=== PATIENT | male | born 1935 | race Caucasian/White ===

== ENCOUNTER → 2020-04-28 09:20 | Outpatient (BNVA) | payer MEDICARE, SELFPAY | PROVIDERS: PCP Internal Medicine; Referring Provider Internal Medicine; Visit Provider Family Medicine Adult Medicine | DX: B02.29 Other postherpetic nervous system involvement (principal); G50.0 Trigeminal neuralgia; R51.9 Headache, unspecified; Z79.899 Other long term (current) drug therapy; Z79.82 Long term (current) use of aspirin; Z95.0 Presence of cardiac pacemaker | CPT/HCPCS: 99213 ==

== ENCOUNTER 2020-05-09 11:20 | Outpatient (REF) | payer MEDICARE, SELFPAY | END 2020-05-09 11:21 | disposition home or self-care (01) | LOC: HO.LNP 11:20 | PROVIDERS: Visit Provider Hospitalist | DX: Z20.828 Contact with and (suspected) exposure to other viral communicable diseases (principal) | CPT/HCPCS: 87635 ==

== ENCOUNTER 2020-05-30 08:20 | Outpatient (REF) | payer MEDICARE, SELFPAY ==
--- NOTE | 2020-05-30 08:25 | US_ITS ---
EXAMINATION: US ABDOMEN COMPLETE CLINICAL INFORMATION: Unspecified abdominal pain. COMPARISON: Limited retroperitoneal ultrasound (renals only) dated 03/02/2020. CT abdomen pelvis 08/28/2011 TECHNIQUE: Real-time imaging of the abdominal viscera. FINDINGS: PANCREAS: Visualized proximal pancreas is normal. The tail of the pancreas is obscured by bowel gas. ABDOMINAL AORTA: There are atherosclerotic changes of the aorta but no aneurysm seen. INFERIOR VENA CAVA: Visualized portions are normal. LIVER: There is a complex cystic 4.4 x 2.8 x 3.4 cm structure adjacent to or arising from the liver near the binta hepatis. This has thick septations and solid component internally. This was not seen on the recent renal ultrasound 03/02/2020 normal on the remote prior CT scan 08/28/2011. There is also a 1.7 x 1.8 x 1.7 cm cyst in the left lobe of liver with a single thin septation. The liver is normal in size. The liver contour is normal. Parenchymal echogenicity is normal. There is no intrahepatic biliary duct dilatation seen. GALLBLADDER: Surgically absent. COMMON BILE DUCT: Normal in caliber measuring 0.62 cm in diameter. RIGHT KIDNEY: Normal. No hydronephrosis. No renal calculi or focal parenchymal lesions. The kidney measures 11.5 cm in maximum dimension. LEFT KIDNEY: Normal. No hydronephrosis. No renal calculi or focal parenchymal lesions. The kidney measures 11.8 cm in maximum dimension. SPLEEN: Normal. The spleen measures 9.0 cm in maximum dimension. FREE FLUID: None. US/US abdomen complete IMPRESSION: New complex cystic 4.4 cm structure seen arising from or adjacent to the liver near the binta hepatis. The finding is new from recent prior studies. The etiology is not entirely certain. This could represent a liver lesion such as an abscess or metastasis but a mass in the binta hepatis such as lymphadenopathy is a consideration as well. Recommend contrast-enhanced CT scan for further evaluation. The report will be called to the ordering clinician by a [facility] Physician Academic Associate.
== END 2020-05-30 08:21 | disposition home or self-care (01) ==
LOC: HO.HMGCX 08:20
PROVIDERS: PCP Nurse Practitioner Family; Visit Provider Nurse Practitioner Family
DX: R10.9 Unspecified abdominal pain (principal)
CPT/HCPCS: 76700

== ENCOUNTER 2020-06-20 11:40 | Outpatient (REF) | payer MEDICARE, SELFPAY ==
[2020-06-20 14:26] LABS: Blood Urea Nitrogen 29 mg/dL (9-16); Estimated Glomerular Filt Rate 40
== END 2020-06-20 11:41 | disposition home or self-care (01) ==
LOC: HO.HMGCLDS 11:40
PROVIDERS: PCP Internal Medicine; Visit Provider Nurse Practitioner Family
DX: R94.4 Abnormal results of kidney function studies (principal)
CPT/HCPCS: 82565; 84520

== ENCOUNTER 2020-06-23 08:05 | Outpatient (REF) | payer MEDICARE, OTHER, SELFPAY ==
--- NOTE | 2020-06-23 08:17 | CT_ITS ---
EXAMINATION: CT ABDOMEN WITH CONTRAST CLINICAL INFORMATION: Ultrasound abdomen 05/30/2020 COMPARISON: None TECHNIQUE: Contiguous axial thin section helical images of the abdomen were performed following the administration of oral contrast and 85 mL of Omnipaque 350 intravenous contrast. The data set was reformatted in the coronal and sagittal planes and reviewed on an independent workstation. This CT examination was performed using dose optimization techniques as appropriate, variously including the following: *Automated exposure control *Adjustment of mA and/or kV according to patient size (this includes techniques or standardized protocols for targeted exams where dose is matched to indication/reason for exam; i.e. extremities or head) *Use of iterative reconstruction technique DLP: 1069 mGy-cm FINDINGS: LUNG BASES: The lung bases are clear. The heart size is normal. There are pacer electrodes of the right atrium and right ventricle. Median sternotomy sutures are seen from previous intervention. LIVER, GALLBLADDER, AND BILIARY TREE: The liver is normal size, shape and density. There is a 1.7 cm hypodensity, left hepatic lobe, likely simple cyst. A smaller simple 5 mm cyst is seen in the right hepatic lobe segment 7. No additional lesions seen. No intrahepatic ductal dilatation. Gallbladder has been surgically removed. PANCREAS: The pancreas is homogeneous echotexture without enlargement. SPLEEN: The spleen is unremarkable. ADRENAL GLANDS AND KIDNEYS: Bilateral adrenal glands are normal. Both kidneys are normal size, shape and position. No radiopaque renal calculi or hydronephrosis seen. There is minimal perinephric bilateral stranding. BOWEL LOOPS: There is scattered stool and diverticula seen throughout the colon. There is no evidence of diverticulitis. The small bowel loops are normal caliber. The stomach is nondistended. LYMPH NODES: Normal. VASCULAR: There is atherosclerotic calcification of abdominal aorta without aneurysmal dilatation. BONES: No lytic or sclerotic process seen. There is mild ventral spondylosis lower dorsal upper lumbar spine. CT/CT abdomen w con IMPRESSION: 1. No acute intra-abdominal process seen. 2. Scattered colonic diverticulosis without diverticulitis.
[2020-06-23] MEDS: iohexoL 350 MG/ML 100 ML INFUS..BTL 85 ML IV (09:22)
== END 2020-06-23 08:06 | disposition home or self-care (01) ==
LOC: HO.CT 08:05
PROVIDERS: Visit Provider Nurse Practitioner Family
DX: K76.9 Liver disease, unspecified (principal); R10.9 Unspecified abdominal pain
CPT/HCPCS: 74160; Q9967

== ENCOUNTER 2020-09-20 10:00 | Outpatient (RCR) | payer MEDICARE, OTHER, SELFPAY ==
--- NOTE | 2020-07-28 10:57 | MHC.PT.EP ---
[facility] [place] Office [place] Office [place] Office [address] Rito Ramos [address] [phone] F: [phone] F: [phone] F: [phone] F: [phone] Physical Therapy Plan of Care Date of Evaluation: 07/28/20 Date of Surgery: none. Diagnosis: Left hip pain. Assessment: Patient is a 85 year old R handed male who presents with s/s consistent with hip pain. He was previously seen for back/HS discomfort with good results. He has a complex PMH and is on blood thinners. He has been fairly sedentary during the pandemic resulting in some weight gain. Otherwise, no change in PMH since lasts bout of PT. Current impairments include pain, ROM, flexibility, strength, activity tolerance and functional mobility. Functional limitations include decreased ability to walk, stand, transfer, negotiate stairs, and perform weight bearing activities.. Patient is motivated with good rehab potential. Skilled PT will address impairments and functional limitations in order to achieve goals. Frequency and Duration: The patient will be seen 2x/week for 6 weeks Short Term Goals: I with HEP - 2 weeks improve HS flexibility, 90/90 to -20 or better - 3 weeks Machine Tender Goals: Able to walk/stand > 20 minutes without increased pain - 4 weeks LEFS 56/80 - 6 weeks Lumbar AROM rotation to 75% b/l - 5 weeks MAx pain with ADLs 2/10 - 6 weeks hip abd strength 4/5 - 5 weeks Treatment Plan: Modalities to reduce pain, spasms and effusion. Manual therapy to restore motion and function. Therapeutic exercise to improve strength and flexibility. Neuromuscular re-education for posture and balance. Therapeutic activities to return to functional activities of daily living. Electronically signed by: Semaj Helm, PT Please sign and return to therapist. Thank you for your referral.
--- NOTE | 2020-11-02 13:11 | MHC.PT.DC ---
[facility] [place] Office [place] Office [place] Office [address] Rito Ramos [address] [phone] F: [phone] F: [phone] F: [phone] F: [phone] Physical Therapy Discharge Report Diagnosis: Left hip pain. Date of Surgery: none. Date of Evaluation: 07/28/20 Date of Discharge: 10/03/20 Treatments to Date: 14 Cancellations to Date: No Shows to Date: Discharge Status: Improved Function Independent with HEP Discharge Summary: Pt progressed well over the course of skilled PT making progress on impairments and functional limitations resulting in an improved quality of life. Pt is I with HEP and appropriate to d/c to HEP at this time. Electronically signed by: Semaj Helm, PT Please sign and return to therapist. Thank you for your referral.
== END 2020-11-02 13:11 | disposition home or self-care (01) ==
LOC: HO.PTCHIC 10:00
PROVIDERS: PCP Nurse Practitioner Family; Visit Provider Nurse Practitioner Family
DX: M25.552 Pain in left hip (principal)
CPT/HCPCS: 97035; 97110; 97112; 97140; 97163

== ENCOUNTER 2020-11-16 12:13 | Outpatient (REF) | payer MEDICARE, SELFPAY ==
[2020-11-16 14:21] LABS: Blood Urea Nitrogen 25 mg/dL (9-16); Estimated Glomerular Filt Rate 39
== END 2020-11-16 12:14 | disposition home or self-care (01) ==
LOC: HO.HMGCLDS 12:13
PROVIDERS: PCP Nurse Practitioner Family; Visit Provider Nurse Practitioner Family
DX: G50.0 Trigeminal neuralgia (principal); R51.9 Headache, unspecified
CPT/HCPCS: 36415; 82565; 84520

== ENCOUNTER 2020-11-20 08:09 | Outpatient (REF) | payer MEDICARE, SELFPAY ==
--- NOTE | ~2020-11-20 | CT_ITS ---
EXAMINATION: CT BRAIN WITHOUT/WITH CONTRAST CT INTERNAL AUDITORY CANALS CLINICAL INFORMATION: Trigeminal neuralgia. COMPARISON: CT brain 10/06/2019. TECHNIQUE: 5 mm thin axial and reformatted 2 mm thin sagittal and coronal images of the brain were obtained without and with IV 100 mL Omnipaque 350. Subsequently 0.6 mm thin axial and reformatted 0.6 mm thin sagittal and coronal images of bilateral IAC was obtained. DLP: 1101 mGy-cm. FINDINGS: BRAIN: There is no acute intra-axial or extra-axial bleed, masses or midline shift. There is no acute infarction in evolution. There are punctate hypodensities in the right thalamus and right basal ganglia, likely small lacunar infarcts. Lateral ventricles are symmetrical in size and configuration without enlargement. There is mild periventricular hypodensity in both cerebral hemispheres suggestive of chronic small vessel ischemic changes. Bone windows reveal no calvarial abnormality. Mild mucoperiosteal thickening bilateral paranasal sinuses noted. The rest of the paranasal sinuses and mastoid air cells are well aerated. There is no scalp soft tissue abnormality. IAC: There is moderate-sized wax seen in the right external auditory canal, almost attached to the tympanic membrane. The tympanic membrane and the scutum appear intact. The middle ear ossicles are symmetrical to the left middle ear. There is no soft tissue mass, fluid collection or mucosal thickening. Bilateral internal artery canals are intact. There is no bony erosive changes. The soft tissues are normal. The right mastoid air cells are well aerated. The left external auditory canal is unremarkable. The tympanic membrane appears intact. The middle ear ossicles are symmetrical to the right side. No soft tissue mass or fluid collection seen in the left middle ear. The internal auditory canal is intact and symmetrical to right side. The semicircular canals, vestibule and the cochlear turns are maintained normal. No bony abnormality seen involving the middle ear. Bony elaine of the mastoid sinuses including the roof of the middle ear and the tegmen tympani are intact. Bilateral carotid canals are intact with bony elaine. Atherosclerotic calcification of both intracranial carotid arteries is noted. 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 No acute intracranial bleed, edema or mass effect. No acute infarct either. Symmetrical bilateral unremarkable mastoid sinuses, temporal bones except for moderate size soft tissue plaques along the right external auditory canal adjacent to the tympanic membrane.
== END 2020-11-20 08:10 | disposition home or self-care (01) ==
LOC: HO.CT 08:09
PROVIDERS: Visit Provider Nurse Practitioner Family
DX: G50.0 Trigeminal neuralgia (principal)
CPT/HCPCS: 70450; 70480

== ENCOUNTER 2021-01-08 11:12 | Outpatient (REF) | payer MEDICARE, SELFPAY ==
[2021-01-08 12:30] LABS: Anion Gap 9 (12-20); Blood Urea Nitrogen 30 mg/dL (9-16); Calcium 8.7 mg/dL (8.4-10.2); Carbon Dioxide 29 mmol/L (22-29); Chloride 108 mmol/L (96-108); Estimated Glomerular Filt Rate 38; Phosphorus 3.2 mg/dL (2.7-4.5); Potassium 5.1 mmol/L (3.3-5.1); Sodium 141 mmol/L (135-145)
[2021-01-08 12:41] LABS: Renal w Reflex Lab Use Only Order verified
== END 2021-01-08 11:13 | disposition home or self-care (01) ==
LOC: HO.LAB 11:12
PROVIDERS: Visit Provider Internal Medicine Nephrology
DX: I12.9 Hypertensive chronic kidney disease with stage 1 through stage 4 chronic kidney disease, or unspecified chronic kidney disease (principal); N18.30 Chronic kidney disease, stage 3 unspecified; R79.89 Other specified abnormal findings of blood chemistry
CPT/HCPCS: 36415; 80051; 82310; 82565; 84100; 84520

== ENCOUNTER 2021-04-16 07:39 | Day surgery (SDC) | payer MEDICARE, OTHER, SELFPAY ==
[2021-04-10 15:47] VITALS: BMI 34.1
--- NOTE | 2021-04-11 13:28 | MHC.SHP ---
Pre-Procedural Eval Section A Date of Service: 04/11/21 The patient is an INPATIENT: No Changes since office visit: No Cold of Flu in the past 2 weeks, No New Medical Problems, No Changes in Medication and No Patient answered all questions The History & Physical has been completed within 30 days and I have reviewed it.: Yes Section B Chief Complaint: cataract left eye Allergies: Allergies Allergy/AdvReac Type Severity Reaction Status Date / Time gabapentin Allergy Unknown lip Verified 04/10/21 15:36 swelling pregabalin [From Lyrica] Allergy Unknown Swelling Verified 04/10/21 15:36 Plan Diagnosis/Plan: Unchanged I have reviewed the history and physical and performed a pertinent physical examination on my patient. No changes have occurred unless specified.
--- NOTE | 2021-04-13 08:55 | HO.ANESPROP2 ---
Documented by User: Pari Espinoza NP 04/13/21 09:02 HPI - Anesthesia Eval Consult details Narrative: 86yo M for Left Cataract Extraction IOL Insertion PCP cleared No prev cataract on record Xarelto for afib and s/p AVR PMFSH Active Problems Active Problems: All Active Problems (Updated 04/12/21 @ 09:13 by [facility] Chest discomfort (Acute) Viral syndrome (Acute) Skin lesion (Acute) Abdominal pain (Acute) Hepatic lesion (Acute) Kidney function test abnormal (Acute) Depression (Acute) Lower back pain (Acute) Left hip pain (Acute) Trigeminal neuralgia (Acute) Pre-op evaluation (Acute) Right facial pain (Acute) Trigeminal neuralgia (Acute) Post herpetic neuralgia (Acute) Past Medical History Medical History (Updated 04/12/21 @ 09:13 by [facility]) Aortic stenosis Atrial fibrillation CAD (coronary artery disease) CKD (chronic kidney disease) Dyslipidemia Elevated PSA Gout History of claustrophobia History of shingles On anticoagulant therapy On beta diana at home Post herpetic neuralgia Right facial pain Spinal stenosis of lumbar region Trigeminal neuralgia Family History Family History Father No problems noted. Mother No problems noted. Surgical History Surgical History H/O aortic valve replacement History of aortic valve replacement History of fracture of leg History of heart bypass surgery History of laparoscopic cholecystectomy Pacemaker Status post lens implant Social History Social History (Reviewed 06/28/20 @ 07:34 by [facility]) Housing: House Are you a primary care manager to a significant other at home: No Do you presently have visiting nurse or other home services: No Patient Tobacco Use Status: Never used Tobacco e-Cigarette/Vaping Use: Never Used Second Hand Smoke Exposure: Yes Use of substances other than those prescribed or required for medical reasons: No Have you been hit, kicked, punched, or otherwise hurt by someone within the past year? If so, by whom?: No Are you DNR?: No Advance Directives: No Advance Directives Information Provided: No Advance Directives on File: No Recently lost weight without trying: No Eating poorly because of decreased appetite: No Nutrition Risks: No Nutritional Risk Poor oral hygiene: No service: Yes Current occupational status: unemployed Current occupational exposures/hazards: No Meds Allergies Allergy/AdvReac Type Severity Reaction Status Date / Time gabapentin Allergy Unknown lip Verified 04/12/21 09:05 swelling pregabalin [From Lyrica] Allergy Unknown Swelling Verified 04/12/21 09:05 Home Medications Medication Instructions Recorded Confirmed Last Taken Type amiodarone 100 mg tablet 100 mg PO DAILY 04/22/20 04/10/21 04/16/21 History amitriptyline 25 mg tablet 25 mg PO BID tab 04/22/20 04/10/21 Unknown History ascorbic acid (vitamin C) 100 mg 100 mg PO DAILY 04/22/20 04/10/21 Unknown History tablet (Vitamin C) aspirin 81 mg tablet,delayed 81 mg PO DAILY 04/22/20 04/10/21 Unknown History release (Adult Aspirin Regimen) flu vacc 2019-(65yr IM 04/22/20 01/11/21 Unknown History up)-MF59C(PF) 60 mcg(15 mcgx4)/0.5 mL IM syringe metoprolol tartrate 50 mg tablet 50 mg PO BID 04/22/20 04/10/21 04/16/21 History nitroglycerin 0.4 mg sublingual 0.4 mg SUBLINGUAL Q5M PRN 04/22/20 04/10/21 Unknown History tablet omeprazole 10 mg capsule,delayed 10 mg PO DAILY 04/22/20 04/10/21 04/16/21 History release rivaroxaban 20 mg tablet (Xarelto) 20 mg PO DAILY 04/22/20 04/10/21 04/16/21 History zolpidem 10 mg tablet (Ambien) 10 mg PO ONCE tab 04/22/20 04/10/21 Unknown History Exam Exam Date and Time: April 13, 2021 0855 Height,Weight and Vital Signs: Height 5 ft 9 in Weight 104.78 kg Pertinent Lab Results Pertinent Lab Results: Laboratory Tests 05/22/19 01/08/21 11:11 11:25 WBC 6.0 Hgb 14.1 Hct 43.8 Plt Count 104 L Sodium 141 Potassium 5.1 Chloride 108 Carbon Dioxide 29 BUN 30 H Creatinine 1.73 H Assessment and Plan Assessment Anesthesia Assessment: Chart Reviewed Documented by User: Robby Bunch MD 04/16/21 08:34 [facility] Past Medical History Medical History (Updated 04/12/21 @ 09:13 by [facility]) Aortic stenosis Atrial fibrillation CAD (coronary artery disease) CKD (chronic kidney disease) Dyslipidemia Elevated PSA Gout History of claustrophobia History of shingles On anticoagulant therapy On beta diana at home Post herpetic neuralgia Right facial pain Spinal stenosis of lumbar region Trigeminal neuralgia Family History Family History Father No problems noted. Mother No problems noted. Family history of problems with anesthesia: No Surgical History Surgical History H/O aortic valve replacement History of aortic valve replacement History of fracture of leg History of heart bypass surgery History of laparoscopic cholecystectomy Pacemaker Status post lens implant History of Problems with Anesthesia: No Social History Social History Housing: House Are you a primary care manager to a significant other at home: No Do you presently have visiting nurse or other home services: No Patient Tobacco Use Status: Never used Tobacco e-Cigarette/Vaping Use: Never Used Second Hand Smoke Exposure: Yes Use of substances other than those prescribed or required for medical reasons: No Have you been hit, kicked, punched, or otherwise hurt by someone within the past year? If so, by whom?: No Are you DNR?: No Advance Directives: No Advance Directives Information Provided: No Advance Directives on File: No Recently lost weight without trying: No Eating poorly because of decreased appetite: No Nutrition Risks: No Nutritional Risk Poor oral hygiene: No service: Yes Current occupational status: unemployed Current occupational exposures/hazards: No Meds Allergies Allergy/AdvReac Type Severity Reaction Status Date / Time gabapentin Allergy Unknown lip Verified 04/12/21 09:05 swelling pregabalin [From Lyrica] Allergy Unknown Swelling Verified 04/12/21 09:05 Home Medications Medication Instructions Recorded Confirmed Last Taken Type amiodarone 100 mg tablet 100 mg PO DAILY 04/22/20 04/10/21 04/16/21 History amitriptyline 25 mg tablet 25 mg PO BID tab 04/22/20 04/10/21 Unknown History ascorbic acid (vitamin C) 100 mg 100 mg PO DAILY 04/22/20 04/10/21 Unknown History tablet (Vitamin C) aspirin 81 mg tablet,delayed 81 mg PO DAILY 04/22/20 04/10/21 Unknown History release (Adult Aspirin Regimen) flu vacc 2019-(65yr IM 04/22/20 01/11/21 Unknown History up)-MF59C(PF) 60 mcg(15 mcgx4)/0.5 mL IM syringe metoprolol tartrate 50 mg tablet 50 mg PO BID 04/22/20 04/10/21 04/16/21 History nitroglycerin 0.4 mg sublingual 0.4 mg SUBLINGUAL Q5M PRN 04/22/20 04/10/21 Unknown History tablet omeprazole 10 mg capsule,delayed 10 mg PO DAILY 04/22/20 04/10/21 04/16/21 History release rivaroxaban 20 mg tablet (Xarelto) 20 mg PO DAILY 04/22/20 04/10/21 04/16/21 History zolpidem 10 mg tablet (Ambien) 10 mg PO ONCE tab 04/22/20 04/10/21 Unknown History Exam Airway Mallampati Class: II TM Dist: >3cm Neck ROM: Full Denture: Upper (partial permanent) and Lower Loose/Missing/Broken Teeth: Yes Heart: irreg irreg S1S2 Lungs: cta b/l Assessment and Plan Assessment Anesthesia Assessment: Anesthesia Plan Discussed Final Anesthetic Review Family History of Problems with Anesthesia: No History of Problems with Anesthesia: No NPO: Yes ASA Class: III Final Preanesthetic Review: No Changes in Pt Med Stat, Meds/Allgs Chart Reviewed, Consent Obtained/Reviewed and Anes Risks/Benef Reviewed Patient Risk: Intermediate Procedure Risk: Low Assessment/Block/Sedation in SS: Assess/Block/Sedation-SS Anesthetic Plan Anesthetic Plan: MAC: and Agree w/ Assess. and Plan Disposition: Standard PACU
[2021-04-16 08:03] VITALS: BP 170/89; PULSE 63; RESP 17; TEMP 36.1; O2SAT 96
[2021-04-16] MEDS: Tropicamide 1 % Ophth Sol 3 ML BTL 1 DROP EYE-LEFT ×3 (08:15→08:16)
[2021-04-16] MEDS: Phenylephrine HCL 2.5% Oph SoL 2 ML BOTTLE 1 DROP EYE-LEFT ×3 (08:15→08:16)
[2021-04-16] MEDS: Tetracaine HCl/PF 0.5% Oph Sol 4 ML DROPS 1 DROP EYE-LEFT (08:15)
[2021-04-16] MEDS: Lactated Ringers 500 ML 50 ML IV (08:20)
--- NOTE | 2021-04-16 09:30 | HO.PNOPHT ---
Ophthalmology Procedure Procedure Date of Service: 04/16/21 Ophthalmology Viscoelastic: Healon Duet Dual Pack Pro Ophthalmology Lenses: TECNIS [id number] (19.5) Procedure Notes: PREOPERATIVE DIAGNOSIS: Decreased visual acuity left eye secondary to cataract POSTOPERATIVE DIAGNOSIS: Same PROCEDURE: Left cataract extraction with intraocular lens insertion SURGEON: Zuhair Adames M.D. ANESTHESIA: Topical/MAC ESTIMATED BLOOD LOSS: None COMPLICATIONS: None After obtaining informed consent, the patient was brought to the operation room suite and placed in the supine position. After adequate sedation per anesthesia, topical drops of Tetracaine were given to the left eye. The eye was then prepped and draped in the usual sterile fashion. The operating room microscope was then positioned over the operative eye and a lid speculum placed. A paracentesis was created. Viscoelastic was then instilled into the anterior chamber. A three plane incision was then created temporally, utilizing a 2.85 mm keratome. Capsulotomy forceps were then utilized to create a circular tear capsulotomy. Hydrodissection and hydrodelineation were carried out until adequate mobilization of the nucleus occurred. Phacoemulsification was then utilized to remove the dense central nucleus followed by removal of the cortical material utilizing the automated aspiration irrigation unit. Viscoat elastic was instilled into the posterior capsular bag followed by placement of a posterior chamber intraocular lens without difficulty. The residual Viscoat elastic was then removed utilizing the automated IA machine. The wound was check and found to be watertight. The patient tolerated the procedure well and the lid speculum was removed. Intracameral injection of Vigamox 0.1 mL followed by a subtenon injection of Kenalog-40 0.2 mL were administered. The patient will be seen in the a.m.
[2021-04-16 09:55] VITALS: BP 165/80; PULSE 54; RESP 16; TEMP 36.5; O2SAT 98
== END 2021-04-16 10:02 | disposition home or self-care (01) ==
PROVIDERS: PCP Nurse Practitioner Family; Visit Provider Ophthalmology
PROC: (CPT 66985; principal; 2021-04-16 09:40)
DX: H25.12 Age-related nuclear cataract, left eye (principal)
CPT/HCPCS: 66984; J2250; J3010; J3300; V2632

== ENCOUNTER 2021-05-22 09:26 | Outpatient (REF) | payer MEDICARE, SELFPAY ==
[2021-05-22 12:01] LABS: Alanine Aminotransferase 30 U/L (0-40); Albumin Level 3.9 g/dL (3.5-5.0); Alkaline Phosphatase 75 U/L (39-117); Anion Gap 12 (12-20); Aspartate Amino Transferase 27 U/L (5-37); Bilirubin Total 0.6 mg/dL (0.0-1.0); Blood Urea Nitrogen 25 mg/dL (9-16); Calcium 8.9 mg/dL (8.4-10.2); Carbon Dioxide 27 mmol/L (22-29); Chloride 107 mmol/L (96-108); Estimated Glomerular Filt Rate 40; Glucose Random 109 mg/dL (60-115); Potassium 4.7 mmol/L (3.3-5.1); Sodium 141 mmol/L (135-145); Total Protein 6.9 g/dL (6.5-8.0)
[2021-05-22 12:22] LABS: TSH reflex Free T4 1.29 uIU/mL (0.32-4.0)
== END 2021-05-22 09:27 | disposition home or self-care (01) ==
LOC: HO.HMGCLDS 09:26
PROVIDERS: PCP Nurse Practitioner Family; Visit Provider Internal Medicine Cardiovascular Disease
DX: I48.19 Other persistent atrial fibrillation (principal)
CPT/HCPCS: 36415; 80053; 84443

== ENCOUNTER 2021-06-18 08:58 | Outpatient (REF) | payer MEDICARE, SELFPAY ==
--- NOTE | ~2021-06-18 | XR_ITS ---
EXAMINATION: XR CHEST CLINICAL INFORMATION: These. COMPARISON: None TECHNIQUE: 2 views of the chest were obtained. FINDINGS: The lungs are well-expanded and clear. The heart size and pulmonary vascularity is normal. There are pacer electrodes in right atrium and right ventricle. There is aortic valve stent is noted. There are median sternotomy sutures and nasal diana from previous CABG. No gross bony abnormality. XR/XR chest 2V IMPRESSION: No acute cardiopulmonary process.
[2021-06-18 11:22] LABS: MANUAL DIFF FLAG NO
[2021-06-18 11:51] LABS: Basophils Percent Auto 0.7 % (0-2); Eosinophils Absolute Auto 0.2 X10*3/uL (0.0-0.4); Eosinophils Percent Auto 3.7 % (0-4); Hemoglobin 14.2 g/dl (14.0-18.0); Imm Gran Abs Auto 0.02 X10*3/uL (0.00-0.03); Imm Gran Pct Auto 0.4 % (0.0-0.4); Lymphocytes Absolute Auto 1.1 X10*3/uL (1.2-4.9); Lymphocytes Percent Auto 20.7 % (20-40); Mean Corpuscular HGB Conc 30.9 g/dl (31.0-36.0); Mean Corpuscular Hemoglobin 30.2 pg (27.0-33.0); Mean Corpuscular Volume 97.9 fL (80.0-98.0); Mean Platelet Volume 11.4 fL (9.4-12.4); Monocytes Absolute Auto 0.8 X10*3/uL (0.1-1.2); Monocytes Percent Auto 15.4 % (2-11); Neutrophils Absolute Auto 3.2 x10*3/uL (2.0-8.3); Neutrophils Percent Auto 59.1 % (45-73); Platelet Count 125 X10*3/uL (160-400); Red Cell Distribution Width 14.8 % (11.0-16.0); White Blood Count 5.4 X10*3/uL (4.8-10.8)
[2021-06-18 12:23] LABS: Prostate Specific Antigen Scr 3.32 ng/mL (<0.05-4.0)
== END 2021-06-18 08:59 | disposition home or self-care (01) ==
LOC: HO.HMGCLDS 08:58
PROVIDERS: Visit Provider Nurse Practitioner Family
DX: Z12.5 Encounter for screening for malignant neoplasm of prostate (principal); R06.2 Wheezing
CPT/HCPCS: 36415; 71046; 84153; 85025

== ENCOUNTER → 2021-06-25 08:05 | Outpatient (BNV) | payer MEDICARE, SELFPAY | PROVIDERS: PCP Nurse Practitioner Family; Referring Provider Nurse Practitioner Family; Visit Provider Internal Medicine | DX: D69.6 Thrombocytopenia, unspecified (principal) | CPT/HCPCS: 99204; 99212; 99213; 99214; G2211 ==

== ENCOUNTER 2021-07-09 19:17 | Outpatient (REF) | payer MEDICARE, SELFPAY ==
[2021-07-09 20:13] LABS: Influenza A PCR NEGATIVE (Negative); Influenza B PCR NEGATIVE (Negative); Resp Syncy Virus RNA Qual PCR NEGATIVE (Negative); SARS COV2 PCR INHOUSE NEGATIVE (Negative)
== END 2021-07-09 19:18 | disposition home or self-care (01) ==
LOC: HO.LNP 19:17
PROVIDERS: Visit Provider Physician Assistant
DX: R06.2 Wheezing (principal); Z20.822 Contact with and (suspected) exposure to COVID-19
CPT/HCPCS: 0241U

== ENCOUNTER 2021-07-25 12:41 | Outpatient (REF) | payer MEDICARE, SELFPAY ==
[2021-07-25 16:40] LABS: MANUAL DIFF FLAG NO
[2021-07-25 16:44] LABS: Basophils Percent Auto 0.5 % (0-2); Eosinophils Absolute Auto 0.2 X10*3/uL (0.0-0.4); Eosinophils Percent Auto 2.7 % (0-4); Hematocrit 43.1 % (42.0-52.0); Hemoglobin 13.6 g/dl (14.0-18.0); Imm Gran Abs Auto 0.01 X10*3/uL (0.00-0.03); Imm Gran Pct Auto 0.2 % (0.0-0.4); Lymphocytes Absolute Auto 1.4 X10*3/uL (1.2-4.9); Lymphocytes Percent Auto 20.6 % (20-40); Mean Corpuscular HGB Conc 31.6 g/dl (31.0-36.0); Mean Corpuscular Volume 98.2 fL (80.0-98.0); Mean Platelet Volume 10.9 fL (9.4-12.4); Monocytes Absolute Auto 0.9 X10*3/uL (0.1-1.2); Monocytes Percent Auto 13.6 % (2-11); Neutrophils Absolute Auto 4.2 x10*3/uL (2.0-8.3); Neutrophils Percent Auto 62.4 % (45-73); Platelet Count 116 X10*3/uL (160-400); Red Blood Count 4.39 X10*6/uL (4.60-5.80); Red Cell Distribution Width 14.2 % (11.0-16.0); White Blood Count 6.6 X10*3/uL (4.8-10.8)
[2021-07-25 17:12] LABS: Anion Gap 9 (12-20); Blood Urea Nitrogen 21 mg/dL (9-16); Carbon Dioxide 31 mmol/L (22-29); Chloride 106 mmol/L (96-108); Estimated Glomerular Filt Rate 43; Phosphorus 3.3 mg/dL (2.7-4.5); Potassium 5.2 mmol/L (3.3-5.1); Sodium 141 mmol/L (135-145)
[2021-07-25 17:29] LABS: Vitamin D 25-OH Total 48.6 ng/mL (>30)
[2021-07-26 12:26] LABS: Calcium (PTHI) 8.8 mg/dL (8.6-10.3); PTHI 52 pg/mL (14-64)
[2021-07-26 17:07] LABS: Prot Elec - Albumin 3.4 g/dL (3.8-4.8); Prot Elec - Alpha1 0.4 g/dL (0.2-0.3); Prot Elec - Alpha2 0.8 g/dL (0.5-0.9); Prot Elec - Beta 1 0.4 g/dL (0.4-0.6); Prot Elec - Beta 2 0.4 g/dL (0.2-0.5); Prot Elec - Gamma 1.1 g/dL (0.8-1.7); Prot Elec - Total Protein 6.4 g/dL (6.1-8.1)
== END 2021-07-25 12:42 | disposition home or self-care (01) ==
LOC: HO.HMGCLDS 12:41
PROVIDERS: PCP Nurse Practitioner Family; Visit Provider Internal Medicine Nephrology
DX: I12.9 Hypertensive chronic kidney disease with stage 1 through stage 4 chronic kidney disease, or unspecified chronic kidney disease (principal); N18.31 Chronic kidney disease, stage 3a
CPT/HCPCS: 36415; 80051; 82306; 82310; 82565; 83970; 84100; 84165; 84520; 85025

== ENCOUNTER → 2021-12-13 08:55 | Outpatient (BNVA) | payer MEDICARE, OTHER, SELFPAY | PROVIDERS: PCP Nurse Practitioner Family | DX: R35.0 Frequency of micturition (principal); R33.9 Retention of urine, unspecified | CPT/HCPCS: 51798; 99202 ==

== ENCOUNTER 2022-01-22 09:08 | Outpatient (REF) | payer MEDICARE, SELFPAY | END 2022-01-22 09:09 | disposition home or self-care (01) | LOC: HO.HMGCLDS 09:08 | PROVIDERS: PCP Nurse Practitioner Family | DX: R35.0 Frequency of micturition (principal); R33.9 Retention of urine, unspecified | CPT/HCPCS: 87086; Q3014 ==

== ENCOUNTER 2022-02-07 08:06 | Outpatient (REF) | payer MEDICARE, SELFPAY ==
[2022-02-07 11:14] LABS: Appearance Urine CLEAR; Color Urine YELLOW; Glucose Urine UA NEG (NEG); Leukocyte Esterase Urine NEG (NEG); Nitrite Urine NEG (NEG); PH 5.5 (5.0-8.0); Specific Gravity - Urine >= 1.030 (1.005-1.025); Urine Blood NEG (NEG); Urine Ketones NEG (NEG); Urine Protein NEG (NEG-TRACE)
[2022-02-07 11:29] LABS: Alanine Aminotransferase 17 U/L (0-40); Albumin Level 3.7 g/dL (3.5-5.0); Alkaline Phosphatase 67 U/L (39-117); Anion Gap 14 (12-20); Aspartate Amino Transferase 25 U/L (5-37); Bilirubin Total 1.1 mg/dL (0.0-1.0); Blood Urea Nitrogen 28 mg/dL (9-16); Calcium 8.5 mg/dL (8.4-10.2); Carbon Dioxide 25 mmol/L (22-29); Chloride 106 mmol/L (96-108); Cholesterol 85 mg/dL; Estimated Glomerular Filt Rate 32; Glucose Fasting 140 mg/dL (60-99); HDL Cholesterol 29 mg/dL; LDL Cholesterol Calculated 35 mg/dl; Potassium 4.5 mmol/L (3.3-5.1); Sodium 140 mmol/L (135-145); Total Protein 6.6 g/dL (6.5-8.0); Triglycerides 108 mg/dL
[2022-02-07 11:53] LABS: TSH reflex Free T4 1.91 uIU/mL (0.32-4.0)
== END 2022-02-07 08:07 | disposition home or self-care (01) ==
LOC: HO.HMGCLDS 08:06
PROVIDERS: PCP Nurse Practitioner Family; Visit Provider Nurse Practitioner Family
DX: I10 Essential (primary) hypertension (principal); R94.4 Abnormal results of kidney function studies
CPT/HCPCS: 36415; 80053; 80061; 81003; 84443

== ENCOUNTER 2022-02-08 03:15 | Inpatient (IN) | payer MEDICARE, OTHER, SELFPAY ==
[2022-02-08] VITALS (11 sets, daily range): BP systolic 135–183; BP diastolic 52–80; PULSE 56–75; RESP 16–20; TEMP 36.5–36.9; O2SAT 97–99; BMI 35.2
--- NOTE | ~2022-02-08 | CT_ITS ---
EXAMINATION: CT HEAD WITHOUT CONTRAST CLINICAL INFORMATION: Pain COMPARISON: 11/20/2020 TECHNIQUE: Contiguous axial imaging was performed from the skull base to vertex without intravenous administration of contrast. This CT examination was performed using dose optimization techniques as appropriate, variously including the following: *Automated exposure control *Adjustment of mA and/or kV according to patient size (this includes techniques or standardized protocols for targeted exams where dose is matched to indication/reason for exam; i.e. extremities or head) *Use of iterative reconstruction technique DLP: 869 mGy-cm FINDINGS: There is no evidence of acute intracranial hemorrhage or territorial infarction. No abnormal mass effect or midline shift is seen. Joaquin to white matter differentiation is well preserved. No extra-axial fluid collections are identified. The ventricles are normal in size. There is mild periventricular white matter hypoattenuation consistent with chronic small vessel ischemic disease. Mild volume loss is noted. The osseous structures and soft tissues are normal. Slight mucosal thickening of the left maxillary sinus. The mastoid air cells are well-aerated. CT/CT head/brain wo con IMPRESSION: No acute intracranial findings. Chronic small vessel ischemic disease and volume loss.
--- NOTE | ~2022-02-08 | CT_ITS ---
EXAMINATION: CT LUMBAR SPINE WITHOUT CONTRAST CLINICAL INFORMATION: Fall, back pain COMPARISON: Radiographs 05/22/2017 TECHNIQUE: No intravenous contrast was utilized. Multidetector helical imaging was performed through the lumbar spine. Coronal and sagittal reformatted images were created. This CT examination was performed using dose optimization techniques as appropriate, variously including the following: *Automated exposure control *Adjustment of mA and/or kV according to patient size (this includes techniques or standardized protocols for targeted exams where dose is matched to indication/reason for exam; i.e. extremities or head) *Use of iterative reconstruction technique DLP; 676 mGy-cm FINDINGS: There is anatomic alignment of the lumbar vertebral bodies and posterior elements. Vertebral body heights are maintained. Endplate osteophytes are present throughout the lumbar spine. Intervertebral disc spaces are relatively well-preserved. There is degenerative disc disease at L5-S1. There is moderate bilateral facet arthropathy of the lower lumbar spine. Mild central stenosis is suspected in the lower lumbar spine, suboptimally assessed on CT. Sacroiliac joints are intact with degenerative change. There is atherosclerotic calcification along the aorta and iliac arteries. CT/CT lumbar spine wo con IMPRESSION: No acute findings identified. Degenerative changes as noted above.
--- NOTE | 2022-02-08 03:57 | ECG_ITS ---
Test Reason : cp Blood Pressure : / mmHG Vent. Rate : 065 BPM Atrial Rate : 065 BPM P-R Int : 194 ms QRS Dur : 148 ms QT Int : 460 ms P-R-T Axes : 000 092 248 degrees QTc Int : 478 ms Atrial-paced rhythm Non-specific intra-ventricular conduction block Lateral infarct , age undetermined Abnormal ECG When compared with ECG of 23-SEP-2017 09:06, Electronic atrial pacemaker has replaced Electronic ventricular pacemaker Referred By: Rachelle Doyle Electronically Signed By:Ok Matthews
--- NOTE | 2022-02-08 04:10 | ED_ITS ---
HPI - Weakness General Chief complaint: Extremity Problem Stated complaint: Weakness? Time Seen by Provider: 02/08/22 03:56 Source: patient and old records reviewed Mode of arrival: EMS Limitations: no limitations History of Present Illness HPI Narrative: 86 yo male with hx of HTN, urinary frequency, chronic pain post shingles to R side of face that has subsided since starting lamotrigine 3 weeks ago, HLD, DM, GERD, PAF on xarelto reports one week ago he developed leg weakness - no numbness or tingling he denies this to me in front of RN after triage states numbness. He feels that at times below his thighs his legs just wont' work. He has fallen several times. He wasn't sure if this was due to lamotrigine and vesicar interacting. He is unsafe at home due to these falls. MD Complaint: difficulty walking Onset (ago): week(s) (1) Duration: intermittent Location: LLE and RLE Migration: descending (thighs down) Severity: moderate Quality: dull Relieving factors: none Exacerbating factors: movement (when he tries to get up) Context: new medication (vesicare) Associated symptoms: other (low back pain but no radiation to legs) Related Data Home Medications Medication Instructions Recorded Confirmed ascorbic acid (vitamin C) 100 mg 100 mg PO DAILY 04/22/20 10/23/21 tablet (Vitamin C) aspirin 81 mg tablet,delayed 81 mg PO DAILY 04/22/20 10/23/21 release (Adult Aspirin Regimen) metoprolol tartrate 50 mg tablet 50 mg PO BID 04/22/20 10/23/21 omeprazole 10 mg capsule,delayed 10 mg PO DAILY PRN Acid Reflux 04/22/20 10/23/21 release rivaroxaban 20 mg tablet (Xarelto) 20 mg PO DAILY 04/22/20 10/23/21 Previous Rx's Medication Instructions Recorded duloxetine 30 mg capsule,delayed 30 mg PO BID 90 days #180 caps 06/18/21 release atorvastatin 40 mg tablet 40 mg PO DAILY #90 tabs 07/25/21 ezetimibe 10 mg tablet 10 mg PO DAILY #90 tabs 10/03/21 cholecalciferol (vitamin D3) 50 50 mcg PO DAILY #90 tabs 01/22/22 mcg (2,000 unit) tablet oxybutynin chloride 10 mg 10 mg PO DAILY OAB 30 days #30 tabs 01/22/22 tablet,extended release 24 hr lorazepam 1 mg tablet 1 mg PO BID PRN anxiety 30 days 02/06/22 #60 tabs Allergies Allergy/AdvReac Type Severity Reaction Status Date / Time gabapentin Allergy Unknown lip Verified 01/22/22 09:11 swelling pregabalin [From Lyrica] Allergy Unknown lip Verified 01/22/22 09:11 swelling Review of Systems Review of Systems: Constitutional : No Fever, No Chills, No Fatigue, No Malaise ENT/Mouth : No sore throat, No Rhinorrhea Eyes: No Eye Pain, No Swelling, No Redness Cardiovascular : No Chest Pain, No SOB, No Dyspnea on Exertion, No Orthopnea, pos Edema, No Palpitations Respiratory : No Cough, No Sputum, No Wheezing Gastrointestinal : No Nausea, No Vomiting, No Diarrhea, No Constipation, No abdominal Pain, No Hematochezia, No Melena Genitourinary : No Dysuria, No Urinary Frequency, No Hematuria, Musculoskeletal : No joint pain, No Myalgias, No Joint Swelling Skin : No Skin Lesions, No rash, pos abrasions Neuro : pos Weakness, No Numbness, No Dizziness, No Headache, pos falls Psych : No Anxiety/Panic, No Depression Heme/Lymph: No Bruising, No Bleeding,No Lymphadenopathy Endocrine : No Polyuria, No Polydipsia All other systems reviewed and are negative [facility] Past Medical History Medical History Aortic stenosis Atrial fibrillation CAD (coronary artery disease) CKD (chronic kidney disease) Dyslipidemia Elevated PSA Gout History of claustrophobia History of shingles On anticoagulant therapy On beta diana at home Post herpetic neuralgia Right facial pain Spinal stenosis of lumbar region Trigeminal neuralgia Urinary frequency Surgical History H/O aortic valve replacement History of aortic valve replacement History of fracture of leg History of heart bypass surgery History of laparoscopic cholecystectomy Pacemaker Status post lens implant Family History Family History Father No problems noted. Mother No problems noted. Social History Social History Household Members: None Housing: House Are you a primary critical care nurse specialist to a significant other at home: No Do you presently have visiting nurse or other home services: Yes (every 3 months) Alcohol intake: never Patient Tobacco Use Status: Never used Tobacco e-Cigarette/Vaping Use: Never Used Second Hand Smoke Exposure: No Use of substances other than those prescribed or required for medical reasons: No Advance Directives: No service: Yes Current occupational status: unemployed and retired Current occupational exposures/hazards: No Cognitive needs: No Hearing needs: No Vision needs: No Physical Exam Vital Signs: Vital Signs: Last Vital Signs Temp 98.4 F 02/08/22 03:31 Pulse 65 02/08/22 06:00 Resp 18 02/08/22 06:00 BP 140/61 H 02/08/22 06:00 Pulse Ox 98 02/08/22 06:00 O2 Del Method 02/08/22 06:00 BMI result Body Mass Index 35.2 Appearance: Alert. Oriented X3. No acute distress. Eyes: Pupils equal, round and reactive to light. ENT: Pharynx normal. Neck: Normal inspection. Neck supple. CVS: Normal heart rate and rhythm. Pulses normal. Respiratory: No respiratory distress. Breath sounds normal. Abdomen: Soft and non-tender. Skin: Skin warm and dry. Normal skin color. Normal skin turgor. Extremities: pitting LE edema L > R 1+ chronic post bypass grafting. No calf ttp superficial skin tear left elbow Neuro: Oriented X 3. No motor deficit. No sensory deficit. 2+ DTR in R p atella/achilles, 2+ DTR in L achilles, 1+ DTR in patella but area is swollen and difficult to get - sensation intact in all parts of LE including to light and hard touch, no clonus Course Course Course Narrative: no drug interactions between vesicare and lamotrigine signed out to Dr. Alvarado pending repeat CPK and possible PT/CM MDM - Weakness MDM Narrative Medical decision making narrative: 86 yo male with hx of HTN, urinary frequency, chronic pain post shingles to R side of face that has subsided since starting lamotrigine 3 weeks ago, HLD, DM, GERD, PAF on xarelto here with c/o LE weakness and intermittent inability to walk - at this time he is NV intact it is intermittent not ascending - NV intact normal sensation only diminished reflex at L patella likely due to swelling. This seems atypical for GBS. Will obtain labs, CT head for ICH given falls and DOAC use. CT lumbar spine given back pain. Patient and family requesting rehab if workup is negative. Lab Data Result diagrams: 02/08/22 04:24 02/08/22 04:24 Labs: Lab Results 02/08/22 02/08/22 02/08/22 Range/Units 04:23 04:24 04:24 WBC 8.9 (4.8-10.8) X10*3/uL RBC 3.97 L (4.60-5.80) X10*6/uL Hgb 12.3 L (14.0-18.0) g/dl Hct 38.3 L (42.0-52.0) % MCV 96.5 (80.0-98.0) fL MCH 31.0 (27.0-33.0) pg MCHC 32.1 (31.0-36.0) g/dl RDW 14.5 (11.0-16.0) % Plt Count 99 L (160-400) X10*3/uL MPV 10.3 (9.4-12.4) fL Immature Gran % (Auto) 0.3 (0.0-0.4) % Neut % (Auto) 75.3 H (45-73) % Lymph % (Auto) 12.1 L (20-40) % Bryan % (Auto) 11.3 H (2-11) % Eos % (Auto) 0.8 (0-4) % Baso % (Auto) 0.2 (0-2) % Lymph # (Auto) 1.1 L (1.2-4.9) X10*3/uL Bryan # (Auto) 1.0 (0.1-1.2) X10*3/uL Eos # (Auto) 0.1 (0.0-0.4) X10*3/uL Baso # (Auto) 0.0 (0.0-0.2) X10*3/uL Abs Immat Gran (auto) 0.03 (0.00-0.03) X10*3/uL Absolute Neuts (auto) 6.7 (2.0-8.3) x10*3/uL Absolute Nucleated RBC 0.000 (0.0-0.012) X10*3/uL Nucleated RBC % (auto) 0.0 (0.0-0.2) /100WBC PT 39.8 H (10.0-13.1) SEC INR 3.3 H (0.9-1.1) Sodium (135-145) mmol/L Potassium (3.3-5.1) mmol/L Chloride (96-108) mmol/L Carbon Dioxide (22-29) mmol/L Anion Gap (12-20) BUN (9-16) mg/dL Creatinine (0.5-1.4) mg/dL Estim Creat Clear Calc Estimated GFR Random Glucose (60-115) mg/dL Calcium (8.4-10.2) mg/dL Magnesium (1.6-2.6) mg/dL Total Bilirubin (0.0-1.0) mg/dL Direct Bilirubin (0.0-0.5) mg/dL AST (5-37) U/L ALT (0-40) U/L Alkaline Phosphatase (39-117) U/L Total Creatine Kinase (38-174) U/L C-Reactive Protein (< or = 0.50) mg/dL Total Protein (6.5-8.0) g/dL Albumin (3.5-5.0) g/dL Procalcitonin ng/mL COVID-19 (FABI) Negative (Negative) COVID-19 Clin Com See Note 02/08/22 02/08/22 Range/Units 04:24 04:24 WBC (4.8-10.8) X10*3/uL RBC (4.60-5.80) X10*6/uL Hgb (14.0-18.0) g/dl Hct (42.0-52.0) % MCV (80.0-98.0) fL MCH (27.0-33.0) pg MCHC (31.0-36.0) g/dl RDW (11.0-16.0) % Plt Count (160-400) X10*3/uL MPV (9.4-12.4) fL Immature Gran % (Auto) (0.0-0.4) % Neut % (Auto) (45-73) % Lymph % (Auto) (20-40) % Bryan % (Auto) (2-11) % Eos % (Auto) (0-4) % Baso % (Auto) (0-2) % Lymph # (Auto) (1.2-4.9) X10*3/uL Bryan # (Auto) (0.1-1.2) X10*3/uL Eos # (Auto) (0.0-0.4) X10*3/uL Baso # (Auto) (0.0-0.2) X10*3/uL Abs Immat Gran (auto) (0.00-0.03) X10*3/uL Absolute Neuts (auto) (2.0-8.3) x10*3/uL Absolute Nucleated RBC (0.0-0.012) X10*3/uL Nucleated RBC % (auto) (0.0-0.2) /100WBC PT (10.0-13.1) SEC INR (0.9-1.1) Sodium 140 (135-145) mmol/L Potassium 4.4 (3.3-5.1) mmol/L Chloride 107 (96-108) mmol/L Carbon Dioxide 24 (22-29) mmol/L Anion Gap 13 (12-20) BUN 29 H (9-16) mg/dL Creatinine 1.96 H (0.5-1.4) mg/dL Estim Creat Clear Calc 33.4 Estimated GFR 33 Random Glucose 129 H (60-115) mg/dL Calcium 8.4 (8.4-10.2) mg/dL Magnesium 2.2 (1.6-2.6) mg/dL Total Bilirubin 1.2 H (0.0-1.0) mg/dL Direct Bilirubin 0.6 H (0.0-0.5) mg/dL AST 48 H D (5-37) U/L ALT 21 (0-40) U/L Alkaline Phosphatase 68 (39-117) U/L Total Creatine Kinase 1540 H (38-174) U/L C-Reactive Protein 0.67 H (< or = 0.50) mg/dL Total Protein 6.4 L (6.5-8.0) g/dL Albumin 3.7 (3.5-5.0) g/dL Procalcitonin 0.13 ng/mL COVID-19 (FABI) (Negative) COVID-19 Clin Com ECG Data Attestation: I personally reviewed and interpreted this ECG as follows: ECG interpretation date: 02/08/22 ECG interpretation time: 04:32 Interpretation: Rate: 65 Rhythm: atrial paced [place]: normal wide QRS ST T wave : nonspecific no SARA qTC: normal prior studies: no acute ischemia The study has been interpreted contemporaneously by me. . Discharge Plan Discharge Clinical Impression: Rhabdomyolysis, Weakness Patient Disposition: Still a Patient Prescriptions: No Action atorvastatin 40 mg tablet 40 mg PO DAILY Qty: 90 4RF ezetimibe 10 mg tablet 10 mg PO DAILY Qty: 90 1RF cholecalciferol (vitamin D3) 50 mcg (2,000 unit) tablet 50 mcg PO DAILY Qty: 90 3RF lorazepam 1 mg tablet 1 mg PO BID PRN (Reason: anxiety) 30 Days Qty: 60 1RF duloxetine 30 mg capsule,delayed release(DR/EC) 30 mg PO BID 90 Days Qty: 180 2RF metoprolol tartrate 50 mg tablet 50 mg PO BID aspirin [Adult Aspirin Regimen] 81 mg tablet,delayed release (DR/EC) 81 mg PO DAILY Xarelto 20 mg tablet 20 mg PO DAILY Rx Instructions: must administer with evening meal omeprazole 10 mg capsule,delayed release(DR/EC) 10 mg PO DAILY PRN (Reason: Acid Reflux) Vitamin C 100 mg tablet 100 mg PO DAILY oxybutynin chloride 10 mg tablet extended release 24 hr 10 mg PO DAILY 30 Days Qty: 30 0RF
[2022-02-08 04:33] LABS: MANUAL DIFF FLAG NO
[2022-02-08 04:35] LABS: Basophils Percent Auto 0.2 % (0-2); Eosinophils Absolute Auto 0.1 X10*3/uL (0.0-0.4); Eosinophils Percent Auto 0.8 % (0-4); Hematocrit 38.3 % (42.0-52.0); Hemoglobin 12.3 g/dl (14.0-18.0); Imm Gran Abs Auto 0.03 X10*3/uL (0.00-0.03); Imm Gran Pct Auto 0.3 % (0.0-0.4); Lymphocytes Absolute Auto 1.1 X10*3/uL (1.2-4.9); Lymphocytes Percent Auto 12.1 % (20-40); Mean Corpuscular HGB Conc 32.1 g/dl (31.0-36.0); Mean Corpuscular Volume 96.5 fL (80.0-98.0); Mean Platelet Volume 10.3 fL (9.4-12.4); Monocytes Percent Auto 11.3 % (2-11); Neutrophils Absolute Auto 6.7 x10*3/uL (2.0-8.3); Neutrophils Percent Auto 75.3 % (45-73); Platelet Count 99 X10*3/uL (160-400); Red Blood Count 3.97 X10*6/uL (4.60-5.80); Red Cell Distribution Width 14.5 % (11.0-16.0); White Blood Count 8.9 X10*3/uL (4.8-10.8)
[2022-02-08 04:39] LABS: INTERNATIONAL NORM RATIO 3.3 (0.9-1.1); Prothrombin Time 39.8 SEC (10.0-13.1)
--- NOTE | 2022-02-08 04:44 | PC.NURSE ---
pt made aware that we need a urine sample. pt assisted to side of bed, pt able to stand to attempt to urinate. pt unable to void while standing, pt slowly began to lose leg strength and fell back onto bed. pt assisted to lying position in bed. at bedside. pt in no distress. ecchymosis noted to rt side and left side upper back
[2022-02-08 04:57] LABS: COVID-19 Test Negative (Negative)
[2022-02-08 05:03] LABS: Alanine Aminotransferase 21 U/L (0-40); Albumin Level 3.7 g/dL (3.5-5.0); Alkaline Phosphatase 68 U/L (39-117); Anion Gap 13 (12-20); Aspartate Amino Transferase 48 U/L (5-37); Bilirubin Direct 0.6 mg/dL (0.0-0.5); Bilirubin Total 1.2 mg/dL (0.0-1.0); Blood Urea Nitrogen 29 mg/dL (9-16); C Reactive Protein 0.67 mg/dL (< or = 0.50); Calcium 8.4 mg/dL (8.4-10.2); Carbon Dioxide 24 mmol/L (22-29); Chloride 107 mmol/L (96-108); Creatinine Clr Calc Pharmacy 33.4; Estimated Glomerular Filt Rate 33; Glucose Random 129 mg/dL (60-115); Magnesium 2.2 mg/dL (1.6-2.6); Potassium 4.4 mmol/L (3.3-5.1); Sodium 140 mmol/L (135-145); Total Protein 6.4 g/dL (6.5-8.0)
[2022-02-08] MEDS: 0.9 % Sodium Chloride 1,000 ML 999 ML IV (05:22)
[2022-02-08 05:30] LABS: Procalcitonin 0.13 ng/mL
--- NOTE | 2022-02-08 08:17 | PC.NURSE ---
a/o x4 . pearrla . lungs diminished . heart rate regular at 65 beats .skin pink warm and dry . skin tares unapproxiamted noted on left forearm and left elbow . left forearm measure 2 1/2 cm by 1 cm . and elbow is 1 cm by 1/2 cm . wounds dressed with non stick and covered with cling . abrasions noted below knee from falls . no signs and symptoms of infection noted . abdomen soft non distended . positive bowel sounds in all four quadrants . patient aware of plan of care.
[2022-02-08 09:00] LABS: Appearance Urine HAZY; Color Urine YELLOW; Glucose Urine UA NEG (NEG); Leukocyte Esterase Urine NEG (NEG); Nitrite Urine NEG (NEG); PH 5.5 (5.0-8.0); Specific Gravity - Urine 1.025 (1.005-1.025); UACC Culture Trigger NO; Urine Blood 2+ (NEG); Urine Ketones NEG (NEG); Urine Protein NEG (NEG-TRACE)
[2022-02-08 09:10] LABS: Mucus Urine 2+ /LPF; Squamous Epithelial Cell Urine 1+ /LPF; Uric Acid Crystals Urine 1+ /LPF
[2022-02-08 09:11] LABS: Renal Epithelial Cells Urine TRACE /LPF; WBC Urine 0 /HPF (0-4)
--- NOTE | 2022-02-08 10:00 | PC.NURSE ---
DR. Cullen hospitalist at bedside for admission evaluation . patient aware of plan of care .
[2022-02-08] MEDS: Lactated Ringers 1,000 ML 999 ML IV (11:24)
--- NOTE | 2022-02-08 11:24 | PM.IMHP ---
History of Present Illness Date of Service: 02/08/22 Chief Complaint: Falls, Rhabdo This is an 85 year old male with a PMH of A. fib on xarelto, porcine AVR, CAD s/p CABG, HLD, post herpetic neuralgia for which he recently started Lamictal, urinary frequency who presents to the ED after frequent falls which have been occuring over the last several weeks. He reports leg weakness after ambulating / climbing stairs which is new. He denies any LOC. He denies any numbness/tingling or new back pain. He denies any dizziness or lightheadedness preceding the falls. He denies any chest pain, sob, cough, abdominal pain. Work up in the ED showed a negative CT head. CT lumbar spine shows degenerative disease. His renal function is worse compared to baseline (>0.3 from baseline). His CPK is elevated. He has been given IVF with minimal improvements in his CPK/renal function. Hence, he will be admitted for further treatment. Review of Systems Review of Systems: negative except HPI [facility] Medical History Aortic stenosis Atrial fibrillation CAD (coronary artery disease) CKD (chronic kidney disease) Dyslipidemia Elevated PSA Gout History of claustrophobia History of shingles On anticoagulant therapy On beta diana at home Post herpetic neuralgia Right facial pain Spinal stenosis of lumbar region Trigeminal neuralgia Urinary frequency Family History Father No problems noted. Mother No problems noted. Surgical History H/O aortic valve replacement History of aortic valve replacement History of fracture of leg History of heart bypass surgery History of laparoscopic cholecystectomy Pacemaker Status post lens implant Social History Household Members: None Housing: House Are you a primary sub acute care nurse to a significant other at home: No Do you presently have visiting nurse or other home services: Yes (every 3 months) Alcohol intake: never Patient Tobacco Use Status: Never used Tobacco e-Cigarette/Vaping Use: Never Used Second Hand Smoke Exposure: No Use of substances other than those prescribed or required for medical reasons: No Advance Directives: No service: Yes Current occupational status: unemployed and retired Current occupational exposures/hazards: No Cognitive needs: No Hearing needs: No Vision needs: No Meds Allergies Allergy/AdvReac Type Severity Reaction Status Date / Time gabapentin Allergy Unknown lip Verified 01/22/22 09:11 swelling pregabalin [From Lyrica] Allergy Unknown lip Verified 01/22/22 09:11 swelling Active Medications: Current Medications Acetaminophen (Acetaminophen 325 Mg Tablet) 650 mg PO Q6H PRN PRN Reason: Pain, Mild (Pain Scale 1-3) Docusate Sodium (Docusate Sodium 100 Mg Capsule) 100 mg PO DAILY PRN PRN Reason: Constipation Lactated Ringer's (Lr) 1,000 mls @ 999 mls/hr IV .Q1H1M [facility] Stop: 02/08/22 11:45 Last Admin: 02/08/22 11:24 Dose: 999 mls/hr Ondansetron HCl (Ondansetron Hcl 4 Mg/2 Ml Vial) 4 mg IVPUSH Q8H PRN PRN Reason: Nausea and Vomiting Sodium Chloride (0.9 % Sodium Chloride Flush 3 Ml Syringe) 3 ml IVFLUSH QSHIFT [facility] Home Medications Medication Instructions Recorded Confirmed Last Taken Type ascorbic acid (vitamin C) 100 mg 100 mg PO DAILY 04/22/20 10/23/21 Unknown History tablet (Vitamin C) aspirin 81 mg tablet,delayed 81 mg PO DAILY 04/22/20 10/23/21 Unknown History release (Adult Aspirin Regimen) metoprolol tartrate 50 mg tablet 50 mg PO BID 04/22/20 10/23/21 04/16/21 History omeprazole 10 mg capsule,delayed 10 mg PO DAILY PRN Acid Reflux 04/22/20 10/23/21 04/16/21 History release rivaroxaban 20 mg tablet (Xarelto) 20 mg PO DAILY 04/22/20 10/23/21 04/16/21 History Physical Exam Vital Signs and Narrative: Vital Signs: Last Vital Signs Temp 98.5 F 02/08/22 11:19 Pulse 72 02/08/22 11:19 Resp 16 02/08/22 11:19 BP 166/52 H 02/08/22 11:19 Pulse Ox 98 02/08/22 11:19 O2 Del Method 02/08/22 11:19 BMI result Body Mass Index 35.2 Const: Other: Constitutional - Awake and Alert, No apparent distress Eyes - PERRLA, EOMI Cardiovascular - S1S2, RRR, No edema Respiratory - Normal lung expansion, Normal respiratory effort, No respiratory distress, CTA bilaterally Gastrointestinal - NT / ND; +BS; No rebound or guarding - No CVA tenderness Extremities - LLE edema with negative Sharyn's sign; pt and sister report that this is chronic after vein graft for CABG Musculoskeletal - Normal inspection, normal ROM Skin - Warm/Dry Neurological - Alert & oriented x3, No focal deficit; b/l LE strenght and sensation intact Psychological - Appropriate affect Results Labs CBC and Chem 7: 02/08/22 04:24 02/08/22 04:24 Labs: Laboratory Results - last 24 hr 02/08/22 02/08/22 02/08/22 04:23 04:24 04:24 MCV 96.5 MCH 31.0 MCHC 32.1 RDW 14.5 Plt Count 99 L MPV 10.3 Immature Gran % (Auto) 0.3 Neut % (Auto) 75.3 H Lymph % (Auto) 12.1 L Kemper % (Auto) 11.3 H Eos % (Auto) 0.8 Baso % (Auto) 0.2 Lymph # (Auto) 1.1 L Kem[place] # (Auto) 1.0 Eos # (Auto) 0.1 Baso # (Auto) 0.0 Abs Immat Gran (auto) 0.03 Absolute Neuts (auto) 6.7 Absolute Nucleated RBC 0.000 Nucleated RBC % (auto) 0.0 PT 39.8 H INR 3.3 H Anion Gap Estim Creat Clear Calc Estimated GFR Random Glucose Calcium Magnesium Total Bilirubin Direct Bilirubin AST ALT Alkaline Phosphatase Total Creatine Kinase C-Reactive Protein Total Protein Albumin Procalcitonin Urine Color Urine Appearance Urine pH Ur Specific Reese Urine Protein Urine Glucose (UA) Urine Ketones Urine Blood Urine Nitrite Ur Leukocyte Esterase Urine RBC Urine WBC Ur Squamous Epith Cells Ur Renal Epithelial Cell Uric Acid Crystals Urine Bacteria Urine Mucus COVID-19 (FABI) Negative COVID-19 Clin Com See Note 02/08/22 02/08/22 02/08/22 04:24 04:24 07:49 MCV MCH MCHC RDW Plt Count MPV Immature Gran % (Auto) Neut % (Auto) Lymph % (Auto) Kemper % (Auto) Eos % (Auto) Baso % (Auto) Lymph # (Auto) Kemper # (Auto) Eos # (Auto) Baso # (Auto) Abs Immat Gran (auto) Absolute Neuts (auto) Absolute Nucleated RBC Nucleated RBC % (auto) PT INR Anion Gap 13 Estim Creat Clear Calc 33.4 Estimated GFR 33 Random Glucose 129 H Calcium 8.4 Magnesium 2.2 Total Bilirubin 1.2 H Direct Bilirubin 0.6 H AST 48 H D ALT 21 Alkaline Phosphatase 68 Total Creatine Kinase 1540 H 1402 H C-Reactive Protein 0.67 H Total Protein 6.4 L Albumin 3.7 Procalcitonin 0.13 Urine Color Urine Appearance Urine pH Ur Specific Reese Urine Protein Urine Glucose (UA) Urine Ketones Urine Blood Urine Nitrite Ur Leukocyte Esterase Urine RBC Urine WBC Ur Squamous Epith Cells Ur Renal Epithelial Cell Uric Acid Crystals Urine Bacteria Urine Mucus COVID-19 (FABI) COVID-19 [facility] 02/08/22 08:37 MCV MCH MCHC RDW Plt Count MPV Immature Gran % (Auto) Neut % (Auto) Lymph % (Auto) Kem[place] % (Auto) Eos % (Auto) Baso % (Auto) Lymph # (Auto) Kem[place] # (Auto) Eos # (Auto) Baso # (Auto) Abs Immat Gran (auto) Absolute Neuts (auto) Absolute Nucleated RBC Nucleated RBC % (auto) PT INR Anion Gap Estim Creat Clear Calc Estimated GFR Random Glucose Calcium Magnesium Total Bilirubin Direct Bilirubin AST ALT Alkaline Phosphatase Total Creatine Kinase C-Reactive Protein Total Protein Albumin Procalcitonin Urine Color YELLOW Urine Appearance HAZY Urine pH 5.5 Ur Specific Reese 1.025 Urine Protein NEG Urine Glucose (UA) NEG Urine Ketones NEG Urine Blood 2+ H Urine Nitrite NEG Ur Leukocyte Esterase NEG Urine RBC 1-4 Urine WBC 0 Ur Squamous Epith Cells 1+ Ur Renal Epithelial Cell TRACE Uric Acid Crystals 1+ Urine Bacteria NONE Urine Mucus 2+ COVID-19 (FABI) COVID-19 Clin Com Imaging Radiologist's Impressions: Impressions Head CT 02/08/22 05:20 IMPRESSION: No acute intracranial findings. Chronic small vessel ischemic disease and volume loss. Lumbar Spine CT 02/08/22 05:20 IMPRESSION: No acute findings identified. Degenerative changes as noted above. Assessment and Plan (1) Rhabdomyolysis: Qualifiers: Rhabdomyolysis type: non-traumatic Qualified Code(s): M62.82 - Rhabdomyolysis Status: Acute Plan This is an 85 year old male with a PMH of A. fib on xarelto, porcine AVR, CAD s/p CABG, HLD, post herpetic neuralgia for which he recently started Lamictal, urinary frequency who presents to the ED after frequent falls which have been occuring over the last several weeks. He is being admitted for KAREN secondary to rhabdo. 1. KAREN on CKDdue to Rhabdo (which is due to frequent falls) Baseline SCr around 1.5-1.6; presenting with a value > 2 Given 2L in the ED; will give judicious hydration given his cardiac (denies CHF history) repeat renal function and CPK tomorrow I/O 2. Leg weakness/ frequent falls endorses that his symptoms started after starting 2 medications (lamcital for neuropathic pain and solifenacin for overactive bladder) no radicular symptoms and CT imaging showing DJD PT eval -- likely will need STR 3. A. fib EKG showing A paced rhythm continue metoprolol + xarelto (once med rec completed) 4. CAD s/p CABG continue baseline meds once med rec completed 5. Elevated LFTs no abdominal symptoms trend 6. Thrombocytopenia chronic Continue his chronic meds once med rec done as needed DNR/DNI (confirmed by patient and MOLST as well) Due to the patients KARNE on CKD in conjunction with his chronic medical conditions, I anticipate a medically necessary inpatient hospitalization which is likely to span at least 2 midnights for treatment and monitoring response to the above mentioned conditions. This cannot be completed in a less acute setting. Quality Stroke Does the patient have a stroke diagnosis?: No VTE Prior VTE?: No VTE Risk Level:: Medical - moderate - high VTE Device Contraindication: Treatment Not Indicated VTE Drug Contraindication: N/A - Med Ordered
--- NOTE | 2022-02-08 12:28 | PHA.MEDREC ---
Pharmacy Consult ? Medication Reconciliation Pharmacy has completed the medication reconciliation. Solfenacin is not working Thanks Bharathi
--- NOTE | 2022-02-08 12:56 | PC.NURSE ---
physical therapy at bedside, pt/ aware of plan of care.
--- NOTE | 2022-02-08 17:01 | PC.NURSE ---
assisted mult times but to urinate. patient has active bladder and often starts to get up unassisted. whiteside is in hand. no complaints otherwise. pt has briusing noted left scapula. is slightly unsteady on feet and has poor planning.
--- NOTE | 2022-02-08 18:32 | PC.NURSE ---
in hospita bed with alarm, eating dinner. family at bedside. Pt used commode but didn't call for help. Was assisted by this RN after looking like he would fall.
[2022-02-08] MEDS: Lactated Ringers 1,000 ML 100 ML IVCONT (18:33)
[2022-02-08] MEDS: Rivaroxaban 15 MG TABLET PO (19:10)
[2022-02-08] MEDS: LORazepam 0.5 MG TABLET PO (19:16)
--- NOTE | 2022-02-08 19:21 | PC.NURSE ---
REPORT RECEIVED FROM DEBBIE WADE. ASSUMED CARE OF PT AT 1915. REPOSITIONED IN BED, CALL GALVAN WITHIN REACH. WILL CONTINUE TO MONITOR .
[2022-02-08] MEDS: lamoTRIgine 25 MG TABLET 50 MG PO (20:59)
[2022-02-08] MEDS: Metoprolol Tartrate 50 MG TABLET PO (20:59)
[2022-02-08] MEDS: DULoxetine HCl 30 MG CAPSULE.DR PO (21:06)
--- NOTE | 2022-02-09 06:05 | PC.NURSE ---
Pt refused vital signs x3. Pt also attempting to leave ED. He states he doesn't belong here. he wants to leave. Metal Dresser Maulik spoke to patient several times but patient still insists he will be leaving. I called both of his sisters to come pick him up but no answer. Left message to call ED.
[2022-02-09 07:12] LABS: Red Cell Distribution Width 14.6 % (11.0-16.0)
[2022-02-09 07:13] LABS: Hematocrit 37.4 % (42.0-52.0); Hemoglobin 11.8 g/dl (14.0-18.0); Mean Corpuscular HGB Conc 31.6 g/dl (31.0-36.0); Mean Corpuscular Hemoglobin 30.6 pg (27.0-33.0); Mean Corpuscular Volume 96.9 fL (80.0-98.0); Mean Platelet Volume 11.1 fL (9.4-12.4); Red Blood Count 3.86 X10*6/uL (4.60-5.80)
[2022-02-09 07:47] LABS: Platelet Count 107 X10*3/uL (160-400)
[2022-02-09 07:52] LABS: Anion Gap 13 (12-20); Blood Urea Nitrogen 20 mg/dL (9-16); Calcium 8.2 mg/dL (8.4-10.2); Carbon Dioxide 24 mmol/L (22-29); Chloride 106 mmol/L (96-108); Creatinine Clr Calc Pharmacy 42.5; Estimated Glomerular Filt Rate 43; Glucose Random 150 mg/dL (60-115); Potassium 4.5 mmol/L (3.3-5.1); Sodium 138 mmol/L (135-145)
[2022-02-09] MEDS: Ezetimibe 10 MG TABLET PO (08:06)
[2022-02-09] MEDS: Aspirin Enteric Coated 81 MG TABLET.DR PO (08:07)
[2022-02-09] MEDS: DULoxetine HCl 30 MG CAPSULE.DR PO ×2 (08:08→21:10)
[2022-02-09] MEDS: 0.9 % Sodium Chloride Flush 3 ML SYRINGE IVFLUSH (08:08)
[2022-02-09] MEDS: lamoTRIgine 25 MG TABLET 50 MG PO (08:08)
[2022-02-09] MEDS: Cholecalciferol (Vitamin D3) 25 MCG TABLET 50 MCG PO (08:09)
[2022-02-09] MEDS: Atorvastatin Calcium 40 MG TABLET PO (08:09)
[2022-02-09] MEDS: Metoprolol Tartrate 50 MG TABLET PO ×2 (08:09→21:10)
[2022-02-09] MEDS: Tolterodine Tartrate LA 4 MG CAP.ER.24H PO (08:55)
[2022-02-09] MEDS: LORazepam 0.5 MG TABLET PO ×2 (08:55→21:10)
[2022-02-09] MEDS: Lactated Ringers 1,000 ML 999 ML IV (13:00)
--- NOTE | 2022-02-09 14:58 | P.PNIM_ITS ---
Subjective Subjective Date of Service: 02/09/22 Review of Systems Follow up KARENjohno feeling better still with pain to left thigh Physical Exam Vital Signs: Vital Signs: Last Vital Signs Temp 97.8 F 02/08/22 21:41 Pulse 75 02/08/22 21:41 Resp 16 02/08/22 21:41 BP 156/62 H 02/08/22 21:41 Pulse Ox 98 02/08/22 21:41 O2 Del Method 02/08/22 21:41 BMI result Body Mass Index 35.2 Appearing in no acute distress lung sounds are clear to auscultation heart regular rate rhythm, clear S1, S2 positive bowel sounds, abdomen is soft, nontender neuro patient is alert x3, no focal deficits multiple bruises to body from falls Objective Data Active Medications Acetaminophen (Acetaminophen 325 Mg Tablet) 650 mg PO Q6H PRN PRN Reason: Pain, Mild (Pain Scale 1-3) Aspirin (Aspirin Enteric Coated 81 Mg Tablet.) 81 mg PO DAILY [facility] Last Admin: 02/09/22 08:07 Dose: 81 mg Documented By: GERA Atorvastatin Calcium (Atorvastatin Calcium 40 Mg Tablet) 40 mg PO DAILY [facility] Last Admin: 02/09/22 08:09 Dose: 40 mg Documented By: GERA Docusate Sodium (Docusate Sodium 100 Mg Capsule) 100 mg PO DAILY PRN PRN Reason: Constipation Duloxetine HCl (Duloxetine Hcl 30 Mg Capsule.) 30 mg PO BID [facility] Last Admin: 02/09/22 08:08 Dose: 30 mg Documented By: GERA Ezetimibe (Ezetimibe 10 Mg Tablet) 10 mg PO DAILY [facility] Last Admin: 02/09/22 08:06 Dose: 10 mg Documented By: GERA Lamotrigine (Lamotrigine 25 Mg Tablet) 50 mg PO BID [facility] Last Admin: 02/09/22 08:08 Dose: 50 mg Documented By: GERA Lorazepam (Lorazepam 0.5 Mg Tablet) 0.5 mg PO BEDTIME PRN PRN Reason: anxiety Last Admin: 02/09/22 08:55 Dose: 0.5 mg Documented By: GERA Metoprolol Tartrate (Metoprolol Tartrate 50 Mg Tablet) 50 mg PO BID [facility]; Protocol Last Admin: 02/09/22 08:09 Dose: 50 mg Documented By: GERA Ondansetron HCl (Ondansetron Hcl 4 Mg/2 Ml Vial) 4 mg IVPUSH Q8H PRN PRN Reason: Nausea and Vomiting Pharmacy Consult (Consult Rx Perform Med Rec) 1 each MISCELLANE ONCE PRN PRN Reason: Consult order Rivaroxaban (Rivaroxaban 15 Mg Tablet) 15 mg PO BEDTIME [facility] Last Admin: 02/08/22 21:07 Dose: Not Given Documented By: NOE Non-Admin Reason: Previously Administered Sodium Chloride (0.9 % Sodium Chloride Flush 3 Ml Syringe) 3 ml IVFLUSH QSHIFT [facility] Last Admin: 02/09/22 08:08 Dose: 3 ml Documented By: GERA Tolterodine Tartrate (Tolterodine Tartrate La 4 Mg Cap.Er.24h) 4 mg PO DAILY [facility] Last Admin: 02/09/22 08:55 Dose: 4 mg Documented By: GERA Vitamin D (Cholecalciferol (Vitamin D3) 25 Mcg Tablet) 50 mcg PO DAILY [facility] Last Admin: 02/09/22 08:09 Dose: 50 mcg Documented By: GERA Labs CBC & Chem 7: 02/09/22 06:20 02/09/22 06:20 Labs: Laboratory Results - last 24 hr 02/09/22 02/09/22 06:20 06:20 MCV 96.9 MCH 30.6 MCHC 31.6 RDW 14.6 Plt Count 107 L MPV 11.1 Absolute Nucleated RBC 0.000 Nucleated RBC % (auto) 0.0 Anion Gap 13 Estim Creat Clear Calc 42.5 Estimated GFR 43 Random Glucose 150 H Calcium 8.2 L Assessment and Plan (1) Rhabdomyolysis: Status: Acute Plan This is an 85 year old male with a PMH of A. fib on xarelto, porcine AVR, CAD s/p CABG, HLD, post herpetic neuralgia for which he recently started Lamictal, urinary frequency who presents to the ED after frequent falls which have been occuring over the last several weeks. He is being admitted for KAREN secondary to rhabdo. 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 fib EKG showing A paced rhythm continue metoprolol + xarelto (once med rec completed) CAD s/p CABG continue baseline meds once med rec completed Elevated LFTs no abdominal symptoms trend Thrombocytopenia chronic DVT prophylaxis with Xarelto Attending Dr. Garcia DNR/DNI (confirmed by patient and MOLST as well) Continued hospitalizations for treatment and monitoring for the above mentioned conditions. This cannot be completed in a less acute setting. Quality Stroke Does the patient have a stroke diagnosis?: No VTE Prior VTE?: No VTE Risk Level:: Medical - moderate - high VTE Device Contraindication: Treatment Not Indicated VTE Drug Contraindication: N/A - Med Ordered
[2022-02-09 15:25] VITALS: BP 151/57; PULSE 66; RESP 18; TEMP 36.9; O2SAT 98
--- NOTE | 2022-02-09 17:38 | PC.NURSE ---
chely quinones'radha pt and obtained 500 of dark evelyne colored urine, sample sent.
[2022-02-09 17:41] LABS: Appearance Urine CLEAR; Color Urine YELLOW; Glucose Urine UA NEG (NEG); Leukocyte Esterase Urine NEG (NEG); Nitrite Urine NEG (NEG); UACC Culture Trigger NO; Urine Blood 3+ (NEG); Urine Ketones NEG (NEG); Urine Protein NEG (NEG-TRACE)
[2022-02-09 17:52] LABS: WBC Urine 0 /HPF (0-4)
[2022-02-09 17:53] LABS: Squamous Epithelial Cell Urine TRACE /LPF
[2022-02-09] MEDS: LORazepam 1 MG TABLET PO (21:16)
[2022-02-09] MEDS: Rivaroxaban 15 MG TABLET PO (21:16)
[2022-02-09 22:26] VITALS: BP 196/85; PULSE 100; RESP 16; TEMP 36.8; O2SAT 95
--- NOTE | 2022-02-09 23:45 | PC.NURSE ---
pt cleaned up and sheets changed in bed. repositioned to comfortable position. lights dimmed, call whiteside within reach. will continue to monitor closely
[2022-02-10] VITALS (7 sets, daily range): BP systolic 132–183; BP diastolic 59–81; PULSE 65–82; RESP 14–20; TEMP 36.7–37.3; O2SAT 96–99; BMI 34.7
--- NOTE | 2022-02-10 02:58 | PM.EVENT ---
Event Note Date of Service: 02/10/22 Event Note: Altered mental status: Patient noted to be sundowning; not ER interval, tried to get out of the bed/removing lines. Received Ativan IV/trazodone Fall precautions. Hematuria: Urology follow-up
[2022-02-10] MEDS: 0.9 % Sodium Chloride Flush 3 ML SYRINGE IVFLUSH ×5 (03:33→21:15)
[2022-02-10] MEDS: traZODone HCL 50 MG TABLET PO (03:46)
[2022-02-10 08:47] LABS: Anion Gap 13 (12-20); Blood Urea Nitrogen 19 mg/dL (9-16); Carbon Dioxide 24 mmol/L (22-29); Chloride 105 mmol/L (96-108); Creatinine Clr Calc Pharmacy 44.5; Estimated Glomerular Filt Rate 46; Glucose Random 116 mg/dL (60-115); Potassium 4.3 mmol/L (3.3-5.1); Sodium 138 mmol/L (135-145)
[2022-02-10] MEDS: Metoprolol Tartrate 50 MG TABLET PO ×2 (09:05→21:13)
[2022-02-10] MEDS: Aspirin Enteric Coated 81 MG TABLET.DR PO (09:05)
[2022-02-10] MEDS: DULoxetine HCl 30 MG CAPSULE.DR PO ×2 (09:06→21:13)
[2022-02-10] MEDS: Atorvastatin Calcium 40 MG TABLET PO (09:06)
[2022-02-10] MEDS: Tolterodine Tartrate LA 4 MG CAP.ER.24H PO (09:06)
[2022-02-10] MEDS: Ezetimibe 10 MG TABLET PO (09:06)
[2022-02-10] MEDS: Cholecalciferol (Vitamin D3) 25 MCG TABLET 50 MCG PO (09:06)
--- NOTE | 2022-02-10 09:49 | HO.PM.IMPN ---
Subjective Subjective Date of Service: 02/10/22 Review of Systems Follow up sharif JONES feeling better still with pain to left thigh Physical Exam Vital Signs: Vital Signs: Last Vital Signs Temp 98.4 F 02/10/22 07:37 Pulse 69 02/10/22 07:37 Resp 18 02/10/22 07:37 BP 152/69 H 02/10/22 07:37 Pulse Ox 97 02/10/22 07:37 O2 Del Method 02/10/22 07:37 BMI result Body Mass Index 34.7 Appearing in no acute distress lung sounds are clear to auscultation heart regular rate rhythm, clear S1, S2 positive bowel sounds, abdomen is soft, nontender neuro patient is alert x3, no focal deficits Objective Data Active Medications Acetaminophen (Acetaminophen 325 Mg Tablet) 650 mg PO Q6H PRN PRN Reason: Pain, Mild (Pain Scale 1-3) Aspirin (Aspirin Enteric Coated 81 Mg Tablet.) 81 mg PO DAILY [facility] Last Admin: 02/10/22 09:05 Dose: 81 mg Documented By: OMAR Atorvastatin Calcium (Atorvastatin Calcium 40 Mg Tablet) 40 mg PO DAILY [facility] Last Admin: 02/10/22 09:06 Dose: 40 mg Documented By: OMAR Docusate Sodium (Docusate Sodium 100 Mg Capsule) 100 mg PO DAILY PRN PRN Reason: Constipation Duloxetine HCl (Duloxetine Hcl 30 Mg Capsule.) 30 mg PO BID [facility] Last Admin: 02/10/22 09:06 Dose: 30 mg Documented By: OMAR Ezetimibe (Ezetimibe 10 Mg Tablet) 10 mg PO DAILY [facility] Last Admin: 02/10/22 09:06 Dose: 10 mg Documented By: OMAR Lorazepam (Lorazepam 0.5 Mg Tablet) 0.5 mg PO BEDTIME PRN PRN Reason: anxiety Last Admin: 02/09/22 21:10 Dose: 0.5 mg Documented By: NOE Metoprolol Tartrate (Metoprolol Tartrate 50 Mg Tablet) 50 mg PO BID [facility]; Protocol Last Admin: 02/10/22 09:05 Dose: 50 mg Documented By: OMAR Ondansetron HCl (Ondansetron Hcl 4 Mg/2 Ml Vial) 4 mg IVPUSH Q8H PRN PRN Reason: Nausea and Vomiting Pharmacy Consult (Consult Rx Perform Med Rec) 1 each MISCELLANE ONCE PRN PRN Reason: Consult order Rivaroxaban (Rivaroxaban 15 Mg Tablet) 15 mg PO BEDTIME [facility] Last Admin: 02/09/22 21:16 Dose: 15 mg Documented By: NOE Sodium Chloride (0.9 % Sodium Chloride Flush 3 Ml Syringe) 3 ml IVFLUSH QSHIFT [facility] Last Admin: 02/10/22 09:07 Dose: 3 ml Documented By: OMAR Sodium Chloride (0.9 % Sodium Chloride Flush 3 Ml Syringe) 3 ml IVFLUSH QSHIFT [facility] Last Admin: 02/10/22 09:07 Dose: Not Given Documented By: OMAR Non-Admin Reason: Duplicate Order Tolterodine Tartrate (Tolterodine Tartrate La 4 Mg Cap.Er.24h) 4 mg PO DAILY [facility] Last Admin: 02/10/22 09:06 Dose: 4 mg Documented By: OMAR Vitamin D (Cholecalciferol (Vitamin D3) 25 Mcg Tablet) 50 mcg PO DAILY [facility] Last Admin: 02/10/22 09:06 Dose: 50 mcg Documented By: OMAR Labs CBC & Chem 7: 02/09/22 06:20 02/10/22 07:52 Labs: Laboratory Results - last 24 hr 02/09/22 02/10/22 17:24 07:52 Anion Gap 13 Estim Creat Clear Calc 44.5 Estimated GFR 46 Random Glucose 116 H Calcium 8.0 L Total Creatine Kinase 1318 H Urine Color YELLOW Urine Appearance CLEAR Urine pH 6.0 Ur Specific [place] 1.010 Urine Protein NEG Urine Glucose (UA) NEG Urine Ketones NEG Urine Blood 3+ H Urine Nitrite NEG Ur Leukocyte Esterase NEG Urine RBC 15-29 H Urine WBC 0 Ur Squamous Epith Cells TRACE Urine Bacteria NONE Assessment and Plan (1) Rhabdomyolysis: Status: Acute Plan This is an 85 year old male with a PMH of A. fib on xarelto, porcine AVR, CAD s/p CABG, HLD, post herpetic neuralgia for which he recently started Lamictal, urinary frequency who presents to the ED after frequent falls which have been occuring over the last several weeks. He is being admitted for KAREN secondary to rhabdo. Toxic metabolic encephalopathy ? 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 Better than baseline Baseline SCr around 1.5-1.6 Leg weakness/ frequent falls endorses that his symptoms started after starting 2 medications (lamcital for neuropathic pain and solifenacin for overactive bladder) may certainly be related to Lamictal, will stop no radicular symptoms and CT imaging showing DJD PT eval>rec str A. fib EKG showing A paced rhythm continue metoprolol + xarelto CAD s/p CABG continue baseline meds once med rec completed Elevated LFTs no abdominal symptoms trend Thrombocytopenia chronic DVT prophylaxis with Xarelto Attending Dr. Garcia DNR/DNI (confirmed by patient and MOLST as well) Continued hospitalizations for treatment and monitoring for the above mentioned conditions. This cannot be completed in a less acute setting. Quality Stroke Does the patient have a stroke diagnosis?: No VTE Prior VTE?: No VTE Risk Level:: Medical - moderate - high VTE Device Contraindication: Treatment Not Indicated VTE Drug Contraindication: N/A - Med Ordered
[2022-02-10] MEDS: Acetaminophen 325 MG TABLET 650 MG PO (10:19)
--- NOTE | 2022-02-10 11:45 | PC.NURSE ---
8am bladder scan showed 448mls of urine. Pt encouraged to void. Pt voided 250mls of dark red urine with blood clots. Post void bladder scan showed 375mls retaining. Madeline Lyon made aware of urine characteristics.
[2022-02-10 15:05] LABS: Hematocrit 33.9 % (42.0-52.0); Hemoglobin 10.6 g/dl (14.0-18.0)
--- NOTE | 2022-02-10 15:49 | MHC.CM.PN ---
CM MET WITH PT AND HIS SISTER, PERRY, AT BEDSIDE PT LIVES ALONE AND IS INDEPENDENT AT BASELINE PERRY REPORTS SEVERAL CONCERNS RELATED TO HIM RETURNING HOME SHE SAYS HE HAS FALLEN 4X RECENTLY, LIVES ON THE 2ND FLOOR, HAS VERY STEEP STAIRS, AND A TUB HE MUST STEP OVER TO GET INTO. PT AND SISTER HOPE THAT HE CAN DC TO [facility] PT USED NO DME AND HAS NO SERVICES LIME TRIMMER PCP: XAVIER COCHRAN PT IS COVID VACCINATED WITH PFIZER AND HAD TWO BOOSTERS PT HAS A MOSLT AND HCP, HIS SISTER RAVEN WILL BRING THEM IN IMM DELIVERED CURRENTLY DC PLAN IS TBD GOAL IS STR. PREFERENCES: 1. [facility] 2. [facility] 3. [facility]
[2022-02-10] MEDS: LORazepam 0.5 MG TABLET PO (21:13)
[2022-02-11] VITALS (7 sets, daily range): BP systolic 132–168; BP diastolic 63–97; PULSE 63–73; RESP 16–20; TEMP 36.7–37.1; O2SAT 95–98
[2022-02-11 06:26] LABS: Hematocrit 33.8 % (42.0-52.0); Hemoglobin 10.7 g/dl (14.0-18.0); Mean Corpuscular HGB Conc 31.7 g/dl (31.0-36.0); Mean Corpuscular Hemoglobin 30.9 pg (27.0-33.0); Mean Corpuscular Volume 97.7 fL (80.0-98.0); Mean Platelet Volume 10.7 fL (9.4-12.4); Platelet Count 101 X10*3/uL (160-400); Red Blood Count 3.46 X10*6/uL (4.60-5.80); Red Cell Distribution Width 14.6 % (11.0-16.0); White Blood Count 5.9 X10*3/uL (4.8-10.8)
[2022-02-11 06:41] LABS: Anion Gap 10 (12-20); Blood Urea Nitrogen 19 mg/dL (9-16); Calcium 7.8 mg/dL (8.4-10.2); Carbon Dioxide 27 mmol/L (22-29); Chloride 106 mmol/L (96-108); Creatinine Clr Calc Pharmacy 46.1; Estimated Glomerular Filt Rate 48; Glucose Random 116 mg/dL (60-115); Potassium 4.1 mmol/L (3.3-5.1); Sodium 139 mmol/L (135-145)
[2022-02-11] MEDS: Ezetimibe 10 MG TABLET PO (08:41)
[2022-02-11] MEDS: Metoprolol Tartrate 50 MG TABLET PO ×2 (08:41→21:35)
[2022-02-11] MEDS: 0.9 % Sodium Chloride Flush 3 ML SYRINGE IVFLUSH ×2 (08:42→18:02)
[2022-02-11] MEDS: Aspirin Enteric Coated 81 MG TABLET.DR PO (08:42)
[2022-02-11] MEDS: Cholecalciferol (Vitamin D3) 25 MCG TABLET 50 MCG PO (08:42)
[2022-02-11] MEDS: DULoxetine HCl 30 MG CAPSULE.DR PO ×2 (08:42→21:35)
[2022-02-11] MEDS: Atorvastatin Calcium 40 MG TABLET PO (08:56)
--- NOTE | 2022-02-11 09:50 | MHC.CDI.CONC ---
CDI Concurrent Query Documentation Clarification: PHYSICIAN'S DOCUMENTATION REQUEST Date of Query: 02/11/22 0950 Patient Name: Rickie Bardales Admit Date: 02/08/22 Dear Doctor, A review of the medical record indicates additional documentation may be needed. Please review below and update the documentation accordingly. Clinical Indicators: Risk Factors/Clinical Indicators/Treatments Atrial fibrillation - continue Metoprolol and Xarelto. EKG showing a paced rhythm. If possible, please provide further specificity regarding atrial fibrillation, such as: Paroxysmal atrial fibrillation: terminates spontaneously or with intervention within 7 days of onset. Persistent atrial fibrillation: episodes of continuous AF that last more than 7 days and do not self-terminate. Long lasting persistent atrial fibrillation: episodes of continuous AF that last more than 12 months, Chronic or Permanent atrial fibrillation: when a decision has been made to accept the presence of AF and there is no further attempt to restore or maintain sinus rhythm. Other (please specify) Unable to determine Use of terms such as suspected, likely, concern for, or probable (associated with a specific diagnosis that is being evaluated, monitored, or treated as if it exists) are acceptable and can be coded in the inpatient setting, when documented at the time of discharge. Thank you, Doreen Birmingham [facility], CDIS Extension: [phone] Please use your independent medical judgment in providing your response. THIS QUERY IS PART OF THE PERMANENT MEDICAL RECORD Other Diagnosis: PAFIB
--- NOTE | 2022-02-11 10:48 | MHC.CDI.CONC ---
CDI Concurrent Query Documentation Clarification: PHYSICIAN'S DOCUMENTATION REQUEST Date of Query: 02/11/22 1048 Patient Name: Rickie Bardales Admit Date: 02/08/22 Dear Doctor, A review of the medical record indicates additional documentation may be needed. 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 Baseline SCr. around 1.5-1.6, 2 L given in the ED. Please clarify which of the following accurately represents the patient's renal status: Specifics: Acute renal failure on Chronic Kidney Disease (CKD) - see criteria CKD, please provide stage Other (please specify) Unable to determine Criteria for KAREN* Stages of Chronic Kidney Disease* 1. Increase in serum creatinine by ? 0.3 mg/dL Level Description GFR (?26.5 micromol/L) within 48 hours, or G1 Normal or High > 90 2. Increase in serum creatinine to ?1.5 times baseline, G2 Mildly decreased 60 ? 89 which is known or presumed to have occurred within 7 days, or G3a Mildly to moderately decreased 45 ? 59 3. Urine volume <0.5 mL/kg/hour for six hours G3b Moderately to severely decreased 30 - 44 G4 Severely decreased 15 ? 29 G5 Kidney failure < 15 *Source: Kidney Disease: Improving Global Outcomes (KDIGO) 2012 Use of terms such as suspected, likely, concern for, or probable (associated with a specific diagnosis that is being evaluated, monitored, or treated as if it exists) are acceptable and can be coded in the inpatient setting, when documented at the time of discharge. Thank you, Doreen Birmingham [facility], CDIS Extension: [phone] Please use your independent medical judgment in providing your response. THIS QUERY IS PART OF THE PERMANENT MEDICAL RECORD Other Diagnosis: CKD3
--- NOTE | 2022-02-11 12:06 | PM.DS ---
DS: Providers Provider Date of Service: 02/12/22 Date of admission: 02/08/22 11:21 Primary care physician: GREGORIO Taylor Consults: 02/10/22 02:56 Consult to Urology Routine Consulting Provider: Gabriel Pacheco Reason for consultation: hematuria; pt on xarelto Attending physician on discharge: Faraz Cullen Discharging clinician: Madeline Lyon DS: Diagnosis Discharge Diagnosis (1) Rhabdomyolysis: Status: Acute DS: Summary Hospital Course Hospital Course: HP as per admitting provider This is an 85 year old male with a PMH of A. fib on xarelto, porcine AVR, CAD s/p CABG, HLD, post herpetic neuralgia for which he recently started Lamictal, urinary frequency who presents to the ED after frequent falls which have been occuring over the last several weeks. He reports leg weakness after ambulating / climbing stairs which is new. He denies any LOC. He denies any numbness/tingling or new back pain. He denies any dizziness or lightheadedness preceding the falls. He denies any chest pain, sob, cough, abdominal pain. Work up in the ED showed a negative CT head. CT lumbar spine shows degenerative disease. His renal function is worse compared to baseline (>0.3 from baseline). His CPK is elevated. He has been given IVF with minimal improvements in his CPK/renal function. Hence, he will be admitted for further treatment . Toxic metabolic encephalopathy. 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 Better than baseline Baseline SCr around 1.5-1.6 Leg weakness/ frequent falls endorses that his symptoms started after starting 2 medications (lamcital for neuropathic pain and solifenacin for overactive bladder) may certainly be related to Lamictal, will stop no radicular symptoms and CT imaging showing DJD PT eval>rec str PAfib EKG showing A paced rhythm continue metoprolol + xarelto CAD s/p CABG continue baseline meds Elevated LFTs no abdominal symptoms Thrombocytopenia chronic Time Spent with Patient Time attestation: Total time spent providing and/or coordinating discharge services: Discharge coordination time: Greater than 30 minutes Quality: Safe Use of Opioids Does Pt have an Active Cancer Diagnosis on the Problem List?: No Quality: Stroke Does the patient have a stroke diagnosis?: No Physical Exam Vital Signs: Vital Signs: Last Vital Signs Temp 98.2 F 02/11/22 11:25 Pulse 73 02/11/22 11:29 Resp 18 02/11/22 11:25 BP 145/97 H 02/11/22 11:29 Pulse Ox 95 02/11/22 11:29 O2 Del Method 02/11/22 11:25 BMI result Body Mass Index 34.7 Appearing in no acute distress head is normocephalic atraumatic eyes pupils are PERRLA sclera is anicteric mouth throat mucous membranes are intact and moist neck is supple no lymphadenopathy, no JVD noted lung sounds are clear to auscultation heart regular rate rhythm, clear S1, S2 positive bowel sounds, abdomen is soft, nontender neuro patient is alert x3, no focal deficits DS: Data Data Completed and Pending Labs on day of discharge: Laboratory Results - last 24 hr 02/10/22 02/11/22 02/11/22 14:49 05:53 05:53 WBC 5.9 RBC 3.46 L Hgb 10.6 L 10.7 L Hct 33.9 L 33.8 L MCV 97.7 MCH 30.9 MCHC 31.7 RDW 14.6 Plt Count 101 L MPV 10.7 Absolute Nucleated RBC 0.000 Nucleated RBC % (auto) 0.0 Sodium 139 Potassium 4.1 Chloride 106 Carbon Dioxide 27 Anion Gap 10 L BUN 19 H Creatinine 1.41 H Estim Creat Clear Calc 46.1 Estimated GFR 48 Random Glucose 116 H Calcium 7.8 L Total Creatine Kinase 02/11/22 05:53 WBC RBC Hgb Hct MCV MCH MCHC RDW Plt Count MPV Absolute Nucleated RBC Nucleated RBC % (auto) Sodium Potassium Chloride Carbon Dioxide Anion Gap BUN Creatinine Estim Creat Clear Calc Estimated GFR Random Glucose Calcium Total Creatine Kinase 654 H D Discharge Plan Discharge Anticipated Discharge Date/Time: 02/11/22 11:57 Patient Disposition: Xfer Inpatient Rehab Fac Discharge Diagnosis: Toxic metabolic encephalopathy Hematuria KAREN on CKD Rhabdomyolysis Frequent falls Referrals: [facility] [Outside] - 1 Week Dannie Cosby, [employer] [facility] [Primary Care Provider] - 1 Week Discharge Medications: Continued atorvastatin 40 mg tablet 40 mg PO DAILY Qty: 90 4RF ezetimibe 10 mg tablet 10 mg PO DAILY Qty: 90 1RF cholecalciferol (vitamin D3) 50 mcg (2,000 unit) tablet 50 mcg PO DAILY Qty: 90 3RF lamotrigine 25 mg tablet 2 tab PO BID solifenacin 10 mg tablet 1 tab PO DAILY lorazepam 1 mg tablet 0.5 mg PO BEDTIME PRN (Reason: anxiety) duloxetine 30 mg capsule,delayed release(DR/EC) 30 mg PO BID 90 Days Qty: 180 2RF metoprolol tartrate 50 mg tablet 50 mg PO BID aspirin [Adult Aspirin Regimen] 81 mg tablet,delayed release (DR/EC) 81 mg PO DAILY Xarelto 20 mg tablet 20 mg PO BEDTIME Rx Instructions: must administer with evening meal Discharge Orders: Discharge Order (Routine); Ordered 02/12/22 Ordered By: Madeline Lyon Diet: Advance to usual diet Activity on Discharge: As tolerated Stand Alone Forms: Patient Portal Discharge page Care Plan Goals: Physical therapy Health Concerns: Toxic metabolic encephalopathy Hematuria KAREN on CKD Rhabdomyolysis Frequent falls Plan of Treatment: Follow-up with primary care provider as needed Take all medications as prescribed Assessment: See discharge summary
--- NOTE | 2022-02-11 12:50 | MHC.CM.PN ---
PT MEDICALLY CLEARED FOR D/C TO [facility], ONLY ONE OF 3 PREFERRED SNFS TAKE PT'S INSURANCE AND WILL FOLLOW, [facility] CM HAS REQUESTED [facility] LIAISON CHECK TO SEE IF PT COULD PAY COPAY HOWEVER CM STILL AWAITING RESPONSE, REFERRAL EXPANDED.
--- NOTE | 2022-02-11 14:16 | HO.PM.IMPN ---
Subjective Subjective Date of Service: 02/11/22 Review of Systems Follow up sharif JONES feeling better still with pain to left thigh Physical Exam Vital Signs: Vital Signs: Last Vital Signs Temp 98.2 F 02/11/22 11:25 Pulse 73 02/11/22 11:29 Resp 18 02/11/22 11:25 BP 145/97 H 02/11/22 11:29 Pulse Ox 95 02/11/22 11:29 O2 Del Method 02/11/22 11:25 BMI result Body Mass Index 34.7 Appearing in no acute distress lung sounds are clear to auscultation heart regular rate rhythm, clear S1, S2 positive bowel sounds, abdomen is soft, nontender neuro patient is alert x3, no focal deficits Objective Data Active Medications Acetaminophen (Acetaminophen 325 Mg Tablet) 650 mg PO Q6H PRN PRN Reason: Pain, Mild (Pain Scale 1-3) Last Admin: 02/10/22 10:19 Dose: 650 mg Documented By: OMAR Aspirin (Aspirin Enteric Coated 81 Mg Tablet.) 81 mg PO DAILY [facility] Last Admin: 02/11/22 08:42 Dose: 81 mg Documented By: NAVID Atorvastatin Calcium (Atorvastatin Calcium 40 Mg Tablet) 40 mg PO DAILY [facility] Last Admin: 02/11/22 08:56 Dose: 40 mg Documented By: NAVID Docusate Sodium (Docusate Sodium 100 Mg Capsule) 100 mg PO DAILY PRN PRN Reason: Constipation Duloxetine HCl (Duloxetine Hcl 30 Mg Capsule.) 30 mg PO BID [facility] Last Admin: 02/11/22 08:42 Dose: 30 mg Documented By: NAVID Ezetimibe (Ezetimibe 10 Mg Tablet) 10 mg PO DAILY [facility] Last Admin: 02/11/22 08:41 Dose: 10 mg Documented By: NAVID Lorazepam (Lorazepam 0.5 Mg Tablet) 0.5 mg PO BEDTIME PRN PRN Reason: anxiety Last Admin: 02/10/22 21:13 Dose: 0.5 mg Documented By: OMAR Metoprolol Tartrate (Metoprolol Tartrate 50 Mg Tablet) 50 mg PO BID [facility]; Protocol Last Admin: 02/11/22 08:41 Dose: 50 mg Documented By: NAVID Ondansetron HCl (Ondansetron Hcl 4 Mg/2 Ml Vial) 4 mg IVPUSH Q8H PRN PRN Reason: Nausea and Vomiting Pharmacy Consult (Consult Rx Perform Med Rec) 1 each MISCELLANE ONCE PRN PRN Reason: Consult order Rivaroxaban (Rivaroxaban 15 Mg Tablet) 15 mg PO BEDTIME [facility] Last Admin: 02/09/22 21:16 Dose: 15 mg Documented By: NOE Sodium Chloride (0.9 % Sodium Chloride Flush 3 Ml Syringe) [facility] Last Admin: 02/11/22 08:42 Dose: 3 ml Documented By: NAVID Sodium Chloride (0.9 % Sodium Chloride Flush 3 Ml Syringe) 3 ml IVFLUSH [facility] Last Admin: 02/11/22 08:46 Dose: Not Given Documented By: NAVID Non-Admin Reason: Duplicate Order Tolterodine Tartrate (Tolterodine Tartrate La 4 Mg Cap.Er.24h) 4 mg PO DAILY [facility] Last Admin: 02/11/22 08:42 Dose: 4 mg Documented By: NAVID Vitamin D (Cholecalciferol (Vitamin D3) 25 Mcg Tablet) 50 mcg PO DAILY [facility] Last Admin: 02/11/22 08:42 Dose: 50 mcg Documented By: NAVID Labs CBC & Chem 7: 02/11/22 05:53 02/11/22 05:53 Labs: Laboratory Results - last 24 hr 02/11/22 02/11/22 02/11/22 05:53 05:53 05:53 MCV 97.7 MCH 30.9 MCHC 31.7 RDW 14.6 Plt Count 101 L MPV 10.7 Absolute Nucleated RBC 0.000 Nucleated RBC % (auto) 0.0 Anion Gap 10 L Estim Creat Clear Calc 46.1 Estimated GFR 48 Random Glucose 116 H Calcium 7.8 L Total Creatine Kinase 654 H D Assessment and Plan (1) Rhabdomyolysis: Status: Acute Plan This is an 85 year old male with a PMH of A. fib on xarelto, porcine AVR, CAD s/p CABG, HLD, post herpetic neuralgia for which he recently started Lamictal, urinary frequency who presents to the ED after frequent falls which have been occuring over the last several weeks. He is being admitted for KAREN secondary to rhabdo. Toxic metabolic encephalopathy. Resolved medication related, lamictal stopped monitor Hematuria continue xarelto follow CBC KAREN on CKD due to Rhabdo (which is due to frequent falls). Better than baseline Baseline SCr around 1.5-1.6 Leg weakness/ frequent falls endorses that his symptoms started after starting 2 medications (lamcital for neuropathic pain and solifenacin for overactive bladder) may certainly be related to Lamictal, will stop no radicular symptoms and CT imaging showing DJD PT eval>rec str A. fib EKG showing A paced rhythm continue metoprolol + xarelto CAD s/p CABG continue baseline meds once med rec completed Elevated LFTs no abdominal symptoms trend Thrombocytopenia chronic DVT prophylaxis with Xarelto Attending Dr. Cullen DNR/DNI (confirmed by patient and MOLST as well) Continued hospitalizations for treatment and monitoring for the above mentioned conditions. This cannot be completed in a less acute setting. Also pending safe discharge to rehab, auth in progress Quality Stroke Does the patient have a stroke diagnosis?: No VTE Prior VTE?: No VTE Risk Level:: Medical - moderate - high VTE Device Contraindication: Treatment Not Indicated VTE Drug Contraindication: N/A - Med Ordered
--- NOTE | 2022-02-11 16:51 | MHC.CM.PN ---
PREFERRED [facility], [facility], CM TO FOLLOW D/C NEEDS.
[2022-02-11] MEDS: LORazepam 0.5 MG TABLET PO (21:35)
[2022-02-12] MEDS: 0.9 % Sodium Chloride Flush 3 ML SYRINGE IVFLUSH ×5 (00:08→16:13)
[2022-02-12 03:41] VITALS: BP 158/68; PULSE 72; RESP 20; TEMP 37; O2SAT 98
[2022-02-12 07:59] VITALS: BP 162/71; PULSE 65; RESP 17; TEMP 36.3; O2SAT 97
[2022-02-12] MEDS: Cholecalciferol (Vitamin D3) 25 MCG TABLET 50 MCG PO (08:54)
[2022-02-12] MEDS: DULoxetine HCl 30 MG CAPSULE.DR PO (08:55)
[2022-02-12] MEDS: Atorvastatin Calcium 40 MG TABLET PO (08:55)
[2022-02-12] MEDS: Ezetimibe 10 MG TABLET PO (08:56)
[2022-02-12] MEDS: Aspirin Enteric Coated 81 MG TABLET.DR PO (08:56)
[2022-02-12] MEDS: Metoprolol Tartrate 50 MG TABLET PO ×2 (08:56→18:09)
[2022-02-12] MEDS: Tolterodine Tartrate LA 4 MG CAP.ER.24H PO (09:04)
[2022-02-12 10:43] VITALS: BP 162/71; PULSE 65; O2SAT 97
[2022-02-12 11:40] VITALS: BP 141/65; PULSE 65; RESP 17; TEMP 36.3; O2SAT 97
--- NOTE | 2022-02-12 12:56 | HO.PM.IMPN ---
Subjective Subjective Date of Service: 02/12/22 Review of Systems Follow up KAREN, rhabdo feeling better Physical Exam Vital Signs: Vital Signs: Last Vital Signs Temp 97.4 F 02/12/22 11:40 Pulse 65 02/12/22 11:40 Resp 17 02/12/22 11:40 BP 141/65 H 02/12/22 11:40 Pulse Ox 97 02/12/22 11:40 O2 Del Method 02/12/22 11:40 BMI result Body Mass Index 34.7 Appearing in no acute distress lung sounds are clear to auscultation heart regular rate rhythm, clear S1, S2 positive bowel sounds, abdomen is soft, nontender neuro patient is alert x3, no focal deficits Objective Data Active Medications Acetaminophen (Acetaminophen 325 Mg Tablet) 650 mg PO Q6H PRN PRN Reason: Pain, Mild (Pain Scale 1-3) Last Admin: 02/10/22 10:19 Dose: 650 mg Documented By: OMAR Aspirin (Aspirin Enteric Coated 81 Mg Tablet.) 81 mg PO DAILY [facility] Last Admin: 02/12/22 08:56 Dose: 81 mg Documented By: JANEL Atorvastatin Calcium (Atorvastatin Calcium 40 Mg Tablet) 40 mg PO DAILY [facility] Last Admin: 02/12/22 08:55 Dose: 40 mg Documented By: JANEL Docusate Sodium (Docusate Sodium 100 Mg Capsule) 100 mg PO DAILY PRN PRN Reason: Constipation Duloxetine HCl (Duloxetine Hcl 30 Mg Capsule.) 30 mg PO BID [facility] Last Admin: 02/12/22 08:55 Dose: 30 mg Documented By: JANEL Ezetimibe (Ezetimibe 10 Mg Tablet) 10 mg PO DAILY [facility] Last Admin: 02/12/22 08:56 Dose: 10 mg Documented By: JANEL Lorazepam (Lorazepam 0.5 Mg Tablet) 0.5 mg PO BEDTIME PRN PRN Reason: anxiety Last Admin: 02/11/22 21:35 Dose: 0.5 mg Documented By: DOBROB Metoprolol Tartrate (Metoprolol Tartrate 50 Mg Tablet) 50 mg PO BID [facility]; Protocol Last Admin: 02/12/22 08:56 Dose: 50 mg Documented By: JANEL Ondansetron HCl (Ondansetron Hcl 4 Mg/2 Ml Vial) 4 mg IVPUSH Q8H PRN PRN Reason: Nausea and Vomiting Pharmacy Consult (Consult Rx Perform Med Rec) 1 each MISCELLANE ONCE PRN PRN Reason: Consult order Rivaroxaban (Rivaroxaban 15 Mg Tablet) 15 mg PO BEDTIME [facility] Last Admin: 02/09/22 21:16 Dose: 15 mg Documented By: NOE Sodium Chloride (0.9 % Sodium Chloride Flush 3 Ml Syringe) [facility] Last Admin: 02/12/22 09:09 Dose: 3 ml Documented By: JANEL Sodium Chloride (0.9 % Sodium Chloride Flush 3 Ml Syringe) [facility] Last Admin: 02/12/22 09:09 Dose: 3 ml Documented By: JANEL Tolterodine Tartrate (Tolterodine Tartrate La 4 Mg Cap.Er.24h) 4 mg PO DAILY [facility] Last Admin: 02/12/22 09:35 Dose: Not Given Documented By: EPHRAIM Non-Admin Reason: Patient Refused Vitamin D (Cholecalciferol (Vitamin D3) 25 Mcg Tablet) 50 mcg PO DAILY [facility] Last Admin: 02/12/22 08:54 Dose: 50 mcg Documented By: JANEL Labs CBC & Chem 7: 02/11/22 05:53 02/11/22 05:53 Assessment and Plan (1) Rhabdomyolysis: Status: Acute Plan This is an 85 year old male with a PMH of A. fib on xarelto, porcine AVR, CAD s/p CABG, HLD, post herpetic neuralgia for which he recently started Lamictal, urinary frequency who presents to the ED after frequent falls which have been occuring over the last several weeks. He is being admitted for KAREN secondary to rhabdo. Toxic metabolic encephalopathy. Resolved medication related, lamictal stopped monitor Hematuria continue xarelto follow CBC KAREN on CKD due to Rhabdo (which is due to frequent falls). Better than baseline Baseline SCr around 1.5-1.6 Leg weakness/ frequent falls endorses that his symptoms started after starting 2 medications (lamcital for neuropathic pain and solifenacin for overactive bladder) may certainly be related to Lamictal, will stop no radicular symptoms and CT imaging showing DJD PT eval>rec str A. fib EKG showing A paced rhythm continue metoprolol + xarelto CAD s/p CABG continue baseline meds once med rec completed Elevated LFTs no abdominal symptoms trend Thrombocytopenia chronic DVT prophylaxis with Xarelto Attending Dr. Cullen DNR/DNI (confirmed by patient and MOLST as well) Continued hospitalizations for treatment and monitoring for the above mentioned conditions. This cannot be completed in a less acute setting. Also pending safe discharge to rehab, auth in progress Quality Stroke Does the patient have a stroke diagnosis?: No VTE Prior VTE?: No VTE Risk Level:: Medical - moderate - high VTE Device Contraindication: Treatment Not Indicated VTE Drug Contraindication: N/A - Med Ordered
[2022-02-12 13:56] LABS: COVID-19 Test Negative (Negative); IDNOW Serial# 16C4AD1C
[2022-02-12 16:00] VITALS: BP 138/63; PULSE 65; RESP 16; TEMP 36; O2SAT 97
[2022-02-12] MEDS: Rivaroxaban 15 MG TABLET PO (18:09)
== END 2022-02-12 19:19 | DRG 557 ==
LOC: HO.ED 10:34 → HO.EDOVER 11:34 → HO.IMC 02-10 02:16
PROVIDERS: Emergency Medicine; Admitting Provider Family Medicine; Emergency Provider Emergency Medicine Emergency Medical Services; PCP Nurse Practitioner Family; Visit Provider Nurse Practitioner Acute Care
DX: M62.82 Rhabdomyolysis (principal); G92.8 Other toxic encephalopathy; B02.29 Other postherpetic nervous system involvement; N17.9 Acute kidney failure, unspecified; F05 Delirium due to known physiological condition; N18.30 Chronic kidney disease, stage 3 unspecified; I25.10 Atherosclerotic heart disease of native coronary artery without angina pectoris; E78.5 Hyperlipidemia, unspecified; Z66 Do not resuscitate; R79.1 Abnormal coagulation profile; R29.6 Repeated falls; T42.6X5A Adverse effect of other antiepileptic and sedative-hypnotic drugs, initial encounter; R31.9 Hematuria, unspecified; I48.0 Paroxysmal atrial fibrillation; D69.6 Thrombocytopenia, unspecified; Z91.81 History of falling; Z20.822 Contact with and (suspected) exposure to COVID-19; Z96.1 Presence of intraocular lens; Z95.2 Presence of prosthetic heart valve; Z79.1 Long term (current) use of non-steroidal anti-inflammatories (NSAID); Z95.0 Presence of cardiac pacemaker; Z98.41 Cataract extraction status, right eye; Z88.8 Allergy status to other drugs, medicaments and biological substances; Z79.01 Long term (current) use of anticoagulants; Z79.82 Long term (current) use of aspirin; Z79.899 Other long term (current) drug therapy
CPT/HCPCS: 36415; 70450; 72131; 80048; 80076; 81001; 81003; 82550; 83735; 84145; 85014; 85018; 85025; 85027; 85610; 86140; 87635; 93005; 96360; 96361; 97110; 97116; 97162; 99285

== ENCOUNTER 2022-02-28 10:05 | Outpatient (REF) | payer MEDICARE, OTHER, SELFPAY ==
[2022-02-28 11:33] LABS: MANUAL DIFF FLAG NO
[2022-02-28 11:50] LABS: Basophils Percent Auto 0.5 % (0-2); Eosinophils Absolute Auto 0.2 X10*3/uL (0.0-0.4); Eosinophils Percent Auto 3.8 % (0-4); Hematocrit 38.8 % (42.0-52.0); Hemoglobin 12.1 g/dl (14.0-18.0); Imm Gran Abs Auto 0.01 X10*3/uL (0.00-0.03); Imm Gran Pct Auto 0.2 % (0.0-0.4); Lymphocytes Absolute Auto 1.1 X10*3/uL (1.2-4.9); Lymphocytes Percent Auto 18.1 % (20-40); Mean Corpuscular HGB Conc 31.2 g/dl (31.0-36.0); Mean Corpuscular Hemoglobin 30.6 pg (27.0-33.0); Mean Platelet Volume 10.9 fL (9.4-12.4); Monocytes Absolute Auto 0.8 X10*3/uL (0.1-1.2); Monocytes Percent Auto 13.4 % (2-11); Neutrophils Absolute Auto 3.9 x10*3/uL (2.0-8.3); Platelet Count 135 X10*3/uL (160-400); Red Blood Count 3.96 X10*6/uL (4.60-5.80); Red Cell Distribution Width 14.5 % (11.0-16.0); White Blood Count 6.1 X10*3/uL (4.8-10.8)
[2022-02-28 12:25] LABS: Alanine Aminotransferase 25 U/L (0-40); Albumin Level 3.4 g/dL (3.5-5.0); Alkaline Phosphatase 79 U/L (39-117); Anion Gap 13 (12-20); Aspartate Amino Transferase 25 U/L (5-37); Bilirubin Total 0.5 mg/dL (0.0-1.0); Blood Urea Nitrogen 20 mg/dL (9-16); Calcium 8.6 mg/dL (8.4-10.2); Carbon Dioxide 28 mmol/L (22-29); Chloride 105 mmol/L (96-108); Estimated Glomerular Filt Rate 38; Glucose Random 194 mg/dL (60-115); Potassium 4.3 mmol/L (3.3-5.1); Sodium 142 mmol/L (135-145); Total Protein 6.3 g/dL (6.5-8.0)
== END 2022-02-28 10:06 | disposition home or self-care (01) ==
LOC: HO.HMGCLDS 10:05
PROVIDERS: PCP Nurse Practitioner Family; Visit Provider Nurse Practitioner Family
DX: R74.8 Abnormal levels of other serum enzymes (principal)
CPT/HCPCS: 36415; 80053; 82550; 85025

== ENCOUNTER 2022-03-18 09:19 | Outpatient (REF) | payer MEDICARE, OTHER, SELFPAY ==
[2022-03-18 12:08] LABS: Alanine Aminotransferase 24 U/L (0-40); Albumin Level 3.5 g/dL (3.5-5.0); Alkaline Phosphatase 79 U/L (39-117); Anion Gap 13 (12-20); Aspartate Amino Transferase 26 U/L (5-37); Bilirubin Total 0.7 mg/dL (0.0-1.0); Blood Urea Nitrogen 23 mg/dL (9-16); Calcium 8.6 mg/dL (8.4-10.2); Carbon Dioxide 27 mmol/L (22-29); Chloride 105 mmol/L (96-108); Estimated Glomerular Filt Rate 40; Glucose Random 168 mg/dL (60-115); Potassium 4.3 mmol/L (3.3-5.1); Sodium 141 mmol/L (135-145); Total Protein 6.5 g/dL (6.5-8.0)
== END 2022-03-18 09:20 | disposition home or self-care (01) ==
LOC: HO.HMGCLDS 09:19
PROVIDERS: PCP Nurse Practitioner Family; Visit Provider Nurse Practitioner Family
DX: R79.89 Other specified abnormal findings of blood chemistry (principal)
CPT/HCPCS: 36415; 80053

== ENCOUNTER → 2022-06-10 10:03 | Outpatient (BNVA) | payer MEDICARE, SELFPAY | PROVIDERS: PCP Nurse Practitioner Family; Visit Provider Surgery Vascular Surgery | DX: I83.12 Varicose veins of left lower extremity with inflammation (principal) | CPT/HCPCS: 99212 ==

== ENCOUNTER 2022-07-24 08:07 | Outpatient (REF) | payer MEDICARE, OTHER, SELFPAY ==
--- NOTE | ~2022-07-24 | US_ITS ---
EXAMINATION: US LOWER EXTREMITY VENOUS (REFLUX EXAM), BILATERAL CLINICAL INDICATION: Chronic venous insufficiency with lower extremity varicose veins. History of prior left great saphenous vein harvesting for heart surgery COMPARISON: None. TECHNIQUE: Color flow triplex imaging and compression Doppler was performed to evaluate both the deep and the superficial systems bilaterally. To evaluate the superficial system, the examination was performed in the upright position. Color-flow Doppler ultrasound and compression ultrasound were utilized. In addition, maneuvers were utilized to demonstrate reflux. FINDINGS: 1. DEEP VENOUS ULTRASOUND OF THE RIGHT LOWER EXTREMITY: Common Femoral Vein: Compressible, normal respiratory variation and augmented flow. Femoral Vein: Compressible, normal color flow and augmentation. Popliteal Vein: Compressible, normal augmentation. Deep Reflux: There is no evidence of reflux in the deep system in either the common femoral vein or the popliteal vein. There is no evidence of a Damico's cyst. 2. SUPERFICIAL ULTRASOUND WITH DOPPLER OF RIGHT LOWER EXTREMITY: GREAT SAPHENOUS VEIN: Saphenofemoral Junction: 0.7 cm; Reflux: 0 ms Proximal Thigh: 0.7 cm; Reflux: 0 ms Mid Thigh: 0.4 cm; Reflux: 0 ms Above Knee: 0.4 cm; Reflux: 0 ms At Knee: 0.4 cm; Reflux: 0 ms Below Knee: 0.4 cm; Reflux: 0 ms Mid Calf: 0.3 cm; Reflux: 0 ms Ankle: 0.4 cm; Reflux: 0 ms DUPLICATED MEDIAL GREAT SAPHENOUS VEIN: Diameter: None Imaged Reflux: NA DUPLICATED LATERAL GREAT SAPHENOUS VEIN: Diameter: None Imaged Reflux: NA SMALL SAPHENOUS VEIN: Proximal: 0.2 cm; Reflux: 0 ms Distal: 0.2 cm; Reflux: 0 ms VEIN OF GIACOMINI: None Imaged. PERFORATORS: Location: None Imaged Size: NA Reflux: NA VARICOSITIES: Location: None significant Size: NA Reflux: NA 3. DEEP VENOUS ULTRASOUND OF THE LEFT LOWER EXTREMITY: Common Femoral Vein: Compressible, normal respiratory variation and augmented flow. Femoral Vein: Compressible, normal color flow and augmentation. Popliteal Vein: Compressible, normal augmentation. Deep Reflux: There is no evidence of reflux in the deep system in either the common femoral vein or the popliteal vein. There is no evidence of a Damico's cyst. 4. SUPERFICIAL ULTRASOUND WITH DOPPLER OF LEFT LOWER EXTREMITY: GREAT SAPHENOUS VEIN: Saphenofemoral Junction: 1.0 cm; Reflux: 0 ms Proximal Thigh: 0.7 cm; Reflux: 0 ms Mid Thigh: Not visualized Above Knee: Not visualized At Knee: Not visualized Below Knee: 0.2 cm; Reflux: 2544 ms Mid Calf: 0.3 cm; Reflux: 2952 ms Ankle: Not visualized DUPLICATED MEDIAL GREAT SAPHENOUS VEIN: Diameter: 0.4 cm Reflux: None DUPLICATED LATERAL GREAT SAPHENOUS VEIN: Diameter: None Imaged Reflux: NA SMALL SAPHENOUS VEIN: Proximal: 0.4 cm; Reflux: 0 ms Distal: 0.3 cm; Reflux: 0 ms VEIN OF GIACOMINI: None Imaged. PERFORATORS: Location: Distal calf extending to the great saphenous vein Size: 0.3 cm Reflux: None VARICOSITIES: Location: None significant Size: NA Reflux: NA US/US venous duplex LE BI IMPRESSION: Right: No significant reflux within the great saphenous vein and small saphenous vein Left: Great saphenous vein from the mid to thigh to the knee is not visualized consistent with prior vein harvesting. Residual great saphenous vein in the left calf demonstrates severe reflux
== END 2022-07-24 08:08 | disposition home or self-care (01) ==
LOC: HO.US 08:07
PROVIDERS: Visit Provider Surgery Vascular Surgery
DX: I83.12 Varicose veins of left lower extremity with inflammation (principal)
CPT/HCPCS: 93970

== ENCOUNTER → 2022-07-30 14:00 | Outpatient (BNVA) | payer MEDICARE, SELFPAY | PROVIDERS: PCP Nurse Practitioner Family; Visit Provider Surgery Vascular Surgery | DX: I83.12 Varicose veins of left lower extremity with inflammation (principal) | CPT/HCPCS: 99212 ==

== ENCOUNTER → 2022-09-06 08:25 | Outpatient (BNVA) | payer MEDICARE, SELFPAY | PROVIDERS: PCP Nurse Practitioner Family; Visit Provider Surgery Vascular Surgery | DX: M79.605 Pain in left leg (principal); I83.12 Varicose veins of left lower extremity with inflammation | CPT/HCPCS: 36482 ==

== ENCOUNTER 2022-09-10 08:37 | Outpatient (REF) | payer MEDICARE, SELFPAY ==
--- NOTE | ~2022-09-10 | US_ITS ---
EXAMINATION: US VENOUS ULTRASOUND WITH DOPPLER LOWER EXTREMITY, LEFT CLINICAL INFORMATION: Left leg pain. COMPARISON: None TECHNIQUE: Ultrasound of the deep veins is performed from the hip to the calf with compression sonography and color and pulse Doppler assessment. Spectral analysis with color-flow imaging is performed. FINDINGS: There is normal venous compression and respiratory variation and augmented flow. The visualized common femoral vein, superficial femoral vein, profunda femoral vein, popliteal vein, and the trifurcation region shows no evidence of deep venous thrombosis. There is no significant popliteal fossa cyst. US/US venous duplex LE LT IMPRESSION: No DVT demonstrated in the left lower extremity.
== END 2022-09-10 08:38 | disposition home or self-care (01) ==
LOC: HO.US 08:37
PROVIDERS: Visit Provider Surgery Vascular Surgery
DX: M79.605 Pain in left leg (principal)
CPT/HCPCS: 93971

== ENCOUNTER → 2022-09-19 13:10 | Outpatient (BNVA) | payer MEDICARE, SELFPAY | PROVIDERS: PCP Nurse Practitioner Family; Visit Provider Surgery Vascular Surgery | DX: I83.12 Varicose veins of left lower extremity with inflammation (principal); I89.0 Lymphedema, not elsewhere classified | CPT/HCPCS: 99212 ==

== ENCOUNTER 2022-10-09 07:10 | Outpatient (REF) | payer MEDICARE, SELFPAY ==
[2022-10-09 11:44] LABS: Appearance Urine Clear; Color Urine Yellow; Glucose Urine UA Negative (Negative); Leukocyte Esterase Urine Negative (Negative); Nitrite Urine Negative (Negative); PH 5.5 (5.0-9.0); Specific Gravity - Urine 1.015 (1.005-1.025); Urine Blood Negative (Negative); Urine Ketones Negative (Negative); Urine Protein Negative (Neg-Trace)
[2022-10-09 11:46] LABS: MANUAL DIFF FLAG NO
[2022-10-09 12:09] LABS: Basophils Percent Auto 0.7 % (0-2); Eosinophils Absolute Auto 0.2 X10*3/uL (0.0-0.4); Eosinophils Percent Auto 3.8 % (0-4); Hematocrit 44.7 % (42.0-52.0); Hemoglobin 13.9 g/dl (14.0-18.0); Imm Gran Abs Auto 0.01 X10*3/uL (0.00-0.03); Imm Gran Pct Auto 0.2 % (0.0-0.4); Lymphocytes Absolute Auto 1.9 X10*3/uL (1.2-4.9); Lymphocytes Percent Auto 33.2 % (20-40); Mean Corpuscular HGB Conc 31.1 g/dl (31.0-36.0); Mean Corpuscular Hemoglobin 30.8 pg (27.0-33.0); Mean Corpuscular Volume 98.9 fL (80.0-98.0); Mean Platelet Volume 11.4 fL (9.4-12.4); Monocytes Absolute Auto 0.6 X10*3/uL (0.1-1.2); Monocytes Percent Auto 10.7 % (2-11); Neutrophils Percent Auto 51.4 % (45-73); Platelet Count 122 X10*3/uL (160-400); Red Blood Count 4.52 X10*6/uL (4.60-5.80); White Blood Count 5.8 X10*3/uL (4.8-10.8)
[2022-10-09 13:09] LABS: Alanine Aminotransferase 27 U/L (0-40); Albumin Level 3.6 g/dL (3.5-5.0); Alkaline Phosphatase 74 U/L (39-117); Anion Gap 12 (12-20); Aspartate Amino Transferase 23 U/L (5-37); Bilirubin Total 0.7 mg/dL (0.0-1.0); Blood Urea Nitrogen 24 mg/dL (9-16); Calcium 8.7 mg/dL (8.4-10.2); Carbon Dioxide 28 mmol/L (22-29); Chloride 107 mmol/L (96-108); Cholesterol 102 mg/dL; Estimated Glomerular Filt Rate 36; Glucose Fasting 129 mg/dL (60-99); HDL Cholesterol 32 mg/dL; LDL Cholesterol Calculated 52 mg/dl; Potassium 4.5 mmol/L (3.3-5.1); Prostate Specific Antigen Scr 5.19 ng/mL (<0.05-4.0); Sodium 142 mmol/L (135-145); TSH reflex Free T4 2.85 uIU/mL (0.32-4.0); Total Protein 6.5 g/dL (6.5-8.0); Triglycerides 91 mg/dL
== END 2022-10-09 07:11 | disposition home or self-care (01) ==
LOC: HO.HMGCLDS 07:10
PROVIDERS: PCP Nurse Practitioner Family; Visit Provider Nurse Practitioner Family
DX: Z12.5 Encounter for screening for malignant neoplasm of prostate (principal); I10 Essential (primary) hypertension
CPT/HCPCS: 36415; 80053; 80061; 81003; 84153; 84443; 85025

== ENCOUNTER 2022-11-12 12:37 | Outpatient (REF) | payer MEDICARE, SELFPAY ==
--- NOTE | ~2022-11-12 | CT_ITS ---
EXAMINATION: CT HEAD WITHOUT CONTRAST CLINICAL INFORMATION: Headache unspecified. COMPARISON: CT head 02/08/2022. TECHNIQUE: Contiguous axial imaging was performed from the skull base to vertex without intravenous administration of contrast. This CT examination was performed using dose optimization techniques as appropriate, variously including the following: *Automated exposure control *Adjustment of mA and/or kV according to patient size (this includes techniques or standardized protocols for targeted exams where dose is matched to indication/reason for exam; i.e. extremities or head) *Use of iterative reconstruction technique DLP: 851 mGy-cm FINDINGS: Dense segmental calcific atherosclerotic plaques are present in the cavernous portions of the internal carotid arteries. Moderate diffuse commensurate prominence of ventricles and sulci is noted. Moderate patchy periventricular and subcortical white matter hypodensities are identified. No intracranial hemorrhage, tumors or definitive acute infarcts are visualized. Bilateral ocular lens extractions are noted. No significant opacification of the visualized paranasal sinuses, mastoid air cells and middle ear cavities. Minimal physiologic appearing mucosal thickening is noted within the visualized left maxillary sinus. CT/CT head/brain wo IV con IMPRESSION: 1. No acute intracranial abnormalities. 2. Moderate white matter chronic small vessel ischemic disease.
== END 2022-11-12 12:38 | disposition home or self-care (01) ==
LOC: HO.CT 12:37
PROVIDERS: PCP Nurse Practitioner Family; Visit Provider Nurse Practitioner Family
DX: R51.9 Headache, unspecified (principal)
CPT/HCPCS: 70450

== ENCOUNTER → 2022-11-15 08:50 | Outpatient (BNVA) | payer MEDICARE, SELFPAY | PROVIDERS: PCP Nurse Practitioner Family; Visit Provider Nurse Practitioner Family | DX: R33.9 Retention of urine, unspecified (principal); R97.20 Elevated prostate specific antigen [PSA] | CPT/HCPCS: 51798; 99212 ==

== ENCOUNTER 2022-12-13 09:42 | Outpatient (REF) | payer MEDICARE, SELFPAY ==
--- NOTE | ~2022-12-13 | US_ITS ---
EXAMINATION: US RETROPERITONEAL COMPLETE (RENAL) CLINICAL INFORMATION: Benign prostatic hyperplasia with lower urinary tract symptoms. COMPARISON: CT abdomen 06/23/2020. Ultrasound abdomen complete 05/30/2020. Renal ultrasound 03/02/2020. X-ray KUB 02/17/2015. TECHNIQUE: Real-time imaging of the kidneys and bladder. FINDINGS: RIGHT KIDNEY: 11.6 x 4.8 x 4.9 cm (SAG x AP x TRV). The kidney is normal in size, contour, and echogenicity. Renal cortical thickness is normal. No calculi or focal parenchymal lesions. No hydronephrosis. LEFT KIDNEY: 10.7 x 5.5 x 5.6 cm (SAG x AP x TRV). The kidney is normal in size, contour, and echogenicity. Renal cortical thickness is normal. No calculi or focal parenchymal lesions. No hydronephrosis. BLADDER: Well distended and normal. Bilateral ureteral jets are demonstrated. Prevoid bladder volume is 195 mL. Postvoid bladder volume is 132 mL. There is wall thickening to 8 mm. Minimal debris is noted ADDITIONAL FINDINGS: Prostate dimensions are 6.1 x 5.9 x 7.2 cm (volume 135.0 mL). US/US retroperitoneal comp IMPRESSION: 1. Unremarkable ultrasound appearance of the bilateral kidneys. 2. There is an increased postvoid residual volume. 3. There is bladder wall thickening, possibly related to hypertrophy. 4. There is prostatomegaly.
== END 2022-12-13 09:43 | disposition home or self-care (01) ==
LOC: HO.US 09:42
PROVIDERS: PCP Nurse Practitioner Family; Visit Provider Nurse Practitioner Family
DX: N40.1 Benign prostatic hyperplasia with lower urinary tract symptoms (principal); R33.9 Retention of urine, unspecified; R39.11 Hesitancy of micturition
CPT/HCPCS: 76770

== ENCOUNTER → 2022-12-19 09:25 | Outpatient (BNVA) | payer MEDICARE, OTHER, SELFPAY | PROVIDERS: PCP Nurse Practitioner Family; Visit Provider Nurse Practitioner Family | DX: R97.20 Elevated prostate specific antigen [PSA] (principal); N40.1 Benign prostatic hyperplasia with lower urinary tract symptoms; N13.8 Other obstructive and reflux uropathy; R33.8 Other retention of urine | CPT/HCPCS: 51798; 99212 ==

== ENCOUNTER 2023-01-07 08:08 | Outpatient (REF) | payer MEDICARE, SELFPAY ==
[2023-01-07 11:49] LABS: Estimated Average Glucose 137 mg/dL; Hemoglobin A1c % 6.4 %
[2023-01-07 11:58] LABS: Alanine Aminotransferase 28 U/L (0-40); Albumin Level 3.4 g/dL (3.5-5.0); Alkaline Phosphatase 63 U/L (39-117); Anion Gap 16 (12-20); Aspartate Amino Transferase 22 U/L (5-37); Bilirubin Total 1.1 mg/dL (0.0-1.0); Blood Urea Nitrogen 24 mg/dL (9-16); Carbon Dioxide 25 mmol/L (22-29); Chloride 104 mmol/L (96-108); Estimated Glomerular Filt Rate 41; Glucose Fasting 159 mg/dL (60-99); Potassium 4.3 mmol/L (3.3-5.1); Sodium 141 mmol/L (135-145); Total Protein 6.7 g/dL (6.5-8.0)
[2023-01-07 13:13] LABS: Creatinine Urine 96.74 mg/dL; Microalbum/Creatinine Ratio Ur 14.4 ug/mg cr
== END 2023-01-07 08:09 | disposition home or self-care (01) ==
LOC: HO.HMGCLDS 08:08
PROVIDERS: PCP Nurse Practitioner Family; Visit Provider Nurse Practitioner Family
DX: E11.9 Type 2 diabetes mellitus without complications (principal)
CPT/HCPCS: 36415; 80053; 82043; 83036

== ENCOUNTER 2023-01-28 14:19 | Outpatient (AMB) | payer MEDICARE, SELFPAY ==
--- NOTE | 2023-01-28 14:22 | MHC.OFFWIV ---
Intake Vital Signs 01/28/23 14:23 Height 5 ft 9 in BP 118/50 L Blood Pressure Location Rt brachial Position Sitting Pulse 75 Pulse Source Pulse Oximeter Temp 98.1 F Temp Source Temporal Artery Scan Pulse Oximetry (%) 98 Oxygen Delivery Method Room Air Intake Visit Reasons: EST/often use of restroom/ fever(lobby) masked Intake Note: Pt is here c/o diarrhea, fever and lower back pain. Patient Tobacco Use Status: Never used Tobacco Allergies lamotrigine [From Lamictal] Allergy (Intermediate, Verified 01/28/23 14:23) swelling gabapentin Allergy (Unknown, Verified 01/28/23 14:23) lip swelling pregabalin [From Lyrica] Allergy (Unknown, Verified 01/28/23 14:23) lip swelling Medication List - Last Reconciled 01/28/23 by Chevy Santos MD amitriptyline 10 mg PO BEDTIME 90 days aspirin (Adult Aspirin Regimen) 81 mg PO DAILY atorvastatin 40 mg PO DAILY blood sugar diagnostic ([employer] Ultra Test strips) Check fasting blood sugar and a random blood sugar daily. blood-glucose meter ([employer] Ultra2 Meter) Check fasting blood sugar and a random blood sugar daily. cholecalciferol (vitamin D3) 50 mcg PO DAILY duloxetine 30 mg PO BID 90 days ezetimibe 10 mg PO DAILY finasteride 5 mg PO DAILY 90 days lancets ([employer] Safety Lancet) Check fasting blood sugar and a random blood sugar daily. metoprolol tartrate 50 mg PO BID prednisone 10 mg PO DAILY 21 days rivaroxaban (Xarelto) 20 mg PO DAILY 90 days tamsulosin 0.4 mg PO BEDTIME 90 days Do you need a note to return to daycare/school/sports/work: No HPI HPI Comments History of Present Illness Details 87-year-old male presents to the office for a sick visit. Patient gives history of otalgia of the right ear after her herpes zoster infection. He has tried all kinds of therapies with minimal relief. He was seeing the ear nose throat surgeon who put him on a course of prednisone. He finished the last of the tapering dose on Friday. Subsequently, patient has developed a bloated sensation with burning in the stomach. He has had 1 or 2 episodes of diarrhea. Feeling tired. [facility] Medical History (Updated 01/06/23 @ 13:48 by TRACY PriceFRANDY) Aortic stenosis Atrial fibrillation CAD (coronary artery disease) CKD (chronic kidney disease) Dyslipidemia Elevated PSA Frequent falls Gout History of claustrophobia History of shingles On anticoagulant therapy On beta diana at home Post herpetic neuralgia Right facial pain Spinal stenosis of lumbar region Trigeminal neuralgia Urinary frequency Surgical History H/O aortic valve replacement History of aortic valve replacement History of fracture of leg History of heart bypass surgery History of laparoscopic cholecystectomy Pacemaker Status post lens implant Family History Father No problems noted. Mother No problems noted. Social History Household Members: None Housing: House Are you a primary healthcare facility administrator to a significant other at home: No Do you presently have visiting nurse or other home services: No Alcohol intake: never Patient Tobacco Use Status: Never used Tobacco e-Cigarette/Vaping Use: Never Used Second Hand Smoke Exposure: No service: Yes Current occupational status: unemployed and retired Current occupational exposures/hazards: No Cognitive needs: No Hearing needs: No Vision needs: No Physical Exam Vital Signs: Last Vital Signs Temp 98.1 F 01/28/23 14:23 Pulse 75 01/28/23 14:23 BP 118/50 L 01/28/23 14:23 Pulse Ox 98 01/28/23 14:23 Oxygen Delivery Method Room Air 01/28/23 14:23 Const General: cooperative and healthy appearing Nutritional Appearance: well nourished Orientation/consciousness: patient oriented x3 Limitations: no limitations HEENT Head: Yes normal to inspection Eyes General: appearance normal, both eyes and all related structures Neck Neck: Yes normal visual inspection Chest Chest palpation & inspection: normal palpation of entire chest wall Resp Effort & Inspection: normal respiratory effort Neuro General: patient oriented x3 Assessment & Plan Assessment & Plan (1) Abdominal pain: Code(s): R10.9 - Unspecified abdominal pain Plan: PPI called in. If symptoms not better to follow-up here. Coding Level of Care Code Est Pt Level 4 (27694) Diagnoses Abdominal pain R10.9
[2023-01-28 14:23] VITALS: BP 118/50; PULSE 75; TEMP 36.7; O2SAT 98
== END 2023-01-28 15:46 | disposition home or self-care (01) ==
PROVIDERS: PCP Nurse Practitioner Family; Visit Provider Internal Medicine
DX: R10.9 Unspecified abdominal pain (principal)
CPT/HCPCS: 99214

== ENCOUNTER 2023-02-24 14:06 | Outpatient (AMB) | payer MEDICARE, SELFPAY ==
--- NOTE | 2023-02-24 15:28 | AM.OFFWIN_ITS ---
Intake Vital Signs 02/24/23 15:32 Height 5 ft 9 in BP 132/60 Blood Pressure Location Rt brachial Position Sitting Pulse 68 Pulse Source Pulse Oximeter Temp 97.1 F Temp Source Temporal Artery Scan Pulse Oximetry (%) 95 Oxygen Delivery Method Room Air Intake Visit Reasons: EP ?RT Big toe Injury/Infection Intake Note: Pt is here c/o right toe injury. Pt states about one week ago he banged his toe against his bathtub. Pt states it has gotten worse. Patient Tobacco Use Status: Never used Tobacco Allergies lamotrigine [From Lamictal] Allergy (Intermediate, Verified 02/24/23 16:12) swelling gabapentin Allergy (Unknown, Verified 02/24/23 16:12) lip swelling pregabalin [From Lyrica] Allergy (Unknown, Verified 02/24/23 16:12) lip swelling Medication List - Last Reconciled 02/24/23 by Chevy Santos MD amitriptyline 10 mg PO BEDTIME 90 days aspirin (Adult Aspirin Regimen) 81 mg PO DAILY atorvastatin 40 mg PO DAILY blood sugar diagnostic ([employer] Ultra Test strips) Check fasting blood sugar and a random blood sugar daily. blood-glucose meter ([employer] Ultra2 Meter) Check fasting blood sugar and a random blood sugar daily. cephalexin 500 mg PO BID cholecalciferol (vitamin D3) 50 mcg PO DAILY duloxetine 30 mg PO BID 90 days ezetimibe 10 mg PO DAILY finasteride 5 mg PO DAILY 90 days lancets ([employer] Delica Safety Lancet) Check fasting blood sugar and a random blood sugar daily. metoprolol tartrate 50 mg PO BID pantoprazole 40 mg PO DAILY prednisone 10 mg PO DAILY 21 days rivaroxaban (Xarelto) 20 mg PO DAILY 90 days tamsulosin 0.4 mg PO BEDTIME 90 days Do you need a note to return to daycare/school/sports/work: No HPI EP ?RT Big toe Injury/Infection HPI Details 87-year-old male presents to the office for a sick visit. Patient stubbed his toe on the bathtub. Painful and he has notice redness on the great toe. [facility] Medical History (Updated 02/24/23 @ 16:13 by Chevy Santos MD) Aortic stenosis Atrial fibrillation CAD (coronary artery disease) CKD (chronic kidney disease) Dyslipidemia Elevated PSA Frequent falls Gout History of claustrophobia History of shingles On anticoagulant therapy On beta diana at home Post herpetic neuralgia Right facial pain Spinal stenosis of lumbar region Trigeminal neuralgia Urinary frequency Surgical History H/O aortic valve replacement History of aortic valve replacement History of fracture of leg History of heart bypass surgery History of laparoscopic cholecystectomy Pacemaker Status post lens implant Family History Father No problems noted. Mother No problems noted. Social History Household Members: None Housing: House Are you a primary medicare contact specialist to a significant other at home: No Do you presently have visiting nurse or other home services: No Alcohol intake: never Patient Tobacco Use Status: Never used Tobacco e-Cigarette/Vaping Use: Never Used Second Hand Smoke Exposure: No service: Yes Current occupational status: unemployed and retired Current occupational exposures/hazards: No Cognitive needs: No Hearing needs: No Vision needs: No Physical Exam Vital Signs: Last Vital Signs Temp 97.1 F 02/24/23 15:32 Pulse 68 02/24/23 15:32 BP 132/60 02/24/23 15:32 Pulse Ox 95 02/24/23 15:32 Oxygen Delivery Method Room Air 02/24/23 15:32 Extrem Other: Right foot: Great toe: Erythematous area over the toe with weepy discharge. Tender to touch. Assessment & Plan Assessment & Plan (1) Paronychia of fifth toe, right: Code(s): L03.031 - Cellulitis of right toe Plan: Antibiotics called in. If symptoms do not improve to follow-up here. Medications: New cephalexin 500 mg PO BID 14 caps 0RF Coding Level of Care Code Est Pt Level 3 (08950) Diagnoses Paronychia of fifth toe, right L03.031
[2023-02-24 15:32] VITALS: BP 132/60; PULSE 68; TEMP 36.2; O2SAT 95
== END 2023-02-24 16:52 | disposition home or self-care (01) ==
PROVIDERS: PCP Nurse Practitioner Family; Visit Provider Internal Medicine
DX: L03.031 Cellulitis of right toe (principal)
CPT/HCPCS: 99213

== ENCOUNTER 2023-03-03 09:17 | Outpatient (AMB) | payer MEDICARE, SELFPAY ==
--- NOTE | 2023-03-03 11:00 | MHC.OFFWIV ---
Intake Vital Signs 03/03/23 11:01 Weight 236 lb BP 122/80 Blood Pressure Location Rt brachial Pulse 64 Pulse Source Pulse Oximeter Temp 97.7 F Temp Source Oral Pulse Oximetry (%) 98 Oxygen Delivery Method Room Air Intake Visit Reasons: EP bleeding in rectum for 2 days (rhonda) Intake Note: Patient here because he has had some blood coming from rectum for about 2 days. denies any pain. Patient Tobacco Use Status: Never used Tobacco Allergies lamotrigine [From Lamictal] Allergy (Intermediate, Verified 03/04/23 05:55) swelling gabapentin Allergy (Unknown, Verified 03/04/23 05:55) lip swelling pregabalin [From Lyrica] Allergy (Unknown, Verified 03/04/23 05:55) lip swelling Medication List - Last Reconciled 03/04/23 by Chevy Santos MD amitriptyline 10 mg PO BEDTIME 90 days aspirin (Adult Aspirin Regimen) 81 mg PO DAILY atorvastatin 40 mg PO DAILY blood sugar diagnostic ([employer] Ultra Test strips) Check fasting blood sugar and a random blood sugar daily. blood-glucose meter ([employer] Ultra2 Meter) Check fasting blood sugar and a random blood sugar daily. cephalexin 500 mg PO BID cholecalciferol (vitamin D3) 50 mcg PO DAILY duloxetine 30 mg PO BID 90 days ezetimibe 10 mg PO DAILY finasteride 5 mg PO DAILY 90 days lancets ([employer] Delica Safety Lancet) Check fasting blood sugar and a random blood sugar daily. metoprolol tartrate 50 mg PO BID pantoprazole 40 mg PO DAILY prednisone 10 mg PO DAILY 21 days rivaroxaban (Xarelto) 20 mg PO DAILY 90 days tamsulosin 0.4 mg PO BEDTIME 90 days Do you need a note to return to daycare/school/sports/work: No HPI EP bleeding in rectum for 2 days (lobby) HPI Details 87-year-old male presents to the office for a sick visit. Patient is reporting that he had bleeding from his rectum in the past few days. It was bright red blood he passed not related to defecating. He has been constipated in the past few days. No dizziness, blurred vision. [facility] Medical History (Updated 03/04/23 @ 06:01 by Chevy Santos MD) Aortic stenosis Atrial fibrillation CAD (coronary artery disease) CKD (chronic kidney disease) Dyslipidemia Elevated PSA Frequent falls Gout History of claustrophobia History of shingles On anticoagulant therapy On beta diana at home Post herpetic neuralgia Right facial pain Spinal stenosis of lumbar region Trigeminal neuralgia Urinary frequency Surgical History H/O aortic valve replacement History of aortic valve replacement History of fracture of leg History of heart bypass surgery History of laparoscopic cholecystectomy Pacemaker Status post lens implant Family History Father No problems noted. Mother No problems noted. Social History Household Members: None Housing: House Are you a primary wound care nurse to a significant other at home: No Do you presently have visiting nurse or other home services: No Alcohol intake: never Patient Tobacco Use Status: Never used Tobacco e-Cigarette/Vaping Use: Never Used Second Hand Smoke Exposure: No service: Yes Current occupational status: unemployed and retired Current occupational exposures/hazards: No Cognitive needs: No Hearing needs: No Vision needs: No Physical Exam Vital Signs: Last Vital Signs Temp 97.7 F 03/03/23 11:01 Pulse 64 03/03/23 11:01 BP 122/80 03/03/23 11:01 Pulse Ox 98 03/03/23 11:01 Oxygen Delivery Method Room Air 03/03/23 11:01 Const General: cooperative and healthy appearing Nutritional Appearance: well nourished Orientation/consciousness: patient oriented x3 Limitations: no limitations HEENT Head: Yes normal to inspection Eyes General: appearance normal, both eyes and all related structures Neck Neck: Yes normal visual inspection Chest Chest palpation & inspection: normal palpation of entire chest wall Resp Effort & Inspection: normal respiratory effort Other: Rectal exam: No external hemorrhoid identified. Rectal exam was unremarkable. Trace blood on the glove. Neuro General: patient oriented x3 Assessment & Plan Assessment & Plan (1) Hematochezia: Code(s): K92.1 - Melena Plan: This could be due to a hemorrhoid or him taking anticoagulants. Needs further evaluation including a colonoscopy. Anusol suppositories have been prescribed. This note is being shared with his primary care provider so that a GI consultation can be off obtained for him. Coding Level of Care Code Est Pt Level 4 (25773) Diagnoses Hematochezia K92.1
[2023-03-03 11:01] VITALS: BP 122/80; PULSE 64; TEMP 36.5; O2SAT 98
== END 2023-03-03 13:55 | disposition home or self-care (01) ==
PROVIDERS: PCP Nurse Practitioner Family; Visit Provider Internal Medicine
DX: K92.1 Melena (principal)
CPT/HCPCS: 99214

== ENCOUNTER 2023-04-07 11:17 | Outpatient (AMB) | payer MEDICARE, MEDICAID, SELFPAY ==
--- NOTE | 2023-04-07 11:25 | MHC.OFFVIS ---
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 male with past medical history of diabetes, BPH, hypertension, thrombocytopenia, depression, trigeminal neuralgia is here today for pre colonoscopy screening.? Patient was sent to us by his PCP.? Patient had colonoscopy in the past.? Patient denies any gastrointestinal symptoms in the past or at present.? Denies any personal or family history of gastrointestinal disease, colon polyps, or cancer.? Denies history of difficulty with sedation or anesthesia in the past.? Negative for history of sleep apnea.? Denies any history of cardiac, renal, pulmonary, or hepatic disease.?? No history of infectious? diseases like hepatitis A, B, C, HIV or tuberculosis.? Patient is not on any anticoagulation therapy. [facility] Medical History Frequent falls Urinary frequency History of claustrophobia History of shingles On anticoagulant therapy On beta diana at home Dyslipidemia Gout Spinal stenosis of lumbar region Atrial fibrillation CKD (chronic kidney disease) Elevated PSA Aortic stenosis CAD (coronary artery disease) Right facial pain Trigeminal neuralgia Post herpetic neuralgia Surgical History H/O aortic valve replacement Status post lens implant History of fracture of leg History of laparoscopic cholecystectomy History of aortic valve replacement History of heart bypass surgery Pacemaker Family History Father No problems noted. Mother No problems noted. Social History Household Members: None Housing: House Are you a primary medication care manager to a significant other at home: No Do you presently have visiting nurse or other home services: No Alcohol intake: never Patient Tobacco Use Status: Never used Tobacco e-Cigarette/Vaping Use: Never Used Second Hand Smoke Exposure: No Use of substances other than those prescribed or required for medical reasons: No service: Yes Current occupational status: unemployed and retired Current occupational exposures/hazards: No Cognitive needs: No Hearing needs: No Vision needs: No Review of Systems Const Denies weight gain and Denies weight loss ENT Reports no additional complaints, Denies dysphagia and Denies odynophagia Card Reports no additional complaints Resp Reports no additional complaints GI Denies abdominal pain, Denies belching, Denies melena, Denies bloating, Denies change in bowel habits, Denies dysphagia, Denies excessive flatus, Denies dyspepsia, Denies heartburn, Denies diarrhea, Denies loose stools, Denies nausea, Denies odynophagia and Denies vomiting Reports no additional complaints Musc Reports no additional complaints Neuro Reports no additional complaints Psych Reports no additional complaints Endo Reports no additional complaints Physical Exam Vital Signs: Last Vital Signs Pulse 65 04/07/23 11:27 BP 127/59 L 04/07/23 11:27 BMI result Body Mass Index 34.6 Const General: healthy appearing, no acute distress and well developed Nutritional Appearance: obese Orientation/consciousness: patient oriented x3 HEENT Head: Yes normal to inspection, Yes normocephalic and Yes atraumatic Face and sinus: Yes normal facial exam Mouth: Normal oral and palatal mucosa present Throat: Yes posterior oropharynx normal, Yes tonsils normal and Yes uvula midline Eyes General: appearance normal, both eyes and all related structures Neck Neck: Yes normal visual inspection, Yes full ROM and Yes trachea midline Thyroid: Thyroid normal Resp Effort & Inspection: normal respiratory effort, able to speak in complete sentences, no tracheal deviation and symmetric chest movement Auscultation: clear to auscultation bilaterally Cardio Rate: regular rate Heart sounds: S1 normal heart sound present and S2 normal heart sound present GI Inspection: Yes normal to inspection, No distended and Yes obesity Palpation (GI): Soft to palpation, not firm, nontender and No hepatosplenomegaly present Auscultation: normal bowel sounds General: Yes no CVA tenderness Back/Spine/Pelvis Back: no CVA tenderness Skin General skin exam: elasticity normal, turgor normal and dry skin Neuro General: patient oriented x3 Psych Appearance: grossly normal Mental Status: mental status grossly normal Speech and movement: Normal speech and movement present Assessment & Plan Assessment & Plan (1) Screen for colon cancer: Code(s): Z12.11 - Encounter for screening for malignant neoplasm of colon Plan: Patient denies any GI cardiac or respiratory symptoms.? Denies any issues with anesthesia in the past.? Denies any history of sleep apnea.? No history infectious diseases in the past or present.? Not on any anticoagulation therapy.? No family or personal history of colon cancer or polyps.? Patient denies melena, hematochezia (one episode) unintentional weight loss or ribbon like stools.? Please call his insurance manager Dr. Saab at [phone] to make sure he is cleared and to make sure that he can stop Xarelto 2 days before. (2) Hematochezia: Code(s): K92.1 - Melena Plan: One episode of bleeding. Patient will be sent for sigmoidoscopy, I will see patient after the procedure. Patient is agreeable to this plan and verbalizes understanding of instructions. He was given the opportunity to ask questions and all questions answered. Thank you for allowing me to participate in his care Coding Level of Care Code New Pt Level 3 (97819) Diagnoses Screen for colon cancer Z12.11 Hematochezia K92.1 Time Spent (min) 40 Comment 30 minutes spent with patient and additional 10 minutes spent reviewing his records
[2023-04-07 11:27] VITALS: BP 127/59; PULSE 65; BMI 34.6
== END 2023-04-07 12:04 | disposition home or self-care (01) ==
PROVIDERS: PCP Nurse Practitioner Family; Visit Provider Nurse Practitioner Family
DX: K92.1 Melena (principal); Z12.11 Encounter for screening for malignant neoplasm of colon
CPT/HCPCS: 99203

== ENCOUNTER → 2023-04-07 11:17 | Outpatient (BNVA) | payer MEDICARE, MEDICAID, SELFPAY | PROVIDERS: PCP Nurse Practitioner Family; Visit Provider Nurse Practitioner Family ==

== ENCOUNTER 2023-04-09 12:44 | Outpatient (AMB) | payer MEDICARE, SELFPAY ==
--- NOTE | 2023-04-09 13:04 | A.OFFPC_ITS ---
Vital Signs 04/09/23 13:05 Height 5 ft 9 in Weight 235 lb 4 oz BMI 34.7 BP 142/76 H Blood Pressure Location Rt brachial Position Sitting Pulse 65 Pulse Source Pulse Oximeter Pulse Oximetry (%) 97 Oxygen Delivery Method Room Air Intake Visit Reasons: 3 Month follow up Allergies lamotrigine [From Lamictal] Allergy (Intermediate, Verified 04/09/23 13:28) swelling gabapentin Allergy (Unknown, Verified 04/09/23 13:28) lip swelling pregabalin [From Lyrica] Allergy (Unknown, Verified 04/09/23 13:28) lip swelling Medication List - Last Reconciled 04/09/23 by MELIZA Price aspirin (Adult Aspirin Regimen) 81 mg PO DAILY atorvastatin 40 mg PO DAILY blood sugar diagnostic ([employer] Ultra Test strips) Check blood sugar once a day blood-glucose meter ([employer] Ultra2 Meter) Check fasting blood sugar and a random blood sugar daily. cholecalciferol (vitamin D3) 50 mcg PO DAILY duloxetine 30 mg PO BID 90 days ezetimibe 10 mg PO DAILY lancets ([employer] Delica Safety Lancet) Check blood sugar once a day metoprolol tartrate 50 mg PO BID pantoprazole 40 mg PO DAILY rivaroxaban (Xarelto) 20 mg PO DAILY 90 days tamsulosin 0.4 mg PO BEDTIME 90 days Tobacco use date assessed: 04/09/23 Fall risk assessment: 2 + Falls in past year Last assessed Fall Risk: 04/09/23 Dental Screening Dental Screen Date: 04/09/23 Did you have a dental visit in the last 12 months?: Yes Did you have a dental problem in the last 6 months where you did not have access to dental care?: No Was dental information given to patient?: Patient has dentist HPI 3 Month follow up HPI Details Pt is a diabetic, on a statin. A1C in office today is 6.2. Microalbumin is up to date. Denies polyuria, polydipsia, and neuropathy. Pt denies any signs and symptoms of hypoglycemia and does know how to correct it. Pt brought in many blood sugars from home and they are all trending in normal range. eye exam is up to date according to pt. [facility] Medical History Frequent falls Urinary frequency History of claustrophobia History of shingles On anticoagulant therapy On beta diana at home Dyslipidemia Gout Spinal stenosis of lumbar region Atrial fibrillation CKD (chronic kidney disease) Elevated PSA Aortic stenosis CAD (coronary artery disease) Right facial pain Trigeminal neuralgia Post herpetic neuralgia Surgical History H/O aortic valve replacement Status post lens implant History of fracture of leg History of laparoscopic cholecystectomy History of aortic valve replacement History of heart bypass surgery Pacemaker Family History Father No problems noted. Mother No problems noted. Social History Household Members: None Housing: House Are you a primary field care advocate to a significant other at home: No Do you presently have visiting nurse or other home services: No Alcohol intake: never Patient Tobacco Use Status: Never used Tobacco e-Cigarette/Vaping Use: Never Used Second Hand Smoke Exposure: No service: Yes Current occupational status: unemployed and retired Current occupational exposures/hazards: No Cognitive needs: No Hearing needs: No Vision needs: No Questionnaire Thrive Questionnaire Date Thrive assessed: 07/10/22 ELZA-7 AMB Questionnaire ELZA-7 Date ELZA - 7 assessed: 07/10/22 Source: Developed by Drs. Nirav Marinelli, Dali Amezquita, Nicola Pruitt and colleagues, with an educational juan from [employer]. Review of Systems Const Reports as per HPI Physical exam (Primary Care) Vital Signs: Last Vital Signs Pulse 65 04/09/23 13:05 BP 142/76 H 04/09/23 13:05 Pulse Ox 97 04/09/23 13:05 Oxygen Delivery Method Room Air 04/09/23 13:05 BMI result Body Mass Index 34.7 Tobacco/Smoking Status: Tobacco use Status Tobacco use date assessed 04/09/23 04/09/23 13:11 Patient Tobacco Use Status Never used Tobacco 04/09/23 13:11 e-Cigarette/Vaping Use Never Used 04/09/23 13:11 Thrive Assessment: Date of Thrive Assessment Date Thrive assessed 07/10/22 04/09/23 13:11 Const General: cooperative Nutritional Appearance: obese Orientation/consciousness: patient oriented x3 Resp Effort & Inspection: normal respiratory effort Auscultation: clear to auscultation bilaterally Cardio Rate: regular rate Rhythm: regular rhythm Heart sounds: S1 normal heart sound present, S2 normal heart sound present and Murmur heart sound present systolic (faint) Neuro General: patient oriented x3 Extrem Other: bilat feet: + sensation with use of monofilament, swelling to BLE Psych Appearance: grossly normal Mental Status: mental status grossly normal Speech and movement: Normal speech and movement present Affect: normal affect Attitude: cooperative Thought process: Normal thought process present Thought content: Normal thought content present Insight: Good insight present (Psych) Judgement: Good judgement present (Psych) Results AMB Hemoglobin A1c AMB Hemoglobin A1c 6.2 % Last Edit by Stephany Hernandez CMA on 04/09/23 13: 41 Results Reviewed Results Reviewed: Laboratory Last Values Hgb A1c (Clinic) 6.2 % (4.0-6.0) H 04/09/23 13:40 Assessment and Plan Assessment & Plan (1) Diabetes: Code(s): E11.9 - Type 2 diabetes mellitus without complications Plan The patient agreed to the use of a medical receptionist assistant for this encounter. Scribed for MELIZA Casas by Lynette Sevilla medical receptionist assistant, on 04/09/2023 at 13:20 EST. Orders: Orders AMB Hemoglobin A1c Today R73.01 - Impaired fasting glucose Complete Blood Count Auto Diff Today E11.9 - Type 2 diabetes mellitus without complications Comprehensive [place]. Panel Fast Today E11.9 - Type 2 diabetes mellitus without complications TSH reflex Free T4 Today E11.9 - Type 2 diabetes mellitus without complications UA CC w/rflx Micro + Cult Today E11.9 - Type 2 diabetes mellitus without complications Lipid Panel Today E11.9 - Type 2 diabetes mellitus without complications Coding Level of Care Code Est Pt Level 3 (05211) Diagnoses Diabetes E11.9
[2023-04-09 13:05] VITALS: BP 142/76; PULSE 65; O2SAT 97; BMI 34.7
== END 2023-04-09 13:58 | disposition home or self-care (01) ==
PROVIDERS: PCP Nurse Practitioner Family; Visit Provider Nurse Practitioner Family
DX: E11.9 Type 2 diabetes mellitus without complications (principal); R73.01 Impaired fasting glucose
CPT/HCPCS: 83036; 99213

== ENCOUNTER 2023-05-27 06:22 | Day surgery (SDC) | payer MEDICARE, MEDICAID, SELFPAY ==
--- NOTE | 2023-05-26 12:15 | P.CONAN_ITS ---
Documented by User: Pari Espinoza NP 05/26/23 12:25 HPI - Anesthesia Eval Consult details Narrative: 88yo M for Sigmoidoscopy Flexible Follows [facility] for afib (xarelto), pacer, s/p TAVR 2016, CAD s/p CABG 1990. Stable without SOB, CP. Stable LE edema d/t venous insufficiency PMFSH Active Problems Active Problems: All Active Problems (Updated 04/16/23 @ 13:10 by Genoveva Goldberg MD) Diabetes (Acute) Hematochezia (Acute) Paronychia of fifth toe, right (Acute) Elevated fasting blood sugar (Acute) Enlarged prostate (Acute) Bleeding from right ear (Acute) Elevated PSA (Acute) Urinary hesitancy due to benign prostatic hyperplasia (Acute) Newly diagnosed diabetes (Acute) Occipital headache (Acute) Lymphedema (Acute) Impacted cerumen (Acute) Varicose veins of left lower extremity with inflammation (Acute) Swelling of left lower extremity (Acute) Elevated serum creatinine (Acute) Cellulitis (Acute) Elevated CPK (Acute) Urinary frequency (Acute) Incomplete bladder emptying (Acute) HTN (hypertension) (Acute) Cerumen impaction (Acute) Bicytopenia (Chronic) Thrombocytopenia (Acute) Wheezing (Acute) Screening PSA (prostate specific antigen) (Acute) Paronychia of great toe (Acute) Chest discomfort (Acute) Viral syndrome (Acute) Skin lesion (Acute) Abdominal pain (Acute) Hepatic lesion (Acute) Kidney function test abnormal (Acute) Depression (Acute) Lower back pain (Acute) Left hip pain (Acute) Trigeminal neuralgia (Acute) Pre-op evaluation (Acute) Right facial pain (Acute) Trigeminal neuralgia (Acute) Post herpetic neuralgia (Acute) Past Medical History Medical History Frequent falls Urinary frequency History of claustrophobia History of shingles On anticoagulant therapy On beta diana at home Dyslipidemia Gout Spinal stenosis of lumbar region Atrial fibrillation CKD (chronic kidney disease) Elevated PSA Aortic stenosis CAD (coronary artery disease) Right facial pain Trigeminal neuralgia Post herpetic neuralgia Family History Family History Father No problems noted. Mother No problems noted. Family history of problems with anesthesia: No Surgical History Surgical History H/O aortic valve replacement Status post lens implant History of fracture of leg History of laparoscopic cholecystectomy History of aortic valve replacement History of heart bypass surgery Pacemaker History of Problems with Anesthesia: No Social History Social History Household Members: None Housing: House Are you a primary palliative care specialist to a significant other at home: No Do you presently have visiting nurse or other home services: No Alcohol intake: never Patient Tobacco Use Status: Never used Tobacco e-Cigarette/Vaping Use: Never Used Second Hand Smoke Exposure: No Have you been hit, kicked, punched, or otherwise hurt by someone within the past year? If so, by whom?: No Are you DNR?: No Advance Directives: No Advance Directives Information Provided: Yes Recently lost weight without trying: No Eating poorly because of decreased appetite: No Nutrition Risks: No Nutritional Risk Poor oral hygiene: No service: Yes Current occupational status: unemployed and retired Current occupational exposures/hazards: No Cognitive needs: No Hearing needs: No Vision needs: No Meds Allergies Allergy/AdvReac Type Severity Reaction Status Date / Time lamotrigine [From Lamictal] Allergy Intermediate swelling Verified 04/16/23 12:54 gabapentin Allergy Unknown lip Verified 04/16/23 12:54 swelling pregabalin [From Lyrica] Allergy Unknown lip Verified 04/16/23 12:54 swelling Home Medications Medication Instructions Recorded Confirmed Last Taken Type aspirin 81 mg tablet,delayed 81 mg PO DAILY 04/22/20 04/16/23 02/07/22 History release (Adult Aspirin Regimen) Exam Exam Date and Time: May 26, 2023 1215 Pertinent Lab Results Pertinent Lab Results: Laboratory Tests 10/09/22 01/07/23 01/07/23 07:16 08:13 08:13 WBC 5.8 Hgb 13.9 L Hct 44.7 Plt Count 122 L Sodium 141 Potassium 4.3 Chloride 104 Carbon Dioxide 25 BUN 24 H Creatinine 1.62 H Narrative Narrative: ECHO 10/2022 Nml LV systolic function Grade 3 DD Nml functioning TAVR valve Pacer interr 04/2023 Nml device function Batterly life of ~3years Assessment and Plan Assessment Anesthesia Assessment: Chart Reviewed Final Anesthetic Review Family History of Problems with Anesthesia: No History of Problems with Anesthesia: No Documented by User: Kati Kwon MD 05/27/23 07:50 [facility] Active Problems Active Problems: All Active Problems (Updated 05/27/23 @ 07:20 by Kati Kwon MD) Diabetes (Acute) Hematochezia (Acute) Paronychia of fifth toe, right (Acute) Elevated fasting blood sugar (Acute) Enlarged prostate (Acute) Bleeding from right ear (Acute) Elevated PSA (Acute) Urinary hesitancy due to benign prostatic hyperplasia (Acute) Occipital headache (Acute) Lymphedema (Acute) Impacted cerumen (Acute) Varicose veins of left lower extremity with inflammation (Acute) Swelling of left lower extremity (Acute) Elevated serum creatinine (Acute) Cellulitis (Acute) Elevated CPK (Acute) Urinary frequency (Acute) Incomplete bladder emptying (Acute) HTN (hypertension) (Acute) Cerumen impaction (Acute) Bicytopenia (Chronic) Thrombocytopenia (Acute) Wheezing (Acute) Screening PSA (prostate specific antigen) (Acute) Paronychia of great toe (Acute) Chest discomfort (Acute) Viral syndrome (Acute) Skin lesion (Acute) Abdominal pain (Acute) Hepatic lesion (Acute) Kidney function test abnormal (Acute) Depression (Acute) Lower back pain (Acute) Left hip pain (Acute) Trigeminal neuralgia (Acute) Pre-op evaluation (Acute) Right facial pain (Acute) Trigeminal neuralgia (Acute) Post herpetic neuralgia (Acute) Shingles right ear Paroxysmal afib- Sinus rhythm today H/o CAD. CABGx5 22 years ago. Denies chest pain Past Medical History Medical History Frequent falls Urinary frequency History of claustrophobia History of shingles On anticoagulant therapy On beta diana at home Dyslipidemia Gout Spinal stenosis of lumbar region Atrial fibrillation CKD (chronic kidney disease) Elevated PSA Aortic stenosis CAD (coronary artery disease) Right facial pain Trigeminal neuralgia Post herpetic neuralgia Family History Family History Father No problems noted. Mother No problems noted. Surgical History Surgical History H/O aortic valve replacement Status post lens implant History of fracture of leg History of laparoscopic cholecystectomy History of aortic valve replacement History of heart bypass surgery Pacemaker Social History Social History Household Members: None Housing: House Are you a primary palliative care specialist to a significant other at home: No Do you presently have visiting nurse or other home services: No Alcohol intake: never Patient Tobacco Use Status: Never used Tobacco e-Cigarette/Vaping Use: Never Used Second Hand Smoke Exposure: No Have you been hit, kicked, punched, or otherwise hurt by someone within the past year? If so, by whom?: No Are you DNR?: No Advance Directives: No Advance Directives Information Provided: Yes Recently lost weight without trying: No Eating poorly because of decreased appetite: No Nutrition Risks: No Nutritional Risk Poor oral hygiene: No service: Yes Current occupational status: unemployed and retired Current occupational exposures/hazards: No Cognitive needs: No Hearing needs: No Vision needs: No Meds Allergies Allergy/AdvReac Type Severity Reaction Status Date / Time lamotrigine [From Lamictal] Allergy Intermediate swelling Verified 04/16/23 12:54 gabapentin Allergy Unknown lip Verified 04/16/23 12:54 swelling pregabalin [From Lyrica] Allergy Unknown lip Verified 04/16/23 12:54 swelling Home Medications Medication Instructions Recorded Confirmed Last Taken Type aspirin 81 mg tablet,delayed 81 mg PO DAILY 04/22/20 04/16/23 02/07/22 History release (Adult Aspirin Regimen) Exam Height,Weight and Vital Signs: Height 5 ft 9 in Weight 106.594 kg Vital Signs Temp Pulse Resp BP Pulse Ox O2 Del Method 05/27/23 07:15 97.2 F 65 18 182/76 H 96 Room Air Pertinent Lab Results Pertinent Lab Results: Laboratory Tests 10/09/22 01/07/23 01/07/23 07:16 08:13 08:13 WBC 5.8 Hgb 13.9 L Hct 44.7 Plt Count 122 L Sodium 141 Potassium 4.3 Chloride 104 Carbon Dioxide 25 BUN 24 H Creatinine 1.62 H Lab Results 05/27/23 Range/Units 07:14 POC Glucose 154 H (60-115) mg/dL Airway Mallampati Class: III TM Dist: >3cm Neck ROM: Full Denture: Upper and Lower Heart: RRR. No murmur heard Lungs: CTAB Assessment and Plan Assessment Anesthesia Assessment: Anesthesia Plan Discussed Final Anesthetic Review NPO: Yes ASA Class: IV Final Preanesthetic Review: No Changes in Pt Med Stat, Meds/Allgs Chart Reviewed, Consent Obtained/Reviewed and Anes Risks/Benef Reviewed Patient Risk: Intermediate Procedure Risk: Low Assessment/Block/Sedation in SS: Assess/Block/Sedation-SS Anesthetic Plan Anesthetic Plan: MAC: Disposition: Standard PACU
--- NOTE | 2023-05-27 06:40 | MHC.SHP ---
Pre-Procedural Eval Section A Date of Service: 05/27/23 Section B Chief Complaint: Hemorrhage of anus and rectum Relevant Family History (Specify if Yes): No Relevant Social History: None Present Medications: see Short Stay Collaborative assessment Medical History: Significant History (Frequent falls Urinary frequency History of claustrophobia History of shingles On anticoagulant therapy On beta diana at home Dyslipidemia Gout Spinal stenosis of lumbar region Atrial fibrillation CKD (chronic kidney disease) Elevated PSA Aortic stenosis CAD (coronary artery disease) Right facial ) History of Previous Operations: Relevant previous surgery/procedure and date(s) (H/O aortic valve replacement Status post lens implant History of fracture of leg History of laparoscopic cholecystectomy History of aortic valve replacement History of heart bypass surgery Pacemaker) Allergies: Allergies Allergy/AdvReac Type Severity Reaction Status Date / Time lamotrigine [From Lamictal] Allergy Intermediate swelling Verified 04/16/23 12:54 gabapentin Allergy Unknown lip Verified 04/16/23 12:54 swelling pregabalin [From Lyrica] Allergy Unknown lip Verified 04/16/23 12:54 swelling Review of Systems Sugical H&P ROS: Negative: Constitution, Cardiovascular, Respiratory, Neurological, Psychiatric, Hem-Onc, Allergic/Immunologic, Gastrointestinal, Genitourinary, Musculoskeletal, Integumentary, Endocrine and Eyes/Ears/Nose/Throat Exam Surgical H&P Exam: Normal: HEENT, Normal: Heart, Normal: Lungs, Normal: Extremities, Normal: Abdomen, Normal: Skin and Normal: Neurological Plan Diagnosis/Plan: Unchanged I have reviewed the history and physical and performed a pertinent physical examination on my patient. No changes have occurred unless specified. Time Spent With Patient Time: Total time managing care of this patient today ____ minutes.
[2023-05-27 06:41] VITALS: BMI 34.7
[2023-05-27] MEDS: Sodium Phosphate,Mono-Dibasic 133 ML ENEMA PR (07:06)
[2023-05-27 07:15] VITALS: BP 182/76; PULSE 65; RESP 18; TEMP 36.2; O2SAT 96
[2023-05-27 07:16] LABS: Glucose, Whole Blood 154 mg/dL (60-115)
--- NOTE | 2023-05-27 07:42 | W.PM.OPN ---
Operative Note Operative Note Date of Service: 05/27/23 Narrative: Operative Information Procedure Description: sigmoidoscopy Indication: rectal bleeding Anesthesia: MAC Sigmoidoscopy Instrument: pediatric colonoscope Colonoscopy Monitoring: Vital signs and clinical assessment, continuous EKG monitoring, Pulse oximetry, Carbon Dioxide monitoring and blood pressure monitoring were done throughout the procedure. Procedure: The patient was placed in the left lateral decubitis position and pre-procedure medications were administered. After a digital rectal examination of the ano-rectum, the video colonoscope was inserted into the rectum and advanced through the colon to the transverse colon. The scope was slowly withdrawn in a retrograde panoramic fashion and the colon mucosa was carefully examined including a retroflexed view of the rectum. Findings and interventions are described below. Procedure Difficulty: easy Findings: Transverse Colon -normal Descending Colon:normal Sigmoid Colon: moderate diverticulosis Rectum: Retroflexion with medium sized internal hemorrhoids, grade II Anorectum - normal Colon preparation:fair Impression and Post Procedure Diagnosis: internal hemorrhoids--likely cause of bleeding diverticulosis Plan: High fiber diet avoid constipation and straining, can use squatty potty can restart eliquis today Above findings were reviewed with the patient and relevant handouts were provided if indicated.
[2023-05-27 07:57] VITALS: BP 126/59; PULSE 65; RESP 22; TEMP 36.8; O2SAT 94
[2023-05-27 08:12] VITALS: BP 146/71; PULSE 65; RESP 20; TEMP 36.8; O2SAT 96
== END 2023-05-27 08:41 | disposition home or self-care (01) ==
PROVIDERS: PCP Nurse Practitioner Family; Visit Provider Internal Medicine Gastroenterology
PROC: 0DJD8ZZ Inspection of Lower Intestinal Tract, Via Natural or Artificial Opening Endoscopic (ICD-10-PCS; CPT 45330; principal; 2023-05-27 07:30)
DX: K62.5 Hemorrhage of anus and rectum (principal); K57.30 Diverticulosis of large intestine without perforation or abscess without bleeding; K64.1 Second degree hemorrhoids; E11.22 Type 2 diabetes mellitus with diabetic chronic kidney disease; I12.9 Hypertensive chronic kidney disease with stage 1 through stage 4 chronic kidney disease, or unspecified chronic kidney disease; N18.9 Chronic kidney disease, unspecified; E78.5 Hyperlipidemia, unspecified; I48.91 Unspecified atrial fibrillation; E66.9 Obesity, unspecified; Z68.34 Body mass index [BMI] 34.0-34.9, adult; Z79.01 Long term (current) use of anticoagulants; Z95.2 Presence of prosthetic heart valve
CPT/HCPCS: 45330; 82947

== ENCOUNTER → 2023-05-27 06:22 | Outpatient (BNV) | payer MEDICARE, MEDICAID, SELFPAY | PROVIDERS: PCP Nurse Practitioner Family; Visit Provider Internal Medicine Gastroenterology | DX: K62.5 Hemorrhage of anus and rectum (principal); K57.30 Diverticulosis of large intestine without perforation or abscess without bleeding; K64.1 Second degree hemorrhoids | CPT/HCPCS: 45330 ==

== ENCOUNTER 2023-06-10 07:44 | Outpatient (AMB) | payer MEDICARE, MEDICAID, SELFPAY ==
--- NOTE | 2023-06-10 07:55 | A.OFFVIS_ITS ---
Intake Vital Signs 06/10/23 08:01 Height 5 ft 9 in Weight 233 lb 11.04 oz BMI 34.5 BP 146/57 H Blood Pressure Location Lt brachial Position Sitting Pulse 64 Intake Visit Reasons: S/P Sidmoid; Dr. hickman Intake Note: Rickie presents in the office as a follow up sigmoidoscopy. CC: He states that he is here today for the results. He is having pains in the lower left side on his back. He states that he is not sure it is related to the procedure. Hackler Doll Wigs Required: No Allergies lamotrigine [From Lamictal] Allergy (Intermediate, Verified 06/10/23 08:01) swelling gabapentin Allergy (Unknown, Verified 06/10/23 08:01) lip swelling pregabalin [From Lyrica] Allergy (Unknown, Verified 06/10/23 08:01) lip swelling HPI S/P Sidmoid; Dr. hickman HPI Details LAST VISIT: Screen for colon cancer Patient denies any GI cardiac or respiratory symptoms.? Denies any issues with anesthesia in the past.? Denies any history of sleep apnea.? No history infectious diseases in the past or present.? Not on any anticoagulation therapy.? No family or personal history of colon cancer or polyps.? Patient denies melena, hematochezia (one episode) unintentional weight loss or ribbon like stools.? ? 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 Saab at [phone] to make sure he is cleared and to make sure that he can stop Xarelto 2 days before. Hematochezia One episode of bleeding. Patient will be sent for sigmoidoscopy, I will see patient after the procedure. Patient is agreeable to this plan and verbalizes understanding of instructions. He was given the opportunity to ask questions and all questions answered. SIGMOIDOSCOPY: Findings: Transverse Colon -normal Descending Colon:normal Sigmoid Colon: moderate diverticulosis Rectum: Retroflexion with medium sized internal hemorrhoids, grade II Anorectum - normal Colon preparation:fair Impression and Post Procedure Diagnosis: internal hemorrhoids--likely cause of bleeding diverticulosis Plan: High fiber diet avoid constipation and straining, can use squatty potty can restart eliquis today TODAY'S VISIT: Patient is here today for follow-up in to discuss sigmoidoscopy results. Patient denies any ill effects from the prep, anesthesia or procedure itself. Patient had no polyps. Moderate diverticulosis found in sigmoid colon as well as internal hemorrhoids. Most likely source of bleeding is related to hemorrhoids. Patient had episode of bleeding and has not had it since then. Patient does admit that sometimes he might be little constipated. Does not move his bowels every day. Patient reports left lumbar pain. Denies any nausea or vomiting. Patient denies any other GI concerning symptoms. [facility] Medical History Hx of sigmoidoscopy Frequent falls Urinary frequency History of claustrophobia History of shingles On anticoagulant therapy On beta diana at home Dyslipidemia Gout Spinal stenosis of lumbar region Atrial fibrillation CKD (chronic kidney disease) Elevated PSA Aortic stenosis CAD (coronary artery disease) Right facial pain Trigeminal neuralgia Post herpetic neuralgia Surgical History H/O aortic valve replacement Status post lens implant History of fracture of leg History of laparoscopic cholecystectomy History of aortic valve replacement History of heart bypass surgery Pacemaker Family History Father No problems noted. Mother No problems noted. Household Members: None Housing: House Are you a primary healthcare management to a significant other at home: No Do you presently have visiting nurse or other home services: No Alcohol intake: never Patient Tobacco Use Status: Never used Tobacco e-Cigarette/Vaping Use: Never Used Second Hand Smoke Exposure: No service: Yes Current occupational status: unemployed and retired Current occupational exposures/hazards: No Cognitive needs: No Hearing needs: No Vision needs: No Review of Systems Const Denies weight gain and Denies weight loss ENT Reports no additional complaints, Denies dysphagia and Denies odynophagia Card Reports no additional complaints Resp Reports no additional complaints GI Reports abdominal pain (Occasional left lower quadrant pain), Denies belching, Denies melena, Denies bloating, Denies change in bowel habits, Denies dysphagia, Denies excessive flatus, Denies dyspepsia, Denies heartburn, Denies diarrhea, Denies loose stools, Denies nausea, Denies odynophagia and Denies vomiting Reports no additional complaints Musc Details: Back pain Neuro Reports no additional complaints Psych Reports no additional complaints Endo Reports no additional complaints Physical Exam Vital Signs: Last Vital Signs Pulse 64 06/10/23 08:01 BP 146/57 H 06/10/23 08:01 BMI result Body Mass Index 34.5 Const General: healthy appearing, no acute distress and well developed Nutritional Appearance: obese Orientation/consciousness: patient oriented x3 HEENT Head: Yes normal to inspection, Yes normocephalic and Yes atraumatic Face and sinus: Yes normal facial exam Mouth: Normal oral and palatal mucosa present Throat: Yes posterior oropharynx normal, Yes tonsils normal and Yes uvula midline Eyes General: appearance normal, both eyes and all related structures Neck Neck: Yes normal visual inspection, Yes full ROM and Yes trachea midline Thyroid: Thyroid normal Resp Effort & Inspection: normal respiratory effort, able to speak in complete sentences, no tracheal deviation and symmetric chest movement Auscultation: clear to auscultation bilaterally Cardio Rate: regular rate Heart sounds: S1 normal heart sound present and S2 normal heart sound present GI Inspection: Yes normal to inspection, No distended and Yes obesity Palpation (GI): Soft to palpation, not firm, nontender and No hepatosplenomegaly present Auscultation: normal bowel sounds General: Yes no CVA tenderness Back/Spine/Pelvis Back: no CVA tenderness Skin General skin exam: elasticity normal, turgor normal and dry skin Neuro General: patient oriented x3 Psych Appearance: grossly normal Mental Status: mental status grossly normal Affect: normal affect Assessment & Plan Assessment & Plan (1) Hematochezia: Code(s): K92.1 - Melena (2) Constipation: Code(s): K59.00 - Constipation, unspecified Qualifiers: Constipation type: slow transit constipation Qualified Code(s): K59.01 - Slow transit constipation (3) Internal hemorrhoids without complication: Code(s): K64.8 - Other hemorrhoids (4) LLQ abdominal pain: Code(s): R10.32 - Left lower quadrant pain Plan Internal hemorrhoids found on sigmoidoscopy. Most likely this was the source of bleeding. Patient can start taking Colace. He can use Proctosol. Patient denies any melena, hematochezia, unintentional weight loss or ribbon like stools. Occasional left lower quadrant pain most likely related to moderate diverticulosis and stool trapping. Patient will be given Colace to help him move his bowels easier as mentioned above. Patient was also encouraged to increase fluid intake and activity to promote better bowel motility. I will see him in 3 months, sooner on as needed basis. Patient is agreeable to this plan and verbalizes understanding of instructions. He was given the opportunity to ask questions and all questions answered. Thank you for allowing me to participate in his care Medications: New hydrocortisone 2.5% (Proctosol HC) 1 appl AR BID-QID PRN 30 grams 2RF hemorrhoids K64.9 - Unspecified hemorrhoids docusate sodium 100 mg PO BEDTIME 90 caps 3RF K59.00 - Constipation, unspecified Coding Level of Care Code Est Pt Level 3 (80750) Diagnoses Hematochezia K92.1 Slow transit constipation K59.01 Constipation type: slow transit constipation Internal hemorrhoids without complication K64.8 LLQ abdominal pain R10.32 Time Spent (min) 30 Comment 20 minutes spent with patient and additional 10 minutes spent reviewing his records
[2023-06-10 08:01] VITALS: BP 146/57; PULSE 64; BMI 34.5
== END 2023-06-10 08:38 | disposition home or self-care (01) ==
PROVIDERS: PCP Nurse Practitioner Family; Visit Provider Nurse Practitioner Family
DX: K92.1 Melena (principal); K59.01 Slow transit constipation; K64.8 Other hemorrhoids; R10.32 Left lower quadrant pain
CPT/HCPCS: 99213

== ENCOUNTER → 2023-06-10 07:44 | Outpatient (BNVA) | payer MEDICARE, MEDICAID, SELFPAY | PROVIDERS: PCP Nurse Practitioner Family; Visit Provider Nurse Practitioner Family | DX: K92.1 Melena (principal); K59.01 Slow transit constipation; K64.8 Other hemorrhoids; R10.32 Left lower quadrant pain | CPT/HCPCS: 99212 ==

== ENCOUNTER 2023-06-25 08:50 | Outpatient (AMB) | payer MEDICARE, MEDICAID, SELFPAY ==
--- NOTE | 2023-06-25 08:53 | A.OFFVIS_ITS ---
Intake Intake Visit Reasons: 6m/PSA/PVR Intake Note: Patient is Present for Follow Up PVR Urology Medication: Tamsulosin Antibiotic Allergies: None Blood Thinners: Xarelto PVR: 0ml Compliants: Patient states he was unaware bloodwork was needed. Was informed his current PSA order has been updated and he will go to lab after visit Allergies lamotrigine [From Lamictal] Allergy (Intermediate, Verified 06/26/23 08:05) swelling gabapentin Allergy (Unknown, Verified 06/26/23 08:05) lip swelling pregabalin [From Lyrica] Allergy (Unknown, Verified 06/26/23 08:05) lip swelling Medication List - Last Reconciled 06/26/23 by TRACY Sales-FRANDY aspirin (Adult Aspirin Regimen) 81 mg PO DAILY atorvastatin 40 mg PO DAILY blood sugar diagnostic ([employer] Ultra Test strips) Check blood sugar once a day blood-glucose meter ([employer] Ultra2 Meter) Check fasting blood sugar and a random blood sugar daily. cholecalciferol (vitamin D3) 50 mcg PO DAILY docusate sodium 100 mg PO BEDTIME duloxetine 30 mg PO BID 90 days ezetimibe 10 mg PO DAILY finasteride 5 mg PO DAILY 90 days hydrocortisone 2.5% (Proctosol HC) 1 appl MO BID-QID PRN lancets ([facility] Delica Safety Lancet) Check blood sugar once a day metoprolol tartrate 50 mg PO BID pantoprazole 40 mg PO DAILY rivaroxaban (Xarelto) 20 mg PO DAILY 90 days terazosin 5 mg PO BEDTIME 30 days HPI HPI Comments History of Present Illness Details Rickie is a 88-year-old male patient of . He has a past medical history of frequent falls, claustrophobia, shingles, dyslipidemia, gout, spinal stenosis of lumbar region, atrial fibrillation on anticoagulation, CKD, aortic stenosis, elevated PSA, and trigeminal neuralgia. He presents to the office today for follow-up of his incomplete bladder emptying and lower urinary tract symptoms. When asked patient reports to be doing and feeling well. In review of patients chart is appears PSA are as follows... PSA 06/10--3.3 10/10--5.2 07/12--2.0 During last office visit approximately 6 months ago patient was started on finasteride and Flomax. When asked patient reports very minimal improvement in lower urinary tract symptoms since starting tamsulosin 0.4 mg daily. He reports having seeked urgent care attention soon after his last appointment here at which time he was diagnosed with shingles to the right side of his face. He reports noting significant episodes of nocturia however is unsure if it is related to the bladder that wakes him up verses pain he has been experiencing with his shingles. Previous workup has included a retroperitoneal ultrasound noting bilateral kidneys with no calculi, lesions, and or hydronephrosis. The bladder is well distended and normal. There is bladder wall thickening up to 8 mm. Prostate volume is approximately 135 mL. In office urinalysis results reviewed with the patient today. PVR 0 mL. When asked patient denies urinary urgency, incontinence, hematuria, dysuria, foul smelling urine, changes to urinary stream, flank pain, fever, and or chills. He otherwise denies any urinary issues or concerns at this time. [facility] Medical History Hx of sigmoidoscopy Frequent falls Urinary frequency History of claustrophobia History of shingles On anticoagulant therapy On beta diana at home Dyslipidemia Gout Spinal stenosis of lumbar region Atrial fibrillation CKD (chronic kidney disease) Elevated PSA Aortic stenosis CAD (coronary artery disease) Right facial pain Trigeminal neuralgia Post herpetic neuralgia Surgical History H/O aortic valve replacement Status post lens implant History of fracture of leg History of laparoscopic cholecystectomy History of aortic valve replacement History of heart bypass surgery Pacemaker Family History Father No problems noted. Mother No problems noted. Social History Household Members: None Housing: House Are you a primary animal care assistant to a significant other at home: No Do you presently have visiting nurse or other home services: No Alcohol intake: never Patient Tobacco Use Status: Never used Tobacco e-Cigarette/Vaping Use: Never Used Second Hand Smoke Exposure: No service: Yes Current occupational status: unemployed and retired Current occupational exposures/hazards: No Cognitive needs: No Hearing needs: No Vision needs: No Review of Systems Const Reports as per [facility] Eyes Reports no additional complaints ENT Reports no additional complaints Card Reports as per [facility] Resp Reports no additional complaints GI Reports as per [facility] Reports as per [facility] Musc Reports as per [facility] Skin/Breast Reports as per [facility] Neuro Reports as per [facility] Psych Reports no additional complaints Endo Reports no additional complaints Physical Exam Const General: cooperative, healthy appearing, comfortable, no acute distress, well developed, alert and awake Nutritional Appearance: overweight Orientation/consciousness: patient oriented x3 Limitations: no limitations HEENT Head: Yes normal to inspection, Yes normocephalic and Yes atraumatic Ears: hearing grossly normal bilaterally Eyes General: appearance normal, both eyes and all related structures Neck Neck: Yes normal visual inspection and Yes trachea midline Chest Chest palpation & inspection: normal inspection of the chest Resp Effort & Inspection: normal respiratory effort and able to speak in complete sentences Cardio Rate: regular rate GI Inspection: Yes normal to inspection Rectal Exam - Male: Yes deferred General: Yes no CVA tenderness Back/Spine/Pelvis Back: no CVA tenderness Skin General skin exam: no rashes or lesions noted Neuro General: patient oriented x3 Extrem General: Yes normal to inspection Psych Appearance: grossly normal and well kempt Mental Status: mental status grossly normal Speech and movement: Normal speech and movement present and Clear speech present Affect: normal affect Attitude: cooperative Thought process: Normal thought process present Thought content: Normal thought content present Insight: Fair insight present (Psych) Judgement: Fair judgement present (Psych) Office Procedures Post Void Residual Post Residual Void Post Void Residual (PVR): 0 [id number] Void Residual by ultrasound Results AMB Urinalysis, Automated UA Leukoctes 0 Mike/uL Last Edit by ARUNA Coyle on 06/25/23 09:11 UA Nitrite Negative Last Edit by ARUNA Coyle on 06/25/23 09:11 UA Urobilinogen 0.2 mg/dL Last Edit by ARUNA Coyle on 06/25/23 09:1 1 UA Protein 15 mg/dL Last Edit by ARUNA Coyle on 06/25/23 09:11 UA pH 5.5 Last Edit by ARUNA Coyle on 06/25/23 09:11 UA Blood 10 Massimo/uL Last Edit by ARUNA Coyle on 06/25/23 09:11 UA Specific [place] 1.020 Last Edit by AMISHA CoyleA on 06/25/23 09: 11 UA Ketone Negative Last Edit by ARUNA Coyle on 06/25/23 09:11 UA Bilirubin 0 mg/dL Last Edit by Quyen Krause RMA on 06/25/23 09:11 UA Glucose 0 mg/dL Last Edit by ARUNA Coyle on 06/25/23 09:11 Results Reviewed Results Reviewed: Laboratory Last Values Urine pH (Auto) 5.5 06/25/23 08:58 Specific [place] (Auto) 1.020 06/25/23 08:58 Urine Protein (Auto) 15 mg/dL 06/25/23 08:58 Glucose (UA)(Auto) 0 mg/dL 06/25/23 08:58 Urine Ketones (Auto) Negative 06/25/23 08:58 Urine Blood (Auto) 10 Massimo/uL 06/25/23 08:58 Urine Nitrite (Auto) Negative 06/25/23 08:58 Urine Bilirubin (Auto) 0 mg/dL 06/25/23 08:58 Urine Urobilinogen (Auto) 0.2 mg/dL 06/25/23 08:58 Leukocyte Esterase (Auto) 0 Mike/uL 06/25/23 08:58 Assessment & Plan Assessment & Plan (1) Enlarged prostate: Code(s): N40.0 - Benign prostatic hyperplasia without lower urinary tract symptoms (2) Elevated PSA: Code(s): R97.20 - Elevated prostate specific antigen [PSA] (3) Urinary frequency: Code(s): R35.0 - Frequency of micturition (4) Incomplete bladder emptying: Code(s): R33.9 - Retention of urine, unspecified (5) Nocturia: Code(s): R35.1 - Nocturia Plan In office urinalysis results reviewed with the patient today; as noted above. PVR 0 mL. Stop Flomax as discussed. Start terazosin 5 mg as discussed and prescribed. Continue finasteride as discussed. Recent PSA results reviewed with the patient today. Discussed importance of limiting fluids 2-3 hours prior to bed to assist with decreasing episodes of nocturia. Discussed possible near future in office cystoscopy and or urodynamics for further assessment evaluation. Discussed bladder triggers/irritants. Follow-up in 6 weeks with PVR; or sooner with any issues, concerns, and or questions. Orders: Orders AMB Urinalysis Automated 06/25/23 Z13.9 - Encounter for screening, unspecified AMB Post Void Residual by ultrasound 06/25/23 R33.9 - Retention of urine, unspecified Medications: New terazosin 5 mg PO BEDTIME 30 days 30 caps 1RF N40.1 - Benign prostatic hyperplasia with lower urinary tract symptoms, R35.0 - Frequency of micturition finasteride 5 mg PO DAILY 90 days 90 tabs 1RF N13.8 - Other obstructive and reflux uropathy, N40.1 - Benign prostatic hyperplasia with lower urinary tract symptoms, R33.9 - Retention of urine, unspecified Discontinued tamsulosin Discontinued Reason: Doctor's Order 0.4 mg PO BEDTIME 90 days 90 caps 1RF N13.8 - Other obstructive and reflux uropathy, N40.1 - Benign prostatic hyperplasia with lower urinary tract symptoms Coding Level of Care Code Est Pt Level 4 (95197) Diagnoses Enlarged prostate N40.0 Elevated PSA R97.20 Urinary frequency R35.0 Incomplete bladder emptying R33.9 Nocturia R35.1 CPT Codes Post Residual Void - PVR CPT Code: 92505-Szlh Void Residual by ultrasound ([id number])
== END 2023-06-25 09:36 | disposition home or self-care (01) ==
PROVIDERS: PCP Nurse Practitioner Family; Visit Provider Nurse Practitioner Family
DX: N40.0 Benign prostatic hyperplasia without lower urinary tract symptoms (principal); R97.20 Elevated prostate specific antigen [PSA]; R35.0 Frequency of micturition; R33.9 Retention of urine, unspecified; R35.1 Nocturia
CPT/HCPCS: 99214

== ENCOUNTER → 2023-06-25 08:50 | Outpatient (BNVA) | payer MEDICARE, MEDICAID, SELFPAY | PROVIDERS: PCP Nurse Practitioner Family; Visit Provider Nurse Practitioner Family | DX: N40.1 Benign prostatic hyperplasia with lower urinary tract symptoms (principal); R35.0 Frequency of micturition; R33.9 Retention of urine, unspecified; R35.1 Nocturia; R97.20 Elevated prostate specific antigen [PSA] | CPT/HCPCS: 51798; 81003; 99212 ==

== ENCOUNTER 2023-06-25 09:54 | Outpatient (REF) | payer MEDICARE, MEDICAID, SELFPAY ==
[2023-06-25 11:29] LABS: PSA,Total (Free>4and<10) 2.02 ng/mL (0.00-4.00)
== END 2023-06-25 09:55 | disposition home or self-care (01) ==
LOC: HO.10HDL 09:54
PROVIDERS: Visit Provider Nurse Practitioner Family
DX: R97.20 Elevated prostate specific antigen [PSA] (principal); Z12.5 Encounter for screening for malignant neoplasm of prostate
CPT/HCPCS: 36415; 84153

== ENCOUNTER 2023-07-02 11:46 | Outpatient (AMB) | payer MEDICARE, MEDICAID, SELFPAY ==
[2023-07-02 12:06] VITALS: BP 138/70; PULSE 64; O2SAT 96; BMI 35.1
--- NOTE | 2023-07-02 12:06 | HO.NEPHOV ---
HPI HPI Comments History of Present Illness Details I had the delight of seeing Rickie in follow-up of his chronic kidney disease. He continues to have excruciating pain from trigeminal neuralgia. He does not have any dizziness, orthostatic symptoms, nausea, vomiting, edema, urinary symptoms, hematuria, chest pain, shortness of breath, proximal nocturnal dyspnea or orthopnea. He had vascular issues on the left leg and has seen vascular physician. He is not taking any nonsteroidal anti-inflammatories. He is closely followed up by his primary care physician. He had no other active complaints at the time of this office visit. [facility] Medical History Hx of sigmoidoscopy Frequent falls Urinary frequency History of claustrophobia History of shingles On anticoagulant therapy On beta diana at home Dyslipidemia Gout Spinal stenosis of lumbar region Atrial fibrillation CKD (chronic kidney disease) Elevated PSA Aortic stenosis CAD (coronary artery disease) Right facial pain Trigeminal neuralgia Post herpetic neuralgia Surgical History H/O aortic valve replacement Status post lens implant History of fracture of leg History of laparoscopic cholecystectomy History of aortic valve replacement History of heart bypass surgery Pacemaker Family History Father No problems noted. Mother No problems noted. Social History Household Members: None Housing: House Are you a primary home care provider to a significant other at home: No Do you presently have visiting nurse or other home services: No Alcohol intake: never Patient Tobacco Use Status: Never used Tobacco e-Cigarette/Vaping Use: Never Used Second Hand Smoke Exposure: No service: Yes Current occupational status: unemployed and retired Current occupational exposures/hazards: No Cognitive needs: No Hearing needs: No Vision needs: No Vital Signs 07/02/23 12:06 Height 5 ft 9 in Weight 237 lb 6 oz BMI 35.1 BP 138/70 Blood Pressure Location Lt brachial Position Sitting Pulse 64 Pulse Source Pulse Oximeter Pulse Oximetry (%) 96 Oxygen Delivery Method Room Air Physical Exam Vital Signs: Last Vital Signs Pulse 64 07/02/23 12:06 BP 138/70 07/02/23 12:06 Pulse Ox 96 07/02/23 12:06 Oxygen Delivery Method Room Air 07/02/23 12:06 BMI result Body Mass Index 35.1 Const General: comfortable and no acute distress Orientation/consciousness: patient oriented x3 HEENT Head: Yes normocephalic Mouth: Normal oral and palatal mucosa present Eyes EOM: EOMs intact bilaterally Neck Neck: Yes supple Resp Auscultation: clear to auscultation bilaterally Cardio Jugular venous distension: no JVD Rate: regular rate GI Palpation (GI): Soft to palpation Auscultation: normal bowel sounds General: Yes no CVA tenderness Back/Spine/Pelvis Back: no CVA tenderness Skin General skin exam: no rashes or lesions noted Neuro General: patient oriented x3 and moves all extremities Extrem General: Yes no pedal edema Assessment & Plan Assessment & Plan (1) CKD (chronic kidney disease) stage 3, GFR 30-59 ml/min: Code(s): N18.30 - Chronic kidney disease, stage 3 unspecified Qualifiers: Chronic kidney disease stage 3 subtype: stage 3a (GFR 45-59) Qualified Code(s): N18.31 - Chronic kidney disease, stage 3a (2) HTN (hypertension): Code(s): I10 - Essential (primary) hypertension Qualifiers: Hypertension type: primary hypertension Qualified Code(s): I10 - Essential (primary) hypertension Plan 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 His blood pressure is currently at goal at home. He avoids nonsteroidal anti-inflammatory medications. He is not on any ARTEM inhibitor. He is not on any Jardiance of Farxiga. He tries to maintain good hydration. I did not make any medication changes today. He is tolerating statins well. He is looking forward for a 2nd opinion in trigeminal neuralgia center in [facility]. All questions answered. Follow-up blood work ordered. Time spent retrieving data, patient encounter and documentation 29 minutes. Follow-up given. Orders: Orders Hemoglobin A1c Today N18.30 - Chronic kidney disease, stage 3 unspecified Electrolytes Today N18.30 - Chronic kidney disease, stage 3 unspecified Blood Urea Nitrogen Today N18.30 - Chronic kidney disease, stage 3 unspecified Creatinine Today N18.30 - Chronic kidney disease, stage 3 unspecified Calcium Today N18.30 - Chronic kidney disease, stage 3 unspecified Protein Creatinine Ratio, Ur Today N18.30 - Chronic kidney disease, stage 3 unspecified Coding Level of Care Code Est Pt Level 3 (26230) Diagnoses Stage 3a chronic kidney disease N18.31 Chronic kidney disease stage 3 subtype: stage 3a (GFR 45-59) Primary hypertension I10 Hypertension type: primary hypertension Results Reviewed Nephrology Results: Hgb 13.3 g/dl (14.0-18.0) L 09/27/22 WBC 6.0 X10*3/uL (4.8-10.8) 09/27/22 Plt Count 105 X10*3/uL (160-400) L 09/27/22
== END 2023-07-02 12:41 | disposition home or self-care (01) ==
PROVIDERS: PCP Nurse Practitioner Family; Visit Provider Internal Medicine Nephrology
DX: N18.31 Chronic kidney disease, stage 3a (principal); I10 Essential (primary) hypertension
CPT/HCPCS: 99213

== ENCOUNTER → 2023-07-02 11:46 | Outpatient (BNVA) | payer MEDICARE, MEDICAID, SELFPAY | PROVIDERS: PCP Nurse Practitioner Family; Visit Provider Internal Medicine Nephrology | DX: I12.9 Hypertensive chronic kidney disease with stage 1 through stage 4 chronic kidney disease, or unspecified chronic kidney disease (principal); N18.31 Chronic kidney disease, stage 3a | CPT/HCPCS: 99212 ==

== ENCOUNTER 2023-07-09 15:15 | Outpatient (AMB) | payer MEDICARE, MEDICAID, SELFPAY ==
[2023-07-09 15:22] VITALS: BP 162/66; PULSE 65; O2SAT 99; BMI 35.4
--- NOTE | 2023-07-09 15:22 | A.OFFPC_ITS ---
Vital Signs 07/09/23 15:22 07/09/23 15:56 Height 5 ft 9 in Weight 240 lb BMI 35.4 BP 162/66 H 134/80 Blood Pressure Location Rt brachial Position Sitting Pulse 65 Pulse Source Pulse Oximeter Pulse Oximetry (%) 99 Oxygen Delivery Method Room Air Intake Visit Reasons: 3m diabetes f/u. Intake Note: Pt is here today for his 3 mo. f/u Allergies lamotrigine [From Lamictal] Allergy (Intermediate, Verified 07/09/23 15:23) swelling gabapentin Allergy (Unknown, Verified 07/09/23 15:23) lip swelling pregabalin [From Lyrica] Allergy (Unknown, Verified 07/09/23 15:23) lip swelling Medication List - Last Reconciled 07/09/23 by TRACY Price-FRANDY aspirin (Adult Aspirin Regimen) 81 mg PO DAILY atorvastatin 40 mg PO DAILY blood sugar diagnostic ([employer] Ultra Test strips) Check blood sugar once a day blood-glucose meter ([employer] Ultra2 Meter) Check fasting blood sugar and a random blood sugar daily. cholecalciferol (vitamin D3) 50 mcg PO DAILY docusate sodium 100 mg PO BEDTIME duloxetine 30 mg PO BID 90 days ezetimibe 10 mg PO DAILY finasteride 5 mg PO DAILY 90 days hydrocortisone 2.5% (Proctosol HC) 1 appl DE BID-QID PRN lancets ([employer] Safety Lancet) Check blood sugar once a day metoprolol tartrate 50 mg PO BID pantoprazole 40 mg PO DAILY rivaroxaban (Xarelto) 20 mg PO DAILY 90 days terazosin 5 mg PO BEDTIME 30 days Tobacco use date assessed: 07/09/23 Fall risk assessment: 1 Fall in past year Last assessed Fall Risk: 07/09/23 Dental Screening Dental Screen Date: 07/09/23 Did you have a dental visit in the last 12 months?: No Was dental information given to patient?: Patient has dentist HPI 3m diabetes f/u. HPI Details Pt is a diabetic, on a statin. A1C in office today is 6.6. Microalbumin is up to date. Denies polyuria, polydipsia, and neuropathy. Pt denies any signs and symptoms of hypoglycemia and does know how to correct it. Eye exam is up to date. Pt reports increased GERD symptoms. He is currently taking pantoprazole. No changes on EKG today. Will send famotidine. [facility] Medical History Hx of sigmoidoscopy Frequent falls Urinary frequency History of claustrophobia History of shingles On anticoagulant therapy On beta diana at home Dyslipidemia Gout Spinal stenosis of lumbar region Atrial fibrillation CKD (chronic kidney disease) Elevated PSA Aortic stenosis CAD (coronary artery disease) Right facial pain Trigeminal neuralgia Post herpetic neuralgia Surgical History H/O aortic valve replacement Status post lens implant History of fracture of leg History of laparoscopic cholecystectomy History of aortic valve replacement History of heart bypass surgery Pacemaker Family History Father No problems noted. Mother No problems noted. Social History Household Members: None Housing: House Are you a primary in home caregiver to a significant other at home: No Do you presently have visiting nurse or other home services: No Alcohol intake: never Patient Tobacco Use Status: Never used Tobacco e-Cigarette/Vaping Use: Never Used Second Hand Smoke Exposure: No service: Yes Current occupational status: unemployed and retired Current occupational exposures/hazards: No Cognitive needs: No Hearing needs: No Vision needs: No Questionnaire PHQ-9 Over the last 2 weeks, how often have you been bothered by any of the following problems? 1. Little interest or pleasure in doing things: not at all 2. Feeling down, depressed, or hopeless: not at all 3. Trouble falling or staying asleep, or sleeping too much: not at all 4. Feeling tired or having little energy: not at all 5. Poor appetite or overeating: not at all 6. Feeling bad about yourself - or that you are a failure or have let yourself or your family down: not at all 7. Trouble concentrating on things, such as reading the newspaper or watching te levision: not at all 8. Moving or speaking so slowly that other people could have noticed. Or the opposite - being so fidgety or restless that you have been moving around a lot more than usual: not at all 9. Thoughts that you would be better off or of hurting yourself in some way: not at all Total score: 0 Source: Developed by Drs. Nirav Marinelli, Dali Amezquita, Nicola Pruitt and colleagues, with an educational juan from [employer]. Thrive Questionnaire Date Thrive assessed: 07/09/23 I am a: Patient What is your living situation today?: I have a steady place to live Within the past 12 months, did the food you bought not last and you didn't have the money to get more?: Never true Within the past 12 months, did you worry whether your food would run out before you got money to buy more?: Never true Do you have trouble paying for medicines?: No Do you have trouble getting transportation to medical appointments?: No Do you have trouble paying your heating and electricity bill?: No Do you have trouble taking care of your child, family member or friend?: No Do you have trouble with day-to-day activities such as bathing, preparing meals, shopping, managing finances, etc.?: No Are you currently unemployed and looking for a job?: No Are you interested in more education?: No ELZA-7 AMB Questionnaire ELZA-7 Date ELZA - 7 assessed: 07/09/23 Feeling nervous, anxious, or on edge: 0 = Not at all Not being able to stop or control worryin = Not at all Worrying too much about different things: 0 = Not at all Trouble relaxin = Not at all Being so restless that it is hard to sit still: 0 = Not at all Becoming easily annoyed or irritable: 0 = Not at all Feeling afraid as if something awful might happen: 0 = Not at all Total ELZA-7 score (0-4 normal; 5-9 mild; 10-14 moderate; 15-21 severe): 0 Source: Developed by Drs. Nirav Marinelli, Dali Amezquita, Nicola Pruitt and colleagues, with an educational juan from [employer]. Review of Systems Const Reports as per HPI Physical exam (Primary Care) Vital Signs: Last Vital Signs Pulse 65 07/09/23 15:22 BP 134/80 07/09/23 15:56 Pulse Ox 99 07/09/23 15:22 Oxygen Delivery Method Room Air 07/09/23 15:22 BMI result Body Mass Index 35.4 Tobacco/Smoking Status: Tobacco use Status Tobacco use date assessed 07/09/23 07/09/23 15:26 Patient Tobacco Use Status Never used Tobacco 07/09/23 15:26 e-Cigarette/Vaping Use Never Used 07/09/23 15:26 PHQ-9: PHQ-9 Score PHQ-9: Total score 0 07/09/23 15:44 Thrive Assessment: Date of Thrive Assessment Date Thrive assessed 07/09/23 07/09/23 15:26 Const General: cooperative Nutritional Appearance: obese Orientation/consciousness: patient oriented x3 Resp Effort & Inspection: normal respiratory effort Auscultation: clear to auscultation bilaterally Cardio Rate: regular rate Rhythm: regular rhythm Heart sounds: S1 normal heart sound present, S2 normal heart sound present and Murmur heart sound present systolic (faint) Neuro General: patient oriented x3 Psych Appearance: grossly normal Mental Status: mental status grossly normal Speech and movement: Normal speech and movement present Affect: normal affect Attitude: cooperative Thought process: Normal thought process present Thought content: Normal thought content present Insight: Good insight present (Psych) Judgement: Good judgement present (Psych) Results AMB Hemoglobin A1c AMB Hemoglobin A1c 6.6 % Last Edit by Nuvia Stafford CMA on 07/09/23 15:35 Results Reviewed Results Reviewed: Laboratory Last Values Hgb A1c (Clinic) 6.6 % (4.0-6.0) H 07/09/23 15:17 Assessment and Plan Assessment & Plan (1) GERD (gastroesophageal reflux disease): Code(s): K21.9 - Gastro-esophageal reflux disease without esophagitis Plan: Famotidine sent Plan The patient agreed to the use of a medical records specialist for this encounter. Scribed for MELIZA Casas by Lynette Sevilla medical records specialist, on 07/09/2023 at 15:30 EST. Orders: Orders AMB Hemoglobin A1c Today E11.9 - Type 2 diabetes mellitus without complications AMB EKG-In Office Today K21.9 - Gastro-esophageal reflux disease without esophagitis Medications: New famotidine 20 mg PO DAILY 90 tabs 0RF 90 days Coding Level of Care Code Est Pt Level 3 (49724) Diagnoses GERD (gastroesophageal reflux disease) K21.9
[2023-07-09 15:56] VITALS: BP 134/80
== END 2023-07-09 17:03 | disposition home or self-care (01) ==
PROVIDERS: PCP Nurse Practitioner Family; Visit Provider Nurse Practitioner Family
DX: E11.9 Type 2 diabetes mellitus without complications (principal); K21.9 Gastro-esophageal reflux disease without esophagitis
CPT/HCPCS: 83036; 99213

== ENCOUNTER 2023-08-08 08:35 | Outpatient (AMB) | payer MEDICARE, MEDICAID, SELFPAY ==
--- NOTE | 2023-08-08 08:44 | MHC.OFFVIS ---
Intake Intake Visit Reasons: 6w/PVR Intake Note: Patient is Present for Follow Up PVR Urology Medication: Terazosin, finasteride Antibiotic Allergies: None Blood Thinners: Xarelto PVR:16ml's Record Filing Clerk Required: No Accompanied by: Self / Same As Patient Allergies lamotrigine [From Lamictal] Allergy (Intermediate, Verified 08/09/23 13:39) swelling gabapentin Allergy (Unknown, Verified 08/09/23 13:39) lip swelling pregabalin [From Lyrica] Allergy (Unknown, Verified 08/09/23 13:39) lip swelling Medication List - Last Reconciled 08/09/23 by YUSUF SalesP- aspirin (Adult Aspirin Regimen) 81 mg PO DAILY atorvastatin 40 mg PO DAILY blood sugar diagnostic ([employer] Ultra Test strips) Check blood sugar once a day blood-glucose meter ([employer] Ultra2 Meter) Check fasting blood sugar and a random blood sugar daily. cholecalciferol (vitamin D3) 50 mcg PO DAILY docusate sodium 100 mg PO BEDTIME duloxetine 30 mg PO BID 90 days ezetimibe 10 mg PO DAILY famotidine 20 mg PO DAILY 90 days finasteride 5 mg PO DAILY 90 days hydrocortisone 2.5% (Proctosol HC) 1 appl MA BID-QID PRN lancets ([employer] Delica Safety Lancet) Check blood sugar once a day metoprolol tartrate 50 mg PO BID pantoprazole 40 mg PO DAILY rivaroxaban (Xarelto) 20 mg PO DAILY 90 days terazosin 5 mg PO BEDTIME 90 days HPI HPI Comments History of Present Illness Details Rickie is a 88-year-old male patient of . He has a past medical history of frequent falls, claustrophobia, shingles, dyslipidemia, gout, spinal stenosis of lumbar region, atrial fibrillation on anticoagulation, CKD, aortic stenosis, elevated PSA, and trigeminal neuralgia. He presents to the office today for follow-up of his incomplete bladder emptying and lower urinary tract symptoms. When asked patient reports to be doing and feeling well. He reports noting improvement lower urinary tract symptoms with 5 mg of Cialis. However, he reports having had intermittent episodes of dysuria since his last office visit here. He reports these episodes happen 2 to 3 times a week as well as 2 to 3 times a day. He otherwise denies incontinence, nocturia, hematuria, foul smelling urine, changes to urinary stream, flank pain, fever, and or chills. PSAs are as follows: 06/10--3.3 10/10--5.2 07/12--2.0 Of note, patient had previously trialed Flomax with no improvement in his lower urinary tract symptoms. Previous workup has included a retroperitoneal ultrasound noting bilateral kidneys with no calculi, lesions, and or hydronephrosis. The bladder is well distended and normal. There is bladder wall thickening up to 8 mm. Prostate volume is approximately 135 mL. In office urinalysis results reviewed with the patient today. PVR 16 mL. He reports feeling terazosin 5 mg daily has been helpful and lower urinary tract symptoms and does wish to continue at this time. Discussed at length potential causes for dysuria. He otherwise offers no other issues or concerns at this time. [facility] Medical History Hx of sigmoidoscopy Frequent falls Urinary frequency History of claustrophobia History of shingles On anticoagulant therapy On beta diana at home Dyslipidemia Gout Spinal stenosis of lumbar region Atrial fibrillation CKD (chronic kidney disease) Elevated PSA Aortic stenosis CAD (coronary artery disease) Right facial pain Trigeminal neuralgia Post herpetic neuralgia Surgical History H/O aortic valve replacement Status post lens implant History of fracture of leg History of laparoscopic cholecystectomy History of aortic valve replacement History of heart bypass surgery Pacemaker Family History Father No problems noted. Mother No problems noted. Social History Household Members: None Housing: House Are you a primary nursing care partner to a significant other at home: No Do you presently have visiting nurse or other home services: No Alcohol intake: never Patient Tobacco Use Status: Never used Tobacco e-Cigarette/Vaping Use: Never Used Second Hand Smoke Exposure: No service: Yes Current occupational status: unemployed and retired Current occupational exposures/hazards: No Cognitive needs: No Hearing needs: No Vision needs: No Review of Systems Const Reports as per HPI Eyes Reports no additional complaints ENT Reports no additional complaints Card Reports as per HPI Resp Reports no additional complaints GI Reports as per [facility] Reports as per [facility] Musc Reports as per [facility] Skin/Breast Reports as per [facility] Neuro Reports as per [facility] Psych Reports no additional complaints Endo Reports no additional complaints Physical Exam Const General: cooperative, healthy appearing, comfortable, no acute distress, well developed, alert and awake Nutritional Appearance: overweight Orientation/consciousness: patient oriented x3 Limitations: no limitations HEENT Head: Yes normal to inspection, Yes normocephalic and Yes atraumatic Ears: hearing grossly normal bilaterally Eyes General: appearance normal, both eyes and all related structures Neck Neck: Yes normal visual inspection and Yes trachea midline Chest Chest palpation & inspection: normal inspection of the chest Resp Effort & Inspection: normal respiratory effort and able to speak in complete sentences Cardio Rate: regular rate GI Inspection: Yes normal to inspection Rectal Exam - Male: Yes deferred General: Yes no CVA tenderness Back/Spine/Pelvis Back: no CVA tenderness Skin General skin exam: no rashes or lesions noted Neuro General: patient oriented x3 Extrem General: Yes normal to inspection Psych Appearance: grossly normal and well kempt Mental Status: mental status grossly normal Speech and movement: Normal speech and movement present and Clear speech present Affect: normal affect Attitude: cooperative Thought process: Normal thought process present Thought content: Normal thought content present Insight: Fair insight present (Psych) Judgement: Fair judgement present (Psych) Office Procedures Post Void Residual Post Residual Void Post Void Residual (PVR): 16 [id number] Void Residual by ultrasound Assessment & Plan Assessment & Plan (1) Enlarged prostate: Code(s): N40.0 - Benign prostatic hyperplasia without lower urinary tract symptoms (2) Elevated PSA: Code(s): R97.20 - Elevated prostate specific antigen [PSA] (3) Urinary frequency: Code(s): R35.0 - Frequency of micturition (4) Incomplete bladder emptying: Code(s): R33.9 - Retention of urine, unspecified (5) Nocturia: Code(s): R35.1 - Nocturia Plan In office urinalysis results reviewed with the patient today; as noted above. PVR 16 mL. Stop Flomax as discussed. Continue terazosin 5 mg as discussed and prescribed. Continue finasteride as discussed. Discussed importance of continuing to limit fluids 2-3 hours prior to bed to assist with decreasing episodes of nocturia. Discussed possible near future in office cystoscopy and or urodynamics for further assessment evaluation Discussed bladder triggers/irritants. Discussed potential causes for dysuria patient will call if dysuria becomes more persistent and bothersome. Follow-up in 3 months with PVR; or sooner with any issues, concerns, and or questions. Orders: Orders AMB Urinalysis Automated 08/08/23 Z13.9 - Encounter for screening, unspecified AMB Post Void Residual by ultrasound 08/08/23 R33.9 - Retention of urine, unspecified Medications: Changed From terazosin 5 mg PO BEDTIME 30 days 30 caps 1RF N40.1 - Benign prostatic hyperplasia with lower urinary tract symptoms, R35.0 - Frequency of micturition To terazosin 5 mg PO BEDTIME 90 days 90 caps 1RF N40.1 - Benign prostatic hyperplasia with lower urinary tract symptoms, R35.0 - Frequency of micturition Patient Instructions: The patient had an opportunity to ask questions regarding the treatment plan. All questions were answered. Physical exam, labs, and imaging were discussed and reviewed in detail. As well as risks, benefits, and discussion of treatment choices. No major barriers to understanding were identified. The patient expressed understanding and agreement with the above treatment plan. The patient was made aware they should contact our office by phone for worsening of their current condition, the appearance of new symptoms, or with any questions or concerns. Compliance is encouraged with any medications and follow up testing that is ordered. It is a privilege to be allowed the opportunity to participate in? your urological care.? Again, if you have any questions or concerns If you have any questions or concerns please do not hesitate to contact me. The office is [phone]. This note is constructed using voice recognition software. While every effort has been made to ensure accuracy behavioral specialist errors may have been included. Yours sincerely, MELIZA Sales Coding Level of Care Code Est Pt Level 3 (97900) Diagnoses Enlarged prostate N40.0 Elevated PSA R97.20 Urinary frequency R35.0 Incomplete bladder emptying R33.9 Nocturia R35.1 CPT Codes Post Residual Void - PVR CPT Code: 18289-Eshw Void Residual by ultrasound ([id number])
== END 2023-08-08 09:21 | disposition home or self-care (01) ==
LOC: HO.HUSH 08:35
PROVIDERS: PCP Nurse Practitioner Family; Visit Provider Nurse Practitioner Family
DX: N40.0 Benign prostatic hyperplasia without lower urinary tract symptoms (principal); R97.20 Elevated prostate specific antigen [PSA]; R35.0 Frequency of micturition; R33.9 Retention of urine, unspecified; R35.1 Nocturia
CPT/HCPCS: 99213

== ENCOUNTER → 2023-08-08 08:35 | Outpatient (BNVA) | payer MEDICARE, MEDICAID, SELFPAY | PROVIDERS: PCP Nurse Practitioner Family; Visit Provider Nurse Practitioner Family | DX: N40.0 Benign prostatic hyperplasia without lower urinary tract symptoms (principal); R97.20 Elevated prostate specific antigen [PSA]; R35.0 Frequency of micturition; R33.9 Retention of urine, unspecified; R35.1 Nocturia | CPT/HCPCS: 51798; 99212 ==

== ENCOUNTER 2023-09-10 07:55 | Outpatient (AMB) | payer MEDICARE, MEDICAID, SELFPAY ==
--- NOTE | 2023-09-10 08:08 | A.OFFVIS_ITS ---
Intake Vital Signs 09/10/23 08:12 Height 5 ft 9 in Weight 231 lb BMI 34.1 BP 116/58 L Blood Pressure Location Lt brachial Position Sitting Pulse 65 Intake Visit Reasons: follow up Intake Note: Patient follow up for Patient denies any GI issues but he is complaining on urine Urgency last night he went 4 times a no sleep enough. Hearing Dog Trainer Required: No Accompanied by: Self / Same As Patient Allergies lamotrigine [From Lamictal] Allergy (Intermediate, Verified 09/10/23 08:10) swelling gabapentin Allergy (Unknown, Verified 09/10/23 08:10) lip swelling pregabalin [From Lyrica] Allergy (Unknown, Verified 09/10/23 08:10) lip swelling HPI follow up HPI Details LAST VISIT Hematochezia Constipation Internal hemorrhoids without complication LLQ abdominal pain Plan Internal hemorrhoids found on sigmoidoscopy. Most likely this was the source of bleeding. Patient can start taking Colace. He can use Proctosol. Patient denies any melena, hematochezia, unintentional weight loss or ribbon like stools. Occasional left lower quadrant pain most likely related to moderate diverticulosis and stool trapping. Patient will be given Colace to help him move his bowels easier as mentioned above. Patient was also encouraged to increase fluid intake and activity to promote better bowel motility. I will see him in 3 months, sooner on as needed basis. Patient is agreeable to this plan and verbalizes understanding of instructions. He was given the opportunity to ask questions and all questions answered. ? Thank you for allowing me to participate in his care Medications New hydrocortisone 2.5% (Proctosol HC) 1 appl VA BID-QID PRN 30 grams 2RF hemor rhoids K64.9 docusate sodium 100 mg PO BEDTIME 90 caps 3RF K59.00 TODAY'S VISIT: Patient is here today for follow-up. Patient reports that he has been feeling well since the last time I have seen him. Patient states that he been moving his bowels daily, no longer has blood in his stools. Patient is taking Colace every evening. Patient denies melena, hematochezia, unintentional weight loss or ribbon like stools. Patient denies any dyspepsia, dysphagia or odynophagia. Takes famotidine at bedtime. No longer takes any PPI. Patient is concerned about his frequent getting up to use the bathroom to urinate at night time. Patient reports that he does not get any rest. [facility] Medical History Hx of sigmoidoscopy Frequent falls Urinary frequency History of claustrophobia History of shingles On anticoagulant therapy On beta diana at home Dyslipidemia Gout Spinal stenosis of lumbar region Atrial fibrillation CKD (chronic kidney disease) Elevated PSA Aortic stenosis CAD (coronary artery disease) Right facial pain Trigeminal neuralgia Post herpetic neuralgia Surgical History H/O aortic valve replacement Status post lens implant History of fracture of leg History of laparoscopic cholecystectomy History of aortic valve replacement History of heart bypass surgery Pacemaker Family History Father No problems noted. Mother No problems noted. Social History Household Members: None Housing: House Are you a primary career development facilitator to a significant other at home: No Do you presently have visiting nurse or other home services: No Alcohol intake: never Patient Tobacco Use Status: Never used Tobacco e-Cigarette/Vaping Use: Never Used Second Hand Smoke Exposure: No service: Yes Current occupational status: unemployed and retired Current occupational exposures/hazards: No Cognitive needs: No Hearing needs: No Vision needs: No Review of Systems Reports nocturia Physical Exam Const General: healthy appearing, no acute distress and well developed Nutritional Appearance: obese Orientation/consciousness: patient oriented x3 Resp Effort & Inspection: normal respiratory effort, able to speak in complete sentences, no tracheal deviation and symmetric chest movement Auscultation: clear to auscultation bilaterally Cardio Rate: regular rate GI Inspection: Yes normal to inspection, No distended and Yes obesity Palpation (GI): Soft to palpation, not firm, nontender and No hepatosplenomegaly present Auscultation: normal bowel sounds General: Yes no CVA tenderness Back/Spine/Pelvis Back: no CVA tenderness Skin General skin exam: elasticity normal, turgor normal and dry skin Neuro General: patient oriented x3 Psych Appearance: grossly normal Mental Status: mental status grossly normal Assessment & Plan Assessment & Plan (1) GERD (gastroesophageal reflux disease): Code(s): K21.9 - Gastro-esophageal reflux disease without esophagitis Qualifiers: Esophagitis presence: esophagitis presence not specified Qualified Code(s): K21.9 - Gastro-esophageal reflux disease without esophagitis (2) Constipation: Code(s): K59.00 - Constipation, unspecified Qualifiers: Constipation type: slow transit constipation Qualified Code(s): K59.01 - Slow transit constipation Plan Patient can continue famotidine at bedtime. Encourage patient to avoid dietary triggers in late night snacking. Staying upright for minimum 3 hours after meals discussed with patient. Patient is encouraged to increase fluid intake and activity to promote better bowel motility. Continue Colace daily. Patient will try oxybutynin for few days and call his urologist if finds it helpful. Patient does report frequent urinations during the night. Patient feels like his sleep is disturbed because he has to get up often to go to the bathroom. Patient will follow-up in our office in 6 months, sooner on as needed basis. Patient is agreeable to this plan and verbalizes understanding of instructions. He was given the opportunity to ask questions and all questions answered. Thank you for allowing me to participate in his care Medications: New oxybutynin chloride ER 5 mg PO DAILY 10 tabs 0RF Discontinued pantoprazole Discontinued Reason: Doctor's Order 40 mg PO DAILY 30 tabs 0RF Coding Level of Care Code Est Pt Level 3 (80116) Diagnoses Gastroesophageal reflux disease, unspecified whether esophagitis present K21.9 Esophagitis presence: esophagitis presence not specified Slow transit constipation K59.01 Constipation type: slow transit constipation Time Spent (min) 25 Comment 15 minutes spent with patient and additional 10 minutes spent reviewing his records
[2023-09-10 08:12] VITALS: BP 116/58; PULSE 65; BMI 34.1
== END 2023-09-10 08:32 | disposition home or self-care (01) ==
PROVIDERS: PCP Nurse Practitioner Family; Visit Provider Nurse Practitioner Family
DX: K21.9 Gastro-esophageal reflux disease without esophagitis (principal); K59.01 Slow transit constipation
CPT/HCPCS: 99213

== ENCOUNTER → 2023-09-10 07:55 | Outpatient (BNVA) | payer MEDICARE, MEDICAID, SELFPAY | PROVIDERS: PCP Nurse Practitioner Family; Visit Provider Nurse Practitioner Family | DX: K21.9 Gastro-esophageal reflux disease without esophagitis (principal); K59.01 Slow transit constipation | CPT/HCPCS: 99212 ==

== ENCOUNTER 2023-09-16 07:28 | Outpatient (REF) | payer MEDICARE, MEDICAID, SELFPAY ==
[2023-09-16 10:22] LABS: Appearance Urine Clear; Color Urine Yellow; Glucose Urine UA Negative (Negative); Leukocyte Esterase Urine Trace (Negative); Nitrite Urine Negative (Negative); PH 5.5 (5.0-9.0); UMIC TRIGGER UACC YES; Urine Blood Negative (Negative); Urine Ketones Trace mg/dL (Negative); Urine Protein Trace mg/dL (Neg-Trace)
[2023-09-16 10:23] LABS: MANUAL DIFF FLAG NO
[2023-09-16 10:27] LABS: Bacteria Urine None Seen (None Seen); RBC Urine 0-2 /HPF (0-2); Squamous Epithelial Cell Urine 0-2 /HPF (0-2); WBC Urine 0-5 /HPF (0-5)
[2023-09-16 10:36] LABS: Basophils Percent Auto 0.4 % (0-2); Eosinophils Absolute Auto 0.2 X10*3/uL (0.0-0.4); Eosinophils Percent Auto 3.3 % (0-4); Hematocrit 40.8 % (42.0-52.0); Hemoglobin 12.6 g/dl (14.0-18.0); Imm Gran Abs Auto 0.01 X10*3/uL (0.00-0.03); Imm Gran Pct Auto 0.2 % (0.0-0.4); Lymphocytes Absolute Auto 1.4 X10*3/uL (1.2-4.9); Mean Corpuscular HGB Conc 30.9 g/dl (31.0-36.0); Mean Corpuscular Hemoglobin 29.9 pg (27.0-33.0); Mean Corpuscular Volume 96.9 fL (80.0-98.0); Monocytes Absolute Auto 0.5 X10*3/uL (0.1-1.2); Monocytes Percent Auto 10.4 % (2-11); Neutrophils Percent Auto 58.7 % (45-73); Red Blood Count 4.21 X10*6/uL (4.60-5.80); Red Cell Distribution Width 13.9 % (11.0-16.0); White Blood Count 5.2 X10*3/uL (4.8-10.8)
[2023-09-16 10:37] LABS: Platelet Count 99 X10*3/uL (160-400)
[2023-09-16 11:05] LABS: TSH reflex Free T4 2.66 uIU/mL (0.32-4.0)
[2023-09-16 11:26] LABS: Alanine Aminotransferase 19 U/L (0-40); Albumin Level 3.6 g/dL (3.5-5.0); Alkaline Phosphatase 67 U/L (39-117); Anion Gap 12 (12-20); Aspartate Amino Transferase 21 U/L (5-37); Bilirubin Total 0.6 mg/dL (0.0-1.0); Blood Urea Nitrogen 20 mg/dL (9-16); Calcium 8.7 mg/dL (8.4-10.2); Carbon Dioxide 27 mmol/L (22-29); Chloride 107 mmol/L (96-108); Cholesterol 91 mg/dL (<200); Estimated Glomerular Filt Rate 41; Glucose Fasting 175 mg/dL (60-99); HDL Cholesterol 35 mg/dL (>40); LDL Cholesterol Calculated 38 mg/dL (<100); Potassium 3.8 mmol/L (3.3-5.1); Sodium 142 mmol/L (135-145); Total Protein 6.7 g/dL (6.5-8.0); Triglycerides 92 mg/dL (<150)
[2023-09-16 11:50] LABS: Creatinine Urine 250.33 mg/dL; Protein/Creatinine Ratio, Ur 0.08 (<0.2); Total Protein Urine Random 19 mg/dL (<12)
[2023-09-16 16:32] LABS: Estimated Average Glucose 146 mg/dL; Hemoglobin A1c % 6.7 % (<6.0)
== END 2023-09-16 07:29 | disposition home or self-care (01) ==
LOC: HO.HMGCLDS 07:28
PROVIDERS: PCP Nurse Practitioner Family; Referring Provider Internal Medicine Nephrology; Visit Provider Nurse Practitioner Family
DX: E11.22 Type 2 diabetes mellitus with diabetic chronic kidney disease (principal); N18.30 Chronic kidney disease, stage 3 unspecified; R35.1 Nocturia; N40.1 Benign prostatic hyperplasia with lower urinary tract symptoms; R39.11 Hesitancy of micturition; R33.9 Retention of urine, unspecified; R35.0 Frequency of micturition
CPT/HCPCS: 36415; 80053; 80061; 81001; 82570; 83036; 84156; 84443; 85025; 87086

== ENCOUNTER 2023-09-21 08:54 | Emergency (ER) | payer MEDICARE, OTHER, SELFPAY ==
--- NOTE | ~2023-09-21 | XR_ITS ---
EXAMINATION: XR FOOT, RIGHT CLINICAL INFORMATION: Pain, injury. COMPARISON: Radiograph right ankle 11/18/2006. TECHNIQUE: AP, lateral, and oblique views of the right foot. FINDINGS: Very subtle deformity of the proximal phalanx of the fifth toe and head of the fifth metatarsal that could represent nondisplaced fractures, although a discrete fracture line is not seen. There is overlying soft tissue swelling. Partially imaged lateral fixation plate with multiple traversing screws in the distal fibula. No evidence of hardware fracture or complications. Decreased bone mineralization. Moderate multifocal degenerative changes with spurring and joint space narrowing. Small dorsal calcaneal spurs. Severe vascular calcifications. XR/XR foot RT min 3V IMPRESSION: 1. Questionable nondisplaced fractures of the proximal phalanx of the fifth toe and head of the fifth metatarsal. Correlate for point tenderness. 2. Decreased bone mineralization. 3. Moderate multifocal degenerative changes. 4. No evidence of hardware complications.
[2023-09-21 09:02] VITALS: BP 142/62; PULSE 78; RESP 18; TEMP 36.6; O2SAT 98; BMI 34.7
--- NOTE | 2023-09-21 09:18 | ED_ITS ---
HPI - General Adult General Chief complaint: Extremity Injury, Lower Stated complaint: Infection on foot Time Seen by Provider: 09/21/23 09:15 Source: patient Mode of arrival: ambulatory Limitations: no limitations History of Present Illness HPI narrative: Patient is an 88 year old assigned male at with a history of DM presenting to the emergency department today with right great toe pain. Patient states that he slipped and hit his right great toe 2 days ago and injured the nail of the toe. Patient states that it is not getting better. Patient denies any head strike, loss of consciousness, dizziness, lightheadedness, abdominal pain, nausea, vomiting, fever, chills, blurry vision, double vision, loss of vision, chest pain, difficulty breathing, shortness of breath, back pain, night sweats, pain with urination, increased urinary frequency, increased urinary urgency, blood in his urine or stool, syncope or a near syncopal episode, bowel incontinence, bladder incontinence, bowel retention, bladder retention, or any other complaints at this time. Onset (ago): day(s) (2) Location: right (great toe) Radiation: non-radiation Severity: mild Severity scale (1-10): 3 Quality: aching and dull Pain Consistency: constant Relieving factors: none Exacerbating factors: none Associated symptoms: denies other symptoms Treatments prior to arrival: none Related Data Home Medications Medication Instructions Recorded Confirmed aspirin 81 mg tablet,delayed 81 mg PO DAILY 04/22/20 07/09/23 release (Adult Aspirin Regimen) Previous Rx's Medication Instructions Recorded atorvastatin 40 mg tablet 40 mg PO DAILY #90 tabs 09/09/22 duloxetine 30 mg capsule,delayed 30 mg PO BID 90 days #180 caps 01/06/23 release blood-glucose meter (OneTouch #1 ea 01/10/23 Ultra2 Meter) blood sugar diagnostic (OneTouch #300 ea 03/04/23 Ultra Test strips) lancets 30 gauge (Onetouch Delica #300 ea 03/04/23 Safety Lancet) metoprolol tartrate 50 mg tablet 50 mg PO BID #30 tabs 04/28/23 docusate sodium 100 mg capsule 100 mg PO BEDTIME #90 caps 06/10/23 hydrocortisone 2.5 % topical cream 1 appl [place] BID-QID PRN hemorrhoids 06/10/23 with perineal applicator #30 grams (Proctosol HC) finasteride 5 mg tablet 5 mg PO DAILY 90 days #90 tabs 06/25/23 famotidine 20 mg tablet 20 mg PO DAILY 90 days #90 tabs 07/09/23 cholecalciferol (vitamin D3) 50 50 mcg PO DAILY #90 tabs 07/18/23 mcg (2,000 unit) tablet terazosin 5 mg capsule 5 mg PO BEDTIME 90 days #90 caps 08/08/23 ezetimibe 10 mg tablet 10 mg PO DAILY #90 tabs 08/10/23 rivaroxaban 20 mg tablet (Xarelto) 20 mg PO DAILY 90 days #90 tabs 09/07/23 oxybutynin chloride 5 mg 5 mg PO DAILY #10 tabs 09/10/23 tablet,extended release 24 hr nitrofurantoin 100 mg PO BID 10 days #20 caps 09/17/23 monohydrate/macrocrystals 100 mg capsule (Macrobid) cefuroxime axetil 250 mg tablet 250 mg PO BID 7 days #14 tabs 09/21/23 Allergies Allergy/AdvReac Type Severity Reaction Status Date / Time lamotrigine [From Lamictal] Allergy Intermediate swelling Verified 09/10/23 08:10 gabapentin Allergy Unknown lip Verified 09/10/23 08:10 swelling pregabalin [From Lyrica] Allergy Unknown lip Verified 09/10/23 08:10 swelling Review of Systems Constitutional: Constitutional: Reports no additional constitutional complain ts, Denies chills, Denies fever(s) and Denies night sweats Eyes: Eyes: Reports no additional eye complaints, Denies blurry vision, Denies change in vision, Denies diplopia, Denies eye discharge, Denies loss of vision and Denies eye pain ENT: Denies dizziness Cardiovascular: Cardiovascular: Reports no additional cardiovascular complaints, Denies chest pain, Denies lightheadedness, Denies Loss of Consciousness and Denies dyspnea Respiratory: Respiratory: Reports no additional respiratory complaints and Denies dyspnea Gastrointestinal: Gastrointestinal: Reports no additional gastrointestinal complaints, Denies abdominal pain, Denies melena, Denies hematochezia, Denies change in bowel habits and Denies change in stool character Genitourinary: Genitourinary: Reports no additional male genitourinary complaints, Denies hematuria, Denies oliguria, Denies difficulty urinating, Denies dysuria, Denies urinary frequency, Denies urinary hesitancy, Denies urinary incontinence and Denies urinary urgency Musculoskeletal: Musculoskeletal: Reports no additional musculoskeletal complaints, Denies numbness and Denies tingling Comments: right great toe pain Neurologic: Denies dizziness, Denies loss of vision, Denies numbness and Denies tingling Psychiatric: Psychiatric: Reports no additional psychiatric complaints Endocrine: Endocrine: Reports no additional endocrine complaints Hematologic/Lymphatic: Hematologic/Lymphatic: Reports no additional hematologic/lymphatic complaints Allergic/Immunologic: Allergic/Immunologic: Reports no additional allergic/immunologic complaints [facility] Past Medical History Attestation statement: The following information was validated with the patient. Source: old records reviewed and nursing notes reviewed Medical History Hx of sigmoidoscopy Frequent falls Urinary frequency History of claustrophobia History of shingles On anticoagulant therapy On beta diana at home Dyslipidemia Gout Spinal stenosis of lumbar region Atrial fibrillation CKD (chronic kidney disease) Elevated PSA Aortic stenosis CAD (coronary artery disease) Right facial pain Trigeminal neuralgia Post herpetic neuralgia Surgical History H/O aortic valve replacement Status post lens implant History of fracture of leg History of laparoscopic cholecystectomy History of aortic valve replacement History of heart bypass surgery Pacemaker Family History Family History Father No problems noted. Mother No problems noted. Social History Social History Household Members: None Housing: House Are you a primary progressive care unit registered nurse to a significant other at home: No Do you presently have visiting nurse or other home services: No Alcohol intake: never Patient Tobacco Use Status: Never used Tobacco Smoked in Last 30 Days: No e-Cigarette/Vaping Use: Never Used Second Hand Smoke Exposure: No Use of substances other than those prescribed or required for medical reasons: No Advance Directives: Yes Advance Directives Information Provided: Yes Advance Directives on File: No service: Yes Current occupational status: unemployed and retired Current occupational exposures/hazards: No Cognitive needs: No Hearing needs: No Vision needs: No Physical Exam ED Vital Signs: Vital Signs - 24 hr 09/21/23 09:02 09/21/23 12:09 Temperature 97.8 F 97.6 F Pulse Rate 78 65 Respiratory Rate 18 18 Blood Pressure 142/62 H 159/71 H Pulse Oximetry 98 98 Oxygen Delivery Method Room Air Room Air BMI result Body Mass Index 34.7 Const General: cooperative, no acute distress, alert and awake Nutritional Appearance: well nourished Orientation/consciousness: patient oriented x3 Limitations: no limitations HENMT Head: Yes normal to inspection and Yes atraumatic Ears: hearing grossly normal bilaterally and external ears normal General nose exam: Normal external nose present, no nasal discharge noted and no epistaxis Face and sinus: Yes normal facial exam, No abrasion and No laceration Mouth: Normal oral and palatal mucosa present, no drooling and no muffled voice Eyes General: appearance normal, both eyes and all related structures Periorbital: periorbital findings normal Eyelids: Yes eyelids normal Conjunctivae: conjunctivae normal Pupils: Equal, round and reactive pupils present EOM: EOMs intact bilaterally Neck Neck: Yes normal visual inspection, Yes full ROM and Yes no lymphadenopathy Chest Chest palpation & inspection: normal inspection of the chest Resp Effort & Inspection: normal respiratory effort and able to speak in complete sentences GI Inspection: Yes normal to inspection Neuro General: patient oriented x3 and moves all extremities Cranial nerves: Yes Equal, round and reactive pupils present Cognition (Neuro): normal cognition Motor exam (neuro): 5/5 motor strength present throughout Sensory Exam: Normal double simultaneous stimulation for sensation Coordination: [id number] test normal Extrem Other: right great toe has erythema and swelling present to the lateral aspect General: Yes full ROM and Yes capillary refill normal Psych Appearance: grossly normal Mental Status: mental status grossly normal Affect: normal affect Attitude: cooperative Thought process: Normal thought process present Thought content: Normal thought content present Insight: Good insight present (Psych) Medications Administered Discontinued Medications Generic Name Dose Route Start Last Admin Trade Name Freq PRN Reason Stop Dose Admin Cefuroxime Axetil 250 mg 09/21/23 12:03 09/21/23 12:19 Cefuroxime Axetil 250 Mg Tablet PO 09/21/23 12:04 250 mg ONCE ONE Administration Lidocaine HCl 10 ml 09/21/23 11:13 09/21/23 11:49 Lidocaine Hcl 1 % Mpf 5 Ml Vial SUBCUT 09/21/23 11:14 10 ml ONCE ONE Administration Procedures Procedure Narrative Procedure Narrative: Patient's left great toe nail was partially ingrown along the medial aspect. I performed a digital block of the area and removed the medial aspect of the right great toe, without incident. Medical Decision Making Medical Decision Making MDM Narrative: Patient is an 88 year old assigned male at with a history of DM presenting to the emergency department today with right great toe pain. Patient's physical exam was as noted in the physical exam portion of this note. Patient's right foot / toes x-ray showed a questionable 5th phalanx fracture however, the patient has no pain there and no evidence of fracture on examination. I explained my physical exam findings as well as all test results to the patient. I answered all questions asked by the patient. A portion of the patient's right great toe nail was removed, per procedure note, without incident. I stressed the importance of the patient taking his medication as prescribed. 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 I stressed the importance of the patient returning to the emergency department immediately if his symptoms were to worsen or if he were to develop any dizziness, shortness of breath, difficulty breathing, chest pain, blurry vision, loss of vision, nausea, vomiting, abdominal pain, fever, chills, back pain, or any other complaints. Patient verbalized agreement and understanding with this treatment plan and discharge. Differential Diagnosis Differential Diagnoses: The differential diagnosis associated with the presentation includes Right great toe ingrown nail Right great toe pain Toe pain Admission/Observation Consideration of admission/observation: Escalation of care including admission/observation considered Patient would have been admitted to the hospital had his work up had any findings where hospital admission was appropriate and his clinical presentation warranted hospital admission. Independent Interpretation I performed an independent interpretation of an: Plain X-Ray Interpretation: My interpretation is that there is no acute fracture. The radiologist's impression of this imaging study is below. EXAMINATION: XR FOOT, RIGHT CLINICAL INFORMATION: Pain, injury. COMPARISON: Radiograph right ankle 11/18/2006. TECHNIQUE: AP, lateral, and oblique views of the right foot. FINDINGS: Very subtle deformity of the proximal phalanx of the fifth toe and head of the fifth metatarsal that could represent nondisplaced fractures, although a discrete fracture line is not seen. There is overlying soft tissue swelling. Partially imaged lateral fixation plate with multiple traversing screws in the distal fibula. No evidence of hardware fracture or complications. Decreased bone mineralization. Moderate multifocal degenerative changes with spurring and joint space narrowing. Small dorsal calcaneal spurs. Severe vascular calcifications. XR/XR foot RT min 3V IMPRESSION: 1. Questionable nondisplaced fractures of the proximal phalanx of the fifth toe and head of the fifth metatarsal. Correlate for point tenderness. 2. Decreased bone mineralization. 3. Moderate multifocal degenerative changes. 4. No evidence of hardware complications. Dictated By: Marissa Pimentel Signed By: Electronically signed by Marissa Pimentel 09/21/23 [id number] Radiology Impression Discussion of test interpretation with radiology: I have reviewed the radiologist's reading. Prescription Management I considered prescription management with: Antibiotic (patient prescribed antibiotic for possible infected right great toe) Chronic Conditions Patient?s care impacted by: Diabetes Discharge Plan Discharge Clinical Impression: IGTN (ingrowing toe nail) Patient Disposition: Home, Self-Care Instructions: Ingrown Nail (ED), Partial Nail Avulsion for Ingrown Nail (DC) Additional Instructions: Follow up with your primary care provider and your podiatirst. Take your antibiotic as prescribed. Return to the emergency department immediately if your symptoms worsen or if you develop any dizziness, shortness of breath, difficulty breathing, chest pain, blurry vision, loss of vision, nausea, vomiting, abdominal pain, fever, chills, back pain, or any other complaints. Prescriptions: New cefuroxime axetil 250 mg tablet 250 mg PO BID 7 Days Qty: 14 0RF No Action atorvastatin 40 mg tablet 40 mg PO DAILY Qty: 90 4RF duloxetine 30 mg capsule,delayed release(DR/EC) 30 mg PO BID 90 Days Qty: 180 2RF (DME) blood-glucose meter [OneTouch Ultra2 Meter] Misc See Rx Instructions .Route Qty: 1 0RF Rx Instructions: Check fasting blood sugar and a random blood sugar daily. (DME) OneTouch Ultra Test Strip See Rx Instructions .Route Qty: 300 1RF Rx Instructions: Check blood sugar once a day (DME) lancets [Onetouch Delica Safety Lancet] 30 gauge misc See Rx Instructions .Route Qty: 300 1RF Rx Instructions: Check blood sugar once a day metoprolol tartrate 50 mg tablet 50 mg PO BID Qty: 30 0RF Rx Instructions: Please request future refills for this medication from your Child Protective Investigator. cholecalciferol (vitamin D3) 50 mcg (2,000 unit) tablet 50 mcg PO DAILY Qty: 90 1RF ezetimibe 10 mg tablet 10 mg PO DAILY Qty: 90 1RF Xarelto 20 mg tablet 20 mg PO DAILY 90 Days Qty: 90 1RF Rx Instructions: must administer with evening meal nitrofurantoin monohyd/m-cryst [Macrobid] 100 mg capsule 100 mg PO BID 10 Days Qty: 20 0RF Rx Instructions: must administer with a meal/food famotidine 20 mg tablet 20 mg PO DAILY 90 Days Qty: 90 0RF aspirin [Adult Aspirin Regimen] 81 mg tablet,delayed release (DR/EC) 81 mg PO DAILY terazosin 5 mg capsule 5 mg PO BEDTIME 90 Days Qty: 90 1RF oxybutynin chloride 5 mg tablet extended release 24hr 5 mg PO DAILY Qty: 10 0RF finasteride 5 mg tablet 5 mg PO DAILY 90 Days Qty: 90 1RF hydrocortisone [Proctosol HC] 2.5 % cream with perineal applicator 1 appl [place] BID-QID PRN (Reason: hemorrhoids) Qty: 30 2RF docusate sodium 100 mg capsule 100 mg PO BEDTIME Qty: 90 3RF Referrals: Dannie Cosby, [facility] [Primary Care Provider] - Interventions: ED Discharge Assessment Last Done: 09/21/23 12:22 Discharge Date/Time: 09/21/23 12:21 Print Language: [place]
[2023-09-21] MEDS: Lidocaine HCl 1 % MPF 5 ML VIAL 10 ML SUBCUT (11:49)
[2023-09-21 12:09] VITALS: BP 159/71; PULSE 65; RESP 18; TEMP 36.4; O2SAT 98
[2023-09-21] MEDS: cefuroxime axetiL 250 MG TABLET PO (12:19)
== END 2023-09-21 12:21 | disposition home or self-care (01) ==
PROVIDERS: Emergency Provider Student in an Organized Health Care Education/Training Program; PCP Nurse Practitioner Family
DX: L60.0 Ingrowing nail (principal); Z79.899 Other long term (current) drug therapy
CPT/HCPCS: 11750; 73630; 99284

== ENCOUNTER 2023-10-07 10:07 | Outpatient (AMB) | payer MEDICARE, MEDICAID, SELFPAY ==
[2023-10-07 10:18] VITALS: BP 124/62; PULSE 65; O2SAT 96; BMI 34.6
--- NOTE | 2023-10-07 10:18 | HO.NEPHOV ---
HPI HPI Comments History of Present Illness Details I had the delight of seeing Rickie in follow-up of his chronic kidney disease. He continues to have excruciating pain from trigeminal neuralgia. He does not have any dizziness, orthostatic symptoms, nausea, vomiting, edema, urinary symptoms, hematuria, chest pain, shortness of breath, proximal nocturnal dyspnea or orthopnea. He is not taking any nonsteroidal anti-inflammatories. He is closely followed up by his primary care physician. He had no other active complaints at the time of this office visit. [facility] Medical History Hx of sigmoidoscopy Frequent falls Urinary frequency History of claustrophobia History of shingles On anticoagulant therapy On beta diana at home Dyslipidemia Gout Spinal stenosis of lumbar region Atrial fibrillation CKD (chronic kidney disease) Elevated PSA Aortic stenosis CAD (coronary artery disease) Right facial pain Trigeminal neuralgia Post herpetic neuralgia Surgical History H/O aortic valve replacement Status post lens implant History of fracture of leg History of laparoscopic cholecystectomy History of aortic valve replacement History of heart bypass surgery Pacemaker Family History Father No problems noted. Mother No problems noted. Social History Household Members: None Housing: House Are you a primary residential care facility manager to a significant other at home: No Do you presently have visiting nurse or other home services: No Alcohol intake: never Patient Tobacco Use Status: Never used Tobacco e-Cigarette/Vaping Use: Never Used Second Hand Smoke Exposure: No service: Yes Current occupational status: unemployed and retired Current occupational exposures/hazards: No Cognitive needs: No Hearing needs: No Vision needs: No Vital Signs 10/07/23 10:18 Height 5 ft 9 in Weight 234 lb BMI 34.6 BP 124/62 Blood Pressure Location Lt brachial Position Sitting Pulse 65 Pulse Source Pulse Oximeter Pulse Oximetry (%) 96 Oxygen Delivery Method Room Air Physical Exam Vital Signs: Last Vital Signs Pulse 65 10/07/23 10:18 BP 124/62 10/07/23 10:18 Pulse Ox 96 10/07/23 10:18 Oxygen Delivery Method Room Air 10/07/23 10:18 BMI result Body Mass Index 34.6 Const General: comfortable and no acute distress Orientation/consciousness: patient oriented x3 HEENT Head: Yes normocephalic Mouth: Normal oral and palatal mucosa present Eyes EOM: EOMs intact bilaterally Neck Neck: Yes supple Resp Auscultation: clear to auscultation bilaterally Cardio Jugular venous distension: no JVD Rate: regular rate GI Palpation (GI): Soft to palpation Auscultation: normal bowel sounds General: Yes no CVA tenderness Back/Spine/Pelvis Back: no CVA tenderness Skin General skin exam: no rashes or lesions noted Neuro General: patient oriented x3 and moves all extremities Extrem General: Yes no pedal edema Assessment & Plan Assessment & Plan (1) CKD (chronic kidney disease) stage 3, GFR 30-59 ml/min: Code(s): N18.30 - Chronic kidney disease, stage 3 unspecified Qualifiers: Chronic kidney disease stage 3 subtype: stage 3a (GFR 45-59) Qualified Code(s): N18.31 - Chronic kidney disease, stage 3a (2) HTN (hypertension): Code(s): I10 - Essential (primary) hypertension Qualifiers: Hypertension type: primary hypertension Qualified Code(s): I10 - Essential (primary) hypertension Plan 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 His blood pressure is currently at goal at home. He avoids nonsteroidal anti-inflammatory medications. He is not on any ARTEM inhibitor. He is not on any Jardiance of Farxiga. He tries to maintain good hydration. I did not make any medication changes today. He is tolerating statins well. He is looking forward for a 2nd opinion in trigeminal neuralgia. All questions answered. Follow-up blood work ordered. Orders: Orders Blood Urea Nitrogen Today N18.30 - Chronic kidney disease, stage 3 unspecified Electrolytes Today N18.30 - Chronic kidney disease, stage 3 unspecified Creatinine Today N18.30 - Chronic kidney disease, stage 3 unspecified Coding Level of Care Code Est Pt Level 3 (59303) Diagnoses Stage 3a chronic kidney disease N18.31 Chronic kidney disease stage 3 subtype: stage 3a (GFR 45-59) Primary hypertension I10 Hypertension type: primary hypertension Results Reviewed Nephrology Results: Hgb 12.6 g/dl (14.0-18.0) L 09/16/23 WBC 5.2 X10*3/uL (4.8-10.8) 09/16/23 Plt Count 99 X10*3/uL (160-400) L 09/16/23 Sodium 142 mmol/L (135-145) 09/16/23 Potassium 3.8 mmol/L (3.3-5.1) 09/16/23 Chloride 107 mmol/L (96-108) 09/16/23 Carbon Dioxide 27 mmol/L (22-29) 09/16/23 BUN 20 mg/dL (9-16) H 09/16/23 Creatinine 1.60 mg/dL (0.5-1.4) H 09/16/23 Calcium 8.7 mg/dL (8.4-10.2) 09/16/23 Urine Protein Trace mg/dL (Neg-Trace) 09/16/23 Urine Creatinine 250.33 mg/dL 09/16/23 Protein/Creatinin Ratio 0.08 (<0.2) 09/16/23
== END 2023-10-07 10:59 | disposition home or self-care (01) ==
PROVIDERS: PCP Nurse Practitioner Family; Visit Provider Internal Medicine Nephrology
DX: N18.31 Chronic kidney disease, stage 3a (principal); I10 Essential (primary) hypertension
CPT/HCPCS: 99213

== ENCOUNTER → 2023-10-07 10:07 | Outpatient (BNVA) | payer MEDICARE, MEDICAID, SELFPAY | PROVIDERS: PCP Nurse Practitioner Family; Visit Provider Internal Medicine Nephrology | DX: N18.31 Chronic kidney disease, stage 3a (principal); I10 Essential (primary) hypertension; G50.0 Trigeminal neuralgia | CPT/HCPCS: 99212 ==

== ENCOUNTER 2023-10-13 13:41 | Outpatient (AMB) | payer MEDICARE, MEDICAID, SELFPAY ==
[2023-10-13 13:45] VITALS: BP 112/60; PULSE 66; O2SAT 97; BMI 34.6
--- NOTE | 2023-10-13 13:45 | MHC.PC.OV ---
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: No Accompanied by: Self / Same As Patient Allergies lamotrigine [From Lamictal] Allergy (Intermediate, Verified 10/13/23 13:48) swelling gabapentin Allergy (Unknown, Verified 10/13/23 13:48) lip swelling pregabalin [From Lyrica] Allergy (Unknown, Verified 10/13/23 13:48) lip swelling Tobacco use date assessed: 10/13/23 Fall risk assessment: 1 Fall in past year Last assessed Fall Risk: 10/13/23 Dental Screening Dental Screen Date: 10/13/23 Did you have a dental visit in the last 12 months?: Yes Did you have a dental problem in the last 6 months where you did not have access to dental care?: No Was dental information given to patient?: Patient has dentist HPI 3 Month follow up HPI Details Pt is a diabetic, on a statin. Last A1C was 6.7, microalbumin is up to date. Denies polyuria, polydipsia, and neuropathy. Pt denies any signs and symptoms of hypoglycemia and does know how to correct it. Pt does not check his blood sugar. Pt did not want to talk about his diabetes today. He reports ongoing right trigeminal neuralgia that he has had for over 6 years. He has tried many medications including botox. Will refer to specialist through [facility]. [facility] Medical History Hx of sigmoidoscopy Frequent falls Urinary frequency History of claustrophobia History of shingles On anticoagulant therapy On beta diana at home Dyslipidemia Gout Spinal stenosis of lumbar region Atrial fibrillation CKD (chronic kidney disease) Elevated PSA Aortic stenosis CAD (coronary artery disease) Right facial pain Trigeminal neuralgia Post herpetic neuralgia Surgical History H/O aortic valve replacement Status post lens implant History of fracture of leg History of laparoscopic cholecystectomy History of aortic valve replacement History of heart bypass surgery Pacemaker Family History Father No problems noted. Mother No problems noted. Social History Household Members: None Housing: House Are you a primary child care lead teacher to a significant other at home: No Do you presently have visiting nurse or other home services: No Alcohol intake: never Patient Tobacco Use Status: Never used Tobacco e-Cigarette/Vaping Use: Never Used Second Hand Smoke Exposure: No service: Yes Current occupational status: unemployed and retired Current occupational exposures/hazards: No Cognitive needs: No Hearing needs: No Vision needs: No Questionnaire PHQ-9 Over the last 2 weeks, how often have you been bothered by any of the following problems? 1. Little interest or pleasure in doing things: not at all 2. Feeling down, depressed, or hopeless: not at all 3. Trouble falling or staying asleep, or sleeping too much: not at all 4. Feeling tired or having little energy: not at all 5. Poor appetite or overeating: not at all 6. Feeling bad about yourself - or that you are a failure or have let yourself or your family down: not at all 7. Trouble concentrating on things, such as reading the newspaper or watching television: not at all 8. Moving or speaking so slowly that other people could have noticed. Or the opposite - being so fidgety or restless that you have been moving around a lot more than usual: not at all 9. Thoughts that you would be better off or of hurting yourself in some way: not at all Total score: 0 Depression Screening Interpretation: Negative Depression Screening Done: Yes 44720 - PHQ-9 Billing: Yes Source: Developed by Drs. Nirav Marinelli, aDli Amezquita, Nicola Pruitt and colleagues, with an educational juan from [employer]. Thrive Questionnaire Date Thrive assessed: 10/13/23 I am a: Patient What is your living situation today?: I have a steady place to live Within the past 12 months, did the food you bought not last and you didn't have the money to get more?: Never true Within the past 12 months, did you worry whether your food would run out before you got money to buy more?: Never true Do you have trouble paying for medicines?: No Do you have trouble getting transportation to medical appointments?: No Do you have trouble paying your heating and electricity bill?: No Do you have trouble taking care of your child, family member or friend?: No Do you have trouble with day-to-day activities such as bathing, preparing meals, shopping, managing finances, etc.?: No Are you currently unemployed and looking for a job?: No Are you interested in more education?: No Please select the resources that you would like help with: None Currently or been in a relationship where the following occur: no concerns reported THRIVE Score: 0 AUDIT C Alcohol Use Questionnaire (AUDIT-C) 1. How often do you have a drink containing alcohol?: Never 3. How often do you have six or more drinks on one occasion?: Never Total Score: 0 Score Reviewed/Action Taken: Yes ELZA-7 AMB Questionnaire ELZA-7 Date ELZA - 7 assessed: 10/13/23 Feeling nervous, anxious, or on edge: 3 = Nearly every day Not being able to stop or control worryin = More than half the days Worrying too much about different things: 2 = More than half the days Trouble relaxin = Several days Being so restless that it is hard to sit still: 0 = Not at all Becoming easily annoyed or irritable: 2 = More than half the days Feeling afraid as if something awful might happen: 0 = Not at all Total ELZA-7 score (0-4 normal; 5-9 mild; 10-14 moderate; 15-21 severe): 10 Source: Developed by Drs. Nirav Marinelli, Dali Amezquita, Nicola Pruitt and colleagues, with an educational juan from [employer]. Review of Systems Const Reports as per HPI Physical exam (Primary Care) Vital Signs: Last Vital Signs Pulse 66 10/13/23 13:45 BP 112/60 10/13/23 13:45 Pulse Ox 97 10/13/23 13:45 Oxygen Delivery Method Room Air 10/13/23 13:45 BMI result Body Mass Index 34.6 Tobacco/Smoking Status: Tobacco use Status Tobacco use date assessed 10/13/23 10/13/23 13:49 Patient Tobacco Use Status Never used Tobacco 10/13/23 13:47 e-Cigarette/Vaping Use Never Used 10/13/23 13:47 PHQ-9: PHQ-9 Score PHQ-9: Total score 0 10/13/23 14:33 Depression Screening Interpretation: Negative Thrive Assessment: Date of Thrive Assessment Date Thrive assessed 10/13/23 10/13/23 13:59 Currently or been in a relationship where the following occur: no concerns reported Const General: cooperative Nutritional Appearance: obese Orientation/consciousness: patient oriented x3 Resp Effort & Inspection: normal respiratory effort Auscultation: clear to auscultation bilaterally Cardio Rate: regular rate Rhythm: regular rhythm Heart sounds: S1 normal heart sound present, S2 normal heart sound present and Murmur heart sound present systolic Neuro General: patient oriented x3 Psych Appearance: grossly normal Mental Status: mental status grossly normal Speech and movement: Normal speech and movement present Affect: normal affect Attitude: cooperative Thought process: Normal thought process present Thought content: Normal thought content present Insight: Good insight present (Psych) Judgement: Good judgement present (Psych) Assessment and Plan Assessment & Plan (1) Trigeminal neuropathy: Code(s): G50.9 - Disorder of trigeminal nerve, unspecified Plan: Referred to neurosurgery (2) Diabetes: Code(s): E11.9 - Type 2 diabetes mellitus without complications Plan: currently controlled Plan The patient agreed to the use of a certified medical transcriptionist for this encounter. Scribed for MELIZA Casas by Lynette Sevilla certified medical transcriptionist, on 10/13/2023 at 14:00 EST. Orders: Referrals Neurosurgery Referral G50.9 - Disorder of trigeminal nerve, unspecified Coding Level of Care Code Est Pt Level 3 (24889) Diagnoses Trigeminal neuropathy G50.9 Diabetes E11.9
== END 2023-10-13 14:52 | disposition home or self-care (01) ==
PROVIDERS: PCP Nurse Practitioner Family; Visit Provider Nurse Practitioner Family
DX: G50.9 Disorder of trigeminal nerve, unspecified (principal); E11.9 Type 2 diabetes mellitus without complications
CPT/HCPCS: 99213

== ENCOUNTER 2023-11-07 08:30 | Outpatient (AMB) | payer MEDICARE, MEDICAID, SELFPAY ==
--- NOTE | 2023-11-07 08:39 | MHC.OFFVIS ---
Intake Visit Reasons: 3m/PVR Intake Note: Patient is Present for Follow Up PVR Urology Medication: Terazosin, finasteride Antibiotic Allergies: None Blood Thinners: Xarelto PVR:14ml's Security Monitor Required: No Accompanied by: Self / Same As Patient Allergies lamotrigine [From Lamictal] Allergy (Intermediate, Verified 11/07/23 09:13) swelling gabapentin Allergy (Unknown, Verified 11/07/23 09:13) lip swelling pregabalin [From Lyrica] Allergy (Unknown, Verified 11/07/23 09:13) lip swelling Medication List - Last Reconciled 11/07/23 by YUSUF SalesP-BC aspirin (Adult Aspirin Regimen) 81 mg PO DAILY atorvastatin 40 mg PO DAILY blood sugar diagnostic ([employer] Ultra Test strips) Check blood sugar once a day blood-glucose meter ([employer] Ultra2 Meter) Check fasting blood sugar and a random blood sugar daily. cholecalciferol (vitamin D3) 50 mcg PO DAILY docusate sodium 100 mg PO BEDTIME duloxetine 30 mg PO BID 90 days ezetimibe 10 mg PO DAILY finasteride 5 mg PO DAILY 90 days hydrocortisone 2.5% (Proctosol HC) 1 appl [place] BID-QID PRN lancets ([employer] Delica Safety Lancet) Check blood sugar once a day metoprolol tartrate 50 mg PO BID rivaroxaban (Xarelto) 20 mg PO DAILY 90 days terazosin 5 mg PO BEDTIME 90 days HPI Comments Details: Rickie is a 88-year-old male patient of . He has a past medical history of frequent falls, claustrophobia, shingles, dyslipidemia, gout, spinal stenosis of lumbar region, atrial fibrillation on anticoagulation, CKD, aortic stenosis, elevated PSA, and trigeminal neuralgia. He presents to the office today for follow-up of his incomplete bladder emptying and lower urinary tract symptoms. When asked patient reports to be doing and feeling well. He reports noting improvement lower urinary tract symptoms up until approximately 2 weeks ago when he started experiencing increased episodes of nocturia, urinary urgency, and urinary frequency. He otherwise denies incontinence, nocturia, hematuria, foul smelling urine, changes to urinary stream, flank pain, fever, and or chills. PSAs are as follows: 06/10--3.3 10/10--5.2 07/12--2.0 Of note, patient had previously trialed Flomax with no improvement in his lower urinary tract symptoms. Previous workup has included a retroperitoneal ultrasound noting bilateral kidneys with no calculi, lesions, and or hydronephrosis. The bladder is well distended and normal. There is bladder wall thickening up to 8 mm. Prostate volume is approximately 135 mL. In office urinalysis results reviewed with the patient today. PVR 14 mL. Patient discusses having stopped a medication per pharmacist recommendation however is unsure what medication this was. Discussed calling office once he gets home to further assess and evaluate. He otherwise offers no other issues or concerns at this time. [facility] Medical History Hx of sigmoidoscopy Frequent falls Urinary frequency History of claustrophobia History of shingles On anticoagulant therapy On beta diana at home Dyslipidemia Gout Spinal stenosis of lumbar region Atrial fibrillation CKD (chronic kidney disease) Elevated PSA Aortic stenosis CAD (coronary artery disease) Right facial pain Trigeminal neuralgia Post herpetic neuralgia Surgical History H/O aortic valve replacement Status post lens implant History of fracture of leg History of laparoscopic cholecystectomy History of aortic valve replacement History of heart bypass surgery Pacemaker Family History Father No problems noted. Mother No problems noted. Social History Household Members: None Housing: House Are you a primary manager critical care to a significant other at home: No Do you presently have visiting nurse or other home services: No Alcohol intake: never Patient Tobacco Use Status: Never used Tobacco e-Cigarette/Vaping Use: Never Used Second Hand Smoke Exposure: No service: Yes Current occupational status: unemployed and retired Current occupational exposures/hazards: No Cognitive needs: No Hearing needs: No Vision needs: No Review of Systems Const Reports as per HPI Eyes Reports no additional complaints ENT Reports no additional complaints Card Reports as per HPI Resp Reports no additional complaints GI Reports as per HPI Reports as per HPI Musc Reports as per HPI Skin/Breast Reports as per HPI Neuro Reports as per HPI Psych Reports no additional complaints Endo Reports no additional complaints Physical Exam Const General: cooperative, healthy appearing, comfortable, no acute distress, well developed, alert and awake Nutritional Appearance: overweight Orientation/consciousness: patient oriented x3 Limitations: no limitations HEENT Head: Yes normal to inspection, Yes normocephalic and Yes atraumatic Ears: hearing grossly normal bilaterally Eyes General: appearance normal, both eyes and all related structures Neck Neck: Yes normal visual inspection and Yes trachea midline Chest Chest palpation & inspection: normal inspection of the chest Resp Effort & Inspection: normal respiratory effort and able to speak in complete sentences Cardio Rate: regular rate GI Inspection: Yes normal to inspection Rectal Exam - Male: Yes deferred General: Yes no CVA tenderness Back/Spine/Pelvis Back: no CVA tenderness Skin General skin exam: no rashes or lesions noted Neuro General: patient oriented x3 Extrem General: Yes normal to inspection Psych Appearance: grossly normal and well kempt Mental Status: mental status grossly normal Speech and movement: Normal speech and movement present and Clear speech present Affect: normal affect Attitude: cooperative Thought process: Normal thought process present Thought content: Normal thought content present Insight: Fair insight present (Psych) Judgement: Fair judgement present (Psych) Office Procedures Post Void Residual Post Residual Void Post Void Residual (PVR): 14 [id number] Void Residual by ultrasound Results AMB Urinalysis, Automated UA Leukoctes 0 Mike/uL Last Edit by Sarbjit Miller on 11/07/23 09:02 UA Nitrite Negative Last Edit by Sarbjit Miller on 11/07/23 09:02 UA Urobilinogen 0.2 mg/dL Last Edit by Sarbjit Miller on 11/07/23 09:02 UA Protein 15 mg/dL Last Edit by Sarbjit Miller on 11/07/23 09:02 UA pH 5.5 Last Edit by Taegeuk Reseach Paul on 11/07/23 09:02 UA Blood 0 Massimo/uL Last Edit by Taegeuk Reseach Paul on 11/07/23 09:02 UA Specific [place] 1.020 Last Edit by AskYoukimberly Miller on 11/07/23 09:02 UA Ketone Negative Last Edit by AskYoukimberly Miller on 11/07/23 09:02 UA Bilirubin 1 mg/dL Last Edit by Taegeuk Reseach Paul on 11/07/23 09:02 UA Glucose 0 mg/dL Last Edit by Sarbjit Miller on 11/07/23 09:02 Results Reviewed Results Reviewed: Laboratory Last Values Urine pH (Auto) 5.5 11/07/23 08:59 Specific [place] (Auto) 1.020 11/07/23 08:59 Urine Protein (Auto) 15 mg/dL 11/07/23 08:59 Glucose (UA)(Auto) 0 mg/dL 11/07/23 08:59 Urine Ketones (Auto) Negative 11/07/23 08:59 Urine Blood (Auto) 0 Massimo/uL 11/07/23 08:59 Urine Nitrite (Auto) Negative 11/07/23 08:59 Urine Bilirubin (Auto) 1 mg/dL 11/07/23 08:59 Urine Urobilinogen (Auto) 0.2 mg/dL 11/07/23 08:59 Leukocyte Esterase (Auto) 0 Mike/uL 11/07/23 08:59 Assessment & Plan Assessment & Plan (1) Nocturia: Code(s): R35.1 - Nocturia Category: Medical (2) Enlarged prostate: Code(s): N40.0 - Benign prostatic hyperplasia without lower urinary tract symptoms Category: Medical (3) Urinary frequency: Code(s): R35.0 - Frequency of micturition Category: Medical (4) Incomplete bladder emptying: Code(s): R33.9 - Retention of urine, unspecified Category: Medical Plan In office urinalysis results reviewed with the patient today; as noted above. PVR 14 mL. Continue finasteride and terazosin as prescribed. Discussed potential causes for lower urinary tract symptoms patient is experiencing. Discussed bladder triggers/irritants. Discuss trial of VESIcare 5 mg daily versus Cialis 5 mg daily. Discussed, educated, and stressed the importance of limiting fluids prior to bed to decrease episodes of nocturia Discussed possible near future in office cystoscopy and or urodynamics for further assessment evaluation. Start VESIcare 5 mg daily. Patient returned will call to office reports he has not been taking famotidine. Follow-up in 6 to 8 weeks with PVR; or sooner with any issues, concerns, and or questions. Orders: Orders AMB Urinalysis Automated 11/07/23 Z13.9 - Encounter for screening, unspecified AMB Post Void Residual by ultrasound 11/07/23 R35.1 - Nocturia Medications: New solifenacin (Vesicare) 5 mg PO DAILY 30 days 30 tabs 2RF Patient Instructions: The patient had an opportunity to ask questions regarding the treatment plan. All questions were answered. Physical exam, labs, and imaging were discussed and reviewed in detail. As well as risks, benefits, and discussion of treatment choices. No major barriers to understanding were identified. The patient expressed understanding and agreement with the above treatment plan. The patient was made aware they should contact our office by phone for worsening of their current condition, the appearance of new symptoms, or with any questions or concerns. Compliance is encouraged with any medications and follow up testing that is ordered. It is a privilege to be allowed the opportunity to participate in? your urological care.? Again, if you have any questions or concerns If you have any questions or concerns please do not hesitate to contact me. The office is [phone]. This note is constructed using voice recognition software. While every effort has been made to ensure accuracy qa architect errors may have been included. Yours sincerely, MELIZA Sales
== END 2023-11-07 09:18 | disposition home or self-care (01) ==
PROVIDERS: PCP Nurse Practitioner Family; Visit Provider Nurse Practitioner Family
DX: R35.1 Nocturia (principal); N40.0 Benign prostatic hyperplasia without lower urinary tract symptoms; R35.0 Frequency of micturition; R33.9 Retention of urine, unspecified
CPT/HCPCS: 99214

== ENCOUNTER → 2023-11-07 08:30 | Outpatient (BNVA) | payer MEDICARE, MEDICAID, SELFPAY | PROVIDERS: PCP Nurse Practitioner Family; Visit Provider Nurse Practitioner Family | DX: N40.0 Benign prostatic hyperplasia without lower urinary tract symptoms (principal); R35.1 Nocturia; R35.0 Frequency of micturition; R33.9 Retention of urine, unspecified; Z79.01 Long term (current) use of anticoagulants; Z79.899 Other long term (current) drug therapy | CPT/HCPCS: 51798; 81003; 99212 ==

== ENCOUNTER 2023-11-18 11:26 | Outpatient (REF) | payer MEDICARE, MEDICAID, SELFPAY ==
[2023-11-18 13:56] LABS: Blood Urea Nitrogen 21 mg/dL (9-16); Estimated Glomerular Filt Rate 49
[2023-12-03 10:05] LABS: Cystatin C 1.64
== END 2023-11-18 11:27 | disposition home or self-care (01) ==
LOC: HO.HMGCLDS 11:26
PROVIDERS: PCP Nurse Practitioner Family; Visit Provider Nurse Practitioner Family
DX: B02.22 Postherpetic trigeminal neuralgia (principal)
CPT/HCPCS: 36415; 82565; 82610; 84520

== ENCOUNTER 2023-12-16 13:34 | Outpatient (AMB) | payer MEDICARE, MEDICAID, SELFPAY ==
[2023-12-16 14:23] VITALS: BP 118/66; PULSE 65; TEMP 36.5; O2SAT 98; BMI 33.8
--- NOTE | 2023-12-16 14:23 | MHC.OFFWIV ---
Intake Vital Signs 12/16/23 14:23 Height 5 ft 9 in Weight 229 lb BMI 33.8 BP 118/66 Blood Pressure Location Lt brachial Position Sitting Pulse 65 Pulse Source Pulse Oximeter Temp 97.7 F Temp Source Temporal Artery Scan Pulse Oximetry (%) 98 Oxygen Delivery Method Room Air Intake Visit Reasons: EP RT leg pain/Muscle pain Intake Note: pt is here today for rt leg pain and muscle pain started friday Patient Tobacco Use Status: Never used Tobacco Allergies lamotrigine [From Lamictal] Allergy (Intermediate, Verified 12/16/23 15:21) swelling gabapentin Allergy (Unknown, Verified 12/16/23 15:21) lip swelling pregabalin [From Lyrica] Allergy (Unknown, Verified 12/16/23 15:21) lip swelling Medication List - Last Reconciled 12/16/23 by Chevy Santos MD aspirin (Adult Aspirin Regimen) 81 mg PO DAILY atorvastatin 40 mg PO DAILY blood sugar diagnostic ([employer] Ultra Test strips) Check blood sugar once a day blood-glucose meter ([employer] Ultra2 Meter) Check fasting blood sugar and a random blood sugar daily. cholecalciferol (vitamin D3) 50 mcg PO DAILY docusate sodium 100 mg PO BEDTIME duloxetine 30 mg PO BID 90 days ezetimibe 10 mg PO DAILY finasteride 5 mg PO DAILY 90 days hydrocortisone 2.5% (Proctosol HC) 1 appl [place] BID-QID PRN lancets ([employer] Delica Safety Lancet) Check blood sugar once a day metoprolol tartrate 50 mg PO BID rivaroxaban (Xarelto) 20 mg PO DAILY 90 days solifenacin (Vesicare) 5 mg PO DAILY 30 days tamsulosin 0.4 mg PO DAILY terazosin 5 mg PO BEDTIME 90 days Do you need a note to return to daycare/school/sports/work: No HPI EP RT leg pain/Muscle pain HPI Details 88-year-old male presents to the office for a sick visit. Patient is complaining of pain in the right leg for the past few days. It was standing near the kitchen counter when he felt a sharp popping sound and pain in the right calf. Subsequently he has been having difficulty walking and has noticed a swelling in the leg. [facility] Medical History Hx of sigmoidoscopy Frequent falls Urinary frequency History of claustrophobia History of shingles On anticoagulant therapy On beta diana at home Dyslipidemia Gout Spinal stenosis of lumbar region Atrial fibrillation CKD (chronic kidney disease) Elevated PSA Aortic stenosis CAD (coronary artery disease) Right facial pain Trigeminal neuralgia Post herpetic neuralgia Surgical History H/O aortic valve replacement Status post lens implant History of fracture of leg History of laparoscopic cholecystectomy History of aortic valve replacement History of heart bypass surgery Pacemaker Family History Father No problems noted. Mother No problems noted. Social History Household Members: None Housing: House Are you a primary certified social workers in health care to a significant other at home: No Do you presently have visiting nurse or other home services: No Alcohol intake: never Patient Tobacco Use Status: Never used Tobacco e-Cigarette/Vaping Use: Never Used Second Hand Smoke Exposure: No service: Yes Current occupational status: unemployed and retired Current occupational exposures/hazards: No Cognitive needs: No Hearing needs: No Vision needs: No Physical Exam Vital Signs: Last Vital Signs Temp 97.7 F 12/16/23 14:23 Pulse 65 12/16/23 14:23 BP 118/66 12/16/23 14:23 Pulse Ox 98 12/16/23 14:23 Oxygen Delivery Method Room Air 12/16/23 14:23 BMI result Body Mass Index 33.8 Extrem Other: Right leg: Bruising in the center of the calf with tenderness. Right leg has 1+ edema. Unable to stand on his toes. Assessment & Plan Assessment & Plan (1) Deep vein thrombosis: Code(s): I82.409 - Acute embolism and thrombosis of unspecified deep veins of unspecified lower extremity Plan: Ultrasound of the right lower extremity has been ordered urgently. The test came back negative. Also he is on anticoagulants which is worsening the locally building hematoma. Encouraged the pt to keep his leg elevated. Orders: Orders US venous duplex LE RT Today I82.409 - Acute embolism and thrombosis of unspecified deep veins of unspecified lower extremity Coding Level of Care Code Est Pt Level 4 (74053) Diagnoses Deep vein thrombosis I82.409
== END 2023-12-16 16:07 | disposition home or self-care (01) ==
PROVIDERS: PCP Nurse Practitioner Family; Visit Provider Internal Medicine
DX: I82.409 Acute embolism and thrombosis of unspecified deep veins of unspecified lower extremity (principal)
CPT/HCPCS: 99214

== ENCOUNTER 2023-12-16 15:25 | Outpatient (REF) | payer MEDICARE, OTHER, SELFPAY ==
--- NOTE | ~2023-12-16 | US_ITS ---
EXAMINATION: US VENOUS ULTRASOUND WITH DOPPLER LOWER EXTREMITY, RIGHT CLINICAL INFORMATION: Right leg pain COMPARISON: Venous ultrasound of the left lower extremity 09/10/2022-no DVT TECHNIQUE: Ultrasound of the deep veins is performed from the hip to the calf with compression sonography and color and pulse Doppler assessment. Spectral analysis with color-flow imaging is performed. FINDINGS: There is normal venous compression and respiratory variation. The visualized common femoral vein, superficial femoral vein, profunda femoral vein, popliteal vein, and the posterior tibial and peroneal veins shows no evidence of deep venous thrombosis. The contralateral common femoral vein demonstrates normal respiratory variation. US/US venous duplex LE RT IMPRESSION: No DVT demonstrated in the right lower extremity.
== END 2023-12-16 15:26 | disposition home or self-care (01) ==
LOC: HO.HMGCX 15:25
PROVIDERS: PCP Nurse Practitioner Family; Visit Provider Internal Medicine
DX: M79.604 Pain in right leg (principal); Z86.718 Personal history of other venous thrombosis and embolism
CPT/HCPCS: 93971

== ENCOUNTER 2023-12-17 11:44 | Outpatient (AMB) | payer MEDICARE, MEDICAID, SELFPAY ==
--- NOTE | 2023-12-17 11:56 | A.OFFVIS_ITS ---
Intake Visit Reasons: 6w follow up Intake Note: Patient is Present for Follow Up PVR Urology Medication: Terazosin, finasteride, Tamsulosin Antibiotic Allergies: None Blood Thinners: Xarelto PVR: 39ml's Maintenance Department Manager Required: No Accompanied by: Self / Same As Patient Allergies lamotrigine [From Lamictal] Allergy (Intermediate, Verified 12/17/23 14:06) swelling gabapentin Allergy (Unknown, Verified 12/17/23 14:06) lip swelling pregabalin [From Lyrica] Allergy (Unknown, Verified 12/17/23 14:06) lip swelling Medication List - Last Reconciled 12/17/23 by TRACY Sales- aspirin (Adult Aspirin Regimen) 81 mg PO DAILY atorvastatin 40 mg PO DAILY blood sugar diagnostic (DataContact Ultra Test strips) Check blood sugar once a day blood-glucose meter (DataContact Ultra2 Meter) Check fasting blood sugar and a random blood sugar daily. cholecalciferol (vitamin D3) 50 mcg PO DAILY docusate sodium 100 mg PO BEDTIME duloxetine 30 mg PO BID 90 days ezetimibe 10 mg PO DAILY finasteride 5 mg PO DAILY 90 days hydrocortisone 2.5% (Proctosol HC) 1 appl IN BID-QID PRN lancets (TextbookTime.com Textbook Timeuch Delica Safety Lancet) Check blood sugar once a day metoprolol tartrate 50 mg PO BID rivaroxaban (Xarelto) 20 mg PO DAILY 90 days solifenacin (Vesicare) 5 mg PO DAILY 90 days tamsulosin 0.4 mg PO DAILY terazosin 5 mg PO BEDTIME 90 days HPI Comments Details: Rickie is a 88-year-old male patient of . He has a past medical history of frequent falls, claustrophobia, shingles, dyslipidemia, gout, spinal stenosis of lumbar region, atrial fibrillation on anticoagulation, CKD, aortic stenosis, elevated PSA, and trigeminal neuralgia. He presents to the office today for follow-up of his incomplete bladder emptying and lower urinary tract symptoms. When asked patient reports to be doing and feeling well. He reports noting improvement lower urinary tract symptoms with 5 mg of VESIcare daily as prescribed during last office visit. He reports having undergone treatment for his trigeminal neuralgia and has been doing and feeling much better with regards to this matter. He reports significant improvement in noctu christoph. He reports compliance with terazosin, finasteride, and VESIcare. He currently denies any bothersome urinary issues or concerns. He denies urinary urgency, urinary frequency, incontinence, nocturia, hematuria, dysuria, foul smelling urine, changes to urinary stream, flank pain, fever, and or chills. Unable to obtain urine for urinalysis as patient unable to void however PVR 39 mL. PSAs are as follows: 06/10 3.3, 10/10 5.2, 07/12 2.0 Previous workup has included a retroperitoneal ultrasound noting bilateral kidneys with no calculi, lesions, and or hydronephrosis. The bladder is well distended and normal. There is bladder wall thickening up to 8 mm. Prostate volume is approximately 135 mL. He otherwise offers no other issues or concerns at this time. [facility] Medical History Hx of sigmoidoscopy Frequent falls Urinary frequency History of claustrophobia History of shingles On anticoagulant therapy On beta diana at home Dyslipidemia Gout Spinal stenosis of lumbar region Atrial fibrillation CKD (chronic kidney disease) Elevated PSA Aortic stenosis CAD (coronary artery disease) Right facial pain Trigeminal neuralgia Post herpetic neuralgia Surgical History H/O aortic valve replacement Status post lens implant History of fracture of leg History of laparoscopic cholecystectomy History of aortic valve replacement History of heart bypass surgery Pacemaker Family History Father No problems noted. Mother No problems noted. Social History Household Members: None Housing: House Are you a primary animal care assistant to a significant other at home: No Do you presently have visiting nurse or other home services: No Alcohol intake: never Patient Tobacco Use Status: Never used Tobacco e-Cigarette/Vaping Use: Never Used Second Hand Smoke Exposure: No service: Yes Current occupational status: unemployed and retired Current occupational exposures/hazards: No Cognitive needs: No Hearing needs: No Vision needs: No Review of Systems Const Reports as per HPI Eyes Reports no additional complaints ENT Reports no additional complaints Card Reports as per HPI Resp Reports no additional complaints GI Reports as per HPI Reports as per HPI Musc Reports as per [facility] Skin/Breast Reports as per [facility] Neuro Reports as per HPI Psych Reports no additional complaints Endo Reports no additional complaints Physical Exam Const General: cooperative, healthy appearing, comfortable, no acute distress, well developed, alert and awake Nutritional Appearance: overweight Orientation/consciousness: patient oriented x3 Limitations: no limitations HEENT Head: Yes normal to inspection, Yes normocephalic and Yes atraumatic Ears: hearing grossly normal bilaterally Eyes General: appearance normal, both eyes and all related structures Neck Neck: Yes normal visual inspection and Yes trachea midline Chest Chest palpation & inspection: normal inspection of the chest Resp Effort & Inspection: normal respiratory effort and able to speak in complete sentences Cardio Rate: regular rate GI Inspection: Yes normal to inspection Rectal Exam - Male: Yes deferred General: Yes no CVA tenderness Back/Spine/Pelvis Back: no CVA tenderness Skin General skin exam: no rashes or lesions noted Neuro General: patient oriented x3 Extrem General: Yes normal to inspection Psych Appearance: grossly normal and well kempt Mental Status: mental status grossly normal Speech and movement: Normal speech and movement present and Clear speech present Affect: normal affect Attitude: cooperative Thought process: Normal thought process present Thought content: Normal thought content present Insight: Fair insight present (Psych) Judgement: Fair judgement present (Psych) Assessment & Plan Assessment & Plan (1) Nocturia: Code(s): R35.1 - Nocturia Category: Medical (2) Enlarged prostate: Code(s): N40.0 - Benign prostatic hyperplasia without lower urinary tract symptoms Category: Medical (3) Urinary hesitancy due to benign prostatic hyperplasia: Code(s): N40.1 - Benign prostatic hyperplasia with lower urinary tract symptoms; R39.11 - Hesitancy of micturition Category: Medical (4) Urinary frequency: Code(s): R35.0 - Frequency of micturition Category: Medical (5) Incomplete bladder emptying: Code(s): R33.9 - Retention of urine, unspecified Category: Medical Plan Unable to obtain urinalysis as patient unable to void however PVR 39 mL. Continue VESIcare, the terazosin, and finasteride. Patient reports to be happy with current voiding parameters on these urological medications; refill provided. Patient currently denies any bothersome urinary issues or concerns. Discussed at length importance of managing diabetes for improvement lower urinary tract symptoms as well as overall health and well-being. Discussed bladder triggers/irritants. Continue limiting fluids 2-3 hours prior to bed to decrease episodes of nocturia. Will obtain PSA in 6 months Follow-up in 6 months with PSA to be completed prior and PVR at next office visit; or sooner with any issues, concerns, and or questions. Orders: Orders AMB Post Void Residual by ultrasound Today R35.1 - Nocturia Prostate Specific Antigen 6 Months N40.0 - Benign prostatic hyperplasia without lower urinary tract symptoms Medications: Changed From solifenacin (Vesicare) 5 mg PO DAILY 30 days 30 tabs 2RF To solifenacin (Vesicare) 5 mg PO DAILY 90 days 90 tabs 4RF Patient Instructions: The patient had an opportunity to ask questions regarding the treatment plan. All questions were answered. Physical exam, labs, and imaging were discussed and reviewed in detail. As well as risks, benefits, and discussion of treatment choices. No major barriers to understanding were identified. The patient expressed understanding and agreement with the above treatment plan. The patient was made aware they should contact our office by phone for worsening of their current condition, the appearance of new symptoms, or with any questions or concerns. Compliance is encouraged with any medications and follow up testing that is ordered. It is a privilege to be allowed the opportunity to participate in? your urological care.? Again, if you have any questions or concerns If you have any questions or concerns please do not hesitate to contact me. The office is [phone]. This note is constructed using voice recognition software. While every effort has been made to ensure accuracy aegis operations specialist errors may have been included. Yours sincerely, MELIZA Sales Coding Level of Care Code Est Pt Level 3 (28159) Complex EM visit Add On G2211 Diagnoses Nocturia R35.1 Enlarged prostate N40.0 Urinary hesitancy due to benign prostatic hyperplasia N40.1; R39.11 Urinary frequency R35.0 Incomplete bladder emptying R33.9
== END 2023-12-17 12:46 | disposition home or self-care (01) ==
PROVIDERS: PCP Nurse Practitioner Family; Visit Provider Nurse Practitioner Family
DX: N40.1 Benign prostatic hyperplasia with lower urinary tract symptoms (principal); R35.1 Nocturia; N40.0 Benign prostatic hyperplasia without lower urinary tract symptoms; R39.11 Hesitancy of micturition; R35.0 Frequency of micturition; R33.9 Retention of urine, unspecified
CPT/HCPCS: 99213; G2211

== ENCOUNTER → 2023-12-17 11:44 | Outpatient (BNVA) | payer MEDICARE, MEDICAID, SELFPAY | PROVIDERS: PCP Nurse Practitioner Family; Visit Provider Nurse Practitioner Family | DX: N40.1 Benign prostatic hyperplasia with lower urinary tract symptoms (principal); N13.8 Other obstructive and reflux uropathy; R35.1 Nocturia; R39.11 Hesitancy of micturition; R35.0 Frequency of micturition; R33.9 Retention of urine, unspecified; Z79.01 Long term (current) use of anticoagulants; Z79.899 Other long term (current) drug therapy | CPT/HCPCS: 99212 ==

== ENCOUNTER 2023-12-22 12:02 | Outpatient (AMB) | payer MEDICARE, MEDICAID, SELFPAY ==
[2023-12-22 13:37] VITALS: BP 120/68; PULSE 65; TEMP 36.4; O2SAT 97; BMI 34.1
--- NOTE | 2023-12-22 13:37 | MHC.OFFWIV ---
Intake Vital Signs 12/22/23 13:37 Height 5 ft 9 in Weight 231 lb BMI 34.1 BP 120/68 Blood Pressure Location Lt brachial Position Sitting Pulse 65 Pulse Source Pulse Oximeter Temp 97.6 F Temp Source Temporal Artery Scan Pulse Oximetry (%) 97 Oxygen Delivery Method Room Air Intake Visit Reasons: EP RT Leg Intake Note: pt is here today for lft leg started 1 week ago Patient Tobacco Use Status: Never used Tobacco Allergies lamotrigine [From Lamictal] Allergy (Intermediate, Verified 12/22/23 13:49) swelling gabapentin Allergy (Unknown, Verified 12/22/23 13:49) lip swelling pregabalin [From Lyrica] Allergy (Unknown, Verified 12/22/23 13:49) lip swelling Do you need a note to return to daycare/school/sports/work: No HPI HPI Comments History of Present Illness Details Patient presents to the walk-in today for sick visit Complaining of right ankle pain, bruising and swelling for last 1 week He was seen at the walk-in one-week ago and had ultrasound which was negative for DVT He reports swelling and pain persist Pain worse with walking PFSH Medical History Hx of sigmoidoscopy Frequent falls Urinary frequency History of claustrophobia History of shingles On anticoagulant therapy On beta diana at home Dyslipidemia Gout Spinal stenosis of lumbar region Atrial fibrillation CKD (chronic kidney disease) Elevated PSA Aortic stenosis CAD (coronary artery disease) Right facial pain Trigeminal neuralgia Post herpetic neuralgia Surgical History H/O aortic valve replacement Status post lens implant History of fracture of leg History of laparoscopic cholecystectomy History of aortic valve replacement History of heart bypass surgery Pacemaker Family History Father No problems noted. Mother No problems noted. Social History Household Members: None Housing: House Are you a primary children's zoo caretaker to a significant other at home: No Do you presently have visiting nurse or other home services: No Alcohol intake: never Patient Tobacco Use Status: Never used Tobacco e-Cigarette/Vaping Use: Never Used Second Hand Smoke Exposure: No service: Yes Current occupational status: unemployed and retired Current occupational exposures/hazards: No Cognitive needs: No Hearing needs: No Vision needs: No Review of Systems Const All systems reviewed & are unremarkable except as noted in HPI and below Physical Exam Vital Signs: Last Vital Signs Temp 97.6 F 12/22/23 13:37 Pulse 65 12/22/23 13:37 BP 120/68 12/22/23 13:37 Pulse Ox 97 12/22/23 13:37 Oxygen Delivery Method Room Air 12/22/23 13:37 BMI result Body Mass Index 34.1 General: awake, alert, oriented. Answers questions appropriately. Fully engaged in examination. Skin: warm, dry, intact HEENT: Normocephalic. Hearing intact. Cardiac: External chest normal in appearance. Respiratory: No cough, audible wheezing or stridor. Abdomen: without gross distension. MS: Right ankle: Dark bruising, swelling, tenderness to palpation. Limited range of motion. 1+ pitting pedal edema right foot. Neurological: Oriented to person, place, time and situation. Thought process intact. Psychiatric: Appropriate mood and affect. Good judgment and insight. Assessment & Plan Assessment & Plan (1) Right ankle pain: Code(s): M25.571 - Pain in right ankle and joints of right foot Plan Theodore wrap applied to right ankle, patient advised on use Recommend ice, elevate and compression with Theodore wrap Referral placed for Orthopedics Follow up with ortho, PCP or return here for any new or worsening symptoms Orders: Referrals Orthopedics Referral M25.571 - Pain in right ankle and joints of right foot Coding Level of Care Code Est Pt Level 3 (11403) Diagnoses Right ankle pain M25.571
== END 2023-12-22 15:14 | disposition home or self-care (01) ==
PROVIDERS: PCP Nurse Practitioner Family; Visit Provider Registered Nurse Emergency
DX: M25.571 Pain in right ankle and joints of right foot (principal)
CPT/HCPCS: 99213

== ENCOUNTER 2024-01-09 07:08 | Outpatient (REF) | payer MEDICARE, MEDICAID, SELFPAY ==
--- NOTE | ~2024-01-09 | XR_ITS ---
EXAMINATION: XR ANKLE, RIGHT CLINICAL INFORMATION: Pain. COMPARISON: None available. TECHNIQUE: AP, lateral, and mortise views of the right ankle. FINDINGS: Fixation plate with multiple traversing screws along the lateral surface of the distal fibula. No evidence of hardware fracture nor significant perihardware lucency. Chronic appearing deformity of the distal fibula. No acute fractures or subluxation. Severe degenerative arthrosis of the ankle with multifocal joint space narrowing and bony proliferative changes. Mild diffuse soft tissue swelling. Severe vascular calcifications. XR/XR ankle RT min 3V IMPRESSION: 1. No acute fractures or subluxation. 2. No evidence of hardware failure. 3. Severe degenerative arthrosis of the ankle. 4. Severe vascular calcifications.
== END 2024-01-09 07:09 | disposition home or self-care (01) ==
LOC: HO.HOSX 07:08
PROVIDERS: Visit Provider Physician Assistant
DX: M25.571 Pain in right ankle and joints of right foot (principal); R60.0 Localized edema; M79.89 Other specified soft tissue disorders
CPT/HCPCS: 73610; 99202

== ENCOUNTER 2024-01-09 10:14 | Outpatient (AMB) | payer MEDICARE, MEDICAID, SELFPAY ==
--- NOTE | 2024-01-09 10:31 | MHC.OFFVIS ---
Vital Signs 01/09/24 10:54 Height 5 ft 9 in Weight 234 lb BMI 34.6 Intake Visit Reasons: N/P RT leg pain pain started 12/16/23 Intake Note: Rickie is a 84 year old male who presents today as a new patient with complaints of right leg pain which started on 12/16/23. Pt reports as he reaching for a high cabinet he heard and felt his leg pop. He is experiencing pain down to his foot and has some swelling. Allergies lamotrigine [From Lamictal] Allergy (Intermediate, Verified 01/09/24 10:54) swelling gabapentin Allergy (Unknown, Verified 01/09/24 10:54) lip swelling pregabalin [From Lyrica] Allergy (Unknown, Verified 01/09/24 10:54) lip swelling HPI HPI N/P RT leg pain pain started 12/16/23: Details: 88-year-old male who presents to the office today for an evaluation of right leg pain after reaching a high cabinet when he heard and felt a pop in his leg, 12/16/23. He currently states he has pain as well as swelling in his foot. He uses compression socks with mild relief. [facility] Medical History Hx of sigmoidoscopy Frequent falls Urinary frequency History of claustrophobia History of shingles On anticoagulant therapy On beta diana at home Dyslipidemia Gout Spinal stenosis of lumbar region Atrial fibrillation CKD (chronic kidney disease) Elevated PSA Aortic stenosis CAD (coronary artery disease) Right facial pain Trigeminal neuralgia Post herpetic neuralgia Surgical History H/O aortic valve replacement Status post lens implant History of fracture of leg History of laparoscopic cholecystectomy History of aortic valve replacement History of heart bypass surgery Pacemaker Family History Father No problems noted. Mother No problems noted. Social History Household Members: None Housing: House Are you a primary healthcare applications analyst to a significant other at home: No Do you presently have visiting nurse or other home services: No Alcohol intake: never Patient Tobacco Use Status: Never used Tobacco e-Cigarette/Vaping Use: Never Used Second Hand Smoke Exposure: No service: Yes Current occupational status: unemployed and retired Current occupational exposures/hazards: No Cognitive needs: No Hearing needs: No Vision needs: No Review of Systems Const All systems reviewed & are unremarkable except as noted in HPI and below Physical Exam Vital Signs: BMI result Body Mass Index 34.6 Const General: cooperative, healthy appearing, comfortable, no acute distress, well developed and alert Orientation/consciousness: patient oriented x3 HEENT Head: Yes normal to inspection, Yes normocephalic and Yes atraumatic Eyes General: appearance normal, both eyes and all related structures Resp Effort & Inspection: normal respiratory effort and able to speak in complete sentences Cardio Rate: regular rate Peripheral pulses: Peripheral pulses 2+ throughout GI Palpation (GI): Soft to palpation Skin Lesions: no lesions Rashes: no rashes Neuro General: patient oriented x3 Extrem Other: RLE: Normal to inspection. He has 2+ pitting edema on the RLE when compared to the contralateral side. 1+ pitting edema to the left. No significant tenderness with palpation on the calf or Achilles tendon. No palpable defect noted. He can plantar and dorsiflex. NVI. Results Reviewed Results Reviewed: Xrays were obtained in the office today and personally reviewed by me of the right ankle US venous duplex LE RT 01/09/24 IMPRESSION: No DVT demonstrated in the right lower extremity. Right peroneal veins in the calf not well visualized. Assessment & Plan Assessment & Plan (1) Right ankle pain: Code(s): M25.571 - Pain in right ankle and joints of right foot Category: Medical Qualifiers: Chronicity: acute Qualified Code(s): M25.571 - Pain in right ankle and joints of right foot (2) Right leg swelling: Code(s): M79.89 - Other specified soft tissue disorders Category: Medical Plan Because of the notable size difference between his calves, I recommend a stat US to further evaluate the source of his swelling. He did have one on 12/16/23 that was negative, but we will compare findings to be sure there is no DVT. I explained that if the US results are negative, he should reach out to his PCP to determine the source of his bilat lower ext edema. I do not suspect a tendon tear in his foot or ankle given the lack of tendon abnormality or deficits, therefore; I will give him a course of physical therapy to work on ROM and strengthening. I did explain, however; if he had an Achilles tendon tear, it is a month out and would likely be scarred and without limitations on his physical exam, I think it is unlikely. He does understand this and will follow-up if symptoms persist. Orders: Orders XR ankle RT min 3V 01/09/24 M25.571 - Pain in right ankle and joints of right foot US venous duplex LE RT 01/09/24 M25.571 - Pain in right ankle and joints of right foot, M79.89 - Other specified soft tissue disorders Patient Instructions: Scribed for Becki Tony PA-C, by Manish Castro medical sales representative, on 01/09/2024 at 10:30 AM EST.? I, Becki Tony PA-C, have personally reviewed and agree with the information entered by the scribe. Coding Level of Care Code New Pt Level 3 (39967) Diagnoses Acute right ankle pain M25.571 Chronicity: acute Right leg swelling M79.89
[2024-01-09 10:54] VITALS: BMI 34.6
== END 2024-01-09 11:37 | disposition home or self-care (01) ==
PROVIDERS: PCP Nurse Practitioner Family; Visit Provider Physician Assistant
DX: M25.571 Pain in right ankle and joints of right foot (principal); M79.89 Other specified soft tissue disorders
CPT/HCPCS: 99203

== ENCOUNTER 2024-01-09 11:44 | Outpatient (REF) | payer MEDICARE, OTHER, SELFPAY ==
--- NOTE | ~2024-01-09 | US_ITS ---
EXAMINATION: US VENOUS ULTRASOUND WITH DOPPLER LOWER EXTREMITY, RIGHT CLINICAL INFORMATION: Pain right ankle and foot COMPARISON: Previous exam November 2023 TECHNIQUE: Ultrasound of the deep veins is performed from the hip to the calf with compression sonography and color and pulse Doppler assessment. Spectral analysis with color-flow imaging is performed. FINDINGS: There is normal venous compression and respiratory variation and augmented flow. The visualized common femoral vein, superficial femoral vein, profunda femoral vein, popliteal vein, and the trifurcation region shows no evidence of deep venous thrombosis. Right peroneal veins not well visualized. Subcutaneous edema in the right calf. There is no significant popliteal fossa cyst. If the patient's symptoms persist, followup ultrasound in 5 days 7 days might be of value to exclude proximal propagation from a non-visualized calf vein. US/US venous duplex LE RT IMPRESSION: No DVT demonstrated in the right lower extremity. Right peroneal veins in the calf not well visualized.
== END 2024-01-09 11:45 | disposition home or self-care (01) ==
LOC: HO.US 11:44
PROVIDERS: Visit Provider Physician Assistant
DX: M25.571 Pain in right ankle and joints of right foot (principal); M79.89 Other specified soft tissue disorders; R22.41 Localized swelling, mass and lump, right lower limb
CPT/HCPCS: 93971

== ENCOUNTER 2024-01-21 15:34 | Outpatient (AMB) | payer MEDICARE, MEDICAID, SELFPAY ==
[2024-01-21 15:36] VITALS: BP 122/74; PULSE 75; TEMP 37.1; O2SAT 97; BMI 34.6
--- NOTE | 2024-01-21 15:36 | AM.OFFWIN_ITS ---
Intake Vital Signs 01/21/24 15:36 Height 5 ft 9 in Weight 234 lb BMI 34.6 BP 122/74 Blood Pressure Location Rt brachial Position Sitting Pulse 75 Pulse Source Pulse Oximeter Temp 98.8 F Temp Source Oral Pulse Oximetry (%) 97 Intake Visit Reasons: EP RT leg wound, bleeding Intake Note: pt is here for right leg woung, bleeding Patient Tobacco Use Status: Never used Tobacco Allergies lamotrigine [From Lamictal] Allergy (Intermediate, Verified 01/21/24 15:37) swelling gabapentin Allergy (Unknown, Verified 01/21/24 15:37) lip swelling pregabalin [From Lyrica] Allergy (Unknown, Verified 01/21/24 15:37) lip swelling Do you need a note to return to daycare/school/sports/work: No HPI HPI Comments History of Present Illness Details 88 y/o male patient who presents to walk in clinic with c/o right lower extremity calf muscle strain and pain. He also c/o bilateral peripheral edema. Pt has an extensive cardiac H/o with multiple Bypasses. Pt c/o that he has been noticing Water blisters on his lower legs. He was seen 5 days ago for similar concern, U/S was ordered to r/o DVT (Negative). He was also seen and evaluated by Ortho for right calf muscle strain. PT was ordered for Pt. Pt does not want to go for PT because he believes won't work. He is also suppose to be wearing compression stockings but does not believe they work. Denies Chest Pain, palpations, SOB or wheezing. [facility] Medical History Hx of sigmoidoscopy Frequent falls Urinary frequency History of claustrophobia History of shingles On anticoagulant therapy On beta diana at home Dyslipidemia Gout Spinal stenosis of lumbar region Atrial fibrillation CKD (chronic kidney disease) Elevated PSA Aortic stenosis CAD (coronary artery disease) Right facial pain Trigeminal neuralgia Post herpetic neuralgia Surgical History H/O aortic valve replacement Status post lens implant History of fracture of leg History of laparoscopic cholecystectomy History of aortic valve replacement History of heart bypass surgery Pacemaker Family History Father No problems noted. Mother No problems noted. Social History Household Members: None Housing: House Are you a primary patient centered care specialist to a significant other at home: No Do you presently have visiting nurse or other home services: No Alcohol intake: never Patient Tobacco Use Status: Never used Tobacco e-Cigarette/Vaping Use: Never Used Second Hand Smoke Exposure: No service: Yes Current occupational status: unemployed and retired Current occupational exposures/hazards: No Cognitive needs: No Hearing needs: No Vision needs: No Review of Systems Const All systems reviewed & are unremarkable except as noted in HPI and below Physical Exam Vital Signs: Last Vital Signs Temp 98.8 F 01/21/24 15:36 Pulse 75 01/21/24 15:36 BP 122/74 01/21/24 15:36 Pulse Ox 97 01/21/24 15:36 BMI result Body Mass Index 34.6 Const General: comfortable and no acute distress Nutritional Appearance: obese Orientation/consciousness: patient oriented x3 Skin General skin exam: dry skin and erythema Neuro General: patient oriented x3, gait normal and moves all extremities Extrem Right lower extremity: edema Details: non-pitting and 1+ and lower leg Details: erythema, tenderness and non-pitting edema Details: 1+ Left lower extremity: edema Details: non-pitting and 2+ and lower leg (Left leg more swollen compared to the right side. ) Details: erythema Psych Speech and movement: Normal speech and movement present Assessment & Plan Assessment & Plan (1) Right leg swelling: Code(s): M79.89 - Other specified soft tissue disorders Plan: Patient to wear his compression stockings as directed Take Lasix for the next 2-3 weeks as directed Pt has a F/U Appointment with PCP in the next 3 weeks. (2) Strain of right calf muscle: Code(s): S86.811A - Strain of other muscle(s) and tendon(s) at lower leg level, right leg, initial encounter Plan: PT has been ordered. Patient wants to try and wait to see if the medication, exercises and stockings will improve his Pain. Medications: New furosemide 20 mg PO DAILY 30 tabs 0RF M79.89 - Other specified soft tissue disorders Coding Level of Care Code Est Pt Level 3 (61221) Diagnoses Right leg swelling M79.89 Strain of right calf muscle S86.811A Time Spent (min) 15
== END 2024-01-21 16:37 | disposition home or self-care (01) ==
PROVIDERS: PCP Nurse Practitioner Family; Visit Provider Nurse Practitioner Family
DX: M79.89 Other specified soft tissue disorders (principal); S86.811A Strain of other muscle(s) and tendon(s) at lower leg level, right leg, initial encounter
CPT/HCPCS: 99213

== ENCOUNTER 2024-02-11 14:42 | Outpatient (AMB) | payer MEDICARE, MEDICAID, SELFPAY ==
--- NOTE | 2024-02-11 14:59 | MHC.PC.OV ---
Vital Signs 02/11/24 15:08 02/11/24 15:33 Height 5 ft 9 in Weight 234 lb BMI 34.6 BP 140/90 H 140/90 H Blood Pressure Location Lt brachial Lt brachial Position Sitting Sitting Pulse 81 Pulse Source Pulse Oximeter Pulse Oximetry (%) 97 Oxygen Delivery Method Room Air Intake Visit Reasons: Annual PE Intake Note: Patient here for physical exam. Allergies lamotrigine [From Lamictal] Allergy (Intermediate, Verified 02/11/24 15:10) swelling gabapentin Allergy (Unknown, Verified 02/11/24 15:10) lip swelling pregabalin [From Lyrica] Allergy (Unknown, Verified 02/11/24 15:10) lip swelling Tobacco use date assessed: 10/13/23 Fall risk assessment: No Falls in past year Last assessed Fall Risk: 02/11/24 Dental Screening Dental Screen Date: 10/13/23 HPI Annual PE HPI Details Pt reports tenderness around his bilat areolas. He reports that this has been present for approximately 1 month. Will order US and mammo. HTN: Blood pressure is slightly elevated today, though he had 3 teeth pulled today and is anxious. BP is managed with furosemide 20mg and metoprolol 50mg bid. Denies chest pain, shortness of breath, headache, dizziness, and blurred vision. [facility] Medical History Hx of sigmoidoscopy Frequent falls Urinary frequency History of claustrophobia History of shingles On anticoagulant therapy On beta diana at home Dyslipidemia Gout Spinal stenosis of lumbar region Atrial fibrillation CKD (chronic kidney disease) Elevated PSA Aortic stenosis CAD (coronary artery disease) Right facial pain Trigeminal neuralgia Post herpetic neuralgia Surgical History H/O aortic valve replacement Status post lens implant History of fracture of leg History of laparoscopic cholecystectomy History of aortic valve replacement History of heart bypass surgery Pacemaker Family History Father No problems noted. Mother No problems noted. Social History Household Members: None Housing: House Are you a primary rn transitional care to a significant other at home: No Do you presently have visiting nurse or other home services: No Alcohol intake: never Patient Tobacco Use Status: Never used Tobacco e-Cigarette/Vaping Use: Never Used Second Hand Smoke Exposure: No service: Yes Current occupational status: unemployed and retired Current occupational exposures/hazards: No Cognitive needs: No Hearing needs: No Vision needs: No Questionnaire PHQ-9 Over the last 2 weeks, how often have you been bothered by any of the following problems? 1. Little interest or pleasure in doing things: not at all 2. Feeling down, depressed, or hopeless: not at all 3. Trouble falling or staying asleep, or sleeping too much: not at all 4. Feeling tired or having little energy: not at all 5. Poor appetite or overeating: not at all 6. Feeling bad about yourself - or that you are a failure or have let yourself or your family down: not at all 7. Trouble concentrating on things, such as reading the newspaper or watching television: not at all 8. Moving or speaking so slowly that other people could have noticed. Or the opposite - being so fidgety or restless that you have been moving around a lot more than usual: not at all 9. Thoughts that you would be better off or of hurting yourself in some way: not at all Total score: 0 Depression Screening Interpretation: Negative Depression Screening Done: Yes 63203 - PHQ-9 Billing: Yes Source: Developed by Drs. Nirav Marinelli, Dali Amezquita, Nicola Pruitt and colleagues, with an educational juan from [employer] Thrive Questionnaire Date Thrive assessed: 02/11/24 I am a: Patient What is your living situation today?: I have a steady place to live Within the past 12 months, did the food you bought not last and you didn't have the money to get more?: Never true Within the past 12 months, did you worry whether your food would run out before you got money to buy more?: Never true Do you have trouble paying for medicines?: No Do you have trouble getting transportation to medical appointments?: No Do you have trouble paying your heating and electricity bill?: No Do you have trouble taking care of your child, family member or friend?: No Do you have trouble with day-to-day activities such as bathing, preparing meals, shopping, managing finances, etc.?: No Are you currently unemployed and looking for a job?: No Are you interested in more education?: No Please select the resources that you would like help with: Housing/[facility] THRIVE Score: 0 AUDIT C Alcohol Use Questionnaire (AUDIT-C) 1. How often do you have a drink containing alcohol?: Never Total Score: 0 ELZA-7 AMB Questionnaire ELZA-7 Date ELZA - 7 assessed: 10/13/23 Source: Developed by Drs. Nirav Marinelli, Dali Amezquita, Nicola Pruitt and colleagues, with an educational juan from [employer] Review of Systems Const Reports as per HPI Physical exam (Primary Care) Vital Signs: Last Vital Signs Pulse 81 02/11/24 15:08 BP 140/90 H 02/11/24 15:33 Pulse Ox 97 02/11/24 15:08 Oxygen Delivery Method Room Air 02/11/24 15:08 BMI result Body Mass Index 34.6 Tobacco/Smoking Status: Tobacco use Status Tobacco use date assessed 10/13/23 02/11/24 14:59 Patient Tobacco Use Status Never used Tobacco 02/11/24 14:59 e-Cigarette/Vaping Use Never Used 02/11/24 14:59 PHQ-9: PHQ-9 Score PHQ-9: Total score 0 02/11/24 15:33 Depression Screening Interpretation: Negative Thrive Assessment: Date of Thrive Assessment Date Thrive assessed 02/11/24 02/11/24 14:59 Const General: cooperative Orientation/consciousness: patient oriented x3 Chest Other: tenderness to bilat breasts around areolas Resp Effort & Inspection: normal respiratory effort Auscultation: clear to auscultation bilaterally Cardio Rate: regular rate Rhythm: regular rhythm Heart sounds: S1 normal heart sound present, S2 normal heart sound present and Murmur heart sound present systolic Neuro General: patient oriented x3 Psych Appearance: grossly normal Mental Status: mental status grossly normal Speech and movement: Normal speech and movement present Affect: normal affect Attitude: cooperative Thought process: Normal thought process present Thought content: Normal thought content present Insight: Good insight present (Psych) Judgement: Good judgement present (Psych) Assessment and Plan Assessment & Plan (1) HTN (hypertension): Code(s): I10 - Essential (primary) hypertension Qualifiers: Hypertension type: primary hypertension Qualified Code(s): I10 - Essential (primary) hypertension Plan: Labs ordered (2) Breast tenderness: Code(s): N64.4 - Mastodynia Plan: US and mammo ordered Plan The patient agreed to the use of a medical transcriptionist for this encounter. Scribed for Dannie Cosby, CORROSION CONTROL TECHNICIAN- by Lynette Sevilla medical transcriptionist, on 02/11/2024 at 15:20 EST. Orders: Orders Comprehensive [place]. Panel Fast Today I10 - Essential (primary) hypertension UA CC w/rflx Micro + Cult Today I10 - Essential (primary) hypertension US breast LT complete Today N64.4 - Mastodynia MM diagnostic mammo BI Today N64.4 - Mastodynia Complete Blood Count Auto Diff Today I10 - Essential (primary) hypertension TSH reflex Free T4 Today I10 - Essential (primary) hypertension Lipid Panel Today I10 - Essential (primary) hypertension US breast RT complete Today N64.4 - Mastodynia Coding Level of Care Code Est Pt Level 3 (03197) Diagnoses Primary hypertension I10 Hypertension type: primary hypertension Breast tenderness N64.4
[2024-02-11 15:08] VITALS: BP 140/90; PULSE 81; O2SAT 97; BMI 34.6
[2024-02-11 15:33] VITALS: BP 140/90
== END 2024-02-11 15:42 | disposition home or self-care (01) ==
PROVIDERS: PCP Nurse Practitioner Family; Visit Provider Nurse Practitioner Family
DX: I10 Essential (primary) hypertension (principal); N64.4 Mastodynia
CPT/HCPCS: 99213

== ENCOUNTER 2024-02-18 11:26 | Outpatient (AMB) | payer MEDICARE, MEDICAID, SELFPAY ==
[2024-02-18 11:34] VITALS: BP 132/62; PULSE 67; O2SAT 96; BMI 33.7
--- NOTE | 2024-02-18 11:34 | HO.NEPHOV_ITS ---
Vital Signs 02/18/24 11:34 Height 5 ft 9 in Weight 228 lb 4 oz BMI 33.7 BP 132/62 Blood Pressure Location Lt brachial Position Sitting Pulse 67 Pulse Source Pulse Oximeter Pulse Oximetry (%) 96 Oxygen Delivery Method Room Air Intake Visit Reasons: 4 mon follow up/ [facility] Full Pricing Coordinator Required: No Accompanied by: Self / Same As Patient Allergies lamotrigine [From Lamictal] Allergy (Intermediate, Verified 02/18/24 11:36) swelling gabapentin Allergy (Unknown, Verified 02/18/24 11:36) lip swelling pregabalin [From Lyrica] Allergy (Unknown, Verified 02/18/24 11:36) lip swelling HPI Comments Details: I had the delight of seeing Rickie in follow-up of his chronic kidney disease. He continues to have pain from trigeminal neuralgia. He does not have any dizziness, orthostatic symptoms, nausea, vomiting, edema, urinary symptoms, hematuria, chest pain, shortness of breath, proximal nocturnal dyspnea or orthopnea. He is not taking any nonsteroidal anti-inflammatories. He is closely followed up by his primary care physician. He had no other active complaints at the time of this office visit. [facility] Medical History Hx of sigmoidoscopy Frequent falls Urinary frequency History of claustrophobia History of shingles On anticoagulant therapy On beta diana at home Dyslipidemia Gout Spinal stenosis of lumbar region Atrial fibrillation CKD (chronic kidney disease) Elevated PSA Aortic stenosis CAD (coronary artery disease) Right facial pain Trigeminal neuralgia Post herpetic neuralgia Surgical History H/O aortic valve replacement Status post lens implant History of fracture of leg History of laparoscopic cholecystectomy History of aortic valve replacement History of heart bypass surgery Pacemaker Family History Father No problems noted. Mother No problems noted. Social History Household Members: None Housing: House Are you a primary body care manager to a significant other at home: No Do you presently have visiting nurse or other home services: No Alcohol intake: never Patient Tobacco Use Status: Never used Tobacco e-Cigarette/Vaping Use: Never Used Second Hand Smoke Exposure: No service: Yes Current occupational status: unemployed and retired Current occupational exposures/hazards: No Cognitive needs: No Hearing needs: No Vision needs: No Review of Systems Const All systems reviewed & are unremarkable except as noted in HPI and below Physical Exam Const General: comfortable and no acute distress Orientation/consciousness: patient oriented x3 HEENT Head: Yes normocephalic Mouth: Normal oral and palatal mucosa present Eyes EOM: EOMs intact bilaterally Neck Neck: Yes supple Resp Auscultation: clear to auscultation bilaterally Cardio Jugular venous distension: no JVD Rate: regular rate GI Palpation (GI): Soft to palpation Auscultation: normal bowel sounds General: Yes no CVA tenderness Back/Spine/Pelvis Back: no CVA tenderness Skin General skin exam: no rashes or lesions noted Neuro General: patient oriented x3 and moves all extremities Extrem General: Yes no pedal edema Results Reviewed Nephrology Results: BUN 21 mg/dL (9-16) H 11/18/23 Creatinine 1.38 mg/dL (0.5-1.4) 11/18/23 Assessment & Plan Assessment & Plan (1) CKD (chronic kidney disease) stage 3, GFR 30-59 ml/min: Code(s): N18.30 - Chronic kidney disease, stage 3 unspecified Category: Medical Qualifiers: Chronic kidney disease stage 3 subtype: stage 3a (GFR 45-59) Qualified Code(s): N18.31 - Chronic kidney disease, stage 3a (2) HTN (hypertension): Code(s): I10 - Essential (primary) hypertension Category: Medical Qualifiers: Hypertension type: primary hypertension Qualified Code(s): I10 - Essential (primary) hypertension Plan 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 His blood pressure is currently at goal at home. He avoids nonsteroidal anti-inflammatory medications. He is not on any ARTEM inhibitor. He is not on any Jardiance of Farxiga. His renal functions are stable at baseline. He maintains good hydration and avoids nonsteroidal anti-inflammatories. I did not make any medication changes today. He is tolerating statins well. All questions answered. Follow-up blood work ordered. Orders: Orders Creatinine Today I10 - Essential (primary) hypertension, N18.31 - Chronic kidney disease, stage 3a Blood Urea Nitrogen 6 Months I10 - Essential (primary) hypertension, N18.31 - Chronic kidney disease, stage 3a Electrolytes 6 Months I10 - Essential (primary) hypertension, N18.31 - Chronic kidney disease, stage 3a Electrolytes Today I10 - Essential (primary) hypertension, N18.31 - Chronic kidney disease, stage 3a Calcium Today I10 - Essential (primary) hypertension, N18.31 - Chronic kidney disease, stage 3a Blood Urea Nitrogen Today I10 - Essential (primary) hypertension, N18.31 - Chronic kidney disease, stage 3a Creatinine 6 Months I10 - Essential (primary) hypertension, N18.31 - Chronic kidney disease, stage 3a Coding Level of Care Code Est Pt Level 4 (39721) Diagnoses Stage 3a chronic kidney disease N18.31 Chronic kidney disease stage 3 subtype: stage 3a (GFR 45-59) Primary hypertension I10 Hypertension type: primary hypertension
== END 2024-02-18 12:11 | disposition home or self-care (01) ==
PROVIDERS: PCP Nurse Practitioner Family; Visit Provider Internal Medicine Nephrology
DX: N18.31 Chronic kidney disease, stage 3a (principal); I10 Essential (primary) hypertension
CPT/HCPCS: 99214

== ENCOUNTER → 2024-02-18 11:26 | Outpatient (BNVA) | payer MEDICARE, MEDICAID, SELFPAY | PROVIDERS: PCP Nurse Practitioner Family; Visit Provider Internal Medicine Nephrology | DX: I12.9 Hypertensive chronic kidney disease with stage 1 through stage 4 chronic kidney disease, or unspecified chronic kidney disease (principal); N18.31 Chronic kidney disease, stage 3a; B02.22 Postherpetic trigeminal neuralgia | CPT/HCPCS: 99212 ==

== ENCOUNTER 2024-03-25 12:42 | Outpatient (REF) | payer MEDICARE, SELFPAY ==
--- NOTE | ~2024-03-25 | MM_ITS ---
EXAMINATION: MM DIAGNOSTIC DIGITAL BREAST TOMOSYNTHESIS, BILATERAL US BREAST LIMITED, BILATERAL CLINICAL INFORMATION: Bilateral breast pain and swelling x1-2 months. Patient states pain all over both breasts. COMPARISON: Mammography: None. Baseline exam. TECHNIQUE: Digital breast tomosynthesis is performed in both the craniocaudal and mediolateral oblique views along with computer-aided detection (CAD). Synthesized 2D images are generated from the tomosynthesis. FINDINGS: The breasts are almost entirely fatty (ACR BI-RADS breast composition Category a). There are scattered skin calcifications bilaterally. There is mild subareolar breast tissue development in both breasts, consistent with mild male gynecomastia. Otherwise, no suspicious masses, suspicious microcalcifications, or areas of architectural distortion are present in either breast. No skin thickening or axillary abnormality identified. ULTRASOUND: CLINICAL INFORMATION: As above. COMPARISON: No prior, baseline exams TECHNIQUE: Targeted sonographic evaluation was performed using a high frequency linear transducer. Selected archived documentation. FINDINGS: RIGHT BREAST: There is mild retroareolar tissue development consistent with male gynecomastia. No suspicious mass, abnormal acoustic shadowing, cystic abnormalities, or areas of architectural distortion identified. LEFT BREAST: There is mild retroareolar tissue development consistent with male gynecomastia. No suspicious mass, abnormal acoustic shadowing, cystic abnormalities, or areas of architectural distortion identified. MM/MM tomosynthesis diagnostic BI IMPRESSION: No findings suspicious for malignancy in either breast. -There is symmetric mild male gynecomastia present, for which clinical management is recommended. -Otherwise, no imaging etiology is identified for patient's bilateral diffuse breast pain. OVERALL ASSESSMENT: Mammography: BI-RADS 2 - Benign Findings Ultrasound: BI-RADS 2 - Benign Findings RECOMMENDATION: 1. Patient should be managed based on the clinical impression. Electronically signed by: Nick Morales MD 03/25/2024 02:08 PM EDT
== END 2024-03-25 12:43 | disposition home or self-care (01) ==
LOC: HO.MAMMO 12:42
PROVIDERS: PCP Nurse Practitioner Family; Visit Provider Nurse Practitioner Family
DX: N64.4 Mastodynia (principal)
CPT/HCPCS: 76642; 77062; 77066

== ENCOUNTER → 2024-03-25 13:00 | Outpatient (BNV) | payer MEDICARE, SELFPAY | PROVIDERS: PCP Nurse Practitioner Family; Visit Provider Radiology Diagnostic Radiology | DX: N64.4 Mastodynia (principal) | CPT/HCPCS: 76642; 77066; G0279 ==

== ENCOUNTER 2024-05-21 14:09 | Outpatient (AMB) | payer MEDICARE, MEDICAID, SELFPAY ==
--- NOTE | 2024-05-21 14:25 | MHC.OFFVIS ---
Vital Signs 05/21/24 14:26 Height 5 ft 9 in Weight 233 lb 3.985 oz BMI 34.4 BP 144/64 H Blood Pressure Location Rt brachial Position Sitting Pulse 66 Pulse Source Pulse Oximeter Pulse Oximetry (%) 97 Oxygen Delivery Method Room Air Intake Visit Reasons: 6 month follow up Intake Note: Relevant Flags or Indicators ? Requires Metal Control Worker? Obdulio Rickie presents in office today for a scheduled 9 mos FUV. CC; No recent labs, diagnostics, or med orders placed. ? Relevant GI Sx as reported per pt? Hx of any recent surgeries? None Metal Control Worker Required: No Allergies lamotrigine [From Lamictal] Allergy (Intermediate, Verified 05/21/24 14:30) swelling gabapentin Allergy (Unknown, Verified 05/21/24 14:30) lip swelling pregabalin [From Lyrica] Allergy (Unknown, Verified 05/21/24 14:30) lip swelling HPI HPI 6 month follow up: Details: LAST VISIT: GERD (gastroesophageal reflux disease) Constipation Plan Patient can continue famotidine at bedtime. Encourage patient to avoid dietary triggers in late night snacking. Staying upright for minimum 3 hours after meals discussed with patient. Patient is encouraged to increase fluid intake and activity to promote better bowel motility. Continue Colace daily. Patient will try oxybutynin for few days and call his urologist if finds it helpful. Patient does report frequent urinations during the night. Patient feels like his sleep is disturbed because he has to get up often to go to the bathroom. Patient will follow-up in our office in 6 months, sooner on as needed basis. Patient is agreeable to this plan and verbalizes understanding of instructions. He was given the opportunity to ask questions and all questions answered. ? Thank you for allowing me to participate in his care Medications New oxybutynin chloride ER 5 mg PO DAILY 10 tabs 0RF Discontinued pantoprazole Discontinued Reason: Doctor's Order 40 mg PO DAILY 30 tabs 0RF TODAY'S VISIT Patient is here today for follow-up. Patient reports that since last time he was in our office he has been doing quite well. No longer is PPI and reports that he does not have any acid reflux, denies dyspepsia, dysphagia or odynophagia. Reports that he is moving his bowels without any issues. Takes Colace on as needed basis. Patient denies any melena, hematochezia, unintentional weight loss or ribbon like stools. Denies any dyspepsia, dysphagia or odynophagia. Patient reports to have good appetite denies nausea or vomiting. Denies abdominal pain or cramping. Denies diarrhea or constipation. [facility] Medical History Hx of sigmoidoscopy Frequent falls Urinary frequency History of claustrophobia History of shingles On anticoagulant therapy On beta diana at home Dyslipidemia Gout Spinal stenosis of lumbar region Atrial fibrillation CKD (chronic kidney disease) Elevated PSA Aortic stenosis CAD (coronary artery disease) Right facial pain Trigeminal neuralgia Post herpetic neuralgia Surgical History H/O aortic valve replacement Status post lens implant History of fracture of leg History of laparoscopic cholecystectomy History of aortic valve replacement History of heart bypass surgery Pacemaker Family History Father No problems noted. Mother No problems noted. Social History Household Members: None Housing: House Are you a primary outdoor emergency care technician to a significant other at home: No Do you presently have visiting nurse or other home services: No Alcohol intake: never Patient Tobacco Use Status: Never used Tobacco e-Cigarette/Vaping Use: Never Used Second Hand Smoke Exposure: No service: Yes Current occupational status: unemployed and retired Current occupational exposures/hazards: No Cognitive needs: No Hearing needs: No Vision needs: No Review of Systems Const Denies weight gain and Denies weight loss ENT Reports no additional complaints, Denies dysphagia and Denies odynophagia Card Reports no additional complaints Resp Reports no additional complaints GI Denies abdominal pain, Denies belching, Denies melena, Denies bloating, Denies change in bowel habits, Denies dysphagia, Denies excessive flatus, Denies dyspepsia, Denies heartburn, Denies diarrhea, Denies loose stools, Denies nausea, Denies odynophagia and Denies vomiting Reports no additional complaints Musc Reports no additional complaints Skin/Breast Reports breast pain Neuro Reports no additional complaints Psych Reports no additional complaints Endo Reports no additional complaints Physical Exam Vital Signs: Last Vital Signs Pulse 66 05/21/24 14:26 BP 144/64 H 05/21/24 14:26 Pulse Ox 97 05/21/24 14:26 Oxygen Delivery Method Room Air 05/21/24 14:26 BMI result Body Mass Index 34.4 Const General: healthy appearing and no acute distress Nutritional Appearance: obese Orientation/consciousness: patient oriented x3 Resp Effort & Inspection: normal respiratory effort, able to speak in complete sentences, no tracheal deviation and symmetric chest movement Auscultation: clear to auscultation bilaterally Cardio Rate: regular rate GI Inspection: Yes normal to inspection, No distended and Yes obesity Palpation (GI): Soft to palpation, not firm, nontender and No hepatosplenomegaly present Auscultation: normal bowel sounds General: Yes no CVA tenderness Back/Spine/Pelvis Back: no CVA tenderness Skin General skin exam: elasticity normal, turgor normal and dry skin Neuro General: patient oriented x3 Psych Appearance: grossly normal Mental Status: mental status grossly normal Assessment & Plan Assessment & Plan (1) GERD (gastroesophageal reflux disease): Code(s): K21.9 - Gastro-esophageal reflux disease without esophagitis Category: Medical Qualifiers: Esophagitis presence: esophagitis presence not specified Qualified Code(s): K21.9 - Gastro-esophageal reflux disease without esophagitis (2) Constipation: Code(s): K59.00 - Constipation, unspecified Qualifiers: Constipation type: slow transit constipation Qualified Code(s): K59.01 - Slow transit constipation Plan Patient will continue avoiding dietary triggers and late night snacking. Staying upright for minimum 3 hours after meals discussed with patient. Increase fiber intake and activity to promote better bowel motility. Patient will follow-up in the office on as needed basis. He will call if he will have any GI concerning symptoms. He is agreeable to this plan and verbalizes understanding of instructions. He was given the opportunity to ask questions and all questions answered. Thank you for allowing me to participate in his care Coding Level of Care Code Est Pt Level 3 (15947) Diagnoses Gastroesophageal reflux disease, unspecified whether esophagitis present K21.9 Esophagitis presence: esophagitis presence not specified Slow transit constipation K59.01 Constipation type: slow transit constipation Time Spent (min) 25 Comment 15 minutes spent with patient and additional 10 minutes spent reviewing his records
[2024-05-21 14:26] VITALS: BP 144/64; PULSE 66; O2SAT 97; BMI 34.4
== END 2024-05-21 15:03 | disposition home or self-care (01) ==
LOC: HO.HGI 14:09
PROVIDERS: PCP Nurse Practitioner Family; Visit Provider Nurse Practitioner Family
DX: K21.9 Gastro-esophageal reflux disease without esophagitis (principal); K59.01 Slow transit constipation
CPT/HCPCS: 99213

== ENCOUNTER → 2024-05-21 14:09 | Outpatient (BNVA) | payer MEDICARE, MEDICAID, SELFPAY | PROVIDERS: PCP Nurse Practitioner Family; Visit Provider Nurse Practitioner Family | DX: K21.9 Gastro-esophageal reflux disease without esophagitis (principal); K59.01 Slow transit constipation | CPT/HCPCS: 99212 ==

== ENCOUNTER 2024-06-10 13:55 | Outpatient (AMB) | payer MEDICARE, SELFPAY ==
[2024-06-10 14:21] VITALS: BP 132/58; PULSE 65; O2SAT 97; BMI 34.1
--- NOTE | 2024-06-10 14:21 | A.OFFPC_ITS ---
Vital Signs 06/10/24 14:21 Height 5 ft 9 in Weight 231 lb BMI 34.1 BP 132/58 L Blood Pressure Location Rt brachial Position Sitting Pulse 65 Pulse Source Pulse Oximeter Pulse Oximetry (%) 97 Oxygen Delivery Method Room Air Intake Visit Reasons: 4 month follow up Intake Note: pt is here for 4 month follow up Nurse Administrator Required: No Accompanied by: Self / Same As Patient Allergies lamotrigine [From Lamictal] Allergy (Intermediate, Verified 06/10/24 14:44) swelling gabapentin Allergy (Unknown, Verified 06/10/24 14:44) lip swelling pregabalin [From Lyrica] Allergy (Unknown, Verified 06/10/24 14:44) lip swelling Tobacco use date assessed: 06/10/24 Fall risk assessment: No Falls in past year Last assessed Fall Risk: 06/10/24 Dental Screening Dental Screen Date: 06/10/24 Did you have a dental visit in the last 12 months?: Yes Did you have a dental problem in the last 6 months where you did not have access to dental care?: No Was dental information given to patient?: Patient has dentist HPI 4 month follow up HPI Details Patient is here for follow-up for diabetes. He denies any neuropathy to his bilateral lower extremities he is currently on a statin and ezetimibe. He does see a double end production grinder. His A1c today is 6.7. 2. Patient reports having what sounds like a giant mucus ball that he spit up recently. He further reports like this mucus is getting stuck in his chest. Further describes a heaviness , not so much today, but during this event that happened last week. Denies any fevers, chills, cough, shortness of breath, headache, dizziness. I will get an EKG today, patient does see a poultry field service technician on a regular basis. Further did report that Muccinex does not help. 3. Patient reports he thinks he has excessive cerumen in his bilateral ears. 4. Patient reports having a small skin tear to his right glass that he developed approximately a week ago. He reports steady cleaned it up and placed Band-Aids on it. [facility] Medical History Hx of sigmoidoscopy Frequent falls Urinary frequency History of claustrophobia History of shingles On anticoagulant therapy On beta diana at home Dyslipidemia Gout Spinal stenosis of lumbar region Atrial fibrillation CKD (chronic kidney disease) Elevated PSA Aortic stenosis CAD (coronary artery disease) Right facial pain Trigeminal neuralgia Post herpetic neuralgia Surgical History H/O aortic valve replacement Status post lens implant History of fracture of leg History of laparoscopic cholecystectomy History of aortic valve replacement History of heart bypass surgery Pacemaker Family History Father No problems noted. Mother No problems noted. Social History Household Members: None Housing: House Are you a primary client care coordinator to a significant other at home: No Do you presently have visiting nurse or other home services: No Alcohol intake: never Patient Tobacco Use Status: Never used Tobacco e-Cigarette/Vaping Use: Never Used Second Hand Smoke Exposure: No service: Yes Current occupational status: unemployed and retired Current occupational exposures/hazards: No Cognitive needs: No Hearing needs: No Vision needs: No Questionnaire Thrive Questionnaire Date Thrive assessed: 06/10/24 I am a: Patient What is your living situation today?: I have a steady place to live Within the past 12 months, did the food you bought not last and you didn't have the money to get more?: Never true Within the past 12 months, did you worry whether your food would run out before you got money to buy more?: Never true Do you have trouble paying for medicines?: No Do you have trouble getting transportation to medical appointments?: No Do you have trouble paying your heating and electricity bill?: No Do you have trouble taking care of your child, family member or friend?: No Do you have trouble with day-to-day activities such as bathing, preparing meals, shopping, managing finances, etc.?: No Are you currently unemployed and looking for a job?: No Are you interested in more education?: No THRIVE Score: 0 AUDIT C Alcohol Use Questionnaire (AUDIT-C) 1. How often do you have a drink containing alcohol?: Never 3. How often do you have six or more drinks on one occasion?: Never Total Score: 0 Score Reviewed/Action Taken: Yes ELZA-7 AMB Questionnaire ELZA-7 Date ELZA - 7 assessed: 06/10/24 Feeling nervous, anxious, or on edge: 1 = Several days Not being able to stop or control worryin = Several days Worrying too much about different things: 1 = Several days Trouble relaxin = Not at all Being so restless that it is hard to sit still: 0 = Not at all Becoming easily annoyed or irritable: 1 = Several days Feeling afraid as if something awful might happen: 0 = Not at all Total ELZA-7 score (0-4 normal; 5-9 mild; 10-14 moderate; 15-21 severe): 4 Source: Developed by Drs. Nirav Marinelli, Dali Amezquita, Nicola Pruitt and colleagues, with an educational juan from [employer]. ELZA-7 Assessment Billing ELZA-7 Assessment Tool: ELZA-7 Assessment 69604 Physical exam (Primary Care) Vital Signs: Last Vital Signs Pulse 65 06/10/24 14:21 BP 132/58 L 06/10/24 14:21 Pulse Ox 97 06/10/24 14:21 Oxygen Delivery Method Room Air 06/10/24 14:21 BMI result Body Mass Index 34.1 Tobacco/Smoking Status: Tobacco use Status Tobacco use date assessed 06/10/24 06/10/24 14:45 Patient Tobacco Use Status Never used Tobacco 06/10/24 14:22 e-Cigarette/Vaping Use Never Used 06/10/24 14:22 Thrive Assessment: Date of Thrive Assessment Date Thrive assessed 06/10/24 06/10/24 14:22 Const General: cooperative, healthy appearing and comfortable HENMT Other: ears canals with cerumen bilat. after ear lavage, TMs easily seen. Resp Effort & Inspection: normal respiratory effort Auscultation: clear to auscultation bilaterally Cardio Rate: regular rate Rhythm: regular rhythm Heart sounds: S1 normal heart sound present and S2 normal heart sound present Skin Other: Right anterior glass, distal aspect, with small skin tear actively bleeding slightly. Just inferior to this with question hematoma. No warmth noted to tissue and surrounding tissue. Extrem Other: + sensation with the use of monofilament, feet are intact Psych Appearance: grossly normal Speech and movement: Normal speech and movement present Affect: normal affect Attitude: cooperative Thought process: Normal thought process present Insight: Good insight present (Psych) Judgement: Good judgement present (Psych) Office Procedures Cerumen Removal From which ear canal was the cerumen removed: bilateral Removal: irrigation and otoscope w/curette Notes: patient tolerated procedure well, no complications and ear canal clear [id number] Irrigation/Lavage (and with use of spoon/curette) Immunizations Boostrix Tdap 2.5 Lf unit-8 mcg-5 Lf/0.5 mL intramuscular syringe Performing Provider: MELIZA Price Performing Location: [facility] Administered by: ROBERT Maharaj on 06/10/24 16:14 Dose Route Admin Location Dispensed Lot Number Expiration Date [facility] Batch Or Continuous Still Operator 0.5 mL IM Right Deltoid 0.5 mL [id number] 04/17/25 [id number] [employer] VIS Given Date VIS Provided VIS Publication Date 06/10/24 Single Vaccine 21 Eligibility Eligibility Date Funding Source Not [facility] Eligible 06/10/24 Private Coding Level of Care Code Est Pt Level 3 (88300) Diagnoses Chest discomfort R07.89 Wound of skin T14.8XXA Diabetes E11.9 Stage 3a chronic kidney disease N18.31 Chronic kidney disease stage 3 subtype: stage 3a (GFR 45-59) Cerumen debris on tympanic membrane H61.20 CPT Codes Office Procedure - CPT: 03128-Dlz Irrigation/Lavage ([id number]) Additional Codes ELZA-7 Assessment Billing - ELZA-7 Assessment Tool: ELZA-7 Assessment 73830 ([id number]) Assessment & Plan Assessment & Plan (1) Chest discomfort: Code(s): R07.89 - Other chest pain Category: Medical Plan: EKG in office today, pt reporting mucous production has since ceased, feeling better, though will seek urgent care if he develops this again (2) Wound of skin: Code(s): T14.8XXA - Other injury of unspecified body region, initial encounter Category: Medical Plan: Right glass and skin tear cleaned with normal saline, pat dry with sterile fluffs, bacitracin and large Band-Aid applied, Tdap given today (3) Diabetes: Code(s): E11.9 - Type 2 diabetes mellitus without complications Category: Medical Plan: A1c is currently within normal limits (4) CKD (chronic kidney disease) stage 3, GFR 30-59 ml/min: Code(s): N18.30 - Chronic kidney disease, stage 3 unspecified Category: Medical Qualifiers: Chronic kidney disease stage 3 subtype: stage 3a (GFR 45-59) Qualified Code(s): N18.31 - Chronic kidney disease, stage 3a Plan: sees nephrology (5) Cerumen debris on tympanic membrane: Code(s): H61.20 - Impacted cerumen, unspecified ear Category: Medical Plan: ear lavage today (successful) Plan as above Orders: Orders TDaP Immunization Today Z23 - Encounter for immunization Microalbumin, Random (w Creat) Today E11.9 - Type 2 diabetes mellitus without complications, N18.31 - Chronic kidney disease, stage 3a, T14.8XXA - Other in jury of unspecified body region, initial encounter AMB EKG-In Office Today R07.89 - Other chest pain
== END 2024-06-10 16:39 | disposition home or self-care (01) ==
PROVIDERS: PCP Nurse Practitioner Family; Visit Provider Nurse Practitioner Family
DX: R07.89 Other chest pain (principal); T14.8XXA Other injury of unspecified body region, initial encounter; E11.22 Type 2 diabetes mellitus with diabetic chronic kidney disease; N18.31 Chronic kidney disease, stage 3a; H61.23 Impacted cerumen, bilateral

== ENCOUNTER → 2024-06-10 13:55 | Outpatient (BNVA) | payer MEDICARE, SELFPAY | PROVIDERS: PCP Nurse Practitioner Family; Visit Provider Nurse Practitioner Family | DX: Z23 Encounter for immunization (principal); R07.89 Other chest pain; T14.8XXA Other injury of unspecified body region, initial encounter; E11.9 Type 2 diabetes mellitus without complications; N18.31 Chronic kidney disease, stage 3a; H61.23 Impacted cerumen, bilateral | CPT/HCPCS: 69210; 90471; 90715; 96127; 99212 ==

== ENCOUNTER 2024-06-11 07:10 | Outpatient (REF) | payer MEDICARE, SELFPAY | END 2024-06-11 07:11 | disposition home or self-care (01) | LOC: HO.HMGCLDS 07:10 | PROVIDERS: PCP Internal Medicine; Visit Provider Nurse Practitioner Family | DX: N40.0 Benign prostatic hyperplasia without lower urinary tract symptoms (principal); Z12.5 Encounter for screening for malignant neoplasm of prostate | CPT/HCPCS: 36415; 84153 ==

== ENCOUNTER → 2024-06-11 08:55 | Outpatient (BNV) | payer MEDICARE, SELFPAY | PROVIDERS: PCP Internal Medicine; Visit Provider Nurse Practitioner Family | DX: Z13.9 Encounter for screening, unspecified (principal) | CPT/HCPCS: 83036 ==

== ENCOUNTER 2024-06-14 13:16 | Outpatient (AMB) | payer MEDICARE, MEDICAID, SELFPAY ==
--- NOTE | 2024-06-14 13:24 | A.OFFVIS_ITS ---
Intake Visit Reasons: 6m/PSA/PVR Intake Note: Patient is Present for Follow Up PVR Urology Medication: Terazosin, finasteride, Tamsulosin Antibiotic Allergies: None Blood Thinners: Xarelto PVR: 41ml's Sludge Control Operator Required: No Accompanied by: Self / Same As Patient Allergies lamotrigine [From Lamictal] Allergy (Intermediate, Verified 06/14/24 14:05) swelling gabapentin Allergy (Unknown, Verified 06/14/24 14:05) lip swelling pregabalin [From Lyrica] Allergy (Unknown, Verified 06/14/24 14:05) lip swelling Medication List - Last Reconciled 06/14/24 by YUSUF SalesP- aspirin (Adult Aspirin Regimen) 81 mg PO DAILY atorvastatin 40 mg PO DAILY blood sugar diagnostic ([employer] Ultra Test strips) Check blood sugar once a day blood-glucose meter ([employer] Ultra2 Meter) Check fasting blood sugar and a random blood sugar daily. cholecalciferol (vitamin D3) 50 mcg PO DAILY docusate sodium 100 mg PO BEDTIME duloxetine 30 mg PO BID 90 days ezetimibe 10 mg PO DAILY finasteride 5 mg PO DAILY furosemide 20 mg PO DAILY hydrocortisone 2.5% (Proctosol HC) 1 appl NM BID-QID PRN lancets ([employer] Safety Lancet) Check blood sugar once a day metoprolol tartrate 50 mg PO BID rivaroxaban (Xarelto) 20 mg PO DAILY 90 days solifenacin (Vesicare) 5 mg PO DAILY 90 days terazosin 5 mg PO BEDTIME 90 days HPI Comments Details: Rickie is a 89-year-old male patient of . He has a past medical history of frequent falls, claustrophobia, shingles, dyslipidemia, gout, spinal stenosis of lumbar region, atrial fibrillation on anticoagulation, CKD, aortic stenosis, elevated PSA, and trigeminal neuralgia. He presents to the office today for follow-up of his incomplete bladder emptying and lower urinary tract symptoms. In discussion with the patient today reports to be doing and feeling well. He discusses the recent loss of one of his sisters. He reports to be coping well. In discussion with the patient today regarding his urological issues and concerns he feels no bothersome urinary issues or concerns. He reports compliance with terazosin, finasteride, and VESIcare as prescribed. Unable to perform urinalysis today as patient was unable to obtain urine sample however PVR 41 mL. When asked he denies urinary urgency, urinary frequency, incontinence, nocturia, hematuria, dysuria, foul smelling urine, changes to urinary stream, flank pain, fever, and or chills. Recent PSA results reviewed with the patient today as noted and trended below PSAs are as follows: 06/10 3.3, 10/10 5.2, 07/12 2.0, 09/13 2.7, 06/13 1.8 Previous workup has included a retroperitoneal ultrasound noting bilateral kidneys with no calculi, lesions, and or hydronephrosis. The bladder is well distended and normal. There is bladder wall thickening up to 8 mm. Prostate volume is approximately 135 mL. He otherwise offers no other issues or concerns at this time. [facility] Medical History Hx of sigmoidoscopy Frequent falls Urinary frequency History of claustrophobia History of shingles On anticoagulant therapy On beta diana at home Dyslipidemia Gout Spinal stenosis of lumbar region Atrial fibrillation CKD (chronic kidney disease) Elevated PSA Aortic stenosis CAD (coronary artery disease) Right facial pain Trigeminal neuralgia Post herpetic neuralgia Surgical History H/O aortic valve replacement Status post lens implant History of fracture of leg History of laparoscopic cholecystectomy History of aortic valve replacement History of heart bypass surgery Pacemaker Family History Father No problems noted. Mother No problems noted. Social History Household Members: None Housing: House Are you a primary professional healthcare representative to a significant other at home: No Do you presently have visiting nurse or other home services: No Alcohol intake: never Patient Tobacco Use Status: Never used Tobacco e-Cigarette/Vaping Use: Never Used Second Hand Smoke Exposure: No service: Yes Current occupational status: unemployed and retired Current occupational exposures/hazards: No Cognitive needs: No Hearing needs: No Vision needs: No Review of Systems Const Reports as per HPI Eyes Reports no additional complaints ENT Reports no additional complaints Card Reports as per [facility] Resp Reports no additional complaints GI Reports as per [facility] Reports as per [facility] Musc Reports as per [facility] Skin/Breast Reports as per [facility] Neuro Reports as per [facility] Psych Reports no additional complaints Endo Reports no additional complaints Physical Exam Const General: cooperative, healthy appearing, comfortable, no acute distress, well developed, alert and awake Nutritional Appearance: overweight Orientation/consciousness: patient oriented x3 Limitations: no limitations HEENT Head: Yes normal to inspection, Yes normocephalic and Yes atraumatic Ears: hearing grossly normal bilaterally Eyes General: appearance normal, both eyes and all related structures Neck Neck: Yes normal visual inspection and Yes trachea midline Chest Chest palpation & inspection: normal inspection of the chest Resp Effort & Inspection: normal respiratory effort and able to speak in complete sentences Cardio Rate: regular rate GI Inspection: Yes normal to inspection Rectal Exam - Male: Yes deferred General: Yes no CVA tenderness Back/Spine/Pelvis Back: no CVA tenderness Skin General skin exam: no rashes or lesions noted Neuro General: patient oriented x3 Extrem General: Yes normal to inspection Psych Appearance: grossly normal and well kempt Mental Status: mental status grossly normal Speech and movement: Normal speech and movement present and Clear speech present Affect: normal affect Attitude: cooperative Thought process: Normal thought process present Thought content: Normal thought content present Insight: Fair insight present (Psych) Judgement: Fair judgement present (Psych) Office Procedures Post Void Residual Post Residual Void Post Void Residual (PVR): [id number] Void Residual by ultrasound Assessment & Plan Assessment & Plan (1) Nocturia: Code(s): R35.1 - Nocturia Category: Medical (2) Enlarged prostate: Code(s): N40.0 - Benign prostatic hyperplasia without lower urinary tract symptoms Category: Medical (3) Urinary hesitancy due to benign prostatic hyperplasia: Code(s): N40.1 - Benign prostatic hyperplasia with lower urinary tract symptoms; R39.11 - Hesitancy of micturition Category: Medical (4) Urinary frequency: Code(s): R35.0 - Frequency of micturition Category: Medical (5) Incomplete bladder emptying: Code(s): R33.9 - Retention of urine, unspecified Category: Medical Plan Unable to obtain urinalysis as patient unable to void however PVR 41 mL. Continue VESIcare, the terazosin, and finasteride. Recent PSA results reviewed with the patient today; as noted above. Patient reports to be happy with current voiding parameters on these urological medications. Patient currently denies any bothersome urinary issues or concerns. Discussed at length importance of managing diabetes for improvement lower urinary tract symptoms as well as overall health and well-being. Discussed bladder triggers/irritants. Continue limiting fluids 2-3 hours prior to bed to decrease episodes of nocturia. Will obtain PSA in 1 year Follow-up in 1 year with PSA to be completed prior and PVR at next office visit; or sooner with any issues, concerns, and or questions. Orders: Orders AMB Post Void Residual by ultrasound Today R35.1 - Nocturia Prostate Specific Antigen 1 Year R97.20 - Elevated prostate specific antigen [PSA] Patient Instructions: The patient had an opportunity to ask questions regarding the treatment plan. All questions were answered. Physical exam, labs, and imaging were discussed and reviewed in detail. As well as risks, benefits, and discussion of treatment choices. No major barriers to understanding were identified. The patient expressed understanding and agreement with the above treatment plan. The patient was made aware they should contact our office by phone for worsening of their current condition, the appearance of new symptoms, or with any questions or concerns. Compliance is encouraged with any medications and follow up testing that is ordered. It is a privilege to be allowed the opportunity to participate in? your urological care.? Again, if you have any questions or concerns If you have any questions or concerns please do not hesitate to contact me. The office is [phone]. This note is constructed using voice recognition software. While every effort has been made to ensure accuracy emt intermediate errors may have been included. Yours sincerely, MELIZA Sales Coding Level of Care Code Est Pt Level 3 (30615) Diagnoses Nocturia R35.1 Enlarged prostate N40.0 Urinary hesitancy due to benign prostatic hyperplasia N40.1; R39.11 Urinary frequency R35.0 Incomplete bladder emptying R33.9 CPT Codes Post Residual Void - PVR CPT Code: 50540-Qgcp Void Residual by ultrasound ([id number])
== END 2024-06-14 14:01 | disposition home or self-care (01) ==
PROVIDERS: PCP Nurse Practitioner Family; Visit Provider Nurse Practitioner Family
DX: N40.1 Benign prostatic hyperplasia with lower urinary tract symptoms (principal); R35.1 Nocturia; R39.11 Hesitancy of micturition; R35.0 Frequency of micturition; R33.9 Retention of urine, unspecified
CPT/HCPCS: 99213

== ENCOUNTER → 2024-06-14 13:16 | Outpatient (BNVA) | payer MEDICARE, MEDICAID, SELFPAY | PROVIDERS: PCP Nurse Practitioner Family; Visit Provider Nurse Practitioner Family | DX: N40.1 Benign prostatic hyperplasia with lower urinary tract symptoms (principal); N13.8 Other obstructive and reflux uropathy; R33.9 Retention of urine, unspecified; R35.0 Frequency of micturition; R35.1 Nocturia; R39.11 Hesitancy of micturition | CPT/HCPCS: 51798; 99212 ==

== ENCOUNTER 2024-07-28 14:35 | Outpatient (AMB) | payer MEDICARE, SELFPAY ==
--- NOTE | 2024-07-28 14:43 | HO.NEPHOV ---
Vital Signs 07/28/24 14:45 Height 5 ft 9 in Weight 231 lb 2 oz BMI 34.1 BP 140/72 H Blood Pressure Location Lt brachial Position Sitting Pulse 64 Pulse Source Pulse Oximeter Pulse Oximetry (%) 98 Oxygen Delivery Method Room Air Intake Visit Reasons: CKD Ui Lead Developer Required: No Accompanied by: Self / Same As Patient Allergies lamotrigine [From Lamictal] Allergy (Intermediate, Verified 07/28/24 14:45) swelling gabapentin Allergy (Unknown, Verified 07/28/24 14:45) lip swelling pregabalin [From Lyrica] Allergy (Unknown, Verified 07/28/24 14:45) lip swelling HPI Comments Details: Rickie in follow-up of his chronic kidney disease. He continues to have intermittent pain from trigeminal neuralgia. He does not have any dizziness, orthostatic symptoms, nausea, vomiting, edema, urinary symptoms, hematuria, chest pain, shortness of breath, proximal nocturnal dyspnea or orthopnea. He is not taking any nonsteroidal anti-inflammatories. He is closely followed up by his primary care physician. His renal functions have been stable. He has been having B/L breast pain ever since he started finasteride. He also has been having edema in the left LE. [facility] Medical History Hx of sigmoidoscopy Frequent falls Urinary frequency History of claustrophobia History of shingles On anticoagulant therapy On beta diana at home Dyslipidemia Gout Spinal stenosis of lumbar region Atrial fibrillation CKD (chronic kidney disease) Elevated PSA Aortic stenosis CAD (coronary artery disease) Right facial pain Trigeminal neuralgia Post herpetic neuralgia Surgical History H/O aortic valve replacement Status post lens implant History of fracture of leg History of laparoscopic cholecystectomy History of aortic valve replacement History of heart bypass surgery Pacemaker Family History Father No problems noted. Mother No problems noted. Social History Household Members: None Housing: House Are you a primary career placement services counselor to a significant other at home: No Do you presently have visiting nurse or other home services: No Alcohol intake: never Patient Tobacco Use Status: Never used Tobacco e-Cigarette/Vaping Use: Never Used Second Hand Smoke Exposure: No service: Yes Current occupational status: unemployed and retired Current occupational exposures/hazards: No Cognitive needs: No Hearing needs: No Vision needs: No Review of Systems Const All systems reviewed & are unremarkable except as noted in HPI and below Physical Exam Const General: comfortable and no acute distress Orientation/consciousness: patient oriented x3 HEENT Head: Yes normocephalic Mouth: Normal oral and palatal mucosa present Eyes EOM: EOMs intact bilaterally Neck Neck: Yes supple Resp Auscultation: clear to auscultation bilaterally Cardio Jugular venous distension: no JVD Rate: regular rate GI Palpation (GI): Soft to palpation Auscultation: normal bowel sounds General: Yes no CVA tenderness Back/Spine/Pelvis Back: no CVA tenderness Skin General skin exam: no rashes or lesions noted Neuro General: patient oriented x3 and moves all extremities Extrem General: Yes no pedal edema Results Reviewed Nephrology Results: Hgb 11.7 g/dl (14.0-18.0) L 03/26/24 WBC 4.9 X10*3/uL (4.8-10.8) 03/26/24 Plt Count 86 X10*3/uL (160-400) L 03/26/24 Assessment & Plan Assessment & Plan (1) CKD (chronic kidney disease) stage 3, GFR 30-59 ml/min: Code(s): N18.30 - Chronic kidney disease, stage 3 unspecified Category: Medical Qualifiers: Chronic kidney disease stage 3 subtype: stage 3a (GFR 45-59) Qualified Code(s): N18.31 - Chronic kidney disease, stage 3a (2) HTN (hypertension): Code(s): I10 - Essential (primary) hypertension Category: Medical Qualifiers: Hypertension type: primary hypertension Qualified Code(s): I10 - Essential (primary) hypertension Plan 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 His blood pressure is currently at goal at home. He avoids nonsteroidal anti-inflammatory medications. He is not on any ARTEM inhibitor. He is not on any Jardiance which we can consider for his CKD. His renal functions are stable at baseline. He maintains good hydration and avoids nonsteroidal anti-inflammatories. He needs to stop finasteride and follow with Urologist as it may be causing his B/L breast tenderness. He also should have a vascular consult as well for his left LE swelling with pain( likely PAD as he has some rest pain). I did not make any medication changes today. He is tolerating statins well. All questions answered. Follow-up blood work ordered. Orders: Orders Blood Urea Nitrogen 6 Months I10 - Essential (primary) hypertension, N18.31 - Chronic kidney disease, stage 3a Electrolytes 6 Months I10 - Essential (primary) hypertension, N18.31 - Chronic kidney disease, stage 3a Creatinine 6 Months I10 - Essential (primary) hypertension, N18.31 - Chronic kidney disease, stage 3a Calcium 6 Months I10 - Essential (primary) hypertension, N18.31 - Chronic kidney disease, stage 3a Coding Level of Care Code Est Pt Level 4 (90028) Diagnoses Stage 3a chronic kidney disease N18.31 Chronic kidney disease stage 3 subtype: stage 3a (GFR 45-59) Primary hypertension I10 Hypertension type: primary hypertension
[2024-07-28 14:45] VITALS: BP 140/72; PULSE 64; O2SAT 98; BMI 34.1
== END 2024-07-28 15:09 | disposition home or self-care (01) ==
PROVIDERS: PCP Nurse Practitioner Family; Visit Provider Internal Medicine Nephrology
DX: I12.9 Hypertensive chronic kidney disease with stage 1 through stage 4 chronic kidney disease, or unspecified chronic kidney disease (principal); N18.31 Chronic kidney disease, stage 3a
CPT/HCPCS: 99214

== ENCOUNTER → 2024-07-28 14:35 | Outpatient (BNVA) | payer MEDICARE, SELFPAY | PROVIDERS: PCP Nurse Practitioner Family; Visit Provider Internal Medicine Nephrology | DX: I12.9 Hypertensive chronic kidney disease with stage 1 through stage 4 chronic kidney disease, or unspecified chronic kidney disease (principal); N18.31 Chronic kidney disease, stage 3a | CPT/HCPCS: 99212 ==

== ENCOUNTER 2024-08-10 14:43 | Outpatient (AMB) | payer MEDICARE, SELFPAY ==
--- NOTE | 2024-08-10 14:47 | A.OFFVIS_ITS ---
Intake Visit Reasons: left leg pain/swelling after open heart surgery Intake Note: Patient presents for pain in legs and feet. Patient's left foot throbs and swells all night , says he has not slept due to the pain. Accompanied by: Self / Same As Patient Allergies lamotrigine [From Lamictal] Allergy (Intermediate, Verified 08/10/24 14:49) swelling gabapentin Allergy (Unknown, Verified 08/10/24 14:49) lip swelling pregabalin [From Lyrica] Allergy (Unknown, Verified 08/10/24 14:49) lip swelling HPI HPI left leg pain/swelling after open heart surgery: Details: Rickie, a pleasant 89-year-old male patient, is presenting today on a referral for left more than right lower extremity swelling and pain. He is known to this office, he is status post left great saphenous vein Venaseal, performed on 09/06/2022. He states he continues with swelling and pain particularly on the left lower extremity. He states initially it was only during summer times where he noticed his legs would swell but now is occurring all the time and has noticed it increasing recently. Complaints include pain, swelling of lower extremities, cramping, fatigue, and heaviness of the lower extremities. It has been affecting their daily activities including walking, standing, and physical activity. It is noted more so in left leg. Patient states he had veins harvested for a CABG in 1990 and is status post left great saphenous vein Venaseal on 09/06/2022 Patient denies any history of DVT/ PE. Patient denies any history of phlebitis. Trial of compression includes - elevation with little relief They now present for vascular evaluation regarding their varicose veins. [facility] Medical History Hx of sigmoidoscopy Frequent falls Urinary frequency History of claustrophobia History of shingles On anticoagulant therapy On beta diana at home Dyslipidemia Gout Spinal stenosis of lumbar region Atrial fibrillation CKD (chronic kidney disease) Elevated PSA Aortic stenosis CAD (coronary artery disease) Right facial pain Trigeminal neuralgia Post herpetic neuralgia Surgical History H/O aortic valve replacement Status post lens implant History of fracture of leg History of laparoscopic cholecystectomy History of aortic valve replacement History of heart bypass surgery Pacemaker Family History Father No problems noted. Mother No problems noted. Social History Household Members: None Housing: House Are you a primary specialist wound care to a significant other at home: No Do you presently have visiting nurse or other home services: No Alcohol intake: never Patient Tobacco Use Status: Never used Tobacco e-Cigarette/Vaping Use: Never Used Second Hand Smoke Exposure: No service: Yes Current occupational status: unemployed and retired Current occupational exposures/hazards: No Cognitive needs: No Hearing needs: No Vision needs: No Review of Systems Const Reports as per HPI and Denies weakness ENT Reports Normal hearing present and Denies dizziness Card Reports as per HPI, Denies chest pain, Denies chest pain at rest, Denies chest pain with activity, Denies dyspnea and Denies dyspnea on exertion Resp Reports as per HPI, Denies cough, Denies dyspnea and Denies dyspnea on exertion GI Reports as per HPI, Denies abdominal pain, Denies nausea and Denies vomiting Musc Denies numbness Skin/Breast Reports as per HPI, Denies erythema and Denies wounds Neuro Reports Normal hearing present, Denies dizziness, Denies numbness, Denies Sensory deficit (Neuro) and Denies weakness Psych Reports no additional complaints Endo Reports no additional complaints Physical Exam Const General: healthy appearing and no acute distress Orientation/consciousness: patient oriented x3 HEENT Head: Yes normal to inspection Ears: hearing grossly normal bilaterally Mouth: Normal oral and palatal mucosa present Resp Effort & Inspection: normal respiratory effort and able to speak in complete sentences Auscultation: clear to auscultation bilaterally Cardio Jugular venous distension: no JVD Rate: regular rate Rhythm: regular rhythm Heart sounds: S1 normal heart sound present and S2 normal heart sound present Bruits: no abdominal aortic bruits, no carotid bruits, no femoral bruits and no renal bruits Peripheral pulses: Peripheral pulses 2+ throughout GI Inspection: Yes normal to inspection Palpation (GI): No Abdominal aortic bruit present Skin General skin exam: no rashes or lesions noted Wounds: no wounds Hair: normal Neuro General: patient oriented x3 Cranial nerves: Yes Normal hearing present Cognition (Neuro): normal cognition Gait exam (Neuro): Normal gait present Motor exam (neuro): 5/5 motor strength present throughout Sensory Exam: No Sensory deficit (Neuro) Extrem Other: Left lower extremity: Discoloration noted all throughout the lower glass on the anterior aspect. Palpable DP pulses.+1 peripheral edema noted. Right lower extremity: Small amount discoloration noted near the ankles. Palpable DP pulses. Trace peripheral edema noted. CEAP: C- 4 E - primary A - superficial P - reflux General: Yes normal to inspection, Yes full ROM, Yes capillary refill normal and Yes normal gait Assessment & Plan Assessment & Plan (1) Varicose veins of left lower extremity with inflammation: Comment: 09/06/2022 - left great saphenous vein Cyanoacralate ablation Code(s): I83.12 - Varicose veins of left lower extremity with inflammation Category: Medical Plan: Lou is presenting today as a referral from his PCP for ongoing left lower extremity swelling and pain. He states initially it usually only happens in the summertime but this time he has been noticing all year long. In short, the patient has evidence of venous insufficiency. I have discussed the pathophysiology with the patient. In addition I have provided informational material regarding venous disease to the patient. We have discussed conservative measures including compression, elevation, and exercise. I have taken the liberty of ordering venous insufficiency testing with the patient. They will follow up with me after testing. The patient had an opportunity to ask questions regarding the treatment plan. All questions were answered. Imaging studies, laboratory studies and physical exam results were discussed and reviewed in detail. No major barriers to understanding were identified. The patient expressed understanding and agreement with the above treatment plan. The patient is aware they should contact our office by phone for worsening of the current condition or the appearance of new symptoms. Thank you for allowing me to participate in the vascular care of this patient. If you have any questions or concerns regarding the treatment for the above condition please do not hesitate to contact me. The office telephone contact is [phone]. This note is constructed using voice recognition software. While every effort has been made to ensure accuracy, senior clinical research associate errors may have been included. Thank you for allowing me to participate in the care of your patient. Yours sincerely, VIR[place]IA Burnham Orders: Orders US venous duplex LE BI 1 Week I83.12 - Varicose veins of left lower extremity with inflammation Coding Level of Care Code Est Pt Level 4 (72342) Diagnoses Varicose veins of left lower extremity with inflammation I83.12
== END 2024-08-10 15:12 | disposition home or self-care (01) ==
PROVIDERS: PCP Nurse Practitioner Family; Visit Provider Physician Assistant Surgical
DX: I83.12 Varicose veins of left lower extremity with inflammation (principal)
CPT/HCPCS: 99214

== ENCOUNTER → 2024-08-10 14:43 | Outpatient (BNVA) | payer MEDICARE, SELFPAY | PROVIDERS: PCP Nurse Practitioner Family; Visit Provider Physician Assistant Surgical | DX: I83.12 Varicose veins of left lower extremity with inflammation (principal) | CPT/HCPCS: 99212 ==

== ENCOUNTER → 2024-08-19 08:11 | Outpatient (BNV) | payer MEDICARE, SELFPAY | PROVIDERS: PCP Nurse Practitioner Family; Visit Provider Radiology Diagnostic Radiology | DX: I83.811 Varicose veins of right lower extremity with pain (principal) | CPT/HCPCS: 93970 ==

== ENCOUNTER → 2024-08-24 14:42 | Outpatient (BNVA) | payer MEDICARE, SELFPAY | PROVIDERS: PCP Nurse Practitioner Family; Visit Provider Surgery Vascular Surgery | DX: I83.12 Varicose veins of left lower extremity with inflammation (principal); I89.0 Lymphedema, not elsewhere classified | CPT/HCPCS: 99212 ==

== ENCOUNTER 2024-09-09 13:52 | Outpatient (AMB) | payer MEDICARE, SELFPAY ==
[2024-09-09 14:36] VITALS: BP 132/72; PULSE 66; O2SAT 97; BMI 34.3
--- NOTE | 2024-09-09 14:36 | A.OFFPC_ITS ---
Vital Signs 09/09/24 14:36 Height 5 ft 9 in Weight 232 lb BMI 34.3 BP 132/72 Blood Pressure Location Lt brachial Position Sitting Pulse 66 Pulse Source Pulse Oximeter Pulse Oximetry (%) 97 Intake Visit Reasons: 3m follow up Allergies lamotrigine [From Lamictal] Allergy (Intermediate, Verified 09/09/24 15:37) swelling gabapentin Allergy (Unknown, Verified 09/09/24 15:37) lip swelling pregabalin [From Lyrica] Allergy (Unknown, Verified 09/09/24 15:37) lip swelling Medication List - Last Reconciled 09/09/24 by Dannie Cosby, BLEACH BOILER FILLER- aspirin (Adult Aspirin Regimen) 81 mg PO DAILY atorvastatin 40 mg PO DAILY blood sugar diagnostic (Eat Latin Ultra Test strips) Check blood sugar once a day blood-glucose meter (Eat Latin Ultra2 Meter) Check fasting blood sugar and a random blood sugar daily. cholecalciferol (vitamin D3) 50 mcg PO DAILY docusate sodium 100 mg PO BEDTIME duloxetine 30 mg PO BID 90 days empagliflozin (Jardiance) 10 mg PO DAILY ezetimibe 10 mg PO DAILY finasteride 5 mg PO DAILY furosemide 20 mg PO DAILY hydrocortisone 2.5% (Proctosol HC) 1 appl [place] BID-QID PRN lancets (SOLOMO365 Delica Safety Lancet) Check blood sugar once a day metoprolol tartrate 50 mg PO BID rivaroxaban (Xarelto) 20 mg PO DAILY 90 days solifenacin (Vesicare) 5 mg PO DAILY 90 days terazosin 5 mg PO BEDTIME 90 days Tobacco use date assessed: 09/09/24 Fall risk assessment: No Falls in past year Last assessed Fall Risk: 09/09/24 Dental Screening Dental Screen Date: 09/09/24 Did you have a dental visit in the last 12 months?: Yes Did you have a dental problem in the last 6 months where you did not have access to dental care?: No Was dental information given to patient?: Patient has dentist HPI 3m follow up HPI Details Chief Complaint Patient reports episodes of dyspnea. History of Present Illness The patient is an 89-year-old male presenting with dyspnea. He reports episodes of shortness of breath localizing to the throat and upper chest region. These episodes occur spontaneously and resolve on their own without any clear trigger. The dyspnea is sometimes accompanied by a slight cough, which also resolves spontaneously. There appears to be no association with ingestion of food or liquids. These symptoms are described as sudden and brief. The patient is concerned about possible bronchospasms. Additionally, his history includes a diagnosis of Type 2 Diabetes Mellitus, for which his current medication is Jardiance. His recent HbA1c level was 7.1%. There is no report of polyuria, polydipsia, or neuropathy. Physical examinations regarding other diabetic complications are up to date. Social History Health Maintenance - HbA1c measured at 7.1% Review of Systems - Respiratory: Reports dyspnea and cough . Physical Exam General: Cooperative, healthy appearing, comfortable, no acute distress and well developed Orientation: Patient oriented x3 Limitations: No limitations Head: Normal to inspection Ears: Hearing grossly normal bilaterally Nose: Normal external nose present Face and sinus: Normal facial exam Eyes: Appearance normal, both eyes and all related structures Neck: Normal visual inspection and Yes full ROM Respiratory: Reports dyspnea and slight cough, normal respiratory effort and able to speak in complete sentences. Clear to auscultation bilaterally Cardiovascular: Regular rate and rhythm. Normal S1 and S2 GI: Normal to inspection. Soft to palpation and nontender Skin: No rashes or lesions noted Neuro: Patient oriented x3 Extremities: Normal to inspection, positive sensation with use of monofilament Results Plan 1. 1%: - A CT scan of the chest is order ed to further assess the cause of dyspnea and investigate possible bronchospasms or other anatomical issues. Discussion Notes I discussed with the patient the likely respiratory origin of his dyspnea and the possibility of bronchospasms. To ensure we address any underlying issues, I have ordered a CT scan of the chest. Regarding his diabetes management, I explained the reason for increasing his Jardiance dosage based on his latest HbA1c result. I will follow up with him to review the CT scan results and adjust treatment accordingly if necessary. The patient acknowledges the plan and consented to the proposed management approach. Patient Instructions - Continue medications as prescribed, wi th increased Jardiance dosage. - Return for follow-up to review CT scan results. - Monitor and report any new or worsenin g symptoms. - Maintain hydration and avoid known res piratory irritants. [facility] Medical History Hx of sigmoidoscopy Frequent falls Urinary frequency History of claustrophobia History of shingles On anticoagulant therapy On beta diana at home Dyslipidemia Gout Spinal stenosis of lumbar region Atrial fibrillation CKD (chronic kidney disease) Elevated PSA Aortic stenosis CAD (coronary artery disease) Right facial pain Trigeminal neuralgia Post herpetic neuralgia Surgical History H/O aortic valve replacement Status post lens implant History of fracture of leg History of laparoscopic cholecystectomy History of aortic valve replacement History of heart bypass surgery Pacemaker Family History Father No problems noted. Mother No problems noted. Social History Household Members: None Housing: House Are you a primary adult care manager to a significant other at home: No Do you presently have visiting nurse or other home services: No Alcohol intake: never Patient Tobacco Use Status: Never used Tobacco e-Cigarette/Vaping Use: Never Used Second Hand Smoke Exposure: No service: Yes Current occupational status: unemployed and retired Current occupational exposures/hazards: No Cognitive needs: No Hearing needs: No Vision needs: No Questionnaire PHQ-9 Over the last 2 weeks, how often have you been bothered by any of the following problems? 1. Little interest or pleasure in doing things: not at all 2. Feeling down, depressed, or hopeless: not at all 3. Trouble falling or staying asleep, or sleeping too much: not at all 4. Feeling tired or having little energy: not at all 5. Poor appetite or overeating: not at all 6. Feeling bad about yourself - or that you are a failure or have let yourself or your family down: not at all 7. Trouble concentrating on things, such as reading the newspaper or watching television: not at all 8. Moving or speaking so slowly that other people could have noticed. Or the opposite - being so fidgety or restless that you have been moving around a lot more than usual: not at all 9. Thoughts that you would be better off or of hurting yourself in some way: not at all Total score: 0 Depression Screening Interpretation: Negative Depression Screening Done: Yes 30701 - PHQ-9 Billing: Yes Source: Developed by Drs. Nirav Marinelli, Dali Amezquita, Nicola Pruitt and colleagues, with an educational juan from [employer]. Thrive Questionnaire Date Thrive assessed: 09/09/24 I am a: Patient What is your living situation today?: I have a steady place to live Within the past 12 months, did the food you bought not last and you didn't have the money to get more?: Never true Within the past 12 months, did you worry whether your food would run out before you got money to buy more?: Never true Do you have trouble paying for medicines?: No Do you have trouble getting transportation to medical appointments?: No Do you have trouble paying your heating and electricity bill?: No Do you have trouble taking care of your child, family member or friend?: No Do you have trouble with day-to-day activities such as bathing, preparing meals, shopping, managing finances, etc.?: No Are you currently unemployed and looking for a job?: No Are you interested in more education?: No Please select the resources that you would like help with: None Currently or been in a relationship where the following occur: No concerns reported THRIVE Score: 0 AUDIT C Alcohol Use Questionnaire (AUDIT-C) 1. How often do you have a drink containing alcohol?: Never 3. How often do you have six or more drinks on one occasion?: Never Total Score: 0 Score Reviewed/Action Taken: Yes ELZA-7 AMB Questionnaire ELZA-7 Date ELZA - 7 assessed: 09/09/24 Feeling nervous, anxious, or on edge: 0 = Not at all Not being able to stop or control worryin = Not at all Worrying too much about different things: 0 = Not at all Trouble relaxin = Not at all Being so restless that it is hard to sit still: 0 = Not at all Becoming easily annoyed or irritable: 0 = Not at all Feeling afraid as if something awful might happen: 0 = Not at all Total ELZA-7 score (0-4 normal; 5-9 mild; 10-14 moderate; 15-21 severe): 0 Source: Developed by Drs. Nirav Marinelli, Nicola Carson and colleagues, with an educational juan from [employer] ELZA-7 Assessment Billing ELZA-7 Assessment Tool: ELZA-7 Assessment 83164 Physical exam (Primary Care) Vital Signs: Last Vital Signs Pulse 66 09/09/24 14:36 BP 132/72 09/09/24 14:36 Pulse Ox 97 09/09/24 14:36 BMI result Body Mass Index 34.3 Tobacco/Smoking Status: Tobacco use Status Tobacco use date assessed 09/09/24 09/09/24 14:41 Patient Tobacco Use Status Never used Tobacco 09/09/24 14:36 e-Cigarette/Vaping Use Never Used 09/09/24 14:36 PHQ-9: PHQ-9 Score PHQ-9: Total score 0 09/09/24 15:25 Depression Screening Interpretation: Negative Thrive Assessment: Date of Thrive Assessment Date Thrive assessed 09/09/24 09/09/24 14:41 Currently or been in a relationship where the following occur: No concerns reported Coding Level of Care Code Est Pt Level 3 (69798) Diagnoses Congestion of upper airway J98.8 Dyspnea R06.00 Diabetes E11.9 Additional Codes ELZA-7 Assessment Billing - ELZA-7 Assessment Tool: ELZA-7 Assessment 77204 ([id number]) PHQ-9 - 49225 - PHQ-9 Billing: Yes ([id number]) Assessment & Plan Assessment & Plan (1) Congestion of upper airway: Code(s): J98.8 - Other specified respiratory disorders Category: Medical (2) Dyspnea: Code(s): R06.00 - Dyspnea, unspecified Category: Medical (3) Diabetes: Code(s): E11.9 - Type 2 diabetes mellitus without complications Category: Medical Plan . Orders: Orders XR chest 2V Today J98.8 - Other specified respiratory disorders B Type Natriuretic Peptide Today J98.8 - Other specified respiratory disorders Complete Blood Count Auto Diff Today E11.9 - Type 2 diabetes mellitus without complications Microalbumin, Random (w Creat) Today E11.9 - Type 2 diabetes mellitus without complications US soft tiss head and/or neck Today J98.8 - Other specified respiratory disorders, R06.00 - Dyspnea, unspecified CT chest wo IV con Today J98.8 - Other specified respiratory disorders, R06.00 - Dyspnea, unspecified Comprehensive Independence. Panel Fast Today E11.9 - Type 2 diabetes mellitus without complications Lipid Panel Today E11.9 - Type 2 diabetes mellitus without complications TSH reflex Free T4 Today E11.9 - Type 2 diabetes mellitus without complications UA CC w/rflx Micro + Cult Today E11.9 - Type 2 diabetes mellitus without complications Referrals Pulmonology Referral J98.8 - Other specified respiratory disorders Medications: Changed From empagliflozin (Jardiance) for diabetes and kidney protection 10 mg PO DAILY 30 tabs 1RF To empagliflozin for diabetes and kidney protection 25 mg PO DAILY 30 tabs 3RF
--- OUTSIDE RECORDS SUMMARY | 2024-09-09 14:55 | XMS_ITS | Clinical Summary ---
Author Organization [facility] Address [address] [place] [address] Care Team Providers Care National Van Owner Operator Name Role Phone Dannie Cosby Primary Care Provider [phone] Allergies Active Allergy Reactions Criticality Noted Date Comments Gabapentin Other (see comments) 01/18/2021 mouth/lips edema Pregabalin Other (see comments) 01/18/2021 Medications metoprolol tartrate (LOPRESSOR) 50 mg tablet Take 50 mg by mouth. Per pt take 50 mg twice a day 11/02/2021 Active aspirin 81 mg EC tablet Take 1 tablet by mouth. Active ezetimibe (ZETIA) 10 mg tablet Take 1 tablet by mouth. 01/02/2021 Active atorvastatin (LIPITOR) 40 mg tablet Take 40 mg by mouth once a day. 10/20/[address] (CYMBALTA) 30 mg capsule Take 30 mg by mouth. Per pt take 1 tab daily 11/11/2021 Active cholecalciferol (VITAMIN D3) 2,000 unit capsule Take 1 capsule by mouth once a day. Per pt take 50 mcg daily 11/02/2021 Active rivaroxaban (XARELTO) 20 mg tablet Take 1 tablet by mouth. Active LORazepam (ATIVAN) 0.5 mg tablet Take 1 tablet by mouth. Active solifenacin (VESICARE) 10 mg tablet Take 10 mg by mouth once a day. 12/13/2021 Active lamoTRIgine (LaMICtal) 25 mg tablet Take 2 tablets (50 mg total) by mouth 2 times a day. 180 tablet 3 01/30/2022 Active Active Problems Problem Noted Date Diagnosed Date Postherpetic neuralgia 12/20/2021 Social History Tobacco Use Types Packs/Day Years Used Date Smoking Tobacco: Never Smokeless Tobacco: Never Alcohol Use Standard Drinks/Week Comments Never 0 (1 standard drink = 0.6 oz pur e alcohol) Sex and Gender Information Value Date Recorded Sex Assigned at Not on file Legal Sex Male 11:25 AM EDT Gender Identity Not on file Sexual Orientation Not on file Last Filed Vital Signs Vital Sign Reading Time Taken Comments Blood Pressure 146/84 12/20/2021 8:33 AM EDT Pulse 76 12/20/2021 8:33 AM EDT Temperature 36.4 ??C (97.5 ??F) 12/20/2021 8:33 AM ED T Respiratory Rate 16 12/20/2021 8:33 AM EDT Oxygen Saturation - - Inhaled Oxygen Concentration - - Weight 108.4 kg (239 lb) 12/20/2021 8:33 AM EDT Height 175.3 cm (5' 9 ) 12/20/2021 8:33 AM EDT Body Mass Index 35.29 12/20/2021 8:33 AM EDT Plan of Treatment Health Maintenance Due Date Last Done Comments DTaP,Tdap,and Td Vaccines (1 - Tdap) 1957 Pneumococcal Vaccine: 50+ Years (1 of 1 - PCV) 1986 RSV Vaccine (60+ years old and patients) (1 - 1-dose 75+ series) 2011 COVID-19 Vaccine ( season) 2024 11/26/2021, 04/26/2021, 09/10/2020, Additional history exists Influenza Vaccine (#1) 2024 , 03/30/2020, 06/07/2019 Alcohol/Substance Use Screening 07/21/2024 Depression Screening and Follow-Up 07/21/2024 Health Care Proxy Review 07/21/2024 Social Drivers of Health Annual Screening 07/21/2024 Zoster Vaccines Completed 11/12/2021, 08/21/2021 Hepatitis B Vaccines Aged Out No long er eligible based on patient's age to complete this topic Insurance BCBS MCR REPLACE PPO Care Teams National Van Owner Operator Relationship Specialty Start Date End Date Dannie Cosyb [address] [place] [address] PCP - General 10/10/21
--- OUTSIDE RECORDS SUMMARY | 2024-09-09 14:55 | XMS_ITS | Clinical Summary ---
Author Organization [facility] Address [address] [place] [address] Care Team Providers Care Fire Production Operator Name Role Phone Unavailable Primary Care Provider Unavailabl e Allergies Active Allergy Reactions Criticality Noted Date Comments Gabapentin 01/18/2021 Other reaction(s): Other (see comments) mouth/lips edema mouth/lips edema Pregabalin 07/28/2023 Medications Xarelto 20 MG tablet TAKE 1 TABLET BY MOUTH EVERY DAY WITH EVENING MEAL 06/06/2023 Active terazosin (Hytrin) 5 MG capsule TAKE 1 CAPSULE BY MOUTH EVERYDAY AT BEDTIME 07/22/2023 Active tamsulosin (Flomax) 0.4 MG 24 hr capsule TAKE 1 CAPSULE BY MOUTH AT BEDTIME FOR 90 DAYS 06/10/2023 Active pantoprazole (ProtoNix) 40 MG EC tablet Take 40 mg by mouth in the morning. 01/28/2023 Active metoprolol tartrate (Lopressor) 50 MG tablet Take 50 mg by mouth 2 times daily. 05/12/2023 Active levoFLOXacin (Levaquin) 500 MG tablet Take 1 tablet by mouth in the morning. 12/05/2022 Active finasteride (Proscar) 5 MG tablet 05/30/2023 Active famotidine (Pepcid) 20 MG tablet Take 20 mg by mouth in the morning. 07/09/2023 Active ezetimibe (Zetia) 10 MG tablet Take 10 mg by mouth in the morning. 05/09/2023 Active DULoxetine (Cymbalta) [address] capsule TAKE 1 CAPSULE BY MOUTH TWICE A DAY FOR 90 DAYS 04/04/2023 Active docusate sodium (Colace) 100 MG capsule TAKE 1 CAPSULE BY MOUTH EVERYDAY AT BEDTIME 06/10/2023 Active cholecalciferol (Vitamin D-3) 50 MCG (1999 UT) tablet Take 2,000 Units by mouth. 11/28/2022 Active aspirin 81 MG EC tablet Take 1 tablet by mouth. Active atorvastatin (Lipitor) 40 MG tablet 05/28/2023 Active Active Problems No known active problems Encounters Date Type Department Care Team Description 06/23/2024 9:30 AM EST Office Visit [facility] [address] [place] [address] Ayush Mcdonald 06/16/2024 1:30 PM EST Office Visit [facility] [address] [place] [address] HarryJosie hillsricio from Last 3 Months Social History Tobacco Use Types Packs/Day Years Used Date Smoking Tobacco: Never Smokeless Tobacco: Never Alcohol Use Standard Drinks/Week Comments Not Currently 0 (1 standard drink = 0.6 oz pur e alcohol) Sex and Gender Information Value Date Recorded Sex Assigned at Male 07/10/2023 11:14 AM EST Legal Sex Male 11:06 AM EST Gender Identity Male 07/10/2023 11:14 AM EST Sexual Orientation Straight 07/10/2023 11 :14 AM EST Last Filed Vital Signs Vital Sign Reading Time Taken Comments Blood Pressure 140/65 02/11/2024 9:49 AM EDT Pulse - - Temperature - - Respiratory Rate - - Oxygen Saturation - - Inhaled Oxygen Concentration - - Weight - - Height - - Body Mass Index - - Plan of Treatment Health Maintenance Due Date Last Done Comments Dental Oral Exam 1936 Dental Prophylaxis 1936 Dental X-Ray: Bitewings 1936 Depression Screening 1936 Lipid Panel 1936 SDOH Screening 1936 Alcohol/Substance Use Screening 1948 Pneumococcal Vaccine: 50+ Years (1 of 1 - PCV) 1986 RSV Patients and Patients Aged 60 years or older (1 - 1-dose 75+ series) 2011 Tobacco Screening 06/16/2025 06/16/2024 Dental X-Ray: Full Mouth 10/22/2026 10/22/2023 DTaP/Tdap/Td Vaccines (2 - Td or Tdap) 06/10/2034 06/10/2024 Zoster Vaccines Completed 11/12/2021, 08/21/2021 COVID-19 Vaccine Completed 04/12/2024, 04/2023, 05/08/2022, Additional history exists Influenza Vaccine Completed 04/12/2024, , 05/17/2022, Additional history exists HIB Vaccines Aged Out No longer eligi ble based on patient's age to complete this topic HPV Vaccines Aged Out No longer eligi ble based on patient's age to complete this topic Hepatitis A Vaccines Aged Out No long er eligible based on patient's age to complete this topic Hepatitis B Vaccines Aged Out No long er eligible based on patient's age to complete this topic IPV Vaccines Aged Out No longer eligi ble based on patient's age to complete this topic Meningococcal Vaccine Aged Out No kamari horacio eligible based on patient's age to complete this topic RSV under 20 months Aged Out No longe r eligible based on patient's age to complete this topic Rotavirus Vaccines Aged Out No longer eligible based on patient's age to complete this topic Procedures Procedure Name Priority Date/Time Associated Diagnosis Comments DENTURE FOLLOWUP Routine 06/23/2024 9:30 AM EST DENTURE ADJUSTMENT Routine 06/16/2024 1: 30 PM EST PANORAMIC RADIOGRAPHIC IMAGE Routine 10/22/2023 10:00 AM EDT from Last 3 Months or Most Recently Relevant to Health Maintenance Insurance DENTAL - N FULL (MEDICAID) DENTAL [facility] [place] [id number]
--- OUTSIDE RECORDS SUMMARY | 2024-09-09 14:55 | XMS_ITS | Clinical Summary ---
Author Organization [facility] Address [address] [place] [address] Phone Care Team Providers Care Recording Studio Intern Name Role Phone Dannie Cosby NP Primary Care Provider [phone] Allergies Active Allergy Reactions Criticality Noted Date Comments Gabapentin Other (see comments) 01/18/2021 Pregabalin Other (see comments) 01/18/2021 Medications aspirin (ST NAOMI) 81 MG EC tablet Take 1 tablet by mouth 1 (one) time each day Active atorvastatin (LIPITOR) 40 MG tablet Take 1 tablet by mouth 1 (one) time each day Active ezetimibe (ZETIA) 10 MG tablet Take 1 tablet by mouth 1 (one) time each day Active LORazepam (ATIVAN) 0.5 MG tablet Take 1 tablet by mouth if needed Active metoprolol tartrate (LOPRESSOR) 50 MG tablet Take 1 tablet by mouth 2 (two) times a day Active rivaroxaban (XARELTO) 20 MG tablet Take 1 tablet by mouth 1 (one) time each day Active DULoxetine (CYMBALTA) [address] capsule Take 30 mg by mouth 2 (two) times a day 12/20/2020 Active cholecalciferol (VITAMIN D-3) 50 MCG (1999) tablet Take 2,000 Units by mouth 1 (one) time each day 11/28/2022 Active amitriptyline (ELAVIL) 10 MG tablet Take 10 mg by mouth every night 09/14/2022 Active Active Problems Problem Noted Date Diagnosed Date Aortic valve stenosis 05/29/2022 Atrial fibrillation 05/29/2022 Overview (05/29/2022): cardioversion in 2014 Benign prostatic hyperplasia 05/29/2022 Cardiac murmur 05/29/2022 Cataract extraction status 05/29/2022 Cervical arthritis 05/29/2022 Claustrophobia 05/29/2022 Coronary arteriosclerosis 05/29/2022 Overview (05/29/2022): History of stent placement Costal chondritis 05/29/2022 Dyspnea on exertion 05/29/2022 Gastroesophageal reflux disease 05/29/2022 Gout 05/29/2022 High risk drug monitoring status 05/29/2022 History of coronary artery bypass grafting 05/29 Low back pain 05/29/2022 Obesity 05/29/2022 Old myocardial infarction 05/29/2022 Osteoarthritis 05/29/2022 Pain in lower limb 05/29/2022 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 Spinal stenosis of lumbar region 05/29/2022 Herpes zoster 12/20/2021 Overview (05/29/2022): History of Hypertension 01/24/2021 Stage 3a chronic kidney disease 01/24/2021 Blood chemistry outside reference range 01/19/20 21 Chronic kidney disease stage 3 01/18/2021 Hypertensive renal disease 01/18/2021 Family History Relation Status Comments Father Mother Social History Tobacco Use Types Packs/Day Years Used Date Smoking Tobacco: Never Smokeless Tobacco: Never Tobacco Cessation:Counseling Given: Not Answered Alcohol Use Standard Drinks/Week Comments No 0 (1 standard drink = 0.6 oz pur e alcohol) Sex and Gender Information Value Date Recorded Sex Assigned at Not on file Legal Sex Male 4:56 PM EST Gender Identity Not on file Sexual Orientation Not on file Last Filed Vital Signs Vital Sign Reading Time Taken Comments Blood Pressure 120/70 12/04/2022 1:43 PM EDT Pulse 64 12/04/2022 1:43 PM EDT Temperature - - Respiratory Rate - - Oxygen Saturation 99% 08/15/2021 2:07 PM EST Inhaled Oxygen Concentration - - Weight 106 kg (234 lb) 12/04/2022 1:43 PM EDT Height - - Body Mass Index - - Plan of Treatment Health Maintenance Due Date Last Done Comments Pneumococcal Vaccine: 65+ Ye ars (1 of 2 - PCV) 1942 Influenza Vaccine (#1) 2024 Hepatitis B Vaccine Aged Out No longe r eligible based on patient's age to complete this topic Insurance Care Teams Recording Studio Intern Relationship Specialty Start Date End Date Dannie Cosby [place] [address] PCP - General 07/31/20
--- OUTSIDE RECORDS SUMMARY | 2024-09-09 14:55 | XMS_ITS | Referral Summary ---
Author Organization [facility] Address [address] [place] [address] Care Team Providers Care Legislators Name Role Phone Dannie Cosby Primary Care Provider [phone] Allergies Active Allergy Reactions Criticality Noted Date [...] 12/20/2021 8:33 AM EDT Plan of Treatment Not on file Insurance [facility] MCR REPLACE PPO Care Teams Legislators Relationship Specialty Start Date End Date Dannie Cosby [address] [place] [address] PCP - General 10/10/21
--- OUTSIDE RECORDS SUMMARY | 2024-09-09 14:55 | XMS_ITS | Encounter Summary ---
Author Organization [facility] Address [address] [place] [address] Care Team Providers Care Medical Office Rep Name Role Phone Dannie Cosby Primary Care Provider [phone]- [phone] Reason for Visit * Reason Onset Date Comments Appointment 10/22/2021 Encounter Details Date Type Department Care Team (Late st Contact Info) Description 10/22/2021 Telephone [facility] Central Scheduling Department [address] [place] [address] Telephone Intake, Staff Appointment Social History Tobacco Use Types Packs/Day Years Used Date Smoking Tobacco: Never Assessed Sex and Gender Information Value Date Recorded Sex Assigned at Not on file Legal Sex Male 11:25 AM EDT Gender Identity Not on file Sexual Orientation Not on file documented as of this encounter Miscellaneous Notes * Telephone Encounter - Hortencia Jones - 10/22/2021 9:21 AM EDT Xiomara from [facility] Referrals scheduling new pt Neurology appt re trigeminal neuralgia Per DT, scheduled 10/[address] Edward Solorio at [facility] documented in this encounter Plan of Treatment Not on file documented as of this encounter Visit Diagnoses Not on filedocumented in this encounter Care Teams Medical Office Rep Relationship Specialty Start Date End Date Dannie Cosby [address] [place] [address] PCP - General 10/10/21 documented as of this encounter
--- OUTSIDE RECORDS SUMMARY | 2024-09-09 14:55 | XMS_ITS | Encounter Summary ---
Author Organization [facility] Address [address] [place] [address] Care Team Providers Care Biomedical Photographer Name Role Phone Dannie Cosby Primary Care Provider [phone] Encounter Details Date Type Department Care Team (Late st Contact Info) Description 10/15/2021 Telephone [facility] Neurology Clinic [address] [place] [address] Telephone Intake, Staff Social History Tobacco Use Types Packs/Day Years Used Date Smoking Tobacco: Never Assessed Sex and Gender Information Value Date Recorded Sex Assigned at Not on file Legal Sex Male 11:25 AM EDT Gender Identity Not on file Sexual Orientation Not on file documented as of this encounter Miscellaneous Notes * Telephone Encounter - Barby Velazquez - 10/18/2021 10:12 AM EDT Spoke w/ Xiomara Let her know pw is in pt chart And they will call to schedule Message sent to wrong dept * Telephone Encounter - Rashmi Allred - 10/15/2021 10:25 AM EDT Spoke to Pat at front; Xiomara is re faxing 36 page paperwork again (3rd time). pls call Xiomara when received to schedule. [phone] documented in this encounter Plan of Treatment Not on file documented as of this encounter Visit Diagnoses Not on filedocumented in this encounter Care Teams Biomedical Photographer Relationship Specialty Start Date End Date Dannie Cosby [address] [place] [address] PCP - General 10/10/21 documented as of this encounter
--- OUTSIDE RECORDS SUMMARY | 2024-09-09 14:55 | XMS_ITS | Encounter Summary ---
Author Organization [facility] Address [address] [place] [id number] Care Team Providers Care Ornamental Iron Erector Name Role Phone Dannie Cosby Primary Care Provider [phone]- [phone] Reason for Visit * Reason Onset Date Comments Urgent Referral 10/10/2021 Encounter Details Date Type Department Care Team (Late st Contact Info) Description 10/10/2021 Telephone [facility] Neurology Clinic [address] [place] [address] Telephone Intake, Staff Urgent Referral Social History Tobacco Use Types Packs/Day Years Used Date Smoking Tobacco: Never Assessed Sex and Gender Information Value Date Recorded Sex Assigned at Not on file Legal Sex Male 11:25 AM EDT Gender Identity Not on file Sexual Orientation Not on file documented as of this encounter Miscellaneous Notes * Telephone Encounter - Maryellen Hough - 10/10/2021 11:34 AM EDT Xiomara from [facility] is calling to schedule an Urgent appointment. [facility] will fax over a referral today for Trigeminal Neurologia. [facility] can be reached at [phone]. documented in this encounter Plan of Treatment Not on file documented as of this encounter Visit Diagnoses Not on filedocumented in this encounter Care Teams Ornamental Iron Erector Relationship Specialty Start Date End Date Dannie Cosby [address] [place] [address] PCP - General 10/10/21 documented as of this encounter
== END 2024-09-09 16:06 | disposition home or self-care (01) ==
PROVIDERS: PCP Nurse Practitioner Family; Visit Provider Nurse Practitioner Family
DX: J98.8 Other specified respiratory disorders (principal); R06.00 Dyspnea, unspecified; E11.9 Type 2 diabetes mellitus without complications

== ENCOUNTER 2024-09-09 13:52 | Outpatient (REF) | payer MEDICARE, SELFPAY ==
--- NOTE | ~2024-09-09 | XR_ITS ---
CLINICAL HISTORY: J98.8 - Other specified respiratory disorders 2 view chest x-ray Comparison: None Findings: Possible focus of airspace filling within the inferomedial right lung. The left lung is clear. There is no pleural effusion. Mildly enlarged heart. Cardiac pacemaker present. Prior sternotomy. Prior TAVR. No acute fracture. IMPRESSION: Possible focus of atelectasis or infiltrate within the inferomedial right lung. This document has been electronically signed by: Starr Mera MD on 09/10/2024 13:51:30
--- OUTSIDE RECORDS SUMMARY | 2024-09-09 16:46 | XMS_ITS | Clinical Summary ---
Author Organization [facility] Address [address] [place] [address] Care Team Providers Care Charge Auditor Name Role Phone Dannie Cosby Primary Care Provider [phone]- [phone] Allergies Active Allergy Reactions Criticality Noted Date [...] Insurance BCBS MCR REPLACE PPO Care Teams Charge Auditor Relationship Specialty Start Date End Date Dannie Cosby [address] [place] [address] PCP - General 10/10/21
--- OUTSIDE RECORDS SUMMARY | 2024-09-09 16:46 | XMS_ITS | Encounter Summary ---
Author Organization [facility] Address [address] [place] [address] Care Team Providers Care Alternative Medicine Practitioner Name Role Phone Dannie Cosby Primary Care Provider [phone]- [phone] Reason for Visit * Reason Onset Date Comments Appointment 10/22/2021 Encounter Details Date Type Department Care Team (Late st Contact Info) Description 10/22/2021 Telephone [facility] Central Scheduling Department [address] [place] [address] Telephone Intake, Staff Appointment Social History Tobacco [...] - 10/22/2021 9:21 AM EDT Xiomara from [facility] Referrals scheduling new pt Neurology appt re trigeminal neuralgia Per DT, scheduled 10/[address] Edward Solorio at [facility] documented in this encounter Plan of Treatment Not on file documented as of this encounter Visit Diagnoses Not on filedocumented in this encounter Care Teams Alternative Medicine Practitioner Relationship Specialty Start Date End Date Dannie Cosby [address] [place] [address] PCP - General 10/10/21 documented as of this encounter
--- OUTSIDE RECORDS SUMMARY | 2024-09-09 16:46 | XMS_ITS | Referral Summary ---
Author Organization [facility] Address [address] [place] [address] Care Team Providers Care Tool Engineer Name Role Phone Dannie Cosby Primary Care Provider [phone]- [phone] Allergies Active Allergy Reactions Criticality Noted Date [...] Plan of Treatment Not on file Insurance [facility] MCR REPLACE PPO Care Teams Tool Engineer Relationship Specialty Start Date End Date Dannie Cosby [address] [place] [address] PCP - General 10/10/21
--- OUTSIDE RECORDS SUMMARY | 2024-09-09 16:46 | XMS_ITS | Clinical Summary ---
Author Organization [facility] Address [address] [facility] [address] [place] [address] Care Team Providers Care Napping Machine Operator Name Role Phone Unavailable Primary Care [...] Description 06/23/2024 9:30 AM EST Office Visit [facility] [address] [place] [address] Ayush Mcdonald 06/16/2024 1:30 PM EST Office Visit [facility] [address] [place] [address] HarryJosie hillsricio from Last 3 Months Social [...] Insurance DENTAL - N FULL (MEDICAID) DENTAL [facility] [place]FIA [id number]
--- OUTSIDE RECORDS SUMMARY | 2024-09-09 16:46 | XMS_ITS | Clinical Summary ---
Author Organization [facility] Address [address] [place] [address] Phone Care Team Providers Care Manager Social Responsibility Name Role Phone Dannie Cosby NP Primary Care Provider [phone] Allergies Active Allergy Reactions Criticality Noted Date [...] to complete this topic Insurance Care Teams Manager Social Responsibility Relationship Specialty Start Date End Date Dannie Cosby NP [facility] [place] [address] PCP - General 07/31/20
--- OUTSIDE RECORDS SUMMARY | 2024-09-09 16:46 | XMS_ITS | Encounter Summary ---
Author Organization [facility] Address [address] [place] [address] Care Team Providers Care Nutritional Yeast Supervisor Name Role Phone Dannie Cosby Primary Care Provider Encounter Details Date Type Department Care Team (Late st Contact Info) Description 10/15/2021 Telephone [facility] Neurology Clinic [address] [place] [address] Telephone Intake, Staff Social History Tobacco [...] pls call Xiomara when received to schedule. [phone] documented in this encounter Plan of Treatment Not on file documented as of this encounter Visit Diagnoses Not on filedocumented in this encounter Care Teams Nutritional Yeast Supervisor Relationship Specialty Start Date End Date Dannie Cosby [address] [place] [address] PCP - General 10/10/21 documented as of this encounter
--- OUTSIDE RECORDS SUMMARY | 2024-09-09 16:46 | XMS_ITS | Encounter Summary ---
Author Organization [facility] Address [address] [id number] Care Team Providers Care Genetic Technologist Name Role Phone Dannie Cosby Primary Care Provider [phone] Reason for Visit * Reason Onset Date Comments Urgent Referral 10/10/2021 Encounter Details Date Type Department Care Team (Late st Contact Info) Description 10/10/2021 Telephone [facility] Neurology Clinic [address] [place] [address] Telephone Intake, Staff Urgent Referral Social [...] - 10/10/2021 11:34 AM EDT Xiomara from [facility] is calling to schedule an Urgent appointment. [facility] will fax over a referral today for Trigeminal Neurologia. [facility] can be reached at [phone]. documented in this encounter Plan of Treatment Not on file documented as of this encounter Visit Diagnoses Not on filedocumented in this encounter Care Teams Genetic Technologist Relationship Specialty Start Date End Date Dannie Cosby [address] [place] [address] PCP - General 10/10/21 documented as of this encounter
== END 2024-09-09 13:53 | disposition home or self-care (01) ==
LOC: HO.HMGCX 13:52
PROVIDERS: PCP Nurse Practitioner Family; Visit Provider Nurse Practitioner Family
DX: J98.8 Other specified respiratory disorders (principal); R06.00 Dyspnea, unspecified; E11.9 Type 2 diabetes mellitus without complications
CPT/HCPCS: 71046; 83036; 96127; 99212

== ENCOUNTER → 2024-09-09 16:06 | Outpatient (BNV) | payer MEDICARE, SELFPAY | PROVIDERS: PCP Nurse Practitioner Family; Visit Provider Radiology Diagnostic Radiology | DX: J98.8 Other specified respiratory disorders (principal) | CPT/HCPCS: 71046 ==

== ENCOUNTER 2024-09-29 13:11 | Outpatient (AMB) | payer MEDICARE, SELFPAY ==
[2024-09-29 13:31] VITALS: BP 122/68; PULSE 65; O2SAT 98; BMI 33.5
--- NOTE | 2024-09-29 13:31 | A.OFFVIS_ITS ---
Vital Signs 09/29/24 13:31 Height 5 ft 9 in Weight 227 lb BMI 33.5 BP 122/68 Blood Pressure Location Lt brachial Position Sitting Pulse 65 Pulse Source Pulse Oximeter Pulse Oximetry (%) 98 Oxygen Delivery Method Room Air Intake Visit Reasons: Pneumonia Intake Note: pt is here as a new patient, he is coughing all the time, when taking deep breaths he gets a pain, had 2 episodes of a feeling like he has an egg in his throat that makes him feel like he cannot breath. Roll Handler Required: No Allergies lamotrigine [From Lamictal] Allergy (Intermediate, Verified 09/29/24 14:04) swelling gabapentin Allergy (Unknown, Verified 09/29/24 14:04) lip swelling pregabalin [From Lyrica] Allergy (Unknown, Verified 09/29/24 14:04) lip swelling Medication List - Last Reconciled 09/29/24 by Juan R Jones MD aspirin (Adult Aspirin Regimen) 81 mg PO DAILY atorvastatin 40 mg PO DAILY blood sugar diagnostic (GradFly Ultra Test strips) Check blood sugar once a day blood-glucose meter (GradFly Ultra2 Meter) Check fasting blood sugar and a random blood sugar daily. cholecalciferol (vitamin D3) 50 mcg PO DAILY docusate sodium 100 mg PO BEDTIME duloxetine 30 mg PO BID 90 days empagliflozin 25 mg PO DAILY ezetimibe 10 mg PO DAILY hydrocortisone 2.5% (Proctosol HC) 1 appl [place] BID-QID PRN lancets (Mobiveiluch Delica Safety Lancet) Check blood sugar once a day metoprolol tartrate 50 mg PO BID rivaroxaban (Xarelto) 20 mg PO DAILY 90 days solifenacin (Vesicare) 5 mg PO DAILY 90 days terazosin 5 mg PO BEDTIME 90 days Do you need a note to return to daycare/school/sports/work: No HPI HPI Pneumonia: Details: Rickie is who is now 89 years old gentleman, has been under my care in the past. He never had any chronic pulmonary disorder. Lately he has had feeling of some mucus in the throat which makes him cough, this is worse after eating , especially after breakfast. In the past few weeks this has become little bit worse than before, and it effects his breathing, as if the air is not going in his lungs. He hacks up some mucus and feels better. Also it clears up with sips of water. Chest x-ray shows nonspecific densities in right mid lung field. So patient has been referred for pulmonary evaluation. As I have mentioned above he has no history of chronic recurrent cough, asthma or COPD. He does not smoke. He has had open heart surgery and CABG in the past. He has chronic pain in the right side of the head and face from trigeminal neuralgia. [facility] Medical History (Updated 09/29/24 @ 14:20 by Juan R Jones MD) Pulmonary nodules Cough Hx of sigmoidoscopy Frequent falls Urinary frequency History of claustrophobia History of shingles On anticoagulant therapy On beta diana at home Dyslipidemia Gout Spinal stenosis of lumbar region Atrial fibrillation CKD (chronic kidney disease) Elevated PSA Aortic stenosis CAD (coronary artery disease) Right facial pain Trigeminal neuralgia Post herpetic neuralgia Surgical History H/O aortic valve replacement Status post lens implant History of fracture of leg History of laparoscopic cholecystectomy History of aortic valve replacement History of heart bypass surgery Pacemaker Family History Father No problems noted. Mother No problems noted. Social History Household Members: None Housing: House Are you a primary career services officer to a significant other at home: No Do you presently have visiting nurse or other home services: No Alcohol intake: never Patient Tobacco Use Status: Never used Tobacco e-Cigarette/Vaping Use: Never Used Second Hand Smoke Exposure: No service: Yes Current occupational status: unemployed and retired Current occupational exposures/hazards: No Cognitive needs: No Hearing needs: No Vision needs: No Review of Systems Const All systems reviewed & are unremarkable except as noted in HPI and below Eyes Reports no additional complaints ENT Reports dry mouth (Frequent.) Card Denies irregular heart rhythm and Denies leg edema Resp Reports as per HPI GI Reports no additional complaints Reports nocturia Musc Reports back pain (Chronic) Skin/Breast Reports system reviewed and no additional complaints, except as documented Neuro Reports other (Right-sided trigeminal neuralgia) Psych Reports anxiety Endo Reports no additional complaints Getachew/Lymph Reports no additional complaints Physical Exam Vital Signs: Last Vital Signs Pulse 65 09/29/24 13:31 BP 122/68 09/29/24 13:31 Pulse Ox 98 09/29/24 13:31 Oxygen Delivery Method Room Air 09/29/24 13:31 BMI result Body Mass Index 33.5 Const General: healthy appearing, comfortable, no acute distress, alert and awake Orientation/consciousness: patient oriented x3 HEENT Head: Yes normal to inspection General nose exam: No nasal polyps present and No nasal discharge present Face and sinus: Yes sinuses nontender Mouth: oropharynx normal Throat: Yes posterior oropharynx normal Eyes General: appearance normal, both eyes and all related structures Neck Neck: Yes normal visual inspection, Yes no lymphadenopathy, Yes trachea midline and Yes no JVD Thyroid: Thyroid normal Chest Chest palpation & inspection: normal inspection of the chest, normal palpation of entire chest wall and no tenderness Resp Effort & Inspection: normal respiratory effort Auscultation: clear to auscultation bilaterally, no crackles, no rales and no wheezes Cardio Palpation: normal PMI Rate: regular rate Rhythm: regular rhythm Heart sounds: no gallops and no murmurs GI Palpation (GI): Soft to palpation, nontender, No hepatosplenomegaly present and no masses Auscultation: normal bowel sounds Back/Spine/Pelvis Thoracic/Lumbar Spine: thoracic and lumbar spine normal to inspection and thoraco-lumbar ROM limited Skin General skin exam: no rashes or lesions noted Neuro General: patient oriented x3 and no focal motor deficits Cranial nerves: Yes CN's II-XII intact bilaterally Extrem General: Yes normal to inspection, Yes no clubbing, cyanosis or edema and Yes no calf tenderness Psych Appearance: grossly normal and well kempt Speech and movement: Normal speech and movement present Results Reviewed Results Reviewed: CHEST XRAY 2 IMPRESSION: Possible focus of atelectasis or infiltrate within the inferomedial right lung. This document has been electronically signed by: Starr Mera MD on We compared this finding with a chest x-ray that he had in 2020, and there were nonspecific densities in the right mid lung field even at that time. 09/10/2024 13:51:30 Assessment & Plan Assessment & Plan (1) Cough: Comment: He describes having cough, as a result of dry mouth and also feeling of some material in his mouth that he can not clear. This is going on for a few weeks. Code(s): R05.9 - Cough, unspecified Category: Medical Plan: Advised to be careful when he eats, .to avoid any aspirations Advised to take sips of water more frequently. There is no need of any cough medicine. (2) Wheezing: Comment: Associated with periods of cough he also feels as if he has some tightness in th e chest. He has no audible wheezes. This also clears up with taking sips of water. Code(s): R06.2 - Wheezing Category: Medical Plan: As above under cough. (3) Pulmonary nodules: Comment: Nonspecific type of densities in the right mid lung and lower lobe, most likely due to chronic fibrotic changes, could be granulomas Code(s): R91.8 - Other nonspecific abnormal finding of lung field Category: Medical Plan: To clarify the nature of these densities I think he should have a CT scan of the chest, to which he agrees. And the CT scan is being ordered. Plan ct scan of chest Orders: Orders CT chest wo IV con Today R05.9 - Cough, unspecified, R91.8 - Other nonspecific abnormal finding of lung field Coding Level of Care Code Est Pt Level 4 (23996) Diagnoses Cough R05.9 Wheezing R06.2 Pulmonary nodules R91.8
--- OUTSIDE RECORDS SUMMARY | 2024-09-29 15:27 | XMS_ITS | Clinical Summary ---
Author Organization [facility] Address [address] [place] [address] Phone Care Team Providers Care Machine Etcher Name Role Phone Dannie Cosby NP Primary Care Provider [phone] Allergies Active Allergy Reactions Criticality Noted Date [...] to complete this topic Insurance Care Teams Machine Etcher Relationship Specialty Start Date End Date Dannie Cosby NP [facility] [place] [address] PCP - General 07/31/20
--- OUTSIDE RECORDS SUMMARY | 2024-09-29 15:27 | XMS_ITS | Clinical Summary ---
Author Organization [facility] Address [address] [place] [address] Care Team Providers Care Digital Circuit Designer Name Role Phone Dannie Cosby Primary Care Provider [phone] Allergies Active Allergy Reactions Criticality Noted Date [...] Insurance [employer]BS MCR REPLACE PPO Care Teams Digital Circuit Designer Relationship Specialty Start Date End Date Dnanie Cosby [address] [place] [address] PCP - General 10/10/21
--- OUTSIDE RECORDS SUMMARY | 2024-09-29 15:27 | XMS_ITS | Encounter Summary ---
Author Organization [facility] Address [address] [place] [address] Care Team Providers Care Instrument Technician Helper Name Role Phone Dannie Cosby Primary Care Provider Encounter Details Date Type Department Care Team (Late st Contact Info) Description 10/15/2021 Telephone [facility] Neurology Clinic [address] [place] [address] Telephone Intake, Staff Social History Tobacco [...] pls call Xiomara when received to schedule. [phone] documented in this encounter Plan of Treatment Not on file documented as of this encounter Visit Diagnoses Not on filedocumented in this encounter Care Teams Instrument Technician Helper Relationship Specialty Start Date End Date Dannie Cosby [address] [place] [address] PCP - General 10/10/21 documented as of this encounter
--- OUTSIDE RECORDS SUMMARY | 2024-09-29 15:27 | XMS_ITS | Encounter Summary ---
Author Organization [facility] Address [address] [address] Care Team Providers Care Home Service Director Name Role Phone Dannie Cosby Primary Care Provider [phone]- [phone] Reason for Visit * Reason Onset Date Comments Urgent Referral 10/10/2021 Encounter Details Date Type Department Care Team (Late st Contact Info) Description 10/10/2021 Telephone [facility] Neurology Clinic [address] [place] [address] Telephone Intake, Staff Urgent Referral Social [...] - 10/10/2021 11:34 AM EDT Xiomara from [facility] is calling to schedule an Urgent appointment. [facility] will fax over a referral today for Trigeminal Neurologia. [facility] can be reached at [phone]. documented in this encounter Plan of Treatment Not on file documented as of this encounter Visit Diagnoses Not on filedocumented in this encounter Care Teams Home Service Director Relationship Specialty Start Date End Date Dannie Cosby [address] [place] [address] PCP - General 10/10/21 documented as of this encounter
--- OUTSIDE RECORDS SUMMARY | 2024-09-29 15:27 | XMS_ITS | Clinical Summary ---
Author Organization [facility] Address [address] [facility] [address] [place] [address] Care Team Providers Care Co Founder And Director Name Role Phone Unavailable Primary Care Provider [...] Active Active Problems No known active problems Social History Tobacco Use Types Packs/Day Years [...] Procedure Name Priority Date/Time Associated Diagnosis Comments PANORAMIC RADIOGRAPHIC IMAGE Routine 10/22/2023 10:00 AM EDT from Last 3 Months or Most Recently Relevant to Health Maintenance Insurance DENTAL - N FULL (MEDICAID) DENTAL [facility]
--- OUTSIDE RECORDS SUMMARY | 2024-09-29 15:27 | XMS_ITS | Referral Summary ---
Author Organization [facility] Address [address] [place] [address] Care Team Providers Care Import Export Agent Name Role Phone Dannie Cosby Primary Care Provider [phone] Allergies Active Allergy Reactions Criticality Noted Date [...] Plan of Treatment Not on file Insurance [facility] MCR REPLACE PPO Care Teams Import Export Agent Relationship Specialty Start Date End Date Dannie Cosby [address] [place] [address] PCP - General 10/10/21
--- OUTSIDE RECORDS SUMMARY | 2024-09-29 15:27 | XMS_ITS ---
Author Organization [facility] on Care Team Providers Care Graphic Design Manager Name Role Phone Felicitas Bee Unavailable Unavailable Johanny Piña Unavailable Unavailable Pari Gaviria Unavailable Unavailable Luly Reed Unavailable Unavailable Yadi Ball Unavailable Unavailable Katrin Pratt Unavailable Unavailable Nirav Cintron Unavailable Unavailable Allergies and adverse reactions Code CodeSystem Substance Reaction Severity StartDate Concern Status 560874 RXNORM Pregabalin Unknown 02/12/2022 active 73250 RXNORM Gabapentin Unknown 02/12/2022 active Care Team Name Role Address Phone Organization Dates Pari Gaviria PCP [address] [place] [address], [address], [place] (Office): : [facility] 02/13/2022 - 02/25/2022 Felicitas Bee Attending Physician [address] [place], [address], [place] (Office): [phone] [facility] 02/13/2022 - 02/25/2022 Johanny Piña Attending Physician [address] [place], [address], [place] (Office): [facility] 02/13/2022 - 02/25/2022 Luly Reed Attending Physician [address] [place], [address], [place]Office): [facility] 02/13/2022 - 02/25/2022 Yadi Ball Attending Physician [address] [place], [address], [place]Office): [facility] 02/13/2022 - 02/25/2022 Katrin Pratt Attending Physician [address] [place], [address], [place]Office[place] : [facility] 02/13/2022 - 02/25/2022 Nirav Cintron Attending Physician [address] [place], [address], [place] (Office): : [facility] 02/13/2022 - 02/25/2022 Immunizations Immunization Status Vaccine Details Vaccine Code CodeSystem Oskar e Notes SARS-COV-2 (COVID-19) completed SARS-COV-2 (COVID-19) vaccine, mRNA, spike protein, LNP, preservative free, 30 mcg/0.3mL dose Mfg: [employer] Step 2 of Multi-step with next step required 208 CVX created date: 02/12/2022 administered date: 09/10/2020 SARS-COV-2 (COVID-19) completed SARS-COV-2 (COVID-19) vaccine, mRNA, spike protein, LNP, preservative free, 30 mcg/0.3mL dose Mfg: [employer] Step 1 of Multi-step with next step required 208 CVX created date: 02/12/2022 administered date: 08/21/2020 SARS-COV-2 (COVID-19 BOOSTER) completed SARS-COV-2 (COVID-19) vaccine, mRNA, spike protein, LNP, preservative free, 30 mcg/0.3mL dose Mfg: [employer] 208 CVX created date: 02/12/2022 administered date: 11/26/2021 SARS-COV-2 (COVID-19 BOOSTER) completed SARS-COV-2 (COVID-19) vaccine, mRNA, spike protein, LNP, preservative free, 30 mcg/0.3mL dose Mfg: [employer] 208 CVX created date: 02/12/2022 administered date: 04/26/2021 Mental Status Section Date Assessment Total Score Description 02/25/2022 BIMS 15 cognitively int act CAM 0 No delirium ind icated PHQ-9 07 mild depression 02/18/2022 BIMS 15 cognitively int act CAM 0 No delirium ind icated PHQ-9 07 mild depression Problems Problem # Description Date of onset Resolved Date Code CodeSystem Concern Status 1 CELLULITIS OF LEFT LOWER LIMB 02/19/[address] active 2 ATHEROSCLEROTIC HEART DISEASE OF [place] CORONARY ARTERY WITHOUT ANGINA PECTORIS 02/13/[address] active 3 CHRONIC KIDNEY DISEASE, UNSPECIFIED 02/13/[address] active 4 OTHER POSTHERPETIC NERVOUS SYSTEM INVOLVEMENT 02/13/[address] active 5 PAROXYSMAL ATRIAL FIBRILLATION 02/13/[address] active 6 RHABDOMYOLYSIS 02/13/[address] active 7 THROMBOCYTOPENIA, UNSPECIFIED 02/13/[address] active Reason for Referral No Reasons for Referral Entered Social History Social History Observation Description Start Date End Date Code Code System Current Smoking Status Tobacco smoking consumption unknown 5195620[address] SNOM[address] Sex Assigned At Male 1935 46768-7 [facility] Vital Signs Code Code System Vitals Name Values and Units Timing Information 26636-1 LOINC Pain Level Value=0.0 02/25/2022 9279-1 LOINC Respiratory Rate Value=18.0 Units=/m in 02/25/2022 8462-4 LOINC Blood Pressure-Diastolic Value=92 Un its=mmHg 02/25/2022 8480-6 LOINC Blood Pressure-Systolic Fqhnz=237 Un its=mmHg 02/25/2022 8310-5 LOINC Body Temperature Value=97.8 Units=?? F 02/25/2022 8867-4 LOINC Heart rate Value=78.0 Units=/min 02/2022 47667-4 [facility] O2 % BldC Oximetry Value=98.0 Units= % 02/25/2022 24312-7 [facility] Weight Bdaef=749.5 Units=Lbs 8302-2 [facility] Height Value=69.0 Units=Inches 02/13/2022
--- OUTSIDE RECORDS SUMMARY | 2024-09-29 15:27 | XMS_ITS | Encounter Summary ---
Author Organization [facility] Address [address] [place] [address] Care Team Providers Care Computer Systems Support Specialist Name Role Phone Dannie Cosby Primary Care Provider [phone]- [phone] Reason for Visit * Reason Onset Date Comments Appointment 10/22/2021 Encounter Details Date Type Department Care Team (Late st Contact Info) Description 10/22/2021 Telephone [facility] Central Scheduling Department [address] [place] [address] Telephone Intake, Staff Appointment Social History Tobacco [...] - 10/22/2021 9:21 AM EDT Xiomara from [facility] Referrals scheduling new pt Neurology appt re trigeminal neuralgia Per DT, scheduled 10/[address] Edward Solorio at [facility] documented in this encounter Plan of Treatment Not on file documented as of this encounter Visit Diagnoses Not on filedocumented in this encounter Care Teams Computer Systems Support Specialist Relationship Specialty Start Date End Date Dannie Cosby [address] [place] [address] PCP - General 10/10/21 documented as of this encounter
== END 2024-09-29 14:09 | disposition home or self-care (01) ==
PROVIDERS: PCP Nurse Practitioner Family; Visit Provider Internal Medicine
DX: R05.9 Cough, unspecified (principal); R06.2 Wheezing; R91.8 Other nonspecific abnormal finding of lung field
CPT/HCPCS: 99214

== ENCOUNTER → 2024-09-29 13:11 | Outpatient (BNVA) | payer MEDICARE, SELFPAY | PROVIDERS: PCP Nurse Practitioner Family; Visit Provider Internal Medicine | DX: R05.9 Cough, unspecified (principal); R06.2 Wheezing; R91.8 Other nonspecific abnormal finding of lung field | CPT/HCPCS: 99212 ==

== ENCOUNTER 2024-10-26 13:05 | Outpatient (REF) | payer MEDICARE, SELFPAY ==
--- OUTSIDE RECORDS SUMMARY | 2024-10-26 15:54 | XMS_ITS | Encounter Summary ---
Author Organization [facility] Address [address] [place] [id number] Care Team Providers Care Customer Assistant Name Role Phone Dannie Cosby Primary Care Provider [phone]- [phone] Reason for Visit * Reason Onset Date Comments Urgent Referral 10/10/2021 Encounter Details Date Type Department Care Team (Late st Contact Info) Description 10/10/2021 Telephone [facility] [address] [place] [address] Telephone Intake, Staff Urgent Referral Social History Tobacco Use Types Packs/Day Years Used Date Smoking Tobacco: Never Assessed Sex and Gender Information Value Date Recorded Sex Assigned at Not on file Legal Sex Male 11:25 AM EDT Gender Identity Not on file Sexual Orientation Not on file documented as of this encounter Miscellaneous Notes * Telephone Encounter - Maryellen Houhg - 10/10/2021 11:34 AM EDT Xiomara from [facility] is calling to schedule an Urgent appointment. [facility] will fax over a referral today for Trigeminal Neurologia. [facility] can be reached at [phone]. documented in this encounter Plan of Treatment Not on file documented as of this encounter Visit Diagnoses Not on filedocumented in this encounter Care Teams Customer Assistant Relationship Specialty Start Date End Date Dannie Cosby [address] [place] [address] PCP - General 10/10/21 documented as of this encounter
--- OUTSIDE RECORDS SUMMARY | 2024-10-26 15:54 | XMS_ITS | Clinical Summary ---
Author Organization [facility] Address [address] [facility] [address] [place] [address] Care Team Providers Care Cattyman Name Role Phone Unavailable Primary Care Provider [...] Relevant to Health Maintenance Insurance DENTAL - HSN FULL (MEDICAID) DENTAL [facility]
--- OUTSIDE RECORDS SUMMARY | 2024-10-26 15:54 | XMS_ITS | Encounter Summary ---
Author Organization [facility] Address [address] [place] [address] Care Team Providers Care Handbag Parts Cutter Name Role Phone Dannie Cosby Primary Care Provider [phone]- [phone] Reason for Visit * Reason Onset Date Comments Appointment 10/22/2021 Encounter Details Date Type Department Care Team (Late st Contact Info) Description 10/22/2021 Telephone [facility] Central Scheduling Department [address] [place] [address] Telephone Intake, Staff Appointment Social History Tobacco [...] - 10/22/2021 9:21 AM EDT Xiomara from [facility] Referrals scheduling new pt Neurology appt re trigeminal neuralgia Per DT, scheduled 10/[address] Edward Solorio at [facility] documented in this encounter Plan of Treatment Not on file documented as of this encounter Visit Diagnoses Not on filedocumented in this encounter Care Teams Handbag Parts Cutter Relationship Specialty Start Date End Date Dnanie Cosby [address] [place] [address] PCP - General 10/10/21 documented as of this encounter
--- OUTSIDE RECORDS SUMMARY | 2024-10-26 15:54 | XMS_ITS | Encounter Summary ---
Author Organization [facility] Address [address] [place] [address] Care Team Providers Care Plastics Design Engineer Name Role Phone Dannie Cosby Primary Care Provider Encounter Details Date Type Department Care Team (Late st Contact Info) Description 10/15/2021 Telephone [facility] [address] [place] [address] Telephone Intake, Staff Social History Tobacco [...] pls call Xiomara when received to schedule. [phone] documented in this encounter Plan of Treatment Not on file documented as of this encounter Visit Diagnoses Not on filedocumented in this encounter Care Teams Plastics Design Engineer Relationship Specialty Start Date End Date Dannie Cosby [address] [place] [address] PCP - General 10/10/21 documented as of this encounter
--- OUTSIDE RECORDS SUMMARY | 2024-10-26 15:54 | XMS_ITS | Clinical Summary ---
Author Organization [facility] Address [address] [place] [address] Care Team Providers Care Burglar Alarm Superintendent Name Role Phone Dannie Cosby Primary Care Provider +- [phone] Allergies Active Allergy Reactions Criticality Noted Date [...] 2024 11/26/2021, 04/26/2021, 09/10/2020, Additional history exists Alcohol/Substance Use Screening 07/21/2024 Depression Screening and Follow-Up 07/21/2024 Health Care Proxy Review 07/21/2024 Social Drivers of Health Annual Screening 07/21/2024 Influenza Vaccine (Season Ended) 2025 05/18/2021, 03/30/2020, 06/07/2019 Zoster Vaccines Completed 11/12/2021, 08/21/2021 Hepatitis B Vaccines Aged Out No long er eligible based on patient's age to complete this topic Insurance BCBS MCR REPLACE PPO Care Teams Burglar Alarm Superintendent Relationship Specialty Start Date End Date Dannie Cobsy [address] [place] [address] PCP - General 10/10/21
--- OUTSIDE RECORDS SUMMARY | 2024-10-26 15:54 | XMS_ITS | Referral Summary ---
Author Organization [facility] Address [address] [place] [address] Care Team Providers Care Vertical Punch Operator Name Role Phone Dannie Cosby Primary Care Provider +1- [phone] Allergies Active Allergy Reactions Criticality Noted Date [...] Plan of Treatment Not on file Insurance [facility] MCR REPLACE PPO Care Teams Vertical Punch Operator Relationship Specialty Start Date End Date Dannie Cosby [address] [place] [address] PCP - General 10/10/21
--- OUTSIDE RECORDS SUMMARY | 2024-10-26 15:54 | XMS_ITS | Clinical Summary ---
Author Organization [facility] Address [address] [place] [address] Phone Care Team Providers Care Fine Wire Drawer Name Role Phone Dannie Cosby NP Primary Care Provider [phone] Allergies Active Allergy Reactions Criticality Noted Date [...] of 2 - PCV) 1941 Influenza Vaccine (Season Ended) 2025 Hepatitis B Vaccine Aged Out No longe r eligible based on patient's age to complete this topic Insurance Care Teams Fine Wire Drawer Relationship Specialty Start Date End Date Dannie Cosby NP [facility] [place] [address] PCP - General 07/31/20
== END 2024-10-26 13:06 | disposition home or self-care (01) ==
LOC: HO.US 13:05
PROVIDERS: PCP Nurse Practitioner Family; Visit Provider Nurse Practitioner Family
DX: Z13.89 Encounter for screening for other disorder (principal)

== ENCOUNTER 2024-10-29 07:11 | Outpatient (REF) | payer MEDICARE, SELFPAY ==
--- NOTE | ~2024-10-29 | CT_ITS ---
CLINICAL HISTORY: R06.00 - Dyspnea, unspecified DOSE NECKWO [address] soft tissue neck without contrast Comparison: None Findings: Limited evaluation without contrast. The visualized intracranial contents are unremarkable. No prevertebral fluid. Epiglottis is within normal limits. Pharyngeal mucosal space and parapharyngeal fat are normal. Salivary glands are within normal limits. No sialoliths. No suspicious thyroid nodules. Atherosclerosis calcification of the carotid bulbs. There is mucosal thickening of the left maxillary sinus. No consolidation at the lung apices. No acute fracture or dislocation. IMPRESSION: No acute findings. This document has been electronically signed by: Cinda Loo MD on 10/29/2024 15:48:08
--- NOTE | ~2024-10-29 | CT_ITS ---
CLINICAL HISTORY: R91.8 - Other nonspecific abnormal finding of lung field finding of lung field; DO SE NECKWO 280 MGY[address]ST[address] chest without contrast Comparison: CR - XR CHEST 2V - 09/09/24 16:13 EST Findings: Pacemaker. Heart is enlarged. Atherosclerosis calcification of the coronary artery. Status post CABG. Post repair of aortic valve. The visualized thyroid and mediastinum are unremarkable. The lungs are clear. Limited evaluation of a hypodense lesion in the liver. The bones are intact. IMPRESSION: No acute findings. This document has been electronically signed by: Cinda Loo MD on 10/29/2024 15:45:08
--- OUTSIDE RECORDS SUMMARY | 2024-10-29 07:15 | XMS_ITS | Encounter Summary ---
Author Organization [facility] Address [address] [place] [address] Care Team Providers Care Sales Contractor Name Role Phone Dannie Cosby Primary Care Provider [phone]- [phone] Reason for Visit * Reason Onset Date Comments Appointment 10/22/2021 Encounter Details Date Type Department Care Team (Late st Contact Info) Description 10/22/2021 Telephone [facility] Central Scheduling Department [address] [place] [address] Telephone Intake, Staff Appointment Social History Tobacco [...] - 10/22/2021 9:21 AM EDT Xiomara from [facility] Referrals scheduling new pt Neurology appt re trigeminal neuralgia Per DT, scheduled 10/[address] Edward Solorio at [facility] documented in this encounter Plan of Treatment Not on file documented as of this encounter Visit Diagnoses Not on filedocumented in this encounter Care Teams Sales Contractor Relationship Specialty Start Date End Date Dannie Cosby [address] [place] [address] PCP - General 10/10/21 documented as of this encounter
--- OUTSIDE RECORDS SUMMARY | 2024-10-29 07:15 | XMS_ITS | Clinical Summary ---
Author Organization [facility] Address [address] [facility] 7[address] [place] [address] Care Team Providers Care Nutritionist Name Role Phone Unavailable Primary Care Provider [...] Insurance DENTAL - HSN FULL (MEDICAID) DENTAL [facility]
--- OUTSIDE RECORDS SUMMARY | 2024-10-29 07:15 | XMS_ITS | Clinical Summary ---
Author Organization [facility] Address [address] [place] [address] Phone Care Team Providers Care Wallpaper Installer Name Role Phone Dannie Cosby NP Primary Care Provider [phone] Allergies Active Allergy Reactions Criticality Noted Date [...] Due Date Last Done Comments Pneumococcal Vaccine: 50+ Ye ars (1 of 2 - PCV) 1941 Influenza Vaccine (Season Ended) 2025 Hepatitis B Vaccine Aged Out No longe r eligible based on patient's age to complete this topic Insurance Care Teams Wallpaper Installer Relationship Specialty Start Date End Date Dannie Cosby NP [facility] [place] [address] PCP - General 07/31/20
--- OUTSIDE RECORDS SUMMARY | 2024-10-29 07:15 | XMS_ITS | Encounter Summary ---
Author Organization [facility] Address [address] [place] [id number] Care Team Providers Care Vp Of Marketing Name Role Phone Dannie Cosby Primary Care Provider [phone] Reason for Visit * Reason Onset Date Comments Urgent Referral 10/10/2021 Encounter Details Date Type Department Care Team (Late st Contact Info) Description 10/10/2021 Telephone [facility] [address] [place] [address] Telephone Intake, Staff Urgent Referral Social [...] - 10/10/2021 11:34 AM EDT Xiomara from [facility] is calling to schedule an Urgent appointment. [facility] will fax over a referral today for Trigeminal Neurologia. [facility] can be reached at [phone]. documented in this encounter Plan of Treatment Not on file documented as of this encounter Visit Diagnoses Not on filedocumented in this encounter Care Teams Vp Of Marketing Relationship Specialty Start Date End Date Dannie Cosby [address] [place] [address] PCP - General 10/10/21 documented as of this encounter
--- OUTSIDE RECORDS SUMMARY | 2024-10-29 07:15 | XMS_ITS | Referral Summary ---
Author Organization [facility] Address [address] [place] [address] Care Team Providers Care Sewing Techniques Demonstrator Name Role Phone Dannie Cosby Primary Care Provider [phone]- [phone] Allergies Active Allergy Reactions Criticality Noted Date [...] Plan of Treatment Not on file Insurance [facility] MCR REPLACE PPO Care Teams Sewing Techniques Demonstrator Relationship Specialty Start Date End Date Dannie Cosby [address] [place] [address] PCP - General 10/10/21
--- OUTSIDE RECORDS SUMMARY | 2024-10-29 07:15 | XMS_ITS | Encounter Summary ---
Author Organization [facility] Address [address] [place] [address] Care Team Providers Care Battery Parts Assembler Name Role Phone Dannie Cosby Primary Care Provider Encounter Details Date Type Department Care Team (Late st Contact Info) Description 10/15/2021 Telephone [facility] [address] [place] [address] Telephone Intake, Staff Social History Tobacco [...] pls call Xiomara when received to schedule. [phone] documented in this encounter Plan of Treatment Not on file documented as of this encounter Visit Diagnoses Not on filedocumented in this encounter Care Teams Battery Parts Assembler Relationship Specialty Start Date End Date Dannie Cosby [address] [place] [address] PCP - General 10/10/21 documented as of this encounter
--- OUTSIDE RECORDS SUMMARY | 2024-10-29 07:15 | XMS_ITS | Clinical Summary ---
Author Organization [facility] Address [address] [place] [address] Care Team Providers Care Foreign Language Interpreter Name Role Phone Dannie Cosby Primary Care Provider [phone] Allergies Active Allergy Reactions Criticality Noted Date [...] Insurance BCBS MCR REPLACE PPO Care Teams Foreign Language Interpreter Relationship Specialty Start Date End Date Dannie Cosby [address] [place] [address] PCP - General 10/10/21
== END 2024-10-29 07:12 | disposition home or self-care (01) ==
LOC: HO.CT 07:11
PROVIDERS: Absent Provider Nurse Practitioner Family; PCP Nurse Practitioner Family; Visit Provider Internal Medicine
DX: R91.8 Other nonspecific abnormal finding of lung field (principal); R05.9 Cough, unspecified; R06.00 Dyspnea, unspecified; J98.8 Other specified respiratory disorders; J18.9 Pneumonia, unspecified organism
CPT/HCPCS: 70490; 71250

== ENCOUNTER → 2024-10-29 07:13 | Outpatient (BNV) | payer MEDICARE, SELFPAY | PROVIDERS: Absent Provider Nurse Practitioner Family; PCP Nurse Practitioner Family; Visit Provider Nuclear Medicine | DX: R06.00 Dyspnea, unspecified (principal); R91.8 Other nonspecific abnormal finding of lung field | CPT/HCPCS: 70490; 71250 ==

== ENCOUNTER 2024-12-22 15:06 | Outpatient (AMB) | payer MEDICARE, SELFPAY ==
[2024-12-22 15:08] VITALS: BP 122/72; PULSE 66; O2SAT 99; BMI 33.4
--- NOTE | 2024-12-22 15:08 | A.OFFPC_ITS ---
Vital Signs 12/22/24 15:08 Height 5 ft 9 in Weight 226 lb BMI 33.4 BP 122/72 Blood Pressure Location Rt brachial Position Sitting Pulse 66 Pulse Source Pulse Oximeter Pulse Oximetry (%) 99 Oxygen Delivery Method Room Air Intake Visit Reasons: 4m f/u Principal System Software Engineer Required: No Allergies lamotrigine [From Lamictal] Allergy (Intermediate, Verified 12/22/24 15:10) swelling gabapentin Allergy (Unknown, Verified 12/22/24 15:10) lip swelling pregabalin [From Lyrica] Allergy (Unknown, Verified 12/22/24 15:10) lip swelling Tobacco use date assessed: 09/09/24 Fall risk assessment: No Falls in past year Last assessed Fall Risk: 12/22/24 Dental Screening Dental Screen Date: 09/09/24 HPI 4m f/u HPI Details Chief Complaint Persistent pain along the right side of the face and parietal region. History of Present Illness The patient is an 89-year-old male presenting with trigeminal neuralgia. He has previously experienced resolution of symptoms on the left side with specialist intervention but currently reports similar debilitating symptoms on the right side. Specifically, the intense pain localized to the right parietal region extends to the entire right side of the face, making any touch or pressure intolerable. There are no indications of shingles, and his symptoms on the left side previously improved markedly. The current episode is significantly impacting his daily activities. Social History Health Maintenance Review of Systems - Neurological: Reports severe pain astrid g the right side of the face and parietal region. - Constitutional: Denies fever, chills, nausea, vomiting, or loss of consciousness. Physical Exam General: Cooperative, healthy appearing, pain right side of face, no active swelling or erythema, or skin lesions Orientation: Patient oriented x3 Limitations: No limitations Head: Normal to inspection Ears: Hearing grossly normal bilaterally Nose: Normal external nose present Face and sinus: Right side of face painful to touch, patient squinting, no signs of active shingles in the scalp Eyes: Appearance normal, both eyes and all related structures Neck: Normal visual inspection and Yes full ROM Respiratory: Normal respiratory effort and able to speak in complete sentences. Clear to auscultation bilaterally Cardiovascular: Regular rate and rhythm. Normal S1 and S2, faint systolic murmur GI: Normal to inspection. Soft to palpation and nontender Skin: No rashes or lesions noted Neuro: Patient oriented x3 Extremities: Normal to inspection Results Plan I will refer the patient back to the specialist at [facility] for further evaluation and potential treatment of the right-sided trigeminal neuralgia. The specialist's previous successful management of left-sided symptoms supports this referral. Treatment considerations may include medication or procedures aimed at pain relief. Prompt follow-up will be organized to address his current discomfort and improve his wellbeing. Discussion Notes I discussed with the patient the recurrence of his trigeminal neuralgia symptoms, now presenting on the right side, and the need for specialist intervention. We reviewed the successful previous treatment with the specialist at [facility] and the potential therapies available for current symptoms. I emphasized the importance of addressing this promptly to prevent any progression or complications. The patient agreed to the referral and understood the plan for treatment evaluation. We also discussed the potential outcomes and benefits of treatment. Patient Instructions - Follow up with the specialist at [facility] as soon as possible for evaluation of right-sided facial pain. - Avoid touching the affected areas of t he face to minimize pain. - Report any changes in symptoms or new developments promptly. - Continue monitoring for any signs of s hingles despite current absence. [facility] Medical History Pulmonary nodules Cough Hx of sigmoidoscopy Frequent falls Urinary frequency History of claustrophobia History of shingles On anticoagulant therapy On beta diana at home Dyslipidemia Gout Spinal stenosis of lumbar region Atrial fibrillation CKD (chronic kidney disease) Elevated PSA Aortic stenosis CAD (coronary artery disease) Right facial pain Trigeminal neuralgia Post herpetic neuralgia Surgical History H/O aortic valve replacement Status post lens implant History of fracture of leg History of laparoscopic cholecystectomy History of aortic valve replacement History of heart bypass surgery Pacemaker Family History Father No problems noted. Mother No problems noted. Social History Household Members: None Housing: House Are you a primary patient care specialist to a significant other at home: No Do you presently have visiting nurse or other home services: No Alcohol intake: never Patient Tobacco Use Status: Never used Tobacco e-Cigarette/Vaping Use: Never Used Second Hand Smoke Exposure: No service: Yes Current occupational status: unemployed and retired Current occupational exposures/hazards: No Cognitive needs: No Hearing needs: No Vision needs: No Questionnaire Thrive Questionnaire Date Thrive assessed: 12/22/24 I am a: Patient What is your living situation today?: I have a steady place to live Within the past 12 months, did the food you bought not last and you didn't have the money to get more?: Never true Within the past 12 months, did you worry whether your food would run out before you got money to buy more?: Never true Do you have trouble paying for medicines?: No Do you have trouble getting transportation to medical appointments?: No Do you have trouble paying your heating and electricity bill?: No Do you have trouble taking care of your child, family member or friend?: No Do you have trouble with day-to-day activities such as bathing, preparing meals, shopping, managing finances, etc.?: No Are you currently unemployed and looking for a job?: No Are you interested in more education?: No Please select the resources that you would like help with: None Currently or been in a relationship where the following occur: No concerns reported THRIVE Score: 0 AUDIT C Alcohol Use Questionnaire (AUDIT-C) 1. How often do you have a drink containing alcohol?: Never 3. How often do you have six or more drinks on one occasion?: Never Total Score: 0 Score Reviewed/Action Taken: Yes ELZA-7 AMB Questionnaire ELZA-7 Date ELZA - 7 assessed: 09/09/24 Source: Developed by Drs. Nirav Marinelli, Dali Amezquita, Nicola Pruitt and colleagues, with an educational juan from [employer]. Physical exam (Primary Care) Vital Signs: Last Vital Signs Pulse 66 12/22/24 15:08 BP 122/72 12/22/24 15:08 Pulse Ox 99 12/22/24 15:08 Oxygen Delivery Method Room Air 12/22/24 15:08 BMI result Body Mass Index 33.4 Tobacco/Smoking Status: Tobacco use Status Tobacco use date assessed 09/09/24 12/22/24 15:09 Patient Tobacco Use Status Never used Tobacco 12/22/24 15:09 e-Cigarette/Vaping Use Never Used 12/22/24 15:09 Thrive Assessment: Date of Thrive Assessment Date Thrive assessed 12/22/24 12/22/24 15:14 Currently or been in a relationship where the following occur: No concerns reported Results AMB Hemoglobin A1c AMB Hemoglobin A1c 6.3 % Last Edit by Neymar Betancourt CMA on 12/22/24 15: 35 Results Reviewed Results Reviewed: Laboratory Last Values Hgb A1c (Clinic) 6.3 % (4.0-6.0) H 12/22/24 15:35 Coding Level of Care Code Est Pt Level 3 (94127) Diagnoses Trigeminal neuropathy G50.9 Assessment & Plan Assessment & Plan (1) Trigeminal neuropathy: Code(s): G50.9 - Disorder of trigeminal nerve, unspecified Category: Medical Plan . Orders: Orders AMB Hemoglobin A1c Today Z13.9 - Encounter for screening, unspecified Referrals Neurosurgery Referral G50.9 - Disorder of trigeminal nerve, unspecified
--- OUTSIDE RECORDS SUMMARY | 2024-12-22 15:16 | XMS_ITS | Referral Summary ---
Author Organization [facility] Address [address] [place] [address] Care Team Providers Care Electrician Apprentice Name Role Phone Dannie Cosby Primary Care Provider [phone] Allergies Active Allergy Reactions Criticality Noted Date [...] Plan of Treatment Not on file Insurance [facility] MCR REPLACE PPO Care Teams Electrician Apprentice Relationship Specialty Start Date End Date Dannie Cosby [address] [place] [address] PCP - General 10/10/21
== END 2024-12-22 16:10 | disposition home or self-care (01) ==
LOC: HO.HMCC 15:07
PROVIDERS: PCP Nurse Practitioner Family; Visit Provider Nurse Practitioner Family
DX: Z13.9 Encounter for screening, unspecified (principal); G50.9 Disorder of trigeminal nerve, unspecified

== ENCOUNTER → 2024-12-22 15:06 | Outpatient (BNVA) | payer MEDICARE, SELFPAY | PROVIDERS: PCP Nurse Practitioner Family; Visit Provider Nurse Practitioner Family | DX: G50.0 Trigeminal neuralgia (principal) | CPT/HCPCS: 83036; 99212 ==

== ENCOUNTER 2025-01-05 14:12 | Outpatient (REF) | payer MEDICARE, SELFPAY ==
--- OUTSIDE RECORDS SUMMARY | 2025-01-05 16:20 | XMS_ITS | Clinical Summary ---
Author Organization [facility] Address [address] [place] [address] Phone Care Team Providers Care Retail Analytics Manager Name Role Phone Dannie Cosby NP Primary Care Provider [phone] Allergies Active Allergy Reactions Criticality Noted Date [...] Ye ars (1 of 2 - PCV) 1954 Influenza Vaccine (Season Ended) 2025 Hepatitis B Vaccine Aged Out No longe r eligible based on patient's age to complete this topic Insurance Care Teams Retail Analytics Manager Relationship Specialty Start Date End Date Dannie Cosby NP [facility] [place] [address] PCP - General 07/31/20
[2025-01-05 16:41] LABS: Anion Gap 9 (12-20); Blood Urea Nitrogen 27 mg/dL (9-16); Calcium 8.9 mg/dL (8.4-10.2); Carbon Dioxide 28 mmol/L (22-29); Chloride 110 mmol/L (96-108); Estimated Glomerular Filt Rate 39; Potassium 4.2 mmol/L (3.3-5.1); Sodium 143 mmol/L (135-145)
== END 2025-01-05 14:13 | disposition home or self-care (01) ==
LOC: HO.HMGCLDS 14:12
PROVIDERS: PCP Nurse Practitioner Family; Visit Provider Internal Medicine Nephrology
DX: N18.31 Chronic kidney disease, stage 3a (principal); I10 Essential (primary) hypertension
CPT/HCPCS: 36415; 80051; 82310; 82565; 84520

== ENCOUNTER 2025-01-12 14:39 | Outpatient (AMB) | payer BC, SELFPAY ==
[2025-01-12 15:03] VITALS: BP 116/56; PULSE 65; O2SAT 96; BMI 33.1
--- NOTE | 2025-01-12 15:03 | HO.NEPHOV_ITS ---
Vital Signs 01/12/25 15:03 Height 5 ft 9 in Weight 224 lb BMI 33.1 BP 116/56 L Blood Pressure Location Rt brachial Position Sitting Pulse 65 Pulse Source Pulse Oximeter Pulse Oximetry (%) 96 Oxygen Delivery Method Room Air Intake Visit Reasons: 6 mnts-Conf Intake Note: Patient here for a follow-up. Accompanied by: Self / Same As Patient Allergies lamotrigine (From Lamictal) Allergy (Intermediate, Verified 01/12/25 15:06) swelling gabapentin Allergy (Unknown, Verified 01/12/25 15:06) lip swelling pregabalin (From Lyrica) Allergy (Unknown, Verified 01/12/25 15:06) lip swelling Medication List - Last Reconciled 01/12/25 by Claire Aguilar, DNP, EMERGENCY SPECIALIST-BC aspirin (Adult Aspirin Regimen) 81 mg PO DAILY atorvastatin 40 mg PO DAILY blood sugar diagnostic ([employer] Ultra Test strips) Check blood sugar once a day blood-glucose meter ([employer] Ultra2 Meter) Check fasting blood sugar and a random blood sugar daily. cholecalciferol (vitamin D3) 50 mcg PO DAILY docusate sodium 100 mg PO BEDTIME duloxetine 30 mg PO BID 90 days empagliflozin 25 mg PO DAILY ezetimibe 10 mg PO DAILY hydrocortisone 2.5% (Proctosol HC) 1 appl PA BID-QID PRN lancets ([employer] Safety Lancet) Check blood sugar once a day metoprolol tartrate 50 mg PO BID rivaroxaban (Xarelto) 20 mg PO DAILY 90 days solifenacin (Vesicare) 5 mg PO DAILY 90 days terazosin 5 mg PO BEDTIME 90 days Do you need a note to return to daycare/school/sports/work: No HPI Comments Details: Rickie is here for a routine follow-up of his chronic kidney disease. He continues to have intermittent pain from trigeminal neuralgia for which he is seeing a specialist in [place]. He does not have any dizziness, orthostatic symptoms, nausea, vomiting, edema, urinary symptoms, hematuria, chest pain, shortness of breath, proximal nocturnal dyspnea or orthopnea. He is not taking any nonsteroidal anti-inflammatories. He is closely followed up by his primary care physician. His renal functions have been stable. He also has been having edema in the left LE (chronic/unchanged for many years since vascular procedure years ago). [facility] Medical History Pulmonary nodules Cough Hx of sigmoidoscopy Frequent falls Urinary frequency History of claustrophobia History of shingles On anticoagulant therapy On beta diana at home Dyslipidemia Gout Spinal stenosis of lumbar region Atrial fibrillation CKD (chronic kidney disease) Elevated PSA Aortic stenosis CAD (coronary artery disease) Right facial pain Trigeminal neuralgia Post herpetic neuralgia Surgical History H/O aortic valve replacement Status post lens implant History of fracture of leg History of laparoscopic cholecystectomy History of aortic valve replacement History of heart bypass surgery Pacemaker Family History Father No problems noted. Mother No problems noted. Social History Household Members: None Housing: House Are you a primary assisted living care manager to a significant other at home: No Do you presently have visiting nurse or other home services: No Alcohol intake: never Patient Tobacco Use Status: Never used Tobacco e-Cigarette/Vaping Use: Never Used Second Hand Smoke Exposure: No service: Yes Current occupational status: unemployed and retired Current occupational exposures/hazards: No Cognitive needs: No Hearing needs: No Vision needs: No Review of Systems Const Reports no additional complaints Card Denies chest pain, Reports leg edema (chronic LLE swelling, unchanged. ), Denies lightheadedness, Denies dyspnea, Denies dyspnea on exertion and Denies orthopnea Resp Denies dyspnea and Denies dyspnea on exertion GI Denies abdominal pain, Denies diarrhea, Denies nausea and Denies vomiting Denies oliguria, Denies difficulty urinating, Denies dysuria and Denies flank pain Musc Denies arthralgias and Denies joint swelling Skin/Breast Denies rash Neuro Details: right facial pain s/p shingles. Physical Exam Vital Signs: Last Vital Signs Pulse 65 01/12/25 15:03 BP 116/56 L 01/12/25 15:03 Pulse Ox 96 01/12/25 15:03 Oxygen Delivery Method Room Air 01/12/25 15:03 BMI result Body Mass Index 33.1 Const General: comfortable and no acute distress Resp Effort & Inspection: normal respiratory effort and able to speak in complete sentences Auscultation: clear to auscultation bilaterally Cardio Rate: regular rate Rhythm: regular rhythm Heart sounds: S1 normal heart sound present and S2 normal heart sound present GI Palpation (GI): Soft to palpation and nontender General: Yes no CVA tenderness Back/Spine/Pelvis Back: no CVA tenderness Skin Rashes: no rashes Extrem General: Yes no pedal edema and Yes edema (LLE edema, chronic) Results Reviewed Nephrology Results: Hgb, (14.0-18.0) 12.5 g/dl L 09/10/24 WBC, (4.8-10.8) 5.5 X10*3/uL 09/10/24 Plt Count, (160-400) 104 X10*3/uL L 09/10/24 Sodium, (135-145) 143 mmol/L 01/05/25 Potassium, (3.3-5.1) 4.2 mmol/L 01/05/25 Chloride, (96-108) 110 mmol/L H 01/05/25 Carbon Dioxide, (22-29) 28 mmol/L 01/05/25 BUN, (9-16) 27 mg/dL H 01/05/25 Creatinine, (0.5-1.4) 1.66 mg/dL H 01/05/25 Calcium, (8.4-10.2) 8.9 mg/dL 01/05/25 Assessment & Plan Assessment & Plan (1) CKD (chronic kidney disease) stage 3, GFR 30-59 ml/min: Code(s): N18.30 - Chronic kidney disease, stage 3 unspecified Category: Medical Qualifiers: Chronic kidney disease stage 3 subtype: stage 3a (GFR 45-59) Qualified Code(s): N18.31 - Chronic kidney disease, stage 3a (2) HTN (hypertension): Code(s): I10 - Essential (primary) hypertension Category: Medical Qualifiers: Hypertension type: primary hypertension Qualified Code(s): I10 - Essential (primary) hypertension Plan 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 His blood pressure is currently at goal. He avoids nonsteroidal anti-inflammatory medications. He is not on any ARTEM inhibitor. He is on Jardiance 25mg daily through his PCP. His renal functions are stable at baseline. He maintains good hydration and avoids nonsteroidal anti-inflammatories. He follows vascular surgery Dr Jerry who monitors his left lower extremity swelling. I did not make any medication changes today. All questions answered. He will see Dr Jonas in the office in 6 months. Follow-up blood work ordered. Coding Level of Care Code Est Pt Level 3 (48171) Diagnoses Stage 3a chronic kidney disease N18.31 Chronic kidney disease stage 3 subtype: stage 3a (GFR 45-59) Primary hypertension I10 Hypertension type: primary hypertension
--- OUTSIDE RECORDS SUMMARY | 2025-01-12 17:32 | XMS_ITS | Clinical Summary ---
Author Organization [facility] Address [address] [place] [address] Phone Care Team Providers Care Grades 9 12 Tutor Name Role Phone Dannie oCsby NP Primary Care Provider [phone] Allergies Active Allergy Reactions Criticality Noted Date [...] to complete this topic Insurance Care Teams Grades 9 12 Tutor Relationship Specialty Start Date End Date Dannie Cosby NP [facility] [place] [address] PCP - General 07/31/20
== END 2025-01-12 15:33 | disposition home or self-care (01) ==
LOC: HO.HKA 14:39
PROVIDERS: PCP Nurse Practitioner Family; Visit Provider Internal Medicine Nephrology
DX: N18.31 Chronic kidney disease, stage 3a (principal); I10 Essential (primary) hypertension
CPT/HCPCS: 99213

== ENCOUNTER 2025-01-26 10:00 | Outpatient (REF) | payer BC, SELFPAY ==
--- NOTE | ~2025-01-26 | FL_ITS ---
EXAMINATION: Modified Barium Swallow CLINICAL INFORMATION: Dysphagia. COMPARISON: None. TECHNIQUE: Modified barium swallow was performed under lateral fluoroscopy with patient in standing position. Different consistency of barium was administered by the speech therapist. FINDINGS: Persistent transient laryngeal penetration without subglottic aspiration on all consistencies with the exception of solid food. FLUOROSCOPY TIME: 1 minute, 38 seconds Number of Spot Images: N/A DOSE AREA PRODUCT: 1214 uGy-m2 (microgray-meter squared) FL/FL Modified Barium Swallow IMPRESSION: Persistent transient laryngeal penetration without subglottic aspiration. Refer to the speech therapy report to follow for further detail. Electronically signed by: Nick Moraels MD 01/26/2025 10:59 AM EDT
--- OUTSIDE RECORDS SUMMARY | 2025-01-26 10:43 | XMS_ITS | Clinical Summary ---
Author Organization [employer] Address [address] [place] [address] Care Team Providers Care Bench Tool Maker Name Role Phone Unavailable Primary Care Provider [...] Years (1 of 1 - PCV) 1985 COVID-19 Vaccine (2023- season) 2024 04/12/2024, 04/29/2023, 05/08/2022, Additional history exists Influenza Vaccine (#1) 2025 , 04/29/2023, 05/17/2022, Additional history exists Tobacco Screening 06/16/2025 06/16/2024 Dental X-Ray: Full Mouth 10/22/2026 10/22/2023 DTaP/Tdap/Td Vaccines (2 - Td or Tdap) 06/10/2034 06/10/2024 Zoster Vaccines Completed 11/12/2021, 08/21/2021 RSV Patients and Patients Aged 60 years or older Completed 05/12/2023 HIB Vaccines Aged Out No longer eligi [...] patient's age to complete this topic Meningococcal B Vaccine Aged Out No l onger eligible based on patient's age to complete [...] Insurance DENTAL - HSN FULL (MEDICAID) DENTAL [facility]
--- OUTSIDE RECORDS SUMMARY | 2025-01-26 10:43 | XMS_ITS | Clinical Summary ---
Author Organization [facility] Address [address] [place] [address] Phone Care Team Providers Care Manager Cardiac Cath Name Role Phone Dannie Cosby NP Primary Care Provider [phone] Allergies Active Allergy Reactions Criticality Noted Date [...] of 2 - PCV) 1954 Influenza Vaccine (#1) 2025 Hepatitis B Vaccine Aged Out No longe r eligible based on patient's age to complete this topic Insurance Care Teams Manager Cardiac Cath Relationship Specialty Start Date End Date Dannie Cosby NP [facility] [place] [address] PCP - General 07/31/20
--- OUTSIDE RECORDS SUMMARY | 2025-01-26 10:43 | XMS_ITS | Referral Summary ---
Author Organization [facility] Address [address] [place] [address] Care Team Providers Care Molder Machine Name Role Phone Dannie Cosby Primary Care Provider [phone] Allergies Active Allergy Reactions Criticality Noted Date [...] 76 12/20/2021 8:33 AM EDT Temperature 36.4 C (97.5 F) 12/20/2021 8:33 AM EDT Respiratory Rate 16 12/20/2021 8:33 AM EDT Oxygen Saturation - - Inhaled Oxygen Concentration - - Weight 108.4 kg (239 lb) 12/20/2021 8:33 AM EDT Height 175.3 cm (5' 9 ) 12/20/2021 8:33 AM EDT Body Mass Index 35.29 12/20/2021 8:33 AM EDT Plan of Treatment Not on file [place] [address] [place] [address] MCR REPLACE PPO Care Teams Molder Machine Relationship Specialty Start Date End Date Dannie Cosby [address] [place] [address] PCP - General 10/10/21
--- NOTE | 2025-01-27 08:29 | MHC.SL.IMP ---
Date of Plan of Treatment: 01/26/25 Onset of Symptoms/Illness: 09/26/24 Date Treatment Started: 01/26/25 Admitting Diagnosis: Dysphagia Primary Speech & Language Diagnosis: R13.12 Oropharyngeal Phase Dysphagia Reason for Today's Visit: 69476 Modified Barium Swallow Study Pre-evaluation Dietary Consistencies: Regular Pre-evaluation Liquid Consistency: Thin Pre-evaluation Medication Administration: Whole with Liquid Medical History: Modified Barium Swallow Study Fluoroscopic Evaluation of Swallowing Function CPT Code 43963 Evaluation Year: 2024 Reason for Study: Difficulty swallowing Referring Physician: Dannie HAIDER Evaluating Clinician: Elizabeth Barahona MA, CCC-FILLER BLOCK INSERTER REMOVER Study Number: 1 Patient Name: Rickie Bardales Status: Outpatient, Ambulatory Age: 89 Sex: Male Medical History Medical History Pulmonary nodules Cough Hx of sigmoidoscopy Frequent falls Urinary frequency History of claustrophobia History of shingles On anticoagulant therapy On beta diana at home Dyslipidemia Gout Spinal stenosis of lumbar region Atrial fibrillation CKD (chronic kidney disease) Elevated PSA Aortic stenosis CAD (coronary artery disease) Right facial pain Trigeminal neuralgia Post herpetic neuralgia Surgical History H/O aortic valve replacement Status post lens implant History of fracture of leg History of laparoscopic cholecystectomy History of aortic valve replacement History of heart bypass surgery Pacemaker Current (pre-evaluation) Intake/Diet: Route: PO Diet Grade: Regular Liquid Consistencies: Thin Pain: None reported at time of study SUBJECTIVE: Patient is an 89 year old male referred for a modified barium swallow study (MBSS) by Dannie WEBB from the Primary Care office in [place]. Patient reports globus sensation at the level of the sternal notch, onset 3-4 months ago, and regurgitation of food, which he says does not happen very frequently. Patient denies odynophagia. Pertinent medical history includes pulmonary nodules, hx sigmoidoscopy, shingles, dyslipidemia, CKD, aortic stenosis, and trigeminal neuralgia. Oral Motor Exam Facial Symmetry: Symmetrical Mouth Occlusion: Normal Oral-Facial Teeth Characteristics: Intact/Normal Oral-Facial Teeth Miscellaneous Observation: Oral-Facial Lip Pucker Description: Normal Oral-Facial Smile (Lips) Description: Normal Oral-Facial Puff Cheeks Description: Normal Oral-Facial Lip Miscellaneous Comment: Tongue Size: Normal Tongue Excursion Description: Normal Tongue Range of Movement Description: Normal Tongue Speed of Movement Description: Normal Tongue Strength of Movement (against opposing pressure): Normal Tongue Movement Characteristics: Normal/Absent Is patient able to manage secretions?: Yes Food and Liquid Trials: Oral Impairment: Lip Closure: Did not test Oral Impairment: Tongue Control During Bolus Hold: 1=Escape to lateral buccal cavity/floor of mouth (FOM) Oral Impairment: Bolus Preparation/Mastication: 1=Slow prolonged chewing/mashing with complete re-collection Oral Impairment: Bolus Transport/Lingual Motion: 0=Brisk tongue motion Oral Impairment: Oral Residue: 2=Residue collection on oral structures Oral Impairment:Initiation of Pharyngeal Swallow: 1=Bolus head in valleculae Pharyngeal Impairment: Soft Palate Elevation: 0=No bolus between soft palate (SP)/pharyngeal wall (PW) Pharyngeal Impairment: Laryngeal Elevation: 0=Complete superior movement of thyroid cartilage (see description) Pharyngeal Impairment: Anterior Hyoid Excursion: 0=Complete anterior movement Pharyngeal Impairment: Epiglottic Movement: 1=Partial inversion Pharyngeal Impairment: Laryngeal Vestibular Closure:: 1=Incomplete: narrow column air/contrast in laryngeal vestibule Pharyngeal Impairment: Pharyngeal Stripping Wave: 0=Present: complete Pharyngeal Impairment: Pharyngeal Contraction: Did not test Pharyngeal Impairment: Pharyngoesophageal Segment Openin=Partial distention/partial duration: partial obstruction of flow Pharyngeal Impairment: Tongue Base (TB) Retraction: 1=Trace column of contrast/air between TB and posterior PW Pharyngeal Impairment: Pharyngeal Residue: 2=Collection of residue within or on pharyngeal structures Pharyngeal Impairment: Esophageal Clearance Upright Position: Did not test Impressions and Recommendations OBJECTIVE: Time-out: performed at 10:45 Evaluation Start: 10:30; Stop: 10:35 Patient Positioning: Standing Viewing Planes: LATERAL ONLY Contrast: MBSImP? Standardized Protocol using commercially prepared, standardized Barium viscosities, including: Varibar? THIN LIQUID (40% w/v, <15 cps) , Varibar? NECTAR (40% w/v, <150-450 cps) , Varibar? PUDDING (40% w/v, <2149-2292 cps) , 1/2 Shortbread Cookie (1 x1 x.25 ) MBSImP ID: [id number] [facility] Results: Lip closure for intraoral bolus containment could not be assessed due to logistical reasons not related to physiologic impairment. Tongue control during bolus hold allowed bolus escape to the lateral buccal cavity/floor of mouth. Bolus preparation and mastication resulted in slow, prolonged chewing/mashing but with complete re-collection. Bolus transport/lingual motion was with brisk tongue motion. Oral residue was a collection on oral structures. Initiation of the pharyngeal swallow occurred when the bolus head was in the valleculae. Soft palate elevation resulted in no bolus between the soft palate and the pharyngeal wall. Laryngeal elevation demonstrated complete superior movement of the thyroid cartilage with complete approximation of the arytenoids to the epiglottic petiole. Anterior hyoid excursion demonstrated complete anterior movement. Epiglottic movement resulted in partial inversion. Laryngeal vestibular closure was incomplete, with a narrow column of air/contrast noted within the laryngeal vestibule at the height of the swallow. Pharyngeal stripping wave was present and complete. Pharyngeal contraction could not be determined due to logistical reasons not related to physiologic impairment. Pharyngoesophageal segment opening demonstrated partial distension/partial duration, with partial obstruction of bolus flow. Tongue base retraction allowed a trace column of contrast or air between the retracted tongue base and the posterior pharyngeal wall. Pharyngeal residue was a collection of residue within or on pharyngeal structures. Esophageal clearance in the upright position could not be assessed due to logistical reasons not related to physiologic impairment. Oral Impairment Score: 5 (absence of score, component 1) Pharyngeal Impairment Score: 5 (absence of score, component 13) Esophageal Impairment Score: --- (absence of score, component 17) Laryngeal Penetration and Aspiration: Neither penetration nor aspiration was observed in today's study with Cookie, Pudding-thick. Penetration was observed in today's study. [place]-thick, Thin Contrast entered the airway, remained above the vocal folds, and were ejected from the airway. ASSESSMENT: This exam was performed by the speech pathologist and the radiologist. Patient was standing for lateral view only and fed himself without difficulty. He trialed the following consistencies: Thin liquid (individual & sequential cup sips) [place] thick liquid (individual & sequential cup sips) Puree (mixture applesauce w/ barium pudding) Regular (shortbread cookie coated w/ barium pudding) There was escape of trace contrast to the floor of mouth, but no posterior spillage from the oral cavity. Posterior lingual movement was brisk and timely. Mildly prolonged chewing with piece meal deglutition. Trace residue seen diffusely in the oral cavity in the cheeks, floor of mouth and on the tongue with trials of liquids and semi-solid. Mild coating of residue on the tongue on solid trials. Pharyngeal swallow trigger initiated as the bolus head reached the valleculae. No evidence of nasopharyngeal reflux. Complete laryngeal elevation with partial epiglottic inversion and incomplete vestibular closure. There was flash penetration seen above the vocal folds consistently with trials of thin and nectar thick liquids, with no subsequent aspiration. No aspiration or penetration with trials of puree and regular solid. Minimal residue on the tongue base, valleculae, pyriforms, and posterior pharyngeal wall, cleared with subsequent swallows. Liquid Intake Recommendation: Thin Liquid Intake Strategies: Small Sips, No Straws Dietary Recommendations: Regular Medication Administration: Whole with Liquid Please contact the pharmacy regarding appropriate crushable or liquid drug formulations that are available whenever modified delivery is recommended. Compensatory Strategies Recommended: Sitting Upright (90 deg), Double Swallow, No Straw, Small Bites and Sips, Alternate Liquids/Solids, Rate of Ingestion Change Recommendation for Speech Therapy: NA:Typical Evaluation Text Comment: Intake Recommendations: Route: PO Diet Grade: Regular Liquid Consistencies: Thin Post-Study Functional Oral Intake Scale (FOIS): 7- Total oral intake with no restrictions Transient penetration seen consistently with trials of thin liquid and nectar thick liquid. No evidence of aspiration during this exam. Minimal pharyngeal residue cleared with subsequent swallows. Suggested Referrals: The patient might benefit from a referral to: Gastroenterology Indication for Referral: Patient c/o globus sensation and regurgitation of food. Good oropharyngeal clearance on MBSS. Therapy Recommendations: Recommend continue on unmodified diet regular texture solids and thin liquids. Discussed precautions with patient- maintain upright position, drink liquids slowly, take small sips, one sip at a time, avoid ?chugging? behavior. Patient denied having further questions at this time. Recommend GI consult to further investigate patient?s complaints of globus sensation and food regurgitation. Speech intervention is not warranted at this time. Please re-refer with any changes or further concern. Clinician - Supplemental, Miscellaneous Communication: It is important to note MBSS objective studies are snapshots in time and Patient function might vary with factors such as time of day or concomitant medical conditions. For this reason, the final treatment plan for this patient should rest with their medical care team. Additional recommendations should be considered with the totality of the Patient in mind. Thank for the opportunity to participate in the care of this patient. If you have any questions about the content of this report, please contact the [facility] at [facility]. Education: Education regarding findings from today's study and plans for therapy were provided to Patient only through Verbal Instruction. Understanding was expressed by the Patient only. [employer] Clinician/Clinical Fellow: No Supervisory Statement: N/A Speech Language Pathologist: Elizabeth Barahona M.A., CCC-FILLER BLOCK INSERTER REMOVER
== END 2025-01-26 10:01 | disposition home or self-care (01) ==
LOC: HO.XRAY 10:00
PROVIDERS: PCP Nurse Practitioner Family; Visit Provider Nurse Practitioner Family
DX: R13.10 Dysphagia, unspecified (principal)
CPT/HCPCS: 74230; 92611

== ENCOUNTER → 2025-01-26 10:02 | Outpatient (BNV) | payer BC, SELFPAY | PROVIDERS: PCP Nurse Practitioner Family; Visit Provider Radiology Diagnostic Radiology | DX: R13.10 Dysphagia, unspecified (principal) | CPT/HCPCS: 74230 ==

== ENCOUNTER 2025-02-23 10:59 | Outpatient (AMB) | payer BC, SELFPAY ==
--- NOTE | 2025-02-23 11:02 | A.OFFVIS_ITS ---
Vital Signs 02/23/25 11:12 Height 5 ft 9 in Weight 228 lb BMI 33.7 BP 94/54 L Blood Pressure Location Rt brachial Position Sitting Pulse 66 Pulse Source Pulse Oximeter Pulse Oximetry (%) 96 Oxygen Delivery Method Room Air Intake Visit Reasons: Foreign body sensation Intake Note: Est pt for prev mgmt of CIC + hematochezia. Eval today for foreign body sensation + dysphagia. CC: C.O. dysphagia and eval s/p BA FL modified ordered by PCP. No additional concerns at this time. Registered Public Health Nurse Required: No Accompanied by: Self / Same As Patient Allergies lamotrigine (From Lamictal) Allergy (Intermediate, Verified 02/23/25 11:02) swelling gabapentin Allergy (Unknown, Verified 02/23/25 11:02) lip swelling pregabalin (From Lyrica) Allergy (Unknown, Verified 02/23/25 11:02) lip swelling HPI HPI Foreign body sensation: Details: LAST VISIT GERD (gastroesophageal reflux disease) Constipation Plan Patient will continue avoiding dietary triggers and late night snacking. Staying upright for minimum 3 hours after meals discussed with patient. Increase fiber intake and activity to promote better bowel motility. Patient will follow-up in the office on as needed basis. He will call if he will have any GI concerning symptoms. He is agreeable to this plan and verbalizes understanding of instructions. He was given the opportunity to ask questions and all questions answered. ? TODAY'S VISIT Patient is here today for requested visit. Recently patient began to having trouble swallowing. Patient had modified barium swallow last month they showed mild laryngeal penetration of the barium. No aspiration was seen by speech therapy. Patient reports that these symptoms have been going on for the past 2 months. Speech therapy recommended regular diet with thin liquids. Patient feels like there is something in his throat. Diagnosed 8 years ago with shingles on his face. Patient end up with shingles in his right ear as well. Patient denies any sore throat. Reports that he is having trouble swallowing without pain when he swallows. Patient states that he feels like food is passing with difficulties to his throat. Patient denies any choking episodes. [facility] Medical History Pulmonary nodules Cough Hx of sigmoidoscopy Frequent falls Urinary frequency History of claustrophobia History of shingles On anticoagulant therapy On beta diana at home Dyslipidemia Gout Spinal stenosis of lumbar region Atrial fibrillation CKD (chronic kidney disease) Elevated PSA Aortic stenosis CAD (coronary artery disease) Right facial pain Trigeminal neuralgia Post herpetic neuralgia Surgical History H/O aortic valve replacement Status post lens implant History of fracture of leg History of laparoscopic cholecystectomy History of aortic valve replacement History of heart bypass surgery Pacemaker Family History Father No problems noted. Mother No problems noted. Social History Household Members: None Housing: House Are you a primary assisted living care manager to a significant other at home: No Do you presently have visiting nurse or other home services: No Alcohol intake: never Patient Tobacco Use Status: Never used Tobacco e-Cigarette/Vaping Use: Never Used Second Hand Smoke Exposure: No service: Yes Current occupational status: unemployed and retired Current occupational exposures/hazards: No Cognitive needs: No Hearing needs: No Vision needs: No Review of Systems Const Denies weight gain and Denies weight loss ENT Reports no additional complaints, Reports dysphagia and Denies odynophagia Card Reports no additional complaints Resp Reports no additional complaints GI Denies abdominal pain, Denies belching, Denies melena, Denies bloating, Denies change in bowel habits, Reports dysphagia, Denies excessive flatus, Denies dyspepsia, Denies heartburn, Denies diarrhea, Denies loose stools, Denies nausea, Denies odynophagia and Denies vomiting Reports no additional complaints Musc Reports no additional complaints Neuro Reports no additional complaints Psych Reports no additional complaints Endo Reports no additional complaints Physical Exam Vital Signs: Last Vital Signs Pulse 66 02/23/25 11:12 BP 94/54 L 02/23/25 11:12 Pulse Ox 96 02/23/25 11:12 Oxygen Delivery Method Room Air 02/23/25 11:12 BMI result Body Mass Index 33.7 Const General: healthy appearing and no acute distress Nutritional Appearance: obese Orientation/consciousness: patient oriented x3 HEENT Throat: Yes other (Tiny cysts like pastules in posterior oropharynx) Resp Effort & Inspection: normal respiratory effort, able to speak in complete sentences, no tracheal deviation and symmetric chest movement Auscultation: clear to auscultation bilaterally Cardio Rate: regular rate GI Inspection: Yes normal to inspection, No distended and Yes obesity Palpation (GI): Soft to palpation, not firm, nontender and No hepatosplenomegaly present Auscultation: normal bowel sounds General: Yes no CVA tenderness Back/Spine/Pelvis Back: no CVA tenderness Skin General skin exam: elasticity normal, turgor normal and dry skin Neuro General: patient oriented x3 Psych Appearance: grossly normal Mental Status: mental status grossly normal Results Reviewed Results Reviewed: MODIFIED BARIUM SWALLOW IMPRESSION: Persistent transient laryngeal penetration without subglottic aspiration. SPEECH THERAPY NOTES: Laryngeal Penetration and Aspiration: Neither penetration nor aspiration was observed in today's study with Cookie, Pudding-thick. Penetration was observed in today's study. [place]-thick, Thin Contrast entered the airway, remained above the vocal folds, and were ejected from the airway. ASSESSMENT: This exam was performed by the speech pathologist and the radiologist. Patient was standing for lateral view only and fed himself without difficulty. He trialed the following consistencies: Thin liquid (individual & sequential cup sips) [place] thick liquid (individual & sequential cup sips) Puree (mixture applesauce w/ barium pudding) Regular (shortbread cookie coated w/ barium pudding) There was escape of trace contrast to the floor of mouth, but no posterior s pillage from the oral cavity. Posterior lingual movement was brisk and timely. Mildly prolonged chewing with piece meal deglutition. Trace residue seen diffusely in the oral cavity in the cheeks, floor of mouth and on the tongue with trials of liquids and semi-solid. Mild coating of residue on the tongue on solid trials. Pharyngeal swallow trigger initiated as the bolus head reached the valleculae. No evidence of nasopharyngeal reflux. Complete laryngeal elevation with partial epiglottic inversion and incomplete vestibular closure. There was flash penetration seen above the vocal folds consistently with trials of thin and nectar thick liquids, with no subsequent aspiration. No aspiration or penetration with trials of puree and regular solid. Minimal residue on the tongue base, valleculae, pyriforms, and posterior pharyngeal wall, cleared with subsequent swallows. Liquid Intake Recommendation: Thin Liquid Intake Strategies: Small Sips, No Straws Dietary Recommendations: Regular Medication Administration: Whole with Liquid Please contact the pharmacy regarding appropriate crushable or liquid drug formulations that are available whenever modified delivery is recommended. Compensatory Strategies Recommended: Sitting Upright (90 deg), Double Swallow, No Straw, Small Bites and Sips, Alternate Liquids/Solids, Rate of Ingestion Change Recommendation for Speech Therapy: NA:Typical EvaluationText Comment: Intake Recommendations: Route: PO Diet Grade: Regular Liquid Consistencies: Thin Post-Study Functional Oral Intake Scale (FOIS): 7- Total oral intake with no restrictions Transient penetration seen consistently with trials of thin liquid and nectar thick liquid. No evidence of aspiration during this exam. Minimal pharyngeal residue cleared with subsequent swallows. Assessment & Plan Assessment & Plan (1) Dysphagia: Code(s): R13.10 - Dysphagia, unspecified Category: Medical Qualifiers: Dysphagia type: oropharyngeal phase Qualified Code(s): R13.12 - Dysphagia, oropharyngeal phase (2) Globus sensation: Code(s): R09.A2 - Foreign body sensation, throat Category: Medical (3) GERD (gastroesophageal reflux disease): Code(s): K21.9 - Gastro-esophageal reflux disease without esophagitis Category: Medical Qualifiers: Esophagitis presence: esophagitis presence not specified Qualified Code(s): K21.9 - Gastro-esophageal reflux disease without esophagitis Plan Patient reports symptoms of dysphagia for the past couple months. Throat examined and I do see small fluid-filled pastules that raises suspicion of possible shingles in his throat. Urgent referral to digital research analyst. This could also be herpangina, however unlikely. Patient does report that he feels like maybe cold is coming on and some postnasal drip. Will send a script for pantoprazole to see if symptoms will be alleviated. Patient was educated to rinse and gargle his throat with water and salt. Upper GI with barium swallow to evaluate for reflux. He will return to the office in 3 weeks. He will call us if he will have any other GI symptoms. Considered starting him on antiviral to treat possible shingles, however he has been having the symptoms for the past couple of months. We will wait till next visit to make that decision if pantoprazole will not help. Patient is agreeable to this plan and verbalizes understanding of instructions. He was given the opportunity to ask questions and all questions answered. Thank you for allowing me to participate his care Orders: Orders FL upper GI w Ba Swallow Today K21.9 - Gastro-esophageal reflux disease without esophagitis Referrals Ear/Nose/Throat Referral R13.10 - Dysphagia, unspecified Medications: New pantoprazole 20 mg PO DAILY 30 tabs 3RF Coding Level of Care Code Est Pt Level 4 (92566) Complex EM visit Add On G2211 Diagnoses Oropharyngeal dysphagia R13.12 Dysphagia type: oropharyngeal phase Globus sensation R09.A2 Gastroesophageal reflux disease, unspecified whether esophagitis present K21.9 Esophagitis presence: esophagitis presence not specified Time Spent (min) 35 Comment 25 minutes spent with patient and additional 10 minutes spent reviewing his records
[2025-02-23 11:12] VITALS: BP 94/54; PULSE 66; O2SAT 96; BMI 33.7
--- OUTSIDE RECORDS SUMMARY | 2025-02-23 11:41 | XMS_ITS | Referral Summary ---
Author Organization [facility] Address [address] [place] [address] Care Team Providers Care Linux Kernel Engineer Name Role Phone Dannie Cosby Primary Care Provider [phone]- [phone] Allergies Active Allergy Reactions Criticality Noted Date [...] Plan of Treatment Not on file [place] [place] [address] [employer]CR RE[employer] PPO Care Teams Linux Kernel Engineer Relationship Specialty Start Date End Date Dannie Cosby [address] [place] [address] PCP - General 10/10/21
--- OUTSIDE RECORDS SUMMARY | 2025-02-23 11:41 | XMS_ITS | Clinical Summary ---
Author Organization [facility] Address [address] [place] [address] Phone Care Team Providers Care Older Worker Specialist Name Role Phone Dannie Cosby NP Primary Care Provider [phone] Allergies Active Allergy Reactions Criticality Noted Date [...] to complete this topic Insurance Care Teams Older Worker Specialist Relationship Specialty Start Date End Date Dannie Cosby NP [facility] [place] [address] PCP - General 07/31/20
--- OUTSIDE RECORDS SUMMARY | 2025-02-23 11:41 | XMS_ITS | Clinical Summary ---
Author Organization [facility] Address [address] [facility] [address] [place] [address] Care Team Providers Care Book Retailer Name Role Phone Dannie Cosby [phone] Pcp, Per Patient Primary Care Provider Unavai lable Allergies Active Allergy Reactions Criticality Noted Date Comments Gabapentin 01/18/2021 Other reaction(s): Other (see comments) Other reaction(s): Other (see comments) mouth/lips edema mouth/lips edema mouth/lips edema mouth/lips edema Lamotrigine 10/29/2023 Pregabalin 01/18/2021 Other reaction(s): Other (see comments) Medications aspirin 81 mg EC tablet Take 1 tablet by mouth. Active atorvastatin (Lipitor) 40 mg tablet Take 40 mg by mouth once daily. 08/11/2023 Active ezetimibe (Zetia) 10 mg tablet Take 10 mg by mouth in the morning. 01/02/2021 Active finasteride (Proscar) 5 mg tablet Take 5 mg by mouth once daily. 08/25/2023 Active docusate sodium (Colace) 100 mg capsule Take 1 capsule by mouth at bedtime. 06/10/2023 Active metoprolol tartrate (Lopressor) 50 mg tablet Take 50 mg by mouth in the morning and 50 mg in the evening. 11/02/2021 Active rivaroxaban (Xarelto) 20 mg tablet TAKE 1 TABLET BY MOUTH EVERY DAY WITH EVENING MEAL 11/03/2017 Active terazosin (Hytrin) 5 mg capsule Take 5 mg by mouth at bedtime. 08/18/2023 Active DULoxetine (Cymbalta) [address] capsule Take 1 capsule by mouth twice daily. 12/20/2020 Active ergocalciferol, vitamin D2, (VITAMIN D2 ORAL) Take by mouth. Active cholecalciferol (Vitamin D3) 50 MCG (1999 UT) tablet Take 50 mcg by mouth once daily. Active solifenacin (VESIcare) 5 mg tablet Take 5 mg by mouth once daily. Swallow tablet whole; do not crush, chew, or split. Active Jardiance 25 mg Take 25 mg by mouth once daily. 12/27/2024 Active rivaroxaban (Xarelto) 20 mg tablet Take by mouth. Take with food. Active Active Problems Problem Noted Date Diagnosed Date Trigeminal neuralgia 10/31/2023 Encounters Date Type Department Care Team Description 02/07/2025 Orders Only [facility] [address] [place] [phone] Rhiannon Manriquez NP Trigeminal neuralgia, postherpetic (Primary Dx) 02/07/2025 Orders Only [facility] [address] [place] [phone] Rhiannon Manriquez NP Trigeminal neuralgia, postherpetic (Primary Dx) 01/19/2025 11:30 AM EDT Office Visit [facility] [address] [place] [phone] Kevin Garnica MD Trigeminal neuralgia, postherpetic (Primary Dx) 01/19/2025 Travel from Last 3 Months Family History Relation Name Status Comments Father Mother Social History Tobacco Use Types Packs/Day Years Used Date Smoking Tobacco: Never Smokeless Tobacco: Never Tobacco Cessation:Counseling Given: Not Answered Alcohol Use Standard Drinks/Week Comments Not Currently 0 (1 standard drink = 0.6 oz pur e alcohol) Overall Financial Resource Strain (CARDIA) Answe r Date Recorded How hard is it for you to pa y for the very basics like food, housing, medical care, and heating? Not hard at all 10/29/2023 Hunger Vital Sign Answer Date Recorded Within the past 12 months, y ou worried that your food would run out before you got the money to buy more. Never true 10/29/19 24 Ran Out of Food in the Last Year Not on file 10/29/2023 PRAPARE - Transportation Answer Date Re corded In the past 12 months, has l ack of transportation kept you from medical appointments or from getting medications? No 10/19 In the past 12 months, has l ack of transportation kept you from meetings, work, or from getting things needed for daily living? No 10/29/2023 Housing Stability Vital Sign Answer Oskar e Recorded Unable to Pay for Housing in the Last Year Not o n file 10/29/2023 Number of Places Lived in the Last Year Not on f ile 10/29/2023 In the last 12 months, was t here a time when you did not have a steady place to sleep or slept in a correction (including now)? No 10/29/2023 Sex and Gender Information Value Date Recorded Sex Assigned at Male 10/26/2023 7:37 PM EDT Legal Sex Male 3:27 PM EDT Gender Identity Male 10/24/2023 3:29 PM EDT Sexual Orientation Straight 10/26/2023 7: 37 PM EDT Last Filed Vital Signs Vital Sign Reading Time Taken Comments Blood Pressure 151/71 11/20/2023 12:00 PM EDT Pulse 65 11/20/2023 12:00 PM EDT Temperature 36.2 C (97.2 F) 11/20/2023 12:00 PM EDT Respiratory Rate 18 11/20/2023 12:00 PM EDT Oxygen Saturation 96% 11/20/2023 12:00 PM EDT Inhaled Oxygen Concentration - - Weight 102 kg (224 lb 12.8 oz) 01/19/2025 10:57 AM EDT Height 175.3 cm (5' 9.02 ) 01/19/2025 10:57 AM E DT Body Mass Index 33.18 01/19/2025 10:57 AM EDT Plan of Treatment Health Maintenance Due Date Last Done Comments Diabetes Screening 1953 Pneumococcal Vaccine: 50+ Years (1 of 2 - PCV) 1954 Medicare Annual Wellness (AWV) 03/21/2002 Depression Screening 07/21/2024 COVID-19 Vaccine (8 - Pfizer risk season) 2024 04/12/2024, 04/29/2023, 05/08/2022, Additional history exists Influenza Vaccine (#1) 2025 , 04/29/2023, 05/17/2022, Additional history exists DTaP/Tdap/Td Vaccines (2 - Td or Tdap) 06/10/2034 06/10/2024 Zoster Vaccines Completed 11/12/2021, 08/21/2021 HIB Vaccines Aged Out No longer eligi [...] patient's age to complete this topic Insurance BLUE CROSS MEDICARE REPLACEMENT PPO HEALTH SAFETY NET Care Teams Book Retailer Relationship Specialty Start Date End Date No Pcp, Per Patient [place] PCP - General 10/29/23 Dannie Cosby [address] [place] [address] 10/24/23
--- OUTSIDE RECORDS SUMMARY | 2025-02-23 11:41 | XMS_ITS | Clinical Summary ---
Author Organization [facility] Address [address] [facility] [address] [place] [address] Care Team Providers Care Yield Engineer Name Role Phone Unavailable Primary Care Provider [...] Insurance DENTAL - HSN FULL (MEDICAID) DENTAL [facility]
--- OUTSIDE RECORDS SUMMARY | 2025-02-23 11:41 | XMS_ITS | Clinical Summary ---
Author Organization [facility] Address [address] [id number] Phone Care Team Providers Care Senior Water Resources Engineer Name Role Phone Sophia Danielle MD Primary Care Provider [phone] Social History Tobacco Use Types Packs/Day Years Used Date Smoking Tobacco: Never Assessed Education Answer Date Recorded Are you interested in more education? Not on dixon e 11/16/2022 Are you concerned about learning? Not on file 11/16/2022 No 11/16/2022 No 11/16/2022 Digital Access Answer Date Recorded No 12/17/2022 No 12/17/2022 Reliable internet access at home? Not on file 12/17/2022 Device with a working camera? Not on file Sex and Gender Information Value Date Recorded Sex Assigned at Not on file Legal Sex Male 11:43 AM EDT Gender Identity Not on file Sexual Orientation Not on file Plan of Treatment Health Maintenance Due Date Last Done Comments Adult Td,Tdap Booster 1935 DEPRESSION SCREENING 1948 PNEUMOCOCCAL VACCINES (50+ y ears) (1 of 1 - PCV) 1986 ZOSTER VACCINES (1 of 2) 1986 RSV VACCINE (1 - 1-dose 75+ series) 2011 COVID-19 VACCINE (2023-2 5 season) 2024 HEPATITIS A VACCINES Aged Out No long er eligible based on patient's age to complete this topic HIB VACCINES Aged Out No longer eligi ble based on patient's age to complete this topic MENINGOCOCCAL VACCINES (ACWY) Aged Out No longer eligible based on patient's age to complete this topic MENINGOCOCCAL VACCINES (B) Aged Out N o longer eligible based on patient's age to complete this topic Medical Devices Not on [place] [address] [place] [address] MED[address]PO [place] [address] [place] [address] MEDICARE PPO [place] [address] [place] [address] [address] [place] [address] [address] [place] [address] [address] [place] [address] [address] [place] [address] [address] [place] [place] [address] MED[address]ARE PPO [place] [address] [place] [address] MEDICARE PPO BLUE REPLACEMENT Care Teams Senior Water Resources Engineer Relationship Specialty Start Date End Date Sophia Danielle MD [address] [facility] [address] [place] PCP - General 02/14/22 Additional Source Comments The information contained in this document represents components of the legal health record. It is not the complete legal health record.[facility]
== END 2025-02-23 11:49 | disposition home or self-care (01) ==
LOC: HO.HGI 10:59
PROVIDERS: PCP Nurse Practitioner Family; Visit Provider Nurse Practitioner Family
DX: R13.12 Dysphagia, oropharyngeal phase (principal); R09.A2 Foreign body sensation, throat; K21.9 Gastro-esophageal reflux disease without esophagitis
CPT/HCPCS: 99214

== ENCOUNTER 2025-02-24 11:05 | Outpatient (REF) | payer MEDICARE, MEDICAID, SELFPAY ==
--- OUTSIDE RECORDS SUMMARY | 2025-02-24 11:45 | XMS_ITS ---
Author Organization [facility] on Care Team Providers Care Security System Technician Name Role Phone Feliciats Bee Unavailable Unavailable Johanny Piña Unavailable Unavailable Pari Gaviria Unavailable Unavailable Luly Reed Unavailable Unavailable Yadi Ball Unavailable Unavailable Katrin Pratt Unavailable Unavailable Nirav Cintron Unavailable Unavailable Allergies and adverse reactions Code CodeSystem Substance Reaction Severity StartDate Concern Status 736780 RXNORM Pregabalin Unknown 02/12/2022 active 89534 RXNORM Gabapentin Unknown 02/12/2022 active Care Team Name Role Address Phone Organization Dates Pari Gaviria PCP [address] [place] [address], [address], [place] (Office): : [facility] 02/13/2022 - 02/25/2022 Felicitas Bee [address] [place], [place], [facility], [place] (Office): [phone] [facility] 02/13/2022 - 02/25/2022 Johanny Piña [address] [place] [address], [address], [place] (Office): [facility] 02/13/2022 - 02/25/2022 Luly Reed [address] [place], [address], [place] (Office): [facility] 02/13/2022 - 02/25/2022 Yadi Ball [address] [place], [address], [place] (Office): [facility] 02/13/2022 - 02/25/2022 Katrin Pratt [address] [place], [address], [place] (Office): : [facility] 02/13/2022 - 02/25/2022 Nirav Cintron [address] [place] [address], [facility], [place] (Office): : [facility] 02/13/2022 - 02/25/2022 Immunizations Immunization Status Vaccine [...] LNP, preservative free, 30 mcg/0.3mL dose Mfg: [employer] 208 CVX created date: 02/12/2022 administered [...] 1 CELLULITIS OF LEFT LOWER LIMB 02/19/[id number] active 2 ATHEROSCLEROTIC HEART DISEASE OF [place] CORONARY ARTERY WITHOUT ANGINA PECTORIS 02/13/[id number] active 3 CHRONIC KIDNEY DISEASE, UNSPECIFIED 02/13/[address] active 4 OTHER POSTHERPETIC NERVOUS SYSTEM INVOLVEMENT 02/13/[address] active 5 PAROXYSMAL ATRIAL FIBRILLATION 02/13/[address] active 6 RHABDOMYOLYSIS 02/13/[address] active 7 THROMBOCYTOPENIA, UNSPECIFIED 02/13/[address] active Reason for Referral No Reasons for Referral Entered Social History Social History Observation Description Start Date End Date Code Code System Current Smoking Status Tobacco smoking consumption unknown 343147956 SNOMED CT Sex Assigned At Male 1935 [address]-3 [facility] Gender Identity Vital Signs Code Code System Vitals Name Values and Units Timing Information 23254-1 LOINC Pain Level Value=0.0 02/25/2022 9279-1 LOINC Respiratory Rate Value=18.0 Units=/m in 02/25/2022 8462-4 LOINC Blood Pressure-Diastolic Value=92 Un its=mmHg 02/25/2022 8480-6 LOINC Blood Pressure-Systolic Bbjih=374 Un its=mmHg 02/25/2022 8310-5 LOINC Body Temperature Value=97.8 Units= F 02/25/2022 8867-4 LOINC Heart rate Value=78.0 Units=/min 02/2022 05161-2 [facility] O2 % BldC Oximetry Value=98.0 Units= % 02/25/2022 05738-8 [facility] Weight Dprjc=700.5 Units=Lbs 8302-2 [facility] Height Value=69.0 Units=Inches 02/13/2022
--- OUTSIDE RECORDS SUMMARY | 2025-02-24 11:45 | XMS_ITS | Referral Summary ---
Author Organization [facility] Address [address] [place] [address] Care Team Providers Care X Ray Control Equipment Repairer Name Role Phone Dannie Cosby Primary Care Provider [phone] Allergies Active Allergy Reactions Criticality Noted Date [...] Plan of Treatment Not on [place] [address] [place] [address] MCR REPLACE PPO Care Teams X Ray Control Equipment Repairer Relationship Specialty Start Date End Date Dannie Cosby [address] [place] [address] PCP - General 10/10/21
--- OUTSIDE RECORDS SUMMARY | 2025-02-24 11:45 | XMS_ITS | Clinical Summary ---
Author Organization [employer] Address [address] [facility] [address] [place] [address] Care Team Providers Care Development Advisor Name Role Phone Unavailable Primary Care Provider [...] Insurance DENTAL - HSN FULL (MEDICAID) DENTAL [facility]
--- OUTSIDE RECORDS SUMMARY | 2025-02-24 11:45 | XMS_ITS | Clinical Summary ---
Author Organization [facility] Address [address] [facility] [address] [place] [address] Care Team Providers Care Retirement Manager Name Role Phone Dannie Cosby [phone] Pcp, Per Patient Primary Care [...] Department Care Team Description 02/07/2025 Orders Only [facility] Neurosurgery [address] [place] [phone] Rhiannon Manriquez NP Trigeminal neuralgia, postherpetic (Primary Dx) 02/07/2025 Orders Only [facility]surgery [address] [place] [phone] Rhiannon Manriquez NP Trigeminal neuralgia, postherpetic (Primary Dx) 01/19/2025 11:30 AM EDT Office Visit [facility]surgery [address] [place] [phone] Kevin Garnica MD Trigeminal neuralgia, postherpetic (Primary [...] place to sleep or slept in a usp (including now)? No 10/29/2023 Sex and Gender [...] REPLACEMENT PPO HEALTH SAFETY NET Care Teams Retirement Manager Relationship Specialty Start Date End Date No Pcp, Per Patient [place] PCP - General 10/29/23 Dannie Cosby [address] [place] [address] 10/24/23
--- OUTSIDE RECORDS SUMMARY | 2025-02-24 11:45 | XMS_ITS | Clinical Summary ---
Author Organization [facility] Address [address] [place] [address] Phone Care Team Providers Care Director Heart Name Role Phone Dannie Cosby NP Primary Care Provider [phone] Allergies Active Allergy Reactions Criticality Noted Date [...] to complete this topic Insurance Care Teams Director Heart Relationship Specialty Start Date End Date Dannie Cosby NP [facility] [place] [address] PCP - General 07/31/20
--- OUTSIDE RECORDS SUMMARY | 2025-02-24 11:45 | XMS_ITS | Clinical Summary ---
Author Organization [facility] Address [address] [id number] Phone Care Team Providers Care Restaurant Crew Person Name Role Phone Sophia Danielle MD Primary Care Provider [phone] Social History Tobacco Use Types Packs/Day Years [...] topic Medical Devices Not on file [place] [address] MEDICARE PPO BLUE REPLACEMENT [place] [address] MEDICARE PPO BLUE [address] [place] [address] MEDICARE PPO [address] [place] [address] MEDICARE PPO [address] [place] [address] MEDICARE PPO [address] [place] [address] MEDICARE PPO [address] [place] [address] MEDICARE PPO [address] [place] [address] MEDICARE PPO BLUE REPLACEMENT [place] [address] MEDICARE PPO BLUE REPLACEMENT Care Teams Restaurant Crew Person Relationship Specialty Start Date End Date Sophia Danielle MD [address] [place] PCP - General 02/14/22 Additional Source Comments The information contained in this document represents components of the legal health record. It is not the complete legal health record.[facility]
[2025-02-24 13:53] LABS: Blood Urea Nitrogen 29 mg/dL (9-16); Estimated Glomerular Filt Rate 42
== END 2025-02-24 11:06 | disposition home or self-care (01) ==
LOC: HO.HMGCLDS 11:05
PROVIDERS: Internal Medicine; PCP Nurse Practitioner Family; Visit Provider Nurse Practitioner Adult Health
DX: B02.22 Postherpetic trigeminal neuralgia (principal)
CPT/HCPCS: 36415; 82565; 84520

== ENCOUNTER 2025-03-01 10:13 | Outpatient (REF) | payer MEDICARE, MEDICAID, SELFPAY ==
--- NOTE | ~2025-03-01 | XR_ITS ---
EXAMINATION: XR NECK SOFT TISSUE HISTORY: K22.2 - Esophageal obstruction COMPARISON: Correlation is made with a CT of the neck without contrast dated 10/29/2024. FINDINGS: AP and lateral views of the soft tissues of the neck are submitted. The epiglottis and aryepiglottic folds are unremarkable in appearance. The airway is patent. Calcifications projecting anterior to the spine at the level of the hyoid bone on the lateral view are likely related to the internal carotid arteries. There is no prevertebral soft tissue swelling. XR/XR soft tissue neck IMPRESSION: Unremarkable examination of the soft tissues of the neck. Electronically signed by: Nirav Belle MD 03/01/2025 11:12 AM EDT
== END 2025-03-01 10:14 | disposition home or self-care (01) ==
LOC: HO.XRAY 10:13
PROVIDERS: PCP Nurse Practitioner Family; Visit Provider Nurse Practitioner Family
DX: K21.9 Gastro-esophageal reflux disease without esophagitis (principal); K22.2 Esophageal obstruction; R13.12 Dysphagia, oropharyngeal phase; R09.A2 Foreign body sensation, throat; Z79.899 Other long term (current) drug therapy
CPT/HCPCS: 70360; 99212

== ENCOUNTER 2025-03-01 10:13 | Outpatient (AMB) | payer MEDICARE, SELFPAY ==
[2025-03-01 10:17] VITALS: BP 148/62; PULSE 66; O2SAT 96; BMI 33.7
--- NOTE | 2025-03-01 10:17 | MHC.OFFVIS ---
Vital Signs 03/01/25 10:17 Height 5 ft 9 in Weight 228 lb BMI 33.7 BP 148/62 H Blood Pressure Location Rt brachial Position Sitting Pulse 66 Pulse Source Pulse Oximeter Pulse Oximetry (%) 96 Oxygen Delivery Method Room Air Intake Visit Reasons: choking sensation Intake Note: Est pt for prev mgmt of CIC + Hematochezia. Eval today for foreign body sensation + dysphagia. CC: C.O. dysphagia and abnormal / foreign body sensation. Pt states he has not been able to swallow his medication since last visit. Letter Stamping Machine Operator Required: No Accompanied by: Self / Same As Patient Allergies lamotrigine (From Lamictal) Allergy (Intermediate, Verified 03/01/25 10:17) swelling gabapentin Allergy (Unknown, Verified 03/01/25 10:17) lip swelling pregabalin (From Lyrica) Allergy (Unknown, Verified 03/01/25 10:17) lip swelling HPI HPI choking sensation: Details: LAST VISIT Dysphagia Globus sensation GERD (gastroesophageal reflux disease) Plan Patient reports symptoms of dysphagia for the past couple months. Throat examined and I do see small fluid-filled pastules that raises suspicion of possible shingles in his throat. Urgent referral to gear and spline grinder. This could also be herpangina, however unlikely. Patient does report that he feels like maybe cold is coming on and some postnasal drip. Will send a script for pantoprazole to see if symptoms will be alleviated. Patient was educated to rinse and gargle his throat with water and salt. Upper GI with barium swallow to evaluate for reflux. He will return to the office in 3 weeks. He will call us if he will have any other GI symptoms. Considered starting him on antiviral to treat possible shingles, however he has been having the symptoms for the past couple of months. We will wait till next visit to make that decision if pantoprazole will not help. Patient is agreeable to this plan and verbalizes understanding of instructions. He was given the opportunity to ask questions and all questions answered. ? Thank you for allowing me to participate his care Orders FL upper GI w Ba Swallow Today K21.9 Referrals Ear/Nose/Throat Referral R13.10 New pantoprazole 20 mg PO DAILY 30 tabs 3RF TODAY'S VISIT Patient is here today for request visit. Patient reports that he started taking pantoprazole and had adverse effect. Patient states that he became dizzy and disoriented. Patient stop the medication. He continues to have trouble swallowing. He feels like the food is getting stuck in his throat. Patient denies any pain when he swallows. This happens with almost anything. Denies any choking episodes. Patient tried calling ENT that he was referred to and was not successful. Patient denies any acid reflux. Reports to have good appetite PFSH Medical History Pulmonary nodules Cough Hx of sigmoidoscopy Frequent falls Urinary frequency History of claustrophobia History of shingles On anticoagulant therapy On beta diana at home Dyslipidemia Gout Spinal stenosis of lumbar region Atrial fibrillation CKD (chronic kidney disease) Elevated PSA Aortic stenosis CAD (coronary artery disease) Right facial pain Trigeminal neuralgia Post herpetic neuralgia Surgical History H/O aortic valve replacement Status post lens implant History of fracture of leg History of laparoscopic cholecystectomy History of aortic valve replacement History of heart bypass surgery Pacemaker Family History Father No problems noted. Mother No problems noted. Social History Household Members: None Housing: House Are you a primary daytime caregiver to a significant other at home: No Do you presently have visiting nurse or other home services: No Alcohol intake: never Patient Tobacco Use Status: Never used Tobacco e-Cigarette/Vaping Use: Never Used Second Hand Smoke Exposure: No service: Yes Current occupational status: unemployed and retired Current occupational exposures/hazards: No Cognitive needs: No Hearing needs: No Vision needs: No Review of Systems Const Denies weight gain and Denies weight loss ENT Reports no additional complaints, Reports dysphagia and Denies odynophagia Card Reports no additional complaints Resp Reports no additional complaints GI Denies abdominal pain, Denies belching, Denies melena, Denies bloating, Denies change in bowel habits, Reports dysphagia, Denies excessive flatus, Denies dyspepsia, Denies heartburn, Denies diarrhea, Denies loose stools, Denies nausea, Denies odynophagia and Denies vomiting Reports no additional complaints Musc Reports no additional complaints Neuro Reports no additional complaints Psych Reports no additional complaints Endo Reports no additional complaints Physical Exam Vital Signs: Last Vital Signs Pulse 66 03/01/25 10:17 BP 148/62 H 03/01/25 10:17 Pulse Ox 96 03/01/25 10:17 Oxygen Delivery Method Room Air 03/01/25 10:17 BMI result Body Mass Index 33.7 Const General: healthy appearing and no acute distress Nutritional Appearance: obese Orientation/consciousness: patient oriented x3 HEENT Mouth: abnormal tongue (dry) Throat: Yes other (Tiny cysts like pastules in posterior oropharynx) Resp Effort & Inspection: normal respiratory effort, able to speak in complete sentences, no tracheal deviation and symmetric chest movement Auscultation: clear to auscultation bilaterally Cardio Rate: regular rate GI Inspection: Yes normal to inspection, No distended and Yes obesity Palpation (GI): Soft to palpation, not firm, nontender and No hepatosplenomegaly present Auscultation: normal bowel sounds General: Yes no CVA tenderness Back/Spine/Pelvis Back: no CVA tenderness Skin General skin exam: elasticity normal, turgor normal and dry skin Neuro General: patient oriented x3 Psych Appearance: grossly normal Mental Status: mental status grossly normal Assessment & Plan Assessment & Plan (1) Dysphagia: Code(s): R13.10 - Dysphagia, unspecified Category: Medical Qualifiers: Dysphagia type: oropharyngeal phase Qualified Code(s): R13.12 - Dysphagia, oropharyngeal phase (2) Globus sensation: Code(s): R09.A2 - Foreign body sensation, throat Category: Medical (3) GERD (gastroesophageal reflux disease): Code(s): K21.9 - Gastro-esophageal reflux disease without esophagitis Category: Medical Qualifiers: Esophagitis presence: esophagitis presence not specified Qualified Code(s): K21.9 - Gastro-esophageal reflux disease without esophagitis Plan Patient will be sent for x-ray of the neck. Visualizing his throat partially as that tongue was obstructing the view. Noticed very dry tongue. Patient admits that he does drink water with each meal. He was encouraged to continue to do so. Eat small bites and soft food. Patient will be sent for upper endoscopy. Able to get him in on the of this month. He will call us if you have any additional GI concerning symptoms. Magic mouthwash 3 times a day for 7 days. Will try to get in touch with ENT to schedule patient for appointment. Patient is agreeable to current plan of care and verbalizes understanding of instructions. He was given the opportunity to ask questions and all questions answered. Thank you for allowing me to participate in his care Orders: Orders XR soft tissue neck Today K22.2 - Esophageal obstruction Medications: New Magic Mouthwash Diphen/Nystat/Antacid 1:1:1 nystatin 100,000 unit/mL oral suspension 80 mL; diphenhydramine 12.5 mg/5 mL oral liquid 80 mL; aluminum-mag hydroxide-simethicone 400 mg-400 mg-40 mg/5 mL oral susp 80 mL; Per 240 mL 10 mL PO TID 240 mL 0RF 7 days Discontinued pantoprazole Discontinued Reason: Doctor's Order 20 mg PO DAILY 30 tabs 3RF Coding Level of Care Code Est Pt Level 4 (46153) Complex EM visit Add On G2211 Diagnoses Oropharyngeal dysphagia R13.12 Dysphagia type: oropharyngeal phase Globus sensation R09.A2 Gastroesophageal reflux disease, unspecified whether esophagitis present K21.9 Esophagitis presence: esophagitis presence not specified Time Spent (min) 35 Comment 25 minutes spent with patient and additional 10 minutes spent reviewing his records
--- OUTSIDE RECORDS SUMMARY | 2025-03-01 11:15 | XMS_ITS ---
Author Organization [facility] on Care Team Providers Care Handbag Stitcher Name Role Phone Felicitas Bee Unavailable Unavailable Johanny Piña Unavailable Unavailable Pari Gaviria Unavailable Unavailable Luly Reed Unavailable Unavailable Yadi Ball Unavailable Unavailable Katrin Pratt Unavailable Unavailable Nirav Cintron Unavailable Unavailable Allergies and adverse reactions Code CodeSystem Substance Reaction Severity StartDate Concern Status 560611 RXNORM Pregabalin Unknown 02/12/2022 active 31784 RXNORM Gabapentin Unknown 02/12/2022 active Care Team Name Role Address Phone Organization Dates Pari Gaviria PCP [address] [place] [address], [address], [place] (Office): : [facility] 02/13/2022 - 02/25/2022 Felicitas Bee [address] [place], [place], [facility], [place] (Office): [phone] [facility] 02/13/2022 - 02/25/2022 Johanny Piña [address] [place] [address], [address], [place] (Office): [facility] 02/13/2022 - 02/25/2022 Luly Reed [address] [place], [address], [place] (Office): [facility] 02/13/2022 - 02/25/2022 Yadi Ball [address] [place], [address], [place] (Office): [facility] 02/13/2022 - 02/25/2022 Katrin Pratt [address] [place], [address], [place] (Office): : [facility] 02/13/2022 - 02/25/2022 Nirav Cintron [address] [place] [address], [facility], [place] (Office): : [facility] 02/13/2022 - 02/25/2022 Immunizations Immunization Status Vaccine [...] LNP, preservative free, 30 mcg/0.3mL dose Mfg: [employer] 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 02/13/[address] active 3 CHRONIC KIDNEY DISEASE, UNSPECIFIED 02/13/[address] active 4 OTHER POSTHERPETIC NERVOUS SYSTEM INVOLVEMENT 02/13/[address] active 5 PAROXYSMAL ATRIAL FIBRILLATION 02/13/[address] active 6 RHABDOMYOLYSIS 02/13/[address] active 7 THROMBOCYTOPENIA, UNSPECIFIED 02/13/[address] active Reason for Referral No Reasons for Referral Entered Social History Social History Observation Description Start Date End Date Code Code System Current Smoking Status Tobacco smoking consumption unknown 948496966 SNOMED CT Sex Assigned At Male 1935 79558-4 [facility] Gender Identity Vital Signs Code Code System Vitals Name Values and Units Timing Information 63890-5 LOINC Pain Level Value=0.0 02/25/2022 9279-1 LOINC Respiratory Rate Value=18.0 Units=/m in 02/25/2022 8462-4 LOINC Blood Pressure-Diastolic Value=92 Un its=mmHg 02/25/2022 8480-6 LOINC Blood Pressure-Systolic Figwz=152 Un its=mmHg 02/25/2022 8310-5 LOINC Body Temperature Value=97.8 Units= F 02/25/2022 8867-4 LOINC Heart rate Value=78.0 Units=/min 02/2022 98175-0 [facility] O2 % BldC Oximetry Value=98.0 Units= % 02/25/2022 10274-5 [facility] Weight Dvnwe=256.5 Units=Lbs 8302-2 [facility] Height Value=69.0 Units=Inches 02/13/2022
--- OUTSIDE RECORDS SUMMARY | 2025-03-01 11:15 | XMS_ITS | Clinical Summary ---
Author Organization [facility] Address [address] [facility] [address] [place] [address] Care Team Providers Care Senior Architect Name Role Phone Dannie Cosby [phone] Pcp, Per Patient Primary Care [...] Department Care Team Description 02/07/2025 Orders Only [facility] Neurosurgery [address] [place] [phone] Rhiannon Manriquez NP Trigeminal neuralgia, postherpetic (Primary Dx) 02/07/2025 Orders Only [facility] Neurosurgery [address] [place] [phone] Rhiannon Manriquez NP Trigeminal neuralgia, postherpetic (Primary Dx) 01/19/2025 11:30 AM EDT Office Visit [facility] Neurosurgery [address] [place] [phone] Kevin Garnica MD Trigeminal neuralgia, postherpetic (Primary [...] place to sleep or slept in a fdc (including now)? No 10/29/2023 Sex and Gender [...] REPLACEMENT PPO HEALTH SAFETY NET Care Teams Senior Architect Relationship Specialty Start Date End Date No Pcp, Per Patient [place] PCP - General 10/29/23 Dannie Cosby [address] [place] [address] 10/24/23
--- OUTSIDE RECORDS SUMMARY | 2025-03-01 11:15 | XMS_ITS | Clinical Summary ---
Author Organization [facility] Address [address] [place] [address] Phone Care Team Providers Care Systems Program Manager Name Role Phone Dannie Cosby NP Primary Care Provider [phone] Allergies Active Allergy Reactions Criticality Noted Date [...] to complete this topic Insurance Care Teams Systems Program Manager Relationship Specialty Start Date End Date Dannie Cosby NP [facility] [place] [address] PCP - General 07/31/20
--- OUTSIDE RECORDS SUMMARY | 2025-03-01 11:15 | XMS_ITS | Clinical Summary ---
Author Organization [facility] Address [address] [facility] [address] [place] [address] Care Team Providers Care Heating Element Builder Name Role Phone Unavailable Primary Care Provider [...] Insurance DENTAL - HSN FULL (MEDICAID) DENTAL [facility]
--- OUTSIDE RECORDS SUMMARY | 2025-03-01 11:15 | XMS_ITS | Clinical Summary ---
Author Organization [facility] Address [address] [phone] Phone Care Team Providers Care Heat Treat Worker Name Role Phone Sophia Danielle MD Primary Care Provider [phone] Social History Tobacco Use Types Packs/Day Years [...] topic Medical Devices Not on file [place] [address] MEDICARE PPO BLUE REPLACEMENT [place] [address] MEDICARE PPO BL[address] [address] [place] [address] MEDICARE PPO [address] [place] [address] MEDICARE PPO [address] [place] [address] MEDICARE PPO [address] [place] [address] MEDICARE PPO [address] [place] [address] [place] [address] MEDICARE PPO [address] [place] [place] [address] MEDICARE PPO BLUE REPLACEMENT [place] [address] MEDICARE PPO BLUE REPLACEMENT Care Teams Heat Treat Worker Relationship Specialty Start Date End Date Sophia Danielle MD [address] [place] PCP - General 02/14/22 Additional Source Comments The information contained in this document represents components of the legal health record. It is not the complete legal health record.[facility]
--- OUTSIDE RECORDS SUMMARY | 2025-03-01 11:15 | XMS_ITS | Referral Summary ---
Author Organization [facility] Address [address] [place] [address] Care Team Providers Care Statistical Assistant Name Role Phone Dannie Cosby Primary Care Provider [phone] Allergies Active Allergy Reactions Criticality Noted Date [...] Plan of Treatment Not on file [place] [address] [address] [place] [address] MCR REPLACE PPO Care Teams Statistical Assistant Relationship Specialty Start Date End Date Dannie Cosby [address] [place] [address] PCP - General 10/10/21
== END 2025-03-01 10:48 | disposition home or self-care (01) ==
LOC: HO.HGI 10:14
PROVIDERS: PCP Nurse Practitioner Family; Visit Provider Nurse Practitioner Family
DX: R13.12 Dysphagia, oropharyngeal phase (principal); R09.A2 Foreign body sensation, throat; K21.9 Gastro-esophageal reflux disease without esophagitis
CPT/HCPCS: 99214; G2211

== ENCOUNTER → 2025-03-01 10:52 | Outpatient (BNV) | payer MEDICARE, SELFPAY | PROVIDERS: PCP Nurse Practitioner Family; Visit Provider Radiology Diagnostic Radiology | DX: K22.2 Esophageal obstruction (principal) | CPT/HCPCS: 70360 ==

== ENCOUNTER 2025-03-03 07:47 | Outpatient (REF) | payer MEDICARE, MEDICAID, SELFPAY ==
--- NOTE | ~2025-03-03 | CT_ITS ---
CLINICAL HISTORY: J98.8 - Other specified respiratory disorders CT head with IV contrast Comparison: CT/SR - CT HEAD WITHOUT IV CONTRAST - 11/12/22 13:10 EDT Findings: No acute intracranial hemorrhage allowing for postcontrast only technique. No acute major vascular distribution infarct, intracranial mass, midline shift or hydrocephalus. No abnormal intracranial enhancement. Atherosclerotic calcification of intracranial ICAs, major intracranial vasculature are patent. Stable [id number] periventricular and subcortical white matter hypoattenuation, nonspecific, most frequently ascribed to chronic small vessel ischemic disease. Visualized orbits are within normal range. Visualized paranasal sinuses, and mastoid air cells are unremarkable. The cranium appears intact. Superficial soft tissue is unremarkable. Impression: 1. No acute intracranial finding or abnormal intracranial enhancement. This document has been electronically signed by: Melony Rendon MD on 03/03/2025 12:30:54
--- OUTSIDE RECORDS SUMMARY | 2025-03-03 07:49 | XMS_ITS | Clinical Summary ---
Author Organization [facility] Address [address] [place] [address] Care Team Providers Care Mingle Operator Name Role Phone Dannie Cosby Primary Care Provider [phone] Allergies Active Allergy Reactions Criticality Noted Date [...] of Health Annual Screening 07/21/2024 Influenza Vaccine (#1) 2025 , 03/30/2020, 06/07/2019 Zoster Vaccines Completed 11/12/2021, 08/21/2021 Hepatitis B Vaccines Aged Out No long er eligible based on patient's age to complete this topic Insurance BCBS MCR REPLACE PPO Care Teams Mingle Operator Relationship Specialty Start Date End Date Dannie Cosby [address] [place] [address] PCP - General 10/10/21
--- OUTSIDE RECORDS SUMMARY | 2025-03-03 07:49 | XMS_ITS | Clinical Summary ---
Author Organization [facility] Address [address] [place] [address] Phone Care Team Providers Care Micro Photographer Name Role Phone Dannie Cosby NP Primary Care Provider [phone] Allergies Active Allergy Reactions Criticality Noted Date [...] to complete this topic Insurance Care Teams Micro Photographer Relationship Specialty Start Date End Date Dannie Cosby NP [place] [address] PCP - General 07/31/20
--- OUTSIDE RECORDS SUMMARY | 2025-03-03 07:49 | XMS_ITS | Clinical Summary ---
Author Organization [facility] Address [address] [facility] [address] [place] [address] Care Team Providers Care Monomer Purification Operator Name Role Phone Unavailable Primary Care [...] Insurance DENTAL - HSN FULL (MEDICAID) DENTAL [facility]
--- OUTSIDE RECORDS SUMMARY | 2025-03-03 07:49 | XMS_ITS | Clinical Summary ---
Author Organization [facility] Address [address] [id number] Phone Care Team Providers Care Electronic Equipment Repairer Name Role Phone Sophia Danielle MD Primary Care Provider [phone] Social History Tobacco Use Types Packs/Day Years [...] topic Medical Devices Not on [place] [address] [place] [address] MEDICARE PPO BL[place] [place] [address] MED[place]ARE PPO BLUE [place] [place] [address] MED[place]ARE PPO BLUE [place] [place] [address] MEDICARE PPO BL[place] [place] [address] MEDICARE PPO [address] [place] [place] [address] MEDICARE PPO [address] [address] MEDICARE PPO [address] [place] [address] MEDICARE [address] [address] [address] MEDICARE PPO BLUE REPLACEMENT Care Teams Electronic Equipment Repairer Relationship Specialty Start Date End Date Sophia Danielle MD [address] [facility] [facility] [address] [place] PCP - General 02/14/22 Additional Source Comments The information contained in this document represents components of the legal health record. It is not the complete legal health record.[facility]
--- OUTSIDE RECORDS SUMMARY | 2025-03-03 07:49 | XMS_ITS | Clinical Summary ---
Author Organization [facility] Address [address] [facility] [address] [place] [address] Care Team Providers Care Grinder Watch Parts Name Role Phone Dannie Cosby [phone] No Pcp, Per Patient Primary Care [...] Department Care Team Description 02/07/2025 Orders Only [facility] Neurosurgery [address] [place] [phone] Rhiannon Manriquez NP Trigeminal neuralgia, postherpetic (Primary Dx) 02/07/2025 Orders Only [facility] Neurosurgery [address] [place] [phone] Rhiannon Manriquez NP Trigeminal neuralgia, postherpetic (Primary Dx) 01/19/2025 11:30 AM EDT Office Visit [facility] Neurosurgery [address] [place] [phone] Kevin Garnica MD Trigeminal neuralgia, postherpetic (Primary [...] place to sleep or slept in a prison (including now)? No 10/29/2023 Sex and Gender [...] REPLACEMENT PPO HEALTH SAFETY NET Care Teams Grinder Watch Parts Relationship Specialty Start Date End Date No Pcp, Per Patient [place] PCP - General 10/29/23 Dannie Cosby [address] [place] [address] 10/24/23
[2025-03-03] MEDS: iohexoL 350 MG/ML 100 ML INFUS..BTL IV (09:00)
== END 2025-03-03 07:48 | disposition home or self-care (01) ==
LOC: HO.CT 07:47
PROVIDERS: PCP Nurse Practitioner Family; Visit Provider Neurological Surgery
DX: G50.0 Trigeminal neuralgia (principal)
CPT/HCPCS: 70460; Q9967

== ENCOUNTER → 2025-03-03 07:47 | Outpatient (BNV) | payer MEDICARE, MEDICAID, SELFPAY | PROVIDERS: PCP Nurse Practitioner Family; Visit Provider Radiology Diagnostic Radiology | DX: G50.0 Trigeminal neuralgia (principal) | CPT/HCPCS: 70460 ==

== ENCOUNTER 2025-03-08 14:42 | Outpatient (AMB) | payer MEDICARE, SELFPAY ==
--- NOTE | 2025-03-08 14:52 | MHC.PC.OV ---
Vital Signs 03/08/25 14:54 03/08/25 15:35 Height 5 ft 9 in Weight 228 lb BMI 33.7 BP 140/72 H 124/70 Blood Pressure Location Rt brachial Position Sitting Respiration 16 Pulse 65 Pulse Source Pulse Oximeter Temp 98.2 F Temp Source Oral Pulse Oximetry (%) 99 Oxygen Delivery Method Room Air Intake Visit Reasons: ANNUAL PE Accompanied by: Self / Same As Patient Allergies lamotrigine (From Lamictal) Allergy (Intermediate, Verified 03/08/25 15:06) swelling gabapentin Allergy (Unknown, Verified 03/08/25 15:06) lip swelling pregabalin (From Lyrica) Allergy (Unknown, Verified 03/08/25 15:06) lip swelling Tobacco use date assessed: 03/08/25 Fall risk assessment: No Falls in past year Last assessed Fall Risk: 03/08/25 Dental Screening Dental Screen Date: 03/08/25 Did you have a dental visit in the last 12 months?: No Did you have a dental problem in the last 6 months where you did not have access to dental care?: No Was dental information given to patient?: Patient declined HPI ANNUAL PE HPI Details History of Present Illness The patient is an 89-year-old male presenting for a physical examination. He has a history of trigeminal neuralgia on the right side, which has been causing significant discomfort. A recent CT scan was performed, and he is scheduled to see a neurosurgeon for further evaluation. The patient also experiences cerumen impaction, with the right ear being more affected than the left. This has impacted his ability to hear, and plans are in place to address this during the visit. Peripheral edema is noted in the bilateral extremities, with the left side being more affected. Despite this, sensation in the feet remains intact, as confirmed by monofilament testing. A faint systolic murmur was detected during the examination, pt sees a senior software analyst on a regular basis The patient manages his diabetes mellitus with dietary measures, achieving an A1c of 6.6%. He is encouraged to continue with regular fasting labs to monitor his condition. denies any neuropathy, polydipsia, polyuria Health Maintenance - Diabetes management through diet, achieving an A1c of 6.6% - Encouraged to obtain regular fasting labs for diabetes monitoring Social History Review of Systems - General: Denies fever, chills - Cardiovascular: Denies chest pain - Respiratory: Denies dyspnea - Gastrointestinal: Denies abdominal pain, blood in stool, constipation, diarrhea - Neurological: Reports right-sided trigeminal neuralgia; denies suicidal or homicidal ideation Physical Exam General: Cooperative, healthy appearing, comfortable, no acute distress and well developed Orientation: Patient oriented x3 Limitations: No limitations Head: Normal to inspection Ears: Hearing grossly normal bilaterally, TM is unable to see due to cerumen, right worse than left Nose: Normal external nose present Face and sinus: Normal facial exam, but patient has right-sided trigeminal neuralgia Eyes: Appearance normal, both eyes and all related structures Neck: Normal visual inspection and Yes full ROM Respiratory: Normal respiratory effort and able to speak in complete sentences. Clear to auscultation bilaterally Cardiovascular: Regular rate and rhythm. Normal S1 and S2, very faint systolic murmur noted GI: Normal to inspection. Soft to palpation and nontender : Testicles without masses/lesions and no hernias appreciated Skin: No rashes or lesions noted Neuro: Patient oriented x3 Extremities: Swelling noted at the bilateral extremities, left greater than right. Feet were intact with positive sensation with use of monofilament. Results - Imaging: CT scan performed for trigeminal neuralgia Plan The patient will be referred to a neurosurgeon for further evaluation of his right-sided trigeminal neuralgia, following a recent CT scan. Cerumen impaction will be addressed during the visit to improve hearing. An echocardiogram is planned to assess the faint systolic murmur detected during the examination. The patient is advised to continue managing his diabetes with dietary measures and to obtain regular fasting labs for monitoring. Discussion Notes I discussed with the patient the need for a neurosurgical consultation for his trigeminal neuralgia and the importance of addressing the cerumen impaction to improve his hearing. We also talked about obtaining an echocardiogram to evaluate the systolic murmur and the importance of continuing dietary management for his diabetes. Patient Instructions - Follow up with the neurosurgeon for trigeminal neuralgia evaluation - Address cerumen impaction during the visit - Obtain an echocardiogram as planned - Continue managing diabetes with dietary measures and get regular fasting labs [facility] Medical History Pulmonary nodules Cough Hx of sigmoidoscopy Frequent falls Urinary frequency History of claustrophobia History of shingles On anticoagulant therapy On beta diana at home Dyslipidemia Gout Spinal stenosis of lumbar region Atrial fibrillation CKD (chronic kidney disease) Elevated PSA Aortic stenosis CAD (coronary artery disease) Right facial pain Trigeminal neuralgia Post herpetic neuralgia Surgical History H/O aortic valve replacement Status post lens implant History of fracture of leg History of laparoscopic cholecystectomy History of aortic valve replacement History of heart bypass surgery Pacemaker Family History Father No problems noted. Mother No problems noted. Social History Household Members: None Housing: House Are you a primary day care aide to a significant other at home: No Do you presently have visiting nurse or other home services: No Alcohol intake: never Patient Tobacco Use Status: Never used Tobacco e-Cigarette/Vaping Use: Never Used Second Hand Smoke Exposure: No service: Yes Current occupational status: unemployed and retired Current occupational exposures/hazards: No Cognitive needs: No Hearing needs: No Vision needs: No Questionnaire PHQ-9 Over the last 2 weeks, how often have you been bothered by any of the following problems? 1. Little interest or pleasure in doing things: not at all 2. Feeling down, depressed, or hopeless: not at all 3. Trouble falling or staying asleep, or sleeping too much: not at all 4. Feeling tired or having little energy: not at all 5. Poor appetite or overeating: not at all 6. Feeling bad about yourself - or that you are a failure or have let yourself or your family down: not at all 7. Trouble concentrating on things, such as reading the newspaper or watching television: not at all 8. Moving or speaking so slowly that other people could have noticed. Or the opposite - being so fidgety or restless that you have been moving around a lot more than usual: not at all 9. Thoughts that you would be better off or of hurting yourself in some way: not at all Total score: 0 Depression Screening Interpretation: Negative Depression Screening Done: Yes 95312 - PHQ-9 Billing: Yes Source: Developed by Drs. Nirav Marinelli, Dali Amezquita, Nicola Pruitt and colleagues, with an educational juan from [employer]. Thrive Questionnaire Date Thrive assessed: 09/09/24 I am a: Patient What is your living situation today?: I have a steady place to live Within the past 12 months, did the food you bought not last and you didn't have the money to get more?: Never true Within the past 12 months, did you worry whether your food would run out before you got money to buy more?: Never true Do you have trouble paying for medicines?: No Do you have trouble getting transportation to medical appointments?: No Do you have trouble paying your heating and electricity bill?: No Do you have trouble taking care of your child, family member or friend?: No Do you have trouble with day-to-day activities such as bathing, preparing meals, shopping, managing finances, etc.?: No Are you currently unemployed and looking for a job?: No Are you interested in more education?: No Please select the resources that you would like help with: None Currently or been in a relationship where the following occur: No concerns reported THRIVE Score: 0 ELZA-7 AMB Questionnaire ELZA-7 Feeling nervous, anxious, or on edge: 0 = Not at all Not being able to stop or control worryin = Not at all Worrying too much about different things: 0 = Not at all Trouble relaxin = Not at all Being so restless that it is hard to sit still: 0 = Not at all Becoming easily annoyed or irritable: 0 = Not at all Feeling afraid as if something awful might happen: 0 = Not at all Total ELZA-7 score (0-4 normal; 5-9 mild; 10-14 moderate; 15-21 severe): 0 Source: Developed by Drs. Nirav Marinelli, Dali Amezquita, Nicola Pruitt and colleagues, with an educational juan from [employer]. ELZA-7 Assessment Billing ELZA-7 Assessment Tool: ELZA-7 Assessment 54520 Physical exam (Primary Care) Vital Signs: Last Vital Signs Temp 98.2 F 03/08/25 14:54 Pulse 65 03/08/25 14:54 Resp 16 03/08/25 14:54 BP 140/72 H 03/08/25 14:54 Pulse Ox 99 03/08/25 14:54 Oxygen Delivery Method Room Air 03/08/25 14:54 BMI result Body Mass Index 33.7 Tobacco/Smoking Status: Tobacco use Status Tobacco use date assessed 03/08/25 03/08/25 15:07 Patient Tobacco Use Status Never used Tobacco 03/08/25 14:54 e-Cigarette/Vaping Use Never Used 03/08/25 14:54 PHQ-9: PHQ-9 Score PHQ-9: Total score 0 03/08/25 15:07 Depression Screening Interpretation: Negative Thrive Assessment: Date of Thrive Assessment Date Thrive assessed 09/09/24 03/08/25 14:54 Currently or been in a relationship where the following occur: No concerns reported Office Procedures Cerumen Removal From which ear canal was the cerumen removed: right Removal: irrigation Notes: patient tolerated procedure well, no complications and ear canal clear [id number] Irrigation/Lavage Coding Level of Care Code Est Pt Level 3 (54688) Est Pt Prev Care >65y(04115) Diagnoses Systolic murmur R01.1 Diabetes E11.9 Encounter for routine adult physical exam with abnormal findings Z00. Cerumen debris on tympanic membrane H61.20 CPT Codes Office Procedure - CPT: 83964-Bai Irrigation/Lavage ([id number]) Additional Codes ELZA-7 Assessment Billing - ELZA-7 Assessment Tool: ELZA-7 Assessment 42614 ([id number]) PHQ-9 - 12729 - PHQ-9 Billing: Yes ([id number]) Assessment & Plan Assessment & Plan (1) Systolic murmur: Code(s): R01.1 - Cardiac murmur, unspecified Category: Medical (2) Diabetes: Code(s): E11.9 - Type 2 diabetes mellitus without complications Category: Medical (3) Encounter for routine adult physical exam with abnormal findings: Code(s): Z00.01 - Encounter for general adult medical examination with abnormal findings Category: Medical (4) Cerumen debris on tympanic membrane: Code(s): H61.20 - Impacted cerumen, unspecified ear Category: Medical Plan . Orders: Orders Complete Blood Count Auto Diff Today E11.9 - Type 2 diabetes mellitus without complications, Z00.01 - Encounter for general adult medical examination with abnormal findings TSH reflex Free T4 Today E11.9 - Type 2 diabetes mellitus without complications, Z00.01 - Encounter for general adult medical examination with abnormal findings Microalbumin, Random (w Creat) Today E11.9 - Type 2 diabetes mellitus without complications, Z00.01 - Encounter for general adult medical examination with abnormal findings Comprehensive [place]. Panel Fast Today E11.9 - Type 2 diabetes mellitus without complications, Z00.01 - Encounter for general adult medical examination with abnormal findings UA CC w/rflx Micro + Cult Today E11.9 - Type 2 diabetes mellitus without complications, Z00.01 - Encounter for general adult medical examination with abnormal findings Lipid Panel Today E11.9 - Type 2 diabetes mellitus without complications, Z00.01 - Encounter for general adult medical examination with abnormal findings
[2025-03-08 14:54] VITALS: BP 140/72; PULSE 65; RESP 16; TEMP 36.8; O2SAT 99; BMI 33.7
[2025-03-08 15:35] VITALS: BP 124/70
--- OUTSIDE RECORDS SUMMARY | 2025-03-08 16:04 | XMS_ITS | Clinical Summary ---
Author Organization [facility] Address [address] [id number] Phone Care Team Providers Care Print Controller Name Role Phone Sophia Danielle MD Primary Care Provider [phone] Social History Tobacco Use Types Packs/Day Years [...] topic Medical Devices Not on file [place] [address] [place] [address] MEDICARE PPO [place] [address] [place] [address] MEDICARE PPO [place] [address] [address] [place] [address] [address] [place] [address] [place] [address] MED[address] [place] [address] [address] [place] [address] [address]PO [address] [place] [address] [address] [place] [address] MED[address]PO [address] [place] [address] [address] [place] [address] MED[place]ARE PPO [place] [address] [address] [place] [address] MEDICARE PPO [place] [address] [address] [place] [address] MEDICARE PPO BLUE REPLACEMENT Care Teams Print Controller Relationship Specialty Start Date End Date Sophia Danielle MD [address] [place] PCP - General 02/14/22 Additional Source Comments The information contained in this document represents components of the legal health record. It is not the complete legal health record.[facility]
--- OUTSIDE RECORDS SUMMARY | 2025-03-08 16:04 | XMS_ITS | Clinical Summary ---
Author Organization [facility] Address [address] [place] [address] Care Team Providers Care Clinical Applications Manager Name Role Phone Dannie Cosby Primary Care Provider [phone] Allergies Active Allergy Reactions Criticality Noted Date [...] Insurance [employer] PPO Care Teams Clinical Applications Manager Relationship Specialty Start Date End Date Dannie Cosby [address] [place] [address] PCP - General 10/10/21
--- OUTSIDE RECORDS SUMMARY | 2025-03-08 16:04 | XMS_ITS | Clinical Summary ---
Author Organization [employer] Address [address] [place] [address] Care Team Providers Care Hadoop Engineer Name Role Phone Unavailable Primary Care [...]
--- OUTSIDE RECORDS SUMMARY | 2025-03-08 16:04 | XMS_ITS | Clinical Summary ---
Author Organization [facility] Address [address] [place] [address] Care Team Providers Care Home Service Technician Name Role Phone Dannie Cosby [phone] Pcp, Per Patient Primary Care [...] Department Care Team Description 02/07/2025 Orders Only [facility] [address] [place] [phone] Rhiannon Manriquez NP Trigeminal neuralgia, postherpetic (Primary Dx) 02/07/2025 Orders Only [facility] [address] [place] [phone] Rhiannon Manriquez NP Trigeminal neuralgia, postherpetic (Primary Dx) 01/19/2025 11:30 AM EDT Office Visit [facility] [address] [place] [phone] Kevin Garnica MD Trigeminal neuralgia, postherpetic (Primary [...] place to sleep or slept in a detention (including now)? No 10/29/2023 Sex and Gender [...] REPLACEMENT PPO HEALTH SAF[employer]Y NET Care Teams Home Service Technician Relationship Specialty Start Date End Date No Pcp, Per Patient [place] PCP - General 10/29/23 Dannie Cosby [address] [place] [address] 10/24/23
--- OUTSIDE RECORDS SUMMARY | 2025-03-08 16:04 | XMS_ITS | Clinical Summary ---
Author Organization [facility] Address [address] [place] [address] Phone Care Team Providers Care Single Needle Tufting Machine Operator Name Role Phone Dannie Cosby NP Primary Care Provider [phone] Allergies Active Allergy Reactions Criticality Noted Date [...] to complete this topic Insurance Care Teams Single Needle Tufting Machine Operator Relationship Specialty Start Date End Date Dannie Cosby NP [facility] [place] [address] PCP - General 07/31/20
== END 2025-03-08 15:41 | disposition home or self-care (01) ==
LOC: HO.HMCC 14:43
PROVIDERS: PCP Nurse Practitioner Family; Visit Provider Nurse Practitioner Family
DX: Z00.01 Encounter for general adult medical examination with abnormal findings (principal); R01.1 Cardiac murmur, unspecified; E11.9 Type 2 diabetes mellitus without complications; H61.21 Impacted cerumen, right ear

== ENCOUNTER → 2025-03-08 14:42 | Outpatient (BNVA) | payer MEDICARE, SELFPAY | PROVIDERS: PCP Nurse Practitioner Family; Visit Provider Nurse Practitioner Family | DX: Z00.01 Encounter for general adult medical examination with abnormal findings (principal); H61.21 Impacted cerumen, right ear; R60.0 Localized edema; R01.1 Cardiac murmur, unspecified; E11.9 Type 2 diabetes mellitus without complications | CPT/HCPCS: 69209; 83036; 96127; 99212; 99397 ==

== ENCOUNTER 2025-04-01 09:30 | Day surgery (SDC) | payer MEDICARE, SELFPAY ==
--- OUTSIDE RECORDS SUMMARY | 2025-03-02 07:44 | XMS_ITS | Clinical Summary ---
Author Organization [facility] Address [address] [id number] Phone Care Team Providers Care Bail Bondsman Name Role Phone Sophia Danielle MD Primary Care Provider [phone] Social History Tobacco Use Types Packs/Day Years [...] topic Medical Devices Not on [place] [address] [place] [address] MEDICARE PPO [place] [place] [address] MEDICARE PPO [place] [place] [address] MEDICARE [address]PO [address] [place] [address] [place] [address] MED[place]ARE PPO [place] [address] [place] [address] MEDICARE PPO [place] [place] [address] MEDICARE PPO [place] [address] [place] [address] MED[place]ARE PPO [place] [address] [place] [address] MEDIC[address]PO [place] [address] [place] [address] MEDICARE PPO BLUE REPLACEMENT Care Teams Bail Bondsman Relationship Specialty Start Date End Date Sophia Danielle MD [address] [facility] [address] [place] PCP - General 02/14/22 Additional Source Comments The information contained in this document represents components of the legal health record. It is not the complete legal health record.[facility]
--- OUTSIDE RECORDS SUMMARY | 2025-03-02 07:44 | XMS_ITS | Clinical Summary ---
Author Organization [facility] Address [address] [place] [address] Phone Care Team Providers Care Assisted Living Assistant Name Role Phone Dannie Cosby NP Primary Care Provider [phone] Allergies Active Allergy Reactions Criticality Noted Date [...] to complete this topic Insurance Care Teams Assisted Living Assistant Relationship Specialty Start Date End Date Dannie Cosby NP [place] [place] [address] PCP - General 07/31/20
--- OUTSIDE RECORDS SUMMARY | 2025-03-02 07:45 | XMS_ITS | Referral Summary ---
Author Organization [facility] Address [address] [place] [address] Care Team Providers Care Vat Tender Name Role Phone Dannie Cosby Primary Care Provider [phone] Allergies Active Allergy Reactions Criticality Noted Date [...] Plan of Treatment Not on file Insurance [place] [address] MCR REPLACE PPO Care Teams Vat Tender Relationship Specialty Start Date End Date Dannie Cosby [address] [place] [address] PCP - General 10/10/21
[2025-03-16 07:34] VITALS: BMI 33.7
--- NOTE | 2025-03-30 11:11 | P.CONAN_ITS ---
Documented by User: Bonny Agosto NP 03/30/25 11:29 HPI - Anesthesia Eval Consult details Narrative: 89 yr old male for upper endoscopy Chronic thrombocytopenia, mild pancytopenia: follows by [facility] hematology, platelets 65 on 03/16/2025 H/O aortic valve replacement, TAVR in 2017: on xarelto CAD: s/o 5 vessel CABG in 1990 Cardiac pacemaker: last device check was 02/2025, AP 96% Post herpetic trigeminal neuralgia: s/p gamma knife surgery 11/2023 Anesthesia Pre-Procedure Meds Is the patient on any of the following meds?: SGLT2 Inhib PMFSH Active Problems Active Problems: All Active Problems (Updated 03/16/25 @ 15:27 by Genoveva Goldberg MD) Vitamin D deficiency (Acute) Encounter for routine adult physical exam with abnormal findings (Acute) Systolic murmur (Acute) Regurgitation of food (Acute) Globus sensation (Acute) Dysphagia (Acute) Pneumonia (Acute) Dyspnea (Acute) Congestion of upper airway (Acute) Cerumen debris on tympanic membrane (Acute) Wound of skin (Acute) Breast tenderness (Acute) Right leg swelling (Acute) Right ankle pain (Acute) Trigeminal neuropathy (Acute) GERD (gastroesophageal reflux disease) (Acute) CKD (chronic kidney disease) stage 3, GFR 30-59 ml/min (Acute) Nocturia (Acute) Diabetes (Acute) Hematochezia (Acute) Paronychia of fifth toe, right (Acute) Elevated fasting blood sugar (Acute) Enlarged prostate (Acute) Bleeding from right ear (Acute) Urinary hesitancy due to benign prostatic hyperplasia (Acute) Newly diagnosed diabetes (Acute) Occipital headache (Acute) Lymphedema (Acute) Impacted cerumen (Acute) Varicose veins of left lower extremity with inflammation (Acute) Swelling of left lower extremity (Acute) Elevated serum creatinine (Acute) Cellulitis (Acute) Elevated CPK (Acute) Incomplete bladder emptying (Acute) HTN (hypertension) (Acute) Cerumen impaction (Acute) Bicytopenia (Chronic) Thrombocytopenia (Acute) Wheezing (Acute) Screening PSA (prostate specific antigen) (Acute) Paronychia of great toe (Acute) Chest discomfort (Acute) Pre-op evaluation (Acute) Trigeminal neuralgia (Acute) Left hip pain (Acute) Lower back pain (Acute) Depression (Acute) Kidney function test abnormal (Acute) Hepatic lesion (Acute) Abdominal pain (Acute) Skin lesion (Acute) Viral syndrome (Acute) Pulmonary nodules (Acute) Cough (Acute) Elevated PSA (Acute) Urinary frequency (Acute) Right facial pain (Acute) Trigeminal neuralgia (Acute) Post herpetic neuralgia (Acute) Past Medical History Medical History Pulmonary nodules Cough Hx of sigmoidoscopy Frequent falls Urinary frequency History of claustrophobia History of shingles On anticoagulant therapy On beta diana at home Dyslipidemia Gout Spinal stenosis of lumbar region Atrial fibrillation CKD (chronic kidney disease) Elevated PSA Aortic stenosis CAD (coronary artery disease) Right facial pain Trigeminal neuralgia Post herpetic neuralgia Family History Family History Father No problems noted. Mother No problems noted. Family history of problems with anesthesia: No Surgical History Surgical History Status post lens implant History of fracture of leg History of laparoscopic cholecystectomy History of aortic valve replacement History of heart bypass surgery Pacemaker History of Problems with Anesthesia: No Social History Social History Household Members: None Housing: House Are you a primary primary care sales representative to a significant other at home: No Do you presently have visiting nurse or other home services: No Alcohol intake: never Patient Tobacco Use Status: Never used Tobacco e-Cigarette/Vaping Use: Never Used Second Hand Smoke Exposure: No Use of substances other than those prescribed or required for medical reasons: No Advance Directives: No Advance Directives Information Provided: Yes service: Yes Current occupational status: unemployed and retired Current occupational exposures/hazards: No Cognitive needs: No Hearing needs: No Vision needs: No Meds Allergies Allergy/AdvReac Type Severity Reaction Status Date / Time lamotrigine (From Lamictal) Allergy Intermediate swelling Verified 03/08/25 15:06 gabapentin Allergy Unknown lip Verified 03/08/25 15:06 swelling pregabalin (From Lyrica) Allergy Unknown lip Verified 03/08/25 15:06 swelling Exam Height,Weight and Vital Signs: Height 5 ft 9 in Weight 103.419 kg Narrative Narrative: ECHO scheduled for 03/2025 Most recent echo 04/2024 Normal LV size with severe LV wall thickness Normal LV systolic function EF 60-65% Well seated bioprosthetic valic in aortic position (TAVR ES 23) with mean gradient in 10 mmHg with small to moderate MAC with mild mitral regurgitation Assessment and Plan Final Anesthetic Review Family History of Problems with Anesthesia: No History of Problems with Anesthesia: No Documented by User: Katrin Hurst MD 04/01/25 12:04 [facility] Past Medical History Medical History Pulmonary nodules Cough Hx of sigmoidoscopy Frequent falls Urinary frequency History of claustrophobia History of shingles On anticoagulant therapy On beta diana at home Dyslipidemia Gout Spinal stenosis of lumbar region Atrial fibrillation CKD (chronic kidney disease) Elevated PSA Aortic stenosis CAD (coronary artery disease) Right facial pain Trigeminal neuralgia Post herpetic neuralgia Family History Family History Father No problems noted. Mother No problems noted. Surgical History Surgical History Status post lens implant History of fracture of leg History of laparoscopic cholecystectomy History of aortic valve replacement History of heart bypass surgery Pacemaker Social History Social History Household Members: None Housing: House Are you a primary primary care sales representative to a significant other at home: No Do you presently have visiting nurse or other home services: No Alcohol intake: never Patient Tobacco Use Status: Never used Tobacco e-Cigarette/Vaping Use: Never Used Second Hand Smoke Exposure: No Use of substances other than those prescribed or required for medical reasons: No Advance Directives: No Advance Directives Information Provided: Yes service: Yes Current occupational status: unemployed and retired Current occupational exposures/hazards: No Cognitive needs: No Hearing needs: No Vision needs: No Meds Allergies Allergy/AdvReac Type Severity Reaction Status Date / Time lamotrigine (From Lamictal) Allergy Intermediate swelling Verified 03/08/25 15:06 gabapentin Allergy Unknown lip Verified 03/08/25 15:06 swelling pregabalin (From Lyrica) Allergy Unknown lip Verified 03/08/25 15:06 swelling Exam Airway Mallampati Class: II (edentulous) TM Dist: >3cm Neck ROM: Full Heart: rrr Lungs: cta Assessment and Plan Assessment Anesthesia Assessment: Anesthesia Plan Discussed and Chart Reviewed Final Anesthetic Review NPO: Yes ASA Class: III Final Preanesthetic Review: No Changes in Pt Med Stat, Meds/Allgs Chart Reviewed and Consent Obtained/Reviewed Patient Risk: Intermediate Procedure Risk: Intermediate Anesthetic Plan Anesthetic Plan: MAC: Disposition: Standard PACU
[2025-04-01 10:22] VITALS: BP 159/57; PULSE 65; RESP 16; TEMP 36.8; O2SAT 96
[2025-04-01] MEDS: Lactated Ringers 1,000 ML 100 ML IVCONT (10:24)
[2025-04-01 10:45] LABS: Hematocrit 40.6 % (42.0-52.0); Hemoglobin 13.1 g/dl (14.0-18.0); Mean Corpuscular HGB Conc 32.3 g/dl (31.0-36.0); Mean Corpuscular Hemoglobin 30.3 pg (27.0-33.0); Mean Corpuscular Volume 93.8 fL (80.0-98.0); NRBC Abs Auto 0.000 X10*3/uL (0.0-0.012); NRBC Pct Auto 0.0 /100WBC (0.0-0.2); Red Blood Count 4.33 X10*6/uL (4.60-5.80); White Blood Count 6.1 X10*3/uL (4.8-10.8)
[2025-04-01 10:46] LABS: Platelet Count 86 X10*3/uL (160-400)
--- NOTE | 2025-04-01 11:51 | MHC.SHP ---
Pre-Procedural Eval Section A - 24 Hr Update-Section A only Date of Service: 04/01/25 The patient is an INPATIENT: No The patient has been examined within 24 hours of the surgical procedure. The History & Physical has been completed within 30 days and I have reviewed it.: No Section B - Complete if H&P > 30 days Chief Complaint: Dysphagia, unspecified Relevant Family History (Specify if Yes): No Relevant Social History: None Present Medications: see Short Stay Collaborative assessment Medical History: Significant History (Pulmonary nodules Cough Hx of sigmoidoscopy Frequent falls Urinary frequency History of claustrophobia History of shingles On anticoagulant therapy On beta diana at home Dyslipidemia Gout Spinal stenosis of lumbar region Atrial fibrillation CKD (chronic kidney disease) Elevated PSA Aortic stenosis) History of Previous Operations: Relevant previous surgery/procedure and date(s) (H/O aortic valve replacement Status post lens implant History of fracture of leg History of laparoscopic cholecystectomy History of aortic valve replacement History of heart bypass surgery Pacemaker) Allergies: Allergies Allergy/AdvReac Type Severity Reaction Status Date / Time lamotrigine (From Lamictal) Allergy Intermediate swelling Verified 03/08/25 15:06 gabapentin Allergy Unknown lip Verified 03/08/25 15:06 swelling pregabalin (From Lyrica) Allergy Unknown lip Verified 03/08/25 15:06 swelling Review of Systems Sugical H&P ROS: Negative: Constitution, Cardiovascular, Respiratory and Gastrointestinal Exam Surgical H&P Exam: Normal: Heart, Normal: Lungs, Normal: Extremities and Normal: Abdomen Plan Diagnosis/Plan: Unchanged I have reviewed the history and physical and performed a pertinent physical examination on my patient. No changes have occurred unless specified. Time Spent With Patient Time: Total time managing care of this patient today ____ minutes.
--- NOTE | 2025-04-01 12:28 | W.PM.OPN ---
Operative Note Operative Note Date of Service: 04/01/25 Narrative: FLEXIBLE TRANSORAL UPPER GASTROINTESTINAL ENDOSCOPY WITH BIOPSIES AND ESOPHAGEAL BALLOON DILATION Pre-op diagnosis: Dysphagia Post-op diagnosis: Dysphagia, Gastritis, Endoscopist:? Evelia Bae MD Anesthesia:?MAC UPPER ENDOSCOPY Consent: Indications for the procedure and potential complications of bleeding, perforation, reaction to medications and missed diagnosis were discussed with the patient and informed consent was obtained. Instrument: Olympus GIF H 190 mid size upper endoscope Monitoring: Vital signs and clinical assessment, continuous EKG monitoring, Pulse oximetry, Carbon Dioxide monitoring and blood pressure monitoring were done throughout the procedure. Procedure: The patient was placed in the left lateral decubitis position and pre-procedure medications were administered and a bite block was placed. The endoscope was inserted into the mouth and advanced under direct vision to the third part of duodenum. A careful inspection was made as the upper endoscope was withdrawn including a retroflexed examination of the proximal stomach; Findings and interventions are described below. Findings: Larynx: Normal Esophagus: GE junction at 40 cms. Mildly tortuous esophagus without stricture or ring. Empiric balloon dilation of UES was performed with a 19 mm CRE balloon x 60 seconds. Stomach: Moderate diffuse gastric erythema - biopsies were obtained from the antrum. Grade 2 flap valve on retroflexed examination of the cardia. Duodenum: Normal bulb and descending duodenum Intervention: Biopsies as noted above Impression and Post Procedure Diagnosis: Endoscopy Findings: ESOPHAGUS: Mildly tortuous esophagus without stricture or ring. Empiric balloon dilation of UES was performed with a 19 mm CRE balloon x 60 seconds. STOMACH: Moderate diffuse gastric erythema - biopsies were obtained from the antrum. DUODENUM: Normal Dysphagia is likely related to esophageal motility disorder or cricopharyngeal achalasia. Plan: Pt has a FU appointment on 04/18/25 with Clementine Carias NP If pt has persistent symptoms, consider further evaluation with a Barium swallow (pt had an MBS in January,) Above findings were reviewed with the patient and relevant handouts were given and the discharge area.
[2025-04-01 12:30] VITALS: BP 106/56; PULSE 65; RESP 18; TEMP 36.2; O2SAT 99
[2025-04-01 12:45] VITALS: BP 124/62; PULSE 65; RESP 14; O2SAT 96
[2025-04-01 13:00] VITALS: BP 128/68; PULSE 65; RESP 16; TEMP 36.2; O2SAT 97
== END 2025-04-01 13:29 | disposition home or self-care (01) ==
PROVIDERS: Nurse Practitioner; PCP Nurse Practitioner Family; Visit Provider Internal Medicine Gastroenterology
PROC: 0DJ08ZZ Inspection of Upper Intestinal Tract, Via Natural or Artificial Opening Endoscopic (ICD-10-PCS; CPT 43235; principal; 2025-04-01 11:30)
DX: R13.10 Dysphagia, unspecified (principal); K21.9 Gastro-esophageal reflux disease without esophagitis; K29.60 Other gastritis without bleeding; K22.4 Dyskinesia of esophagus; I12.9 Hypertensive chronic kidney disease with stage 1 through stage 4 chronic kidney disease, or unspecified chronic kidney disease; N18.30 Chronic kidney disease, stage 3 unspecified; E78.5 Hyperlipidemia, unspecified; I48.91 Unspecified atrial fibrillation; E55.9 Vitamin D deficiency, unspecified; Z79.01 Long term (current) use of anticoagulants; Z79.02 Long term (current) use of antithrombotics/antiplatelets; Z79.899 Other long term (current) drug therapy
CPT/HCPCS: 43249; 43239; 36415; 85027; 88305; 88342; C1726

== ENCOUNTER → 2025-04-01 09:30 | Outpatient (BNV) | payer MEDICARE, SELFPAY | PROVIDERS: PCP Nurse Practitioner Family; Visit Provider Internal Medicine Gastroenterology | DX: R13.10 Dysphagia, unspecified (principal); K29.70 Gastritis, unspecified, without bleeding | CPT/HCPCS: 43239; 43249 ==

== ENCOUNTER 2025-04-18 | Outpatient (REF) | payer MEDICARE, SELFPAY ==
--- OUTSIDE RECORDS SUMMARY | 2025-04-18 13:56 | XMS_ITS | Clinical Summary ---
Author Organization [facility] Address [address] [place] [address] Phone Care Team Providers Care Tone Cabinet Assembler Name Role Phone Dannie Cosby NP Primary Care Provider [phone] Allergies Active Allergy Reactions Criticality Noted Date [...] to complete this topic Insurance Care Teams Tone Cabinet Assembler Relationship Specialty Start Date End Date Dannie Cosby NP [facility] [place] [address] PCP - General 07/31/20
--- OUTSIDE RECORDS SUMMARY | 2025-05-02 10:59 | XMS_ITS | Clinical Summary ---
Author Organization [facility] Address [address] [facility] [address] [place] [address] Care Team Providers Care Beam Dyer Recessed Vat Name Role Phone Unavailable Primary Care Provider [...] Insurance DENTAL - HSN FULL (MEDICAID) DENTAL [facility]
--- OUTSIDE RECORDS SUMMARY | 2025-05-02 10:59 | XMS_ITS | Clinical Summary ---
Author Organization [facility] Address [address] [place] [address] Care Team Providers Care Curator Natural History Museum Name Role Phone Dannie Cosby Primary Care Provider [phone] Allergies Active Allergy Reactions Criticality Noted Date [...] Insurance BCBS MCR REPLACE PPO Care Teams Curator Natural History Museum Relationship Specialty Start Date End Date Dannie Cosby [address] [place] [address] PCP - General 10/10/21
--- OUTSIDE RECORDS SUMMARY | 2025-05-02 10:59 | XMS_ITS | Clinical Summary ---
Author Organization [facility] Address [address] [place] [address] Phone Care Team Providers Care Substance Addiction Coordinator Name Role Phone Dannie Cosby NP Primary Care Provider [phone] Allergies Active Allergy Reactions Criticality Noted Date [...] to complete this topic Insurance Care Teams Substance Addiction Coordinator Relationship Specialty Start Date End Date Dannie Cosby NP [facility] [place] [address] PCP - General 07/31/20
--- OUTSIDE RECORDS SUMMARY | 2025-05-02 10:59 | XMS_ITS | Clinical Summary ---
Author Organization [facility] Address [address] [address] Phone Care Team Providers Care Silk Crepe Machine Operator Name Role Phone Sophia Danielle MD Primary Care Provider [phone] Social History Tobacco Use Types Packs/Day Years [...] VACCINE (#1) 2025 COVID-19 VACCINE ( - 2024-2 6 season) 2025 HEPATITIS A VACCINES Aged Out [...] topic Medical Devices Not on [place] [address] [place] [address] MEDICARE PPO BLUE [place] [address] [place] [address] [address] [place] [address] [place] [address] [address] [place] [address] [place] [address] [address]PO [place] [address] [place] [address] MED[address]PO [place] [address] [place] [address] MEDICARE PPO BLUE REPLACEMENT Care Teams Silk Crepe Machine Operator Relationship Specialty Start Date End Date Sophia Danielle MD [address] [facility] [address] [place] PCP - General 02/14/22 Additional Source Comments The information contained in this document represents components of the legal health record. It is not the complete legal health record.[facility]
--- OUTSIDE RECORDS SUMMARY | 2025-05-02 10:59 | XMS_ITS | Encounter Summary ---
Author Organization [facility] Address [address] [place] [address] Care Team Providers Care Pediatric Licensed Practical Nurse Name Role Phone Dannie Cosby Primary Care Provider [phone] Reason for Visit * Reason Onset Date Comments Appointment 10/22/2021 Encounter Details Date Type Department Care Team (Late st Contact Info) Description 10/22/2021 Telephone [facility] Central Scheduling Department [address] [place] [address] Telephone Intake, Staff Appointment Social History Tobacco [...] - 10/22/2021 9:21 AM EDT Xiomara from [facility] Referrals scheduling new pt Neurology appt re trigeminal neuralgia Per DT, scheduled 10/[address] Edward Solorio at [facility] documented in this encounter Plan of Treatment Not on file documented as of this encounter Visit Diagnoses Not on filedocumented in this encounter Care Teams Pediatric Licensed Practical Nurse Relationship Specialty Start Date End Date Dannie Cosby [address] [place] [address] PCP - General 10/10/21 documented as of this encounter
--- OUTSIDE RECORDS SUMMARY | 2025-05-02 10:59 | XMS_ITS | Encounter Summary ---
Author Organization [facility] Address [address] [place] [id number] Care Team Providers Care Television Installer Helper Name Role Phone Dannie Cosby Primary Care Provider [phone] Reason for Visit * Reason Onset Date Comments Urgent Referral 10/10/2021 Encounter Details Date Type Department Care Team (Late st Contact Info) Description 10/10/2021 Telephone [facility] Neurology [facility] [address] [place] [address] Telephone Intake, Staff Urgent Referral Social [...] - 10/10/2021 11:34 AM EDT Xiomara from [facility] is calling to schedule an Urgent appointment. [facility] will fax over a referral today for Trigeminal Neurologia. [facility] can be reached at [phone]. documented in this encounter Plan of Treatment Not on file documented as of this encounter Visit Diagnoses Not on filedocumented in this encounter Care Teams Television Installer Helper Relationship Specialty Start Date End Date Dannie Cosby [address] [place] [address] PCP - General 10/10/21 documented as of this encounter
--- OUTSIDE RECORDS SUMMARY | 2025-05-02 10:59 | XMS_ITS | Encounter Summary ---
Author Organization [facility] Address [address] [place] [address] Care Team Providers Care City Planning Aide Name Role Phone Dannie Cosby Primary Care Provider Encounter Details Date Type Department Care Team (Late st Contact Info) Description 10/15/2021 Telephone [facility] Neurology Clinic [address] [place] [address] Telephone Intake, Staff Social History Tobacco [...] pls call Xiomara when received to schedule. [phone] documented in this encounter Plan of Treatment Not on file documented as of this encounter Visit Diagnoses Not on filedocumented in this encounter Care Teams City Planning Aide Relationship Specialty Start Date End Date Dannie Cosby [address] [place] [address] PCP - General 10/10/21 documented as of this encounter
--- OUTSIDE RECORDS SUMMARY | 2025-05-02 10:59 | XMS_ITS | Clinical Summary ---
Author Organization [facility] Address [address] [facility] [address] [place] [address] Care Team Providers Care Professor Of Anthropology Name Role Phone Dannie Cosby [phone] Pcp, Per Patient Primary Care [...] mouth. Active cholecalciferol (Vitamin D3) 50 MCG (1999) tablet Take 50 mcg by mouth once [...] Department Care Team Description 02/07/2025 Orders Only [facility] Neurosurgery [address] [place] [phone] Rhiannon Manriquez NP Trigeminal neuralgia, postherpetic (Primary Dx) 02/07/2025 Orders Only [facility] Neurosurgery [address] [place] [phone] Rhiannon Manriquez NP Trigeminal neuralgia, postherpetic (Primary Dx) from Last 3 Months Family History Relation [...] place to sleep or slept in a assisted (including now)? No 10/29/2023 Sex and Gender [...] 01/19/2025 10:57 AM EDT Plan of Treatment Upcoming Encounters Date Type Department Care Team (Late st Contact Info) Description 05/04/2025 3:00 PM EDT Telephone Visit [facility] Neurosurgery [address] [facility] [address] [place] [address] Kevin Garnica MD [address] [place] [address] Health Maintenance Due Date Last Done Comments Diabetes Screening 1953 Pneumococcal Vaccine: 50+ Years (1 of 2 - PCV) 1954 Medicare Annual Wellness (AWV) 03/21/2002 Depression Screening 07/21/2024 COVID-19 Vaccine (8 - Pfizer risk season) 2025 04/12/2024, 04/29/2023, 05/08/2022, Additional history exists DTaP/Tdap/Td Vaccines (2 - Td or Tdap) 06/10/2034 06/10/2024 Zoster Vaccines Completed 11/12/2021, 08/21/2021 Influenza Vaccine Completed 04/21/2025, , 04/29/2023, Additional history exists HIB Vaccines Aged Out [...] REPLACEMENT PPO HEALTH SAFETY NET Care Teams Professor Of Anthropology Relationship Specialty Start Date End Date No Pcp, Per Patient [place] PCP - General 10/29/23 Dannie Cosby [address] [place] [address] 10/24/23
== END 2025-04-18 00:01 | disposition home or self-care (01) ==
LOC: CF
PROVIDERS: PCP Nurse Practitioner Family; Visit Provider Nurse Practitioner Family
DX: K21.9 Gastro-esophageal reflux disease without esophagitis (principal); K76.9 Liver disease, unspecified; R09.A2 Foreign body sensation, throat; R10.84 Generalized abdominal pain; R05.9 Cough, unspecified; R11.10 Vomiting, unspecified; Z79.899 Other long term (current) drug therapy
CPT/HCPCS: 99212

== ENCOUNTER 2025-04-18 10:27 | Outpatient (AMB) | payer MEDICARE, SELFPAY ==
--- NOTE | 2025-04-18 10:30 | A.OFFVIS_ITS ---
Vital Signs 04/18/25 10:35 Height 5 ft 9 in Weight 232 lb BMI 34.3 BP 126/46 L Blood Pressure Location Lt radial Position Sitting Pulse 66 Pulse Source Pulse Oximeter Pulse Oximetry (%) 97 Oxygen Delivery Method Room Air Intake Visit Reasons: s/p egd Catalino Intake Note: Est pt for mgmt of dysphagia + CIC. CC: C.O. episodes of generalized abd pain, as well as persitence of dysphagia despite current therapies. Pt confirms that he is taking pantoprazole but has not noticed any significant improvements since starting the Rx. Account Service Representative Required: No Accompanied by: Self / Same As Patient Allergies lamotrigine (From Lamictal) Allergy (Intermediate, Verified 04/18/25 10:30) swelling gabapentin Allergy (Unknown, Verified 04/18/25 10:30) lip swelling pregabalin (From Lyrica) Allergy (Unknown, Verified 04/18/25 10:30) lip swelling HPI HPI s/p egd Catalino: Details: LAST VISIT: Dysphagia Globus sensation GERD (gastroesophageal reflux disease) Plan Patient will be sent for x-ray of the neck. Visualizing his throat partially as that tongue was obstructing the view. Noticed very dry tongue. Patient admits that he does drink water with each meal. He was encouraged to continue to do so. Eat small bites and soft food. Patient will be sent for upper endoscopy. Able to get him in on the of this month. He will call us if you have any additional GI concerning symptoms. Magic mouthwash 3 times a day for 7 days. Will try to get in touch with ENT to schedule patient for appointment. Patient is agreeable to current plan of care and verbalizes understanding of instructions. He was given the opportunity to ask questions and all questions answered. ? Thank you for allowing me to participate in his care Orders XR soft tissue neck Today K22.2 New Magic Mouthwash Diphen/Nystat/Antacid 1:1:1 nystatin 100,000 unit/mL oral suspension 80 mL; diphenhydramine 12.5 mg/5 mL oral liquid 80 mL; aluminum-mag hydroxide-simethicone 400 mg-400 mg-40 mg/5 mL oral susp 80 mL; Per 240 mL 10 mL PO TID 240 mL 0RF 7 days Discontinued pantoprazole Discontinued Reason: Doctor's Order 20 mg PO DAILY 30 tabs 3RF Findings: Larynx: Normal Esophagus: GE junction at 40 cms. Mildly tortuous esophagus without stricture or ring. Empiric balloon dilation of UES was performed with a 19 mm CRE balloon x 60 seconds. Stomach: Moderate diffuse gastric erythema - biopsies were obtained from the antrum. Grade 2 flap valve on retroflexed examination of the cardia. Duodenum: Normal bulb and descending duodenum Intervention: Biopsies as noted above Impression and Post Procedure Diagnosis: Endoscopy Findings: ESOPHAGUS: Mildly tortuous esophagus without stricture or ring. Empiric balloon dilation of UES was performed with a 19 mm CRE balloon x 60 seconds. STOMACH: Moderate diffuse gastric erythema - biopsies were obtained from the antrum. DUODENUM: Normal Dysphagia is likely related to esophageal motility disorder or cricopharyngeal achalasia. Plan: If pt has persistent symptoms, consider further evaluation with a Barium swallow (pt had an MBS in January,) PATHOLOGY Diagnosis Gastric antrum, biopsy: Gastric antral mucosa with minimal chronic inactive gastritis; negative for H. pylori, intestinal metaplasia and dysplasia TODAY'S VISIT: Patient is here today for follow-up and to discuss upper endoscopy results. Patient reports that he has been feeling little better. Pain in his upper abdomen has subsided since he started taking pantoprazole. However he reports that occasionally he will be having trouble swallowing. Patient reports that it happens usually with mucus. Feels like he has significant amount of mucus once in a while and has to swallow several times before he it goes down. Patient does not have trouble swallowing any food, liquids or medications. Reports occasional epigastric pain is severe bloating. Patient does eat significant amount of pasta and bread. Not on any specific diet. Reports that he is moving his bowels daily. Denies melena, hematochezia, unintentional weight loss or ribbon like stools. Patient denies dyspepsia or odynophagia. Patient denies any nausea or vomiting. Reports to have good appetite. Eats usually 3 times a day. Third meal of the day is his largest meal. Occasional slacks at bedtime. Upper endoscopy showed mildly torturous esophagus without strictures or ring. Empiric dilation of the GE junction. Otherwise no esophagitis. Mild chronic inactive gastritis without H pylori or intestinal metaplasia or dysplasia. Results discussed with patient. [facility] Medical History Pulmonary nodules Cough Hx of sigmoidoscopy Frequent falls Urinary frequency History of claustrophobia History of shingles On anticoagulant therapy On beta diana at home Dyslipidemia Gout Spinal stenosis of lumbar region Atrial fibrillation CKD (chronic kidney disease) Elevated PSA Aortic stenosis CAD (coronary artery disease) Right facial pain Trigeminal neuralgia Post herpetic neuralgia Surgical History Status post lens implant History of fracture of leg History of laparoscopic cholecystectomy History of aortic valve replacement History of heart bypass surgery Pacemaker Family History Father No problems noted. Mother No problems noted. Social History Household Members: None Housing: House Are you a primary care transition manager to a significant other at home: No Do you presently have visiting nurse or other home services: No Alcohol intake: never Patient Tobacco Use Status: Never used Tobacco e-Cigarette/Vaping Use: Never Used Second Hand Smoke Exposure: No service: Yes Current occupational status: unemployed and retired Current occupational exposures/hazards: No Cognitive needs: No Hearing needs: No Vision needs: No Review of Systems Const Denies weight gain and Denies weight loss ENT Reports no additional complaints, Reports dysphagia and Denies odynophagia Card Reports no additional complaints Resp Reports no additional complaints GI Denies abdominal pain, Denies belching, Denies melena, Denies bloating, Denies change in bowel habits, Reports dysphagia, Denies excessive flatus, Denies dyspepsia, Denies heartburn, Denies diarrhea, Denies loose stools, Denies nausea, Denies odynophagia and Denies vomiting Reports no additional complaints Musc Reports no additional complaints Neuro Reports no additional complaints Psych Reports no additional complaints Endo Reports no additional complaints Physical Exam Const General: healthy appearing and no acute distress Nutritional Appearance: obese Orientation/consciousness: patient oriented x3 HEENT Mouth: abnormal tongue (dry) Throat: Yes other (Tiny cysts like pastules in posterior oropharynx) Resp Effort & Inspection: normal respiratory effort, able to speak in complete sentences, no tracheal deviation and symmetric chest movement Auscultation: clear to auscultation bilaterally Cardio Rate: regular rate GI Inspection: Yes normal to inspection, No distended and Yes obesity Palpation (GI): Soft to palpation, not firm, nontender and No hepatosplenomegaly present Auscultation: normal bowel sounds General: Yes no CVA tenderness Back/Spine/Pelvis Back: no CVA tenderness Skin General skin exam: elasticity normal, turgor normal and dry skin Neuro General: patient oriented x3 Psych Appearance: grossly normal Mental Status: mental status grossly normal Assessment & Plan Assessment & Plan (1) GERD (gastroesophageal reflux disease): Code(s): K21.9 - Gastro-esophageal reflux disease without esophagitis Category: Medical Qualifiers: Esophagitis presence: esophagitis presence not specified Qualified Code(s): K21.9 - Gastro-esophageal reflux disease without esophagitis (2) Dysphagia: Code(s): R13.10 - Dysphagia, unspecified Category: Medical Qualifiers: Dysphagia type: oropharyngeal phase Qualified Code(s): R13.12 - Dysphagia, oropharyngeal phase (3) Globus sensation: Code(s): R09.A2 - Foreign body sensation, throat Category: Medical (4) Regurgitation of food: Code(s): R11.10 - Vomiting, unspecified Category: Medical (5) Hepatic lesion: Code(s): K76.9 - Liver disease, unspecified Category: Medical (6) Abdominal pain: Code(s): R10.9 - Unspecified abdominal pain Category: Medical Qualifiers: Abdominal location: generalized Qualified Code(s): R10.84 - Generalized abdominal pain Plan Patient will stop pantoprazole 20 and we will start him on pantoprazole 40 mg. Patient was encouraged to avoid dietary triggers and late night snacking. Staying upright for minimum 3 hours after meals discussed with patient. Patient will start Flonase. He feels like he has lots of mucus in his throat. Patient has appointment for upper GI in June. Script for Flonase to help with postnasal drip given to patient. Patient will call our office if he will have worsening GI concerning symptoms. Patient will be seen in our office at the end of June. He is agreeable to this plan and verbalizes understanding of instructions. He was given the opportunity to ask questions and all questions answered. Thank you for allowing me to participate in his care Medications: New pantoprazole take one tablet half an hour before breakfast 40 mg PO DAILY 30 tabs 3RF K21.9 - Gastro-esophageal reflux disease without esophagitis fluticasone propionate 50 mcg/actuation (Flonase Allergy Relief) administer into each nostril twice a day for 2 weeks and daily 1 spray intranasal BID 16 grams 0RF R05.9 - Cough, unspecified Coding Level of Care Code Est Pt Level 4 (07672) Complex EM visit Add On G2211 Diagnoses Gastroesophageal reflux disease, unspecified whether esophagitis present K21.9 Esophagitis presence: esophagitis presence not specified Oropharyngeal dysphagia R13.12 Dysphagia type: oropharyngeal phase Globus sensation R09.A2 Regurgitation of food R11.10 Hepatic lesion K76.9 Generalized abdominal pain R10.84 Abdominal location: generalized Time Spent (min) 35 Comment 25 minutes spent with patient and additional 10 minutes spent reviewing her records
[2025-04-18 10:35] VITALS: BP 126/46; PULSE 66; O2SAT 97; BMI 34.3
--- OUTSIDE RECORDS SUMMARY | 2025-04-18 11:41 | XMS_ITS | Encounter Summary ---
Author Organization [facility] Address [address] [place] [address] Care Team Providers Care Wind Farm Designer Name Role Phone Dannie Cosby Primary Care Provider [phone] Reason for Visit * Reason Onset Date Comments Appointment 10/22/2021 Encounter Details Date Type Department Care Team (Late st Contact Info) Description 10/22/2021 Telephone [facility] Central Scheduling Department [address] [place] [id number] Telephone Intake, Staff Appointment Social History Tobacco [...] - 10/22/2021 9:21 AM EDT Xiomara from [facility] Referrals scheduling new pt Neurology appt re trigeminal neuralgia Per DT, scheduled 10/[address] Edward Solorio at [facility] documented in this encounter Plan of Treatment Not on file documented as of this encounter Visit Diagnoses Not on filedocumented in this encounter Care Teams Wind Farm Designer Relationship Specialty Start Date End Date Dannie Cosby [address] [place] [address] PCP - General 10/10/21 documented as of this encounter
--- OUTSIDE RECORDS SUMMARY | 2025-04-18 11:41 | XMS_ITS | Clinical Summary ---
Author Organization [facility] Address [address] [place] [address] Care Team Providers Care Easter Bunny Name Role Phone Dannie Cosby Primary Care Provider [phone] Allergies Active Allergy Reactions Criticality Noted Date [...] patients) (1 - 1-dose 75+ series) 2011 Alcohol/Substance Use Screening 07/21/2024 Depression Screening and Follow-Up 07/21/2024 Health Care Proxy Review 07/21/2024 Social Drivers of Health Annual Screening 07/21/2024 COVID-19 Vaccine ( season) 2025 11/26/2021, 04/26/2021, 09/10/2020, Additional history exists Influenza Vaccine (#1) 2025 , 03/30/2020, 06/07/2019 Zoster Vaccines Completed 11/12/2021, 08/21/2021 Hepatitis B Vaccines Aged Out No long er eligible based on patient's age to complete this topic Insurance BCBS MCR REPLACE PPO Care Teams Easter Bunny Relationship Specialty Start Date End Date Dannie Cosby [address] [place] [address] PCP - General 10/10/21
--- OUTSIDE RECORDS SUMMARY | 2025-04-18 11:41 | XMS_ITS | Clinical Summary ---
Author Organization [email or web address] Address [address] [facility] [address] [place] [address] Care Team Providers Care Loss Prevention Lead Name Role Phone Unavailable Primary Care Provider [...] - PCV) 1986 COVID-19 Vaccine (2023- season) 2025 04/12/2024, 04/29/2023, 05/08/2022, Additional history exists Influenza [...] Insurance DENTAL - HSN FULL (MEDICAID) DENTAL [facility]
--- OUTSIDE RECORDS SUMMARY | 2025-04-18 11:41 | XMS_ITS | Encounter Summary ---
Author Organization [facility] Address [address] [place] [address] Care Team Providers Care Prototype Special Build Name Role Phone Dannie Cosby Primary Care Provider Encounter Details Date Type Department Care Team (Late st Contact Info) Description 10/15/2021 Telephone [facility] [address] [place] [address] Telephone Intake, Staff Social History Tobacco [...] pls call Xiomara when received to schedule. [phone] documented in this encounter Plan of Treatment Not on file documented as of this encounter Visit Diagnoses Not on filedocumented in this encounter Care Teams Prototype Special Build Relationship Specialty Start Date End Date Dannie Cosby [address] [place] [address] PCP - General 10/10/21 documented as of this encounter
--- OUTSIDE RECORDS SUMMARY | 2025-04-18 11:41 | XMS_ITS | Clinical Summary ---
Author Organization [facility] Address [address] [facility] [address] [place] [address] Care Team Providers Care Quality Control Systems Manager Name Role Phone Dannie Cosby [phone] No Pcp, Per Patient Primary Care [...] Department Care Team Description 02/07/2025 Orders Only [facility] Neurosurgery [address] [place] [phone] Rhiannon Manriquez NP Trigeminal neuralgia, postherpetic (Primary Dx) 02/07/2025 Orders Only [facility] Neurosurgery [address] [place] [phone] Rhiannon Manriquez NP Trigeminal neuralgia, postherpetic (Primary Dx) 01/19/2025 11:30 AM EDT Office Visit [facility] Neurosurgery [address] [place] [phone] Kevin Garnica MD Trigeminal neuralgia, postherpetic (Primary [...] COVID-19 Vaccine (8 - Pfizer risk season) 2025 04/12/2024, 04/29/2023, 05/08/2022, Additional history [...] REPLACEMENT PPO HEALTH SAFETY NET Care Teams Quality Control Systems Manager Relationship Specialty Start Date End Date No Pcp, Per Patient [place] PCP - General 10/29/23 Dannie Cosby [address] [place] [address] 10/24/23
--- OUTSIDE RECORDS SUMMARY | 2025-04-18 11:41 | XMS_ITS | Encounter Summary ---
Author Organization [facility] Address [address] [place] [id number] Care Team Providers Care Joinery Machinist Name Role Phone Danine Cosby Primary Care Provider [phone] Reason for Visit * Reason Onset Date Comments Urgent Referral 10/10/2021 Encounter Details Date Type Department Care Team (Late st Contact Info) Description 10/10/2021 Telephone [facility] Neurology Clinic [address] [place] [address] Telephone Intake, Staff Urgent Referral Social [...] - 10/10/2021 11:34 AM EDT Xiomara from [facility] is calling to schedule an Urgent appointment. [facility] will fax over a referral today for Trigeminal Neurologia. [facility] can be reached at [phone]. documented in this encounter Plan of Treatment Not on file documented as of this encounter Visit Diagnoses Not on filedocumented in this encounter Care Teams Joinery Machinist Relationship Specialty Start Date End Date Dannie Cosby [address] [place] [address] PCP - General 10/10/21 documented as of this encounter
--- OUTSIDE RECORDS SUMMARY | 2025-04-18 11:41 | XMS_ITS | Clinical Summary ---
Author Organization [facility] Address [address] [address] Phone Care Team Providers Care Scrap Metal Processing Worker Name Role Phone Sophia Danielle MD Primary Care Provider [phone] Social History Tobacco Use Types Packs/Day Years [...] VACCINE (1 - 1-dose 75+ series) 2011 INFLUENZA VACCINE (#1) 2025 COVID-19 VACCINE ( - 2023-2 5 season) 2025 HEPATITIS A VACCINES Aged Out No long [...] topic Medical Devices Not on file [place] [address] [place] [address] MEDICARE PPO BLUE [place] [place] [address] MED[place]ARE PPO [place] [address] [place] [address] [address] [place] [address] [address] [place] [address] MEDIC[address] [place] [address] MEDICARE PPO BLUE REPLACEMENT Care Teams Scrap Metal Processing Worker Relationship Specialty Start Date End Date Sophia Danielle MD [address] [facility] [address] [place] PCP - General 02/14/22 Additional Source Comments The information contained in this document represents components of the legal health record. It is not the complete legal health record.[facility]
== END 2025-04-18 10:52 | disposition home or self-care (01) ==
LOC: HO.HGI 10:28
PROVIDERS: PCP Nurse Practitioner Family; Visit Provider Nurse Practitioner Family
DX: K21.9 Gastro-esophageal reflux disease without esophagitis (principal); R13.12 Dysphagia, oropharyngeal phase; R09.A2 Foreign body sensation, throat; R11.10 Vomiting, unspecified; K76.9 Liver disease, unspecified; R10.84 Generalized abdominal pain
CPT/HCPCS: 99214; G2211

== ENCOUNTER 2025-05-06 11:27 | Outpatient (AMB) | payer MEDICARE, SELFPAY ==
[2025-05-06 11:31] VITALS: BP 128/60; PULSE 64; O2SAT 97; BMI 33.8
--- NOTE | 2025-05-06 11:31 | MHC.OFFWIV ---
Intake Vital Signs 05/06/25 11:31 Height 5 ft 9 in Weight 229 lb BMI 33.8 BP 128/60 Blood Pressure Location Lt brachial Position Sitting Pulse 64 Pulse Source Pulse Oximeter Pulse Oximetry (%) 97 Oxygen Delivery Method Room Air Intake Visit Reasons: EP Chest pain with cough/ wheezing Patient Tobacco Use Status: Never used Tobacco Allergies lamotrigine (From Lamictal) Allergy (Intermediate, Verified 05/06/25 11:33) swelling gabapentin Allergy (Unknown, Verified 05/06/25 11:33) lip swelling pregabalin (From Lyrica) Allergy (Unknown, Verified 05/06/25 11:33) lip swelling Medication List - Last Reconciled 05/06/25 by Barby Dhillon PA-C atorvastatin 40 mg PO DAILY blood sugar diagnostic ([employer] Ultra Test strips) Check blood sugar once a day blood-glucose meter ([employer] Ultra2 Meter) Check fasting blood sugar and a random blood sugar daily. cholecalciferol (vitamin D3) 50 mcg PO DAILY duloxetine 30 mg PO BID 90 days empagliflozin 25 mg PO DAILY ezetimibe 10 mg PO DAILY fluticasone propionate 50 mcg/actuation (Flonase Allergy Relief) 1 spray intranasal BID lancets ([employer] Delica Safety Lancet) Check blood sugar once a day Magic Mouthwash Diphen/Nystat/Antacid 1:1:1 10 mL PO TID 7 days metoprolol tartrate 50 mg PO BID pantoprazole 40 mg PO DAILY rivaroxaban (Xarelto) 20 mg PO DAILY 90 days Held on 04/01/25. Instructions: Resume on 04/02/25. solifenacin (Vesicare) 5 mg PO DAILY 90 days terazosin 5 mg PO BEDTIME 90 days Do you need a note to return to daycare/school/sports/work: No HPI HPI Comments History of Present Illness Details History - The patient is an 89-year-old male presenting with a cough and associated chest pain x 1 week. - The patient reports feeling heavy and experiencing a cough that started last week, with recent development of central chest pain during coughing. - Wheezing was noted upon waking in the morning, although the patient denies any history of asthma or COPD. - The patient reports feeling fatigued and generally run down, with no sinus and ear pain. - The patient has a history of postherpetic neuralgia following shingles eight years ago, with persistent pain in the ear region. - The patient is currently on anticoagulation therapy with apixaban (Eliquis). Review of Systems - Respiratory: Reports cough with chest pain and wheezing. Denies history of asthma or COPD. - General: Reports fatigue and feeling run down. - Neurological: Reports postherpetic neuralgia with ear pain. - ENT: Reports sinus and ear pain. All systems reviewed and are unremarkable except as noted in HPI Physical Exam General: Cooperative, healthy appearing, comfortable and no acute distress Orientation/consciousness: Patient oriented x3 Limitations: No limitations Head: Normal to inspection Ears: Hearing grossly normal bilaterally, external ears normal and TM's normal right, EAC on left with cerumen, EAC normal on right. Nose: Normal external nose present, Normal nares present and No nasal discharge present Face and sinus: Normal facial exam and Yes sinuses nontender Mouth: Normal oral and palatal mucosa present and moist mucous membranes Throat: Yes tonsils normal, Yes uvula midline. Posterior oropharynx erythema, no exudates Eyes: Appearance normal, both eyes and all related structures Neck: Normal visual inspection, full ROM Respiratory: Clear to auscultation bilaterally. Normal respiratory effort, able to speak in complete sentences, actively coughing, no respiratory distress, not tachypneic, no tripod positioning and no use of accessory muscles Cardiovascular: Regular rate and rhythm. Normal S1 and S2 Skin: No rashes or lesions noted Neuro: Patient oriented x3 Extremities: Normal to inspection and Yes no clubbing, cyanosis or edema PFSH Medical History Pulmonary nodules Cough Hx of sigmoidoscopy Frequent falls Urinary frequency History of claustrophobia History of shingles On anticoagulant therapy On beta diana at home Dyslipidemia Gout Spinal stenosis of lumbar region Atrial fibrillation CKD (chronic kidney disease) Elevated PSA Aortic stenosis CAD (coronary artery disease) Right facial pain Trigeminal neuralgia Post herpetic neuralgia Surgical History Status post lens implant History of fracture of leg History of laparoscopic cholecystectomy History of aortic valve replacement History of heart bypass surgery Pacemaker Family History Father No problems noted. Mother No problems noted. Social History Household Members: None Housing: House Are you a primary care support representative to a significant other at home: No Do you presently have visiting nurse or other home services: No Alcohol intake: never Patient Tobacco Use Status: Never used Tobacco e-Cigarette/Vaping Use: Never Used Second Hand Smoke Exposure: No service: Yes Current occupational status: unemployed and retired Current occupational exposures/hazards: No Cognitive needs: No Hearing needs: No Vision needs: No Physical Exam Vital Signs: Last Vital Signs Pulse 64 05/06/25 11:31 BP 128/60 05/06/25 11:31 Pulse Ox 97 05/06/25 11:31 Oxygen Delivery Method Room Air 05/06/25 11:31 BMI result Body Mass Index 33.8 Office Procedures Cerumen Removal From which ear canal was the cerumen removed: left Removal: otoscope w/curette Notes: patient tolerated procedure well, no complications and ear canal clear 52945-[id number] Wax Removal by Spoon/Curette Assessment & Plan Assessment & Plan (1) Lower respiratory infection (e.g., bronchitis, pneumonia, pneumonitis, pulmonitis): Code(s): J22 - Unspecified acute lower respiratory infection Plan: Patient was informed and verbally consented to the use of an ambient scribe for clinic note documentation during this visit. - VSS, pt well appearing and PE unremarkable. - A respiratory panel was ordered to check for viral infections. - A chest x-ray was ordered to rule out pneumonia and other acute lung pathology. - The patient was advised to continue using Mucinex and other over the counter medications for symptomatic relief. - If worsening of symptoms, please return to the Clinic, call your PCP or go to the Emergency Department. (2) Excessive cerumen in left ear canal: Code(s): H61.22 - Impacted cerumen, left ear Plan: - Cerumen removed in left EAC with curette. Orders: Orders AMB Cerumen Removal Today H61.22 - Impacted cerumen, left ear Resp Pathogen Panel - [facility] Today J06.9 - Acute upper respiratory infection, unspecified XR chest 2V Today R05.9 - Cough, unspecified Coding Level of Care Code Est Pt Level 4 (22502) Diagnoses Lower respiratory infection (e.g., bronchitis, pneumonia, pneumonitis, pulmonitis) J22 Excessive cerumen in left ear canal H61.22 CPT Codes Office Procedure - CPT: 76170-Jps Wax Removal by Spoon/Curette ([id number])
--- OUTSIDE RECORDS SUMMARY | 2025-05-06 14:12 | XMS_ITS | Encounter Summary ---
Author Organization [facility] Address [address] [id number] Care Team Providers Care Verifying Machine Operator Name Role Phone Dannie Cosby Primary Care Provider [phone]- [phone] Reason for Visit * Reason Onset Date Comments Urgent Referral 10/10/2021 Encounter Details Date Type Department Care Team (Late st Contact Info) Description 10/10/2021 Telephone [facility] Neurology Clinic [address] [place] [address] Telephone Intake, Staff Urgent Referral Social [...] - 10/10/2021 11:34 AM EDT Xiomara from [facility] is calling to schedule an Urgent appointment. [facility] will fax over a referral today for Trigeminal Neurologia. [facility] can be reached at [phone]. documented in this encounter Plan of Treatment Not on file documented as of this encounter Visit Diagnoses Not on filedocumented in this encounter Care Teams Verifying Machine Operator Relationship Specialty Start Date End Date Dannie Cosby [address] [place] [address] PCP - General 10/10/21 documented as of this encounter
--- OUTSIDE RECORDS SUMMARY | 2025-05-06 14:12 | XMS_ITS | Encounter Summary ---
Author Organization [facility] Address [address] [place] [address] Care Team Providers Care Form Raiser Name Role Phone Dannie Cosby Primary Care Provider Encounter Details Date Type Department Care Team (Late st Contact Info) Description 10/15/2021 Telephone [facility] Neurology Clinic [address] [place] [address] Telephone Intake, Staff Social History Tobacco [...] pls call Xiomara when received to schedule. [phone] documented in this encounter Plan of Treatment Not on file documented as of this encounter Visit Diagnoses Not on filedocumented in this encounter Care Teams Form Raiser Relationship Specialty Start Date End Date Dannie Cosby [address] [place] [address] PCP - General 10/10/21 documented as of this encounter
--- OUTSIDE RECORDS SUMMARY | 2025-05-06 14:12 | XMS_ITS | Clinical Summary ---
Author Organization [facility] Address [address] [facility] 7[address] [place] [address] Care Team Providers Care Behavioral Sciences Department Chair Name Role Phone Unavailable Primary Care Provider [...] DENTAL - HSN FULL (MEDICAID) DENTAL [facility]
--- OUTSIDE RECORDS SUMMARY | 2025-05-06 14:12 | XMS_ITS | Clinical Summary ---
Author Organization [facility] Address [address] [place] [address] Phone Care Team Providers Care Mechanical Engineering Draftsperson Name Role Phone Dannie Cosby NP Primary Care Provider Allergies Active Allergy Reactions Criticality Noted Date [...] to complete this topic Insurance Care Teams Mechanical Engineering Draftsperson Relationship Specialty Start Date End Date Dannie Cosby NP [facility] [place] [address] PCP - General 07/31/20
--- OUTSIDE RECORDS SUMMARY | 2025-05-06 14:12 | XMS_ITS | Clinical Summary ---
Author Organization [facility] Address [address] [address] Phone Care Team Providers Care Manager E Learning Name Role Phone Sophia Danielle MD Primary Care Provider Social History Tobacco Use Types Packs/Day Years [...] topic Medical Devices Not on file [place] [address] [place] [address] MEDICARE PPO BLUE [address] [place] [place] [address] MEDICARE PPO BLUE [address] [place] [address] [address] [place] [address] MED[address]ARE [address] [place] [address] MEDICARE PPO BLUE [address]PL[address]EMENT [place] [address] MEDICARE PPO BLUE REPLACEMENT Care Teams Manager E Learning Relationship Specialty Start Date End Date Sophia Danielle MD [address] [facility] [address] [place] PCP - General 02/14/22 Additional Source Comments The information contained in this document represents components of the legal health record. It is not the complete legal health record.[facility]
--- OUTSIDE RECORDS SUMMARY | 2025-05-06 14:12 | XMS_ITS | Clinical Summary ---
Author Organization [facility] Address [address] [place] [address] Care Team Providers Care Window Assembler Name Role Phone Dannie Cosby Primary Care Provider [phone]- [phone] Allergies Active Allergy Reactions Criticality Noted Date [...] Insurance [employer]BS MCR REPLACE PPO Care Teams Window Assembler Relationship Specialty Start Date End Date Dannie Cosby [address] [place] [address] PCP - General 10/10/21
--- OUTSIDE RECORDS SUMMARY | 2025-05-06 14:12 | XMS_ITS | Clinical Summary ---
Author Organization [facility] Address [address] [facility] [address] [place] [address] Care Team Providers Care Trim Technician Name Role Phone Dannie Cosby [phone] No Pcp, Per Patient Primary Care [...] Encounters Date Type Department Care Team Description 05/04/2025 Telephone [facility] Neurosurgery [address] [facility] [address] [place] [address] Rhiannon Manriquez NP 02/07/2025 Orders Only [facility] Neurosurgery [address] [address] Rhiannon Manriquez NP Trigeminal neuralgia, postherpetic (Primary Dx) 02/07/2025 Orders Only [facility] Neurosurgery [address] [facility] [address] [address] Rhiannon Manriquez NP Trigeminal neuralgia, postherpetic (Primary [...] place to sleep or slept in a intermediate (including now)? No 10/29/2023 Sex and Gender [...] (AWV) 03/21/2002 Depression Screening 07/21/2024 COVID-19 Vaccine ( season) 2025 04/12/2024, 04/29/2023, 05/08/2022, Additional history [...] patient's age to complete this topic Insurance [facility] MEDICARE REPLACEMENT PPO HEALTH SAFETY NET Care Teams Trim Technician Relationship Specialty Start Date End Date No Pcp, Per Patient DAVID PCP - General 10/29/23 Dannie Cosby [address] [place] [address] 10/24/23
--- OUTSIDE RECORDS SUMMARY | 2025-05-06 14:12 | XMS_ITS | Encounter Summary ---
Author Organization [facility] Address [address] [place] [address] Care Team Providers Care Clip Wrapper Name Role Phone Dannie Cosby Primary Care Provider [phone]- [phone] Reason for Visit * Reason Onset Date Comments Appointment 10/22/2021 Encounter Details Date Type Department Care Team (Late st Contact Info) Description 10/22/2021 Telephone [facility] Central Scheduling Department [address] [place] [address] Telephone Intake, Staff Appointment Social History Tobacco [...] - 10/22/2021 9:21 AM EDT Xiomara from [facility] Referrals scheduling new pt Neurology appt re trigeminal neuralgia Per DT, scheduled 10/[address] Edward Solorio at [facility] documented in this encounter Plan of Treatment Not on file documented as of this encounter Visit Diagnoses Not on filedocumented in this encounter Care Teams Clip Wrapper Relationship Specialty Start Date End Date Dannie Cosby [address] [place] [address] PCP - General 10/10/21 documented as of this encounter
--- OUTSIDE RECORDS SUMMARY | 2025-05-06 14:12 | XMS_ITS | Encounter Summary ---
Author Organization [facility] Address [address] [facility] Idalia Ramos kimberly [address] [place] [address] Care Team Providers Care Cigar Bander Hand Name Role Phone Dannie Cosby [phone] No Pcp, Per Patient Primary Care Provider Luis zhou Encounter Details Date Type Department Care Team (Late st Contact Info) Description 05/04/2025 Telephone [facility] Neurosurgery [address] [place] [address] Rhiannon Manriquez, SHARRI [address] [place] [phone] Social History Tobacco Use Types Packs/Day Years [...] place to sleep or slept in a [place] health care facility (including now)? No 10/29/2023 Sex and Gender Information Value Date Recorded Sex Assigned at Male 10/26/2023 7:37 PM EDT Legal Sex Male 3:27 PM EDT Gender Identity Male 10/24/2023 3:29 PM EDT Sexual Orientation Straight 10/26/2023 7: 37 PM EDT documented as of this encounter Miscellaneous Notes * Telephone Encounter - Rhiannon Manriquez NP - 05/04/2025 3:02 PM EDT Mr. Bardales was evaluated today via telephone He is s/p Gamma Knife for right sided facial pain on 11/20/23. His pain recurred six months later. He got about 40-50 % better after the treatment. We are discussing treatment options. He has pain in the right ear that is severe and has been going on for the last eight months and radiates up the right side of his head. He does not have pain in the lower face or his mouth. He will require sedation for the treatment as well as a CT scan. He is eager to have the treatment and signed consent. He will need to be treated on a Friday for the sedation. Rhiannon Manriquez PER DIEM REGISTERED NURSE was present for the visit. Kevin Garnica MD documented in this encounter Plan of Treatment Not on file documented as of this encounter Visit Diagnoses Not on filedocumented in this encounter Care Teams Cigar Bander Hand Relationship Specialty Start Date End Date No Pcp, Per Patient [place] PCP - General 10/29/23 Dannie Cosby [address] [place] [address] 10/24/23 documented as of this encounter
== END 2025-05-06 12:08 | disposition home or self-care (01) ==
PROVIDERS: PCP Nurse Practitioner Family; Visit Provider Physician Assistant
DX: J22 Unspecified acute lower respiratory infection (principal); H61.22 Impacted cerumen, left ear

== ENCOUNTER 2025-05-06 11:27 | Outpatient (REF) | payer MEDICARE, SELFPAY ==
--- NOTE | ~2025-05-06 | XR_ITS ---
EXAMINATION: XR CHEST CLINICAL INFORMATION: R05.9 - Cough, unspecified COMPARISON: 09/09/2024. TECHNIQUE: 2 views of the chest were obtained. FINDINGS: There is a dual-lead left-sided pacer device in place with leads extending into the right atrium and right ventricle. There has been prior median sternotomy and probable CABG. There is an aortic valve replacement present (TAVR). Lungs are diffusely mildly hyperaerated, however clear bilaterally. There is no pneumothorax or pleural effusion. There is no focal osseous or soft tissue abnormality. Mildly exaggerated thoracic kyphosis with degenerative changes throughout the spine. XR/XR chest 2V IMPRESSION: 1. Mild cardiac enlargement. Prior sternotomy and CABG. 2. Left-sided dual-lead pacer device, and aortic valve replacement. 3. COPD. No active pulmonary disease. Electronically signed by: Nick Morales MD 05/06/2025 12:28 PM EDT
[2025-05-07 07:19] LABS: Chlamydia pneumoniae PCR Not Detected (Not Detect.); Coronavirus 229E PCR Not Detected (Not Detect.); Coronavirus HKU1 PCR Not Detected (Not Detect.); Coronavirus NL63 PCR Not Detected (Not Detect.); Coronavirus OC43 PCR Not Detected (Not Detect.); RSV PCR Not Detected (Not Detect.); Rhino/Enterovirus PCR Not Detected (Not Detect.)
[2025-05-07 07:20] LABS: Influenza A H1 PCR Not Detected (Not Detect.); Influenza A H1-2009 PCR Not Detected (Not Detect.); Influenza A H3 PCR Not Detected (Not Detect.); SARS-CoV-2 PCR Not Detected (Not Detect.)
== END 2025-05-06 11:28 | disposition home or self-care (01) ==
LOC: HO.HMGCX 11:27
PROVIDERS: PCP Nurse Practitioner Family; Visit Provider Physician Assistant
DX: J22 Unspecified acute lower respiratory infection (principal); H61.22 Impacted cerumen, left ear; R05.9 Cough, unspecified; R06.2 Wheezing; Z79.899 Other long term (current) drug therapy
CPT/HCPCS: 69210; 71046; 87633; 99212

== ENCOUNTER → 2025-05-06 12:07 | Outpatient (BNV) | payer MEDICARE, SELFPAY | PROVIDERS: PCP Nurse Practitioner Family; Visit Provider Radiology Diagnostic Radiology | DX: I51.7 Cardiomegaly (principal); J44.9 Chronic obstructive pulmonary disease, unspecified; Z95.0 Presence of cardiac pacemaker | CPT/HCPCS: 71046 ==

== ENCOUNTER 2025-06-01 14:30 | Outpatient (REF) | payer MEDICARE, SELFPAY ==
[2025-06-01 16:50] LABS: Prostate Specific Antigen 3.05 ng/mL (<0.05-4.0)
--- OUTSIDE RECORDS SUMMARY | 2025-06-01 17:59 | XMS_ITS | Clinical Summary ---
Author Organization [facility] Address [address] [facility] [address]t [place] [address] Care Team Providers Care Cylinder Valve Repairer Name Role Phone Unavailable Primary Care Provider [...] of 1 - PCV) 1986 COVID-19 Vaccine (2024- season) 2025 04/12/2024, 04/29/2023, 05/08/2022, Additional history [...] Insurance DENTAL - HSN FULL (MEDICAID) DENTAL [facility]
--- OUTSIDE RECORDS SUMMARY | 2025-06-01 17:59 | XMS_ITS | Encounter Summary ---
Author Organization [facility] Address [address] [place] [address] Care Team Providers Care Grinder Watch Parts Name Role Phone Dannie Cosby Primary Care Provider [phone] Encounter Details Date Type Department Care Team (Late st Contact Info) Description 10/15/2021 Telephone [facility] [address] [place] [address] Telephone Intake, Staff Social History Tobacco [...] pls call Xiomara when received to schedule. [phone] documented in this encounter Plan of Treatment Not on file documented as of this encounter Visit Diagnoses Not on filedocumented in this encounter Care Teams Grinder Watch Parts Relationship Specialty Start Date End Date Dannie Cosby [address] [place] [address] PCP - General 10/10/21 documented as of this encounter
--- OUTSIDE RECORDS SUMMARY | 2025-06-01 17:59 | XMS_ITS | Clinical Summary ---
Author Organization [facility] Address [address] [address] Phone Care Team Providers Care Tow Picker Name Role Phone Sophia Danielle MD Primary Care Provider [phone] Social History Tobacco Use Types Packs/Day Years [...] topic Medical Devices Not on file [place] [place] [address] MEDICARE [address] [place] [address] [address] [place] [address] [address] [place] [place] [address] [address] [place] [place] [address] [address]PO [place] [address] [place] [address] MEDICARE PPO BLUE REPLACEMENT Care Teams Tow Picker Relationship Specialty Start Date End Date Sophia Danielle MD [address] [facility] [address] [place] PCP - General 02/14/22 Additional Source Comments The information contained in this document represents components of the legal health record. It is not the complete legal health record.[facility]
--- OUTSIDE RECORDS SUMMARY | 2025-06-01 17:59 | XMS_ITS | Clinical Summary ---
Author Organization [facility] Address [address] [place] [address] Care Team Providers Care Cradle Slide Maker Name Role Phone Dannie Cosby Primary Care Provider [phone] Allergies Active Allergy Reactions Criticality Noted Date [...] Screening 07/21/2024 Depression Screening and Follow-Up 07/21/2024 Fall Risk Screening 07/21/2024 Health Care Proxy Review 07/21/2024 Social Drivers of Health Annual Screening 07/21/2024 COVID-19 Vaccine ( season) 2025 11/26/2021, 04/26/2021, 09/10/2020, Additional history exists Influenza Vaccine (#1) 2025 , 03/30/2020, 06/07/2019 Zoster Vaccines Completed 11/12/2021, 08/21/2021 Hepatitis B Vaccines Aged Out No long er eligible based on patient's age to complete this topic Insurance [employer] PPO Care Teams Cradle Slide Maker Relationship Specialty Start Date End Date Dannie Cosby [address] [place] [address] PCP - General 10/10/21
--- OUTSIDE RECORDS SUMMARY | 2025-06-01 17:59 | XMS_ITS | Encounter Summary ---
Author Organization [facility] Address [address] [place] [address] Care Team Providers Care Customs Guard Name Role Phone Dannie Cosby Primary Care Provider [phone] Reason for Visit * Reason Onset Date Comments Appointment 10/22/2021 Encounter Details Date Type Department Care Team (Late st Contact Info) Description 10/22/2021 Telephone [facility] Central Scheduling Department [address] [place] [address] Telephone Intake, Staff Appointment Social History Tobacco [...] - 10/22/2021 9:21 AM EDT Xiomara from [facility] Referrals scheduling new pt Neurology appt re trigeminal neuralgia Per DT, scheduled 10/[address] Edward Solorio at [facility] documented in this encounter Plan of Treatment Not on file documented as of this encounter Visit Diagnoses Not on filedocumented in this encounter Care Teams Customs Guard Relationship Specialty Start Date End Date Dannie Cosby [address] [place] [address] PCP - General 10/10/21 documented as of this encounter
--- OUTSIDE RECORDS SUMMARY | 2025-06-01 17:59 | XMS_ITS | Encounter Summary ---
Author Organization [facility] Address [address] [place] [id number] Care Team Providers Care Digital Production Operator Name Role Phone Dannie Cosby Primary Care Provider [phone] Reason for Visit * Reason Onset Date Comments Urgent Referral 10/10/2021 Encounter Details Date Type Department Care Team (Late st Contact Info) Description 10/10/2021 Telephone [facility] [address] [place] [address] Telephone Intake, Staff Urgent Referral Social [...] 11:34 AM EDT Xiomara from [facility] is calling to schedule an Urgent appointment. [facility] will fax over a referral today for Trigeminal Neurologia. [facility] can be reached at [phone]. documented in this encounter Plan of Treatment Not on file documented as of this encounter Visit Diagnoses Not on filedocumented in this encounter Care Teams Digital Production Operator Relationship Specialty Start Date End Date Dannie Cosby [address] [place] [address] PCP - General 10/10/21 documented as of this encounter
== END 2025-06-01 14:31 | disposition home or self-care (01) ==
LOC: HO.HMGCLDS 14:30
PROVIDERS: PCP Nurse Practitioner Family; Visit Provider Nurse Practitioner Family
DX: R97.20 Elevated prostate specific antigen [PSA] (principal); Z12.5 Encounter for screening for malignant neoplasm of prostate
CPT/HCPCS: 36415; 84153

== ENCOUNTER 2025-06-13 13:11 | Outpatient (AMB) | payer MEDICARE, MEDICAID, SELFPAY ==
--- OUTSIDE RECORDS SUMMARY | 2025-06-07 05:57 | XMS_ITS | Encounter Summary ---
Author Organization [facility] Address [address] [facility] [address] [place] [address] Care Team Providers Care Hand Stonecutter Name Role Phone Dannie Cosby Unavailable [phone] Pcp, Per Patient Primary Care Provider Unavai lable Reason for Visit * Auth/Cert (Routine) Specialty Diagnoses / Procedures Referred By Tapan pathak Referred To Contact Diagnoses Trigeminal neuralgia Right TN- CT head w/o @ 8:30am (MAC FOR ENTIRE [id number] Procedures CHG RADIATION DELIVERY STEREOTACTIC CRANIAL COBALT CHG STEREOTACTIC RADIATION TX MANAGEMENT CRANIAL LESION CA STEREOTACTIC RADIOSURGERY, CRANIAL,SIMPLE,SINGLE CA STEREOTACTIC RADIOSURGERY, CRANIAL,COMPLEX,SINGLE CA APPLY STEREOTACTIC HEADFRAME FOR RADIOSURGERY CHG RADN TREATMENT AID(S) COMPLX CHG RADN PHYSICS CONSULT CONTINUING CHG 3-D RADIOTHERAPY PLAN DOSE-VOLUME HISTOGRAMS CHG RADIATION THERAPY,DOSIMETRY PLAN CA REMOVAL TONG/HALO APPLIED BY ANOTHER INDIVIDUAL CHG RADIATION THERAPY PLAN COMPLEX [facility] [address] [place] [address] Phone: tel: Referral ID Status Reason Start Date Expiration Date Visits Re quested Visits Authorized [id number] 1 1 Encounter Details Date Type Department Care Team (Late st Contact Info) Description 06/07/2025 5:57 AM EST Hospital Encounter [facility] [address] [place] [address] Kevin Garnica MD [address] [place] [phone] Dannie Watkins MD [address] [place] [phone] Stephany Maddox MD [address] [facility] [address] [place], [place] [id number] Trigeminal neuralgia (Primary Dx) Social History Tobacco Use Types Packs/Day Years [...] place to sleep or slept in a longterm (including now)? No 10/29/2023 Sex and Gender Information Value Date Recorded Sex Assigned at Male 10/26/2023 7:37 PM EDT Legal Sex Male 3:27 PM EDT Gender Identity Male 10/24/2023 3:29 PM EDT Sexual Orientation Straight 10/26/2023 7: 37 PM EDT documented as of this encounter Last Filed Vital Signs Vital Sign Reading Time Taken Comments Blood Pressure 113/65 06/07/2025 12:29 PM EST Pulse 65 06/07/2025 12:29 PM EST Temperature 36.2 C (97.2 F) 06/07/2025 12:29 PM EST Respiratory Rate 17 06/07/2025 12:2 9 PM EST Oxygen Saturation 95% 06/07/2025 12: 29 PM EST Inhaled Oxygen Concentration - - Weight 102.1 kg (225 lb 1.4 oz) 06/07/2025 6:35 AM EST Height 175.3 cm (5' 9.02 ) 06/07/2025 6:35 AM ES T Body Mass Index 33.22 06/07/2025 6:35 AM EST documented in this encounter Functional Status * IBW (kg) (Calculated) Answer Date of Assessment Author [id number] 06/07/2025 6:35 AM EST Sarah Craig che documented as of this encounter Discharge Instructions * Patient Instructions* Sarah Carlos - 06/07/2025 6:30 AM EST CARE TEAM Neurosurgeon Dr. Garnica Phone #: Radiation Oncologist Dr. Watkins Phone #: SPECIAL AFTER CARE INSTRUCTIONS WOUND/INCISION CARE Leave dressing in place for at least [address] Band-Aids on front of head once bandage is removed. Take dressing off at: Date: 06/07/25 Time: 3:00 PM If swelling on or above eyelids should occur, apply warm compresses (warm moist facecloth over eyes2-4 times a day if needed). Do not get your pin sites wet or wash your hair for 24 hours after your head frame was taken off: Date: 06/08/25 Time: 11:00 AM Avoid direct sunlight at pin sites for one week. ACTIVITY NO DRIVING until the day following the procedure. You will need transportation home from the procedure. You may feel fatigued for a brief time after the procedure. DIET Eat light remainder of the day, then as desired the following day. NOTIFY DOCTOR IF: Puncture site appears reddened, swollen, or have bleeding or draining. Elevated temperature (Greater than 101 degrees over 24 hours) Headaches not relieved by Tylenol or prescribed medications. Nausea/vomiting Severe dizziness, faintness. MEDICATIONS: Resume routine medications unless otherwise directed by your doctor. New medications as of today: None SPECIAL INSTRUCTIONS: Continue taking all of your medications for trigeminal neuralgia as prescribed. Call the [facility] @ [phone] in 6 weeks (the week of July 25, 2025) with anupdate on your level of pain. If little to no pain at that time, your prescribing physician may begin to slowly wean you off of medications for trigeminal neuralgia. Please make a follow-up appointment at the [facility] by calling . Your follow-up appointment should be made for 6 month(s) after the procedure. In case of questions about care, call your doctor???s office at [phone]. If after hours, call [phone] and ask for [facility] pocket and pulley machine operator to page your doctor or the on-call Radiation Oncologist. In case of emergency, return to [facility] Emergency Department, or go to [facility] emergency department. Did the patient repeat back the most critical elements of the content delivered? yes Did the patient repeat back information using their own words in a manner that demonstrates insightand understanding? yes Sarah Carlos 06/07/2025 documented in this encounter OR Notes * Op Note - Kevin Garnica MD - 06/07/2025 1:06 PM EST Operative Report Patient Name: BILL LUX Date of Service: June 07, 2025 Date of : 1935 Clinician: Kevin Garnica MD PREOPERATIVE DIAGNOSIS: Recurrent right trigeminal neuralgia. POSTOPERATIVE DIAGNOSIS: Recurrent right trigeminal neuralgia. PROCEDURE: Gamma knife stereotactic radiosurgery. SURGEON: Kevin Garnica M.D. ANESTHESIA: Local with sedation. ESTIMATED BLOOD LOSS: None. INDICATIONS: The patient is an 89-year-old man with a pacemaker and postherpetic neuralgia, status post Gamma knife stereotactic radiosurgery on 11/20/2023 with relief of pain; however, the patient has developed recurrent pain. After discussion with the patient regarding his options, he wished to proceed with re-treatment. DESCRIPTION OF PROCEDURE: The model G [place] stereotactic frame was placed under local anesthesia with intravenous sedation provided by the anesthesiologist. The patient then obtained a noncontrast CT scan. The CT scan information was sent to the stereotactic planning computer and this was co-sarika tered with his previous treatment plan. The previous treatment shot was identified on the trigeminal nerve and a separate shot was placed using a 4-mm collimator slightly posterior to the previous treatment, treating the trigeminal nerve to 75 Gy at the 100% isodose line. After business quality assurance analyst checks were performed, the patient was then brought to the treatment suite, placed on the treatment table, and underwent Gamma knife stereotactic radiosurgery. Total beam on time was 54.2 minutes. The stereotactic frame was then removed. A bandage dressing applied. The patient was discharged. Kevin Garnica MD Date Dictated: 06/07/2025 13:06:19 Date Transcribed: 06/07/2025 13:28:00 documented in this encounter Miscellaneous Notes * Radiation Clinical Support Note - Sarah Carlos - 06/07/2025 1:30 PM EST Patient A&Ox3, forgetful, very anxious and [place]EL[place]. Patient verbalized he had been NPO since 12 AM. Patient tolerated MAC anesthesia for head frame placement and CT. Unfortunately Patient was unableto tolerate the entire Gamma Knife procedure under MAC anesthesia d/t increased anxiety. Patient completed 32.62 minutes of his 55 minute Gamma Knife procedure. Patient fully recovered by anesthesia Dr. Eren Cabral, please see [facility] for anesthesia VS and assessment. Head frame removed at 10 50 AM, bleeding noted at right posterior pin site, minimal pressure applied for < 5 minutes, bleeding resolved, no further intervention needed, head dressing placed. Post procedure VSS, Patient deniesdizziness and nausea, does endorse pain 10/10 right side of head, and fatigue. Tylenol 650 mg givenPO with positive effect. Patient rested and verbalized his pain is gone. Discharge instructions reviewed, copy provided. Patient and his nephew verbalized understanding of all discharge instructions with teach back. All questions answered. Patient stable, ambulatory at his baseline, he able to void without difficulty in bathroom, head dressing is clean, dry and intact at time of discharge. [facility] with he nephew and all personal belongings at 1:15 PM. * Radiation Procedure Notes - Dannie Watkins MD - 06/07/2025 6:30 AM EST Radiation Oncology Gamma Knife Frame Removal Patient Name: Bill Lux : 1935 Gender: Male AGE: 89 y.o. Encounter Date: 06/07/2025 NAME OF PROCEDURE: Removal of stereotactic head frame. INDICATION FOR PROCEDURE: The patient has completed Gamma Knife radiosurgery. DESCRIPTION OF PROCEDURE: The stereotactic head frame was removed in standard fashion at the conclusion of radiosurgery without incident by Dr. Watkins. The pin sites on the scalp were then dressed in standard fashion. COMPLICATIONS: None ESTIMATED BLOOD LOSS: None DISPOSITION: Discharged home in good condition. Kathryn Mendoza MD PGY2, Department of Radiation Oncology 06/07/2025 Dannie Watkins MD 06/07/2025 1:57 PM * Radiation Completion Notes - Dannie Watkins MD - 06/07/2025 6:30 AM EST Radiation Oncology Treatment Completion Patient Name: Bill Lux : 1935 Gender: male AGE: 89 y.o. Encounter Date: 06/07/2025 CARE TEAM Primary Care Physician Pari Gaviria MD Referring Provider Kevin Garnica MD Surgeon Kevin Garnica MD Radiation Oncologist Dannie Watkins MD, PhD DIAGNOSIS: Right trigeminal neuralgia (recurrent) SUMMARY OF PRETREATMENT: Bill Lux is a 89 y.o. male who initially presented with persistentright-sided facial pain following a shingles infection in approximately 2016. Pain was in the V1-Z0kerukdodzydy, non responsive to nerve blocks or medication. Of note, he has an MRI non-compatible pacemaker. He has had a right sphenopalatine block in 11/2017, a nerve block in 11/2017, and a stellateganglion nerve block in 12/2017. He underwent Gamma Knife SRS on 11/20/23 with 85 Gy to the 100% IDL. He had some improvement of his symptoms for a year but has been having pain once again that is unresponsive to Duloxetine. He was referred for repeat treatment with Gamma Knife SRS as outlined below. TREATMENT SUMMARY: Bill Lux [facility] 06[facility]2024. The stereotactic head frame was positioned in standard fashion without incident with the assistance of MAC anesthesia. The patient previously underwent high resolution heard CT with contrast that clearly demonstrated the right trigeminal nerve root arising from the brainstem. The outside CT was co- registered with today's CT and treatment planning was performed. It was intended that Mr. Lux would be treated with 75 Gy delivered to the 100% isodose line via a single 4 mm collimated isocenter positioned adjacent to the prior treatment location. Unfortunately, despite increasing sedation dosages provided during MAC, Mr. Lux was not able to tolerate Gamma Knife treatment positioning and he insisted on terminating treatment after a dose of 43.2 Gy was delivered. REGION TREATED: Right trigeminal nerve DOSE: 43.2 Gy to the 100% isodose line ISOTOPE: [place] 60 MODALITY: Gamma Knife stereotactic radiosurgery TREATMENT DURATION: 32.62 minutes TREATMENT DATE: 06/07/2024 At the conclusion of the radiosurgery, the stereotactic head frame was removed without complicationby Dr. Watkins and the pin sites on the scalp were dressed in the standard fashion. Bill Lux was then discharged home in good condition. COMPLETION NOTE AND SUBSEQUENT PLANS: Bill Lux will continue his current pain medication for the next 6 weeks. He'll then communicate with the [facility]. If his pain is decreasing, he'll begin a slow medication taper and return for follow in approximately 6 months. He will continueto follow up with his primary care physician and his other healthcare providers as was previously scheduled. Kathryn Mendoza MD PGY2, Department of Radiation Oncology 06/07/2025 Dannie Watkins MD 06/07/2025 1:57 PM * Addendum Note - Sarah Carlos - 06/07/2025 6:30 AM Romana addended by: Sarah Carlos on: 06/07/2025 2:56 PM Actions taken: Clinical Note Signed documented in this encounter Plan of Treatment Not on file documented as of this encounter Visit Diagnoses Diagnosis Trigeminal neuralgia- Primary documented in this encounter Administered Medications Inactive Administered Medications - up to 3 most recent administrations Medication Order MAR Action Action Date Dose Rate Site acetaminophen (Tylenol) tablet 650 mg 650 mg, oral, Every 4 hours PRN, pain score 1-3 (mild), Starting on Fri06/07/25 at 1137, For 12 hoursIndications:Trigeminal neuralgia Given 06/07/2025 11:20 AM EST 650 mg bupivacaine PF (Marcaine) 0.25 % (2.5 mg/mL) injection 50 mg 50 mg (20 mL), infiltration, Once, On Fri06/07/25 at 0730, For 1 dose, Inject to pin sites Draw up 2 syringes of 10 mL eachIndications:Trigeminal neuralgia Given 06/07/2025 8:30 AM EST 11 mL lidocaine-epinephrine (PF) (Xylocaine W/EPI) 1 %-1:200,000 injection 8 mL 8 mL, infiltration, Once, On Fri06/07/25 at 0730, For 1 dose, Inject to pin sites Draw up 4 syringes of 2 mL eachIndications:Trigeminal neuralgia Given 06/07/2025 8:25 AM EST 8 mL Head documented in this encounter Care Teams Hand Stonecutter Relationship Specialty Start Date End Date No Pcp, Per Patient DAVID PCP - General 10/29/23 Dannie Cosby [facility] [place] [address] 10/24/23 documented as of this encounter
--- NOTE | 2025-06-13 13:31 | A.OFFVIS_ITS ---
Intake Visit Reasons: 1y/PSA/PVR Intake Note: Patient is Present for 1 yr Follow Up Urology Medication: Terazosin, finasteride, Tamsulosin Antibiotic Allergies: None Blood Thinners: Xarelto Labs done :06/01/25 PSA 3.05 PVR:169 mls Industrial Gas Servicer Required: No Accompanied by: Self / Same As Patient Allergies lamotrigine (From Lamictal) Allergy (Intermediate, Verified 06/13/25 18:06) swelling gabapentin Allergy (Unknown, Verified 06/13/25 18:06) lip swelling pregabalin (From Lyrica) Allergy (Unknown, Verified 06/13/25 18:06) lip swelling Medication List - Last Reconciled 06/13/25 by MELIZA Sales atorvastatin 40 mg PO DAILY blood sugar diagnostic ([employer] Ultra Test strips) Check blood sugar once a day blood-glucose meter ([employer] Ultra2 Meter) Check fasting blood sugar and a random blood sugar daily. cholecalciferol (vitamin D3) 50 mcg PO DAILY duloxetine 30 mg PO BID 90 days empagliflozin 25 mg PO DAILY ezetimibe 10 mg PO DAILY finasteride 5 mg PO DAILY 90 days fluticasone propionate 50 mcg/actuation (Flonase Allergy Relief) 1 spray intranasal BID lancets (niiu [employer] Safety Lancet) Check blood sugar once a day Magic Mouthwash Diphen/Nystat/Antacid 1:1:1 10 mL PO TID 7 days metoprolol tartrate 50 mg PO BID pantoprazole 40 mg PO DAILY rivaroxaban (Xarelto) 20 mg PO DAILY 90 days solifenacin (Vesicare) 5 mg PO DAILY 90 days terazosin 5 mg PO BEDTIME 90 days HPI Comments Details: Rickie is a pleasant 89-year-old male patient of Dr. Cosby. He has a past medical history of frequent falls, claustrophobia, shingles, dyslipidemia, gout, spinal stenosis of lumbar region, atrial fibrillation on anticoagulation, CKD, aortic stenosis, elevated PSA, and trigeminal neuralgia. He presents to the office today for follow-up of his incomplete bladder emptying and lower urinary tract symptoms. In discussion with the patient today reports to be doing and feeling well. He reports noting over the last 2-3 weeks he has been experiencing intermittent episodes of dysuria. However describes these episodes of dysuria only happening when urinating at night. In office urinalysi s results reviewed with the patient today essentially within normal limits. He reports having since stop finasteride as this was discontinued and he was unable to obtain medication from pharmacy. PVR today 169 mL. He reports compliance with terazosin and VESIcare as prescribed. He otherwise denies urinary urgency, urinary frequency, incontinence, hematuria, foul smelling urine, changes to urin todd stream, flank pain, fever, and or chills. Recent PSA results reviewed with the patient today as noted and trended below PSAs are as follows: 06/10 3.3, 10/10 5.2, 07/12 2.0, 09/13 2.7, 06/13 1.8, 06/14 3.1 Previous workup has included a retroperitoneal ultrasound 12/10 noting bilateral kidneys with no calculi, lesions, and or hydronephrosis. The bladder is well distended and normal. There is bladder wall thickening up to 8 mm. Prostate volume is approximately 135 mL. We did discussed potential causes of intermittent episodes of dysuria he has been experiencing. We also discussed bump in PSA however patient has not been on finasteride will restart. All questions were answered. He otherwise offers no other issues or concerns at this time. [facility] Medical History Pulmonary nodules Cough Hx of sigmoidoscopy Frequent falls Urinary frequency History of claustrophobia History of shingles On anticoagulant therapy On beta diana at home Dyslipidemia Gout Spinal stenosis of lumbar region Atrial fibrillation CKD (chronic kidney disease) Elevated PSA Aortic stenosis CAD (coronary artery disease) Right facial pain Trigeminal neuralgia Post herpetic neuralgia Surgical History Status post lens implant History of fracture of leg History of laparoscopic cholecystectomy History of aortic valve replacement History of heart bypass surgery Pacemaker Family History Father No problems noted. Mother No problems noted. Social History Household Members: None Housing: House Are you a primary home care music therapist to a significant other at home: No Do you presently have visiting nurse or other home services: No Alcohol intake: never Patient Tobacco Use Status: Never used Tobacco e-Cigarette/Vaping Use: Never Used Second Hand Smoke Exposure: No service: Yes Current occupational status: unemployed and retired Current occupational exposures/hazards: No Cognitive needs: No Hearing needs: No Vision needs: No Review of Systems Const Reports as per [facility] Eyes Reports no additional complaints ENT Reports no additional complaints Card Reports as per [facility] Resp Reports no additional complaints GI Reports as per HPI Reports as per HPI Musc Reports as per [facility] Skin/Breast Reports as per HPI Neuro Reports as per HPI Psych Reports no additional complaints Endo Reports no additional complaints Physical Exam Const General: cooperative, healthy appearing, comfortable, no acute distress, well developed, alert and awake Nutritional Appearance: overweight Orientation/consciousness: patient oriented x3 Limitations: no limitations HEENT Head: Yes normal to inspection, Yes normocephalic and Yes atraumatic Ears: hearing grossly normal bilaterally Eyes General: appearance normal, both eyes and all related structures Neck Neck: Yes normal visual inspection and Yes trachea midline Chest Chest palpation & inspection: normal inspection of the chest Resp Effort & Inspection: normal respiratory effort and able to speak in complete sentences Cardio Rate: regular rate GI Inspection: Yes normal to inspection Rectal Exam - Male: Yes deferred General: Yes no CVA tenderness Back/Spine/Pelvis Back: no CVA tenderness Skin General skin exam: no rashes or lesions noted Neuro General: patient oriented x3 Extrem General: Yes normal to inspection Psych Appearance: grossly normal and well kempt Mental Status: mental status grossly normal Speech and movement: Normal speech and movement present and Clear speech present Affect: normal affect Attitude: cooperative Thought process: Normal thought process present Thought content: Normal thought content present Insight: Fair insight present (Psych) Judgement: Fair judgement present (Psych) Office Procedures Post Void Residual Post Residual Void Post Void Residual (PVR): 169 [id number] Void Residual by ultrasound Results AMB Urinalysis, Automated UA Leukoctes 0 Mike/uL Last Edit by [employer] Colon, [facility] on 06/13/25 13:44 UA Nitrite Negative Last Edit by Nellie Colon, [facility] on 06/13/25 13:44 UA Urobilinogen 0.2 mg/dL Last Edit by Nellie Colon, [facility] on 06/13/25 13:44 UA Protein 0 mg/dL Last Edit by Nellie Colon, [facility] on 06/13/25 13:44 UA pH 6.0 Last Edit by Nellie Colon, [facility] on 06/13/25 13:44 UA Blood 0 Massimo/uL Last Edit by Nellie Colon, [facility] on 06/13/25 13:44 UA Specific [place] 1.010 Last Edit by Nellie Colon, [facility] on 06/13/25 13:4 4 UA Ketone Negative Last Edit by Nellie Colon, [facility] on 06/13/25 13:44 UA Bilirubin 0 mg/dL Last Edit by Nellie Colon, [facility] on 06/13/25 13:44 UA Glucose 0 mg/dL Last Edit by Nellie Colon, [facility] on 06/13/25 13:44 Results Reviewed Results Reviewed: Laboratory Last Values Urine pH (Auto) 6.0 06/13/25 13:43 Specific [place] (Auto) 1.010 06/13/25 13:43 Urine Protein (Auto) 0 mg/dL 06/13/25 13:43 Glucose (UA)(Auto) 0 mg/dL 06/13/25 13:43 Urine Ketones (Auto) Negative 06/13/25 13:43 Urine Blood (Auto) 0 Massimo/uL 06/13/25 13:43 Urine Nitrite (Auto) Negative 06/13/25 13:43 Urine Bilirubin (Auto) 0 mg/dL 06/13/25 13:43 Urine Urobilinogen (Auto) 0.2 mg/dL 06/13/25 13:43 Leukocyte Esterase (Auto) 0 Mike/uL 06/13/25 13:43 Assessment & Plan Assessment & Plan (1) Elevated PSA: Code(s): R97.20 - Elevated prostate specific antigen [PSA] Category: Medical (2) Enlarged prostate: Code(s): N40.0 - Benign prostatic hyperplasia without lower urinary tract symptoms Category: Medical (3) Urinary hesitancy due to benign prostatic hyperplasia: Code(s): N40.1 - Benign prostatic hyperplasia with lower urinary tract symptoms; R39.11 - Hesitancy of micturition Category: Medical (4) Incomplete bladder emptying: Code(s): R33.9 - Retention of urine, unspecified Category: Medical (5) Nocturia: Code(s): R35.1 - Nocturia Category: Medical (6) Dysuria: Code(s): R30.0 - Dysuria Category: Medical Plan In office urinalysis results with the patient today; as noted above. PVR 169 mL. Restart finasteride. Most recent PSA results reviewed with the patient today; as noted above. We did discussed worsening symptoms. Continue terazosin and VESIcare as prescribed. We did discussed the importance of limiting fluids 2-3 hours prior to bed to decrease episodes of nocturia. We also discussed bladder triggers and irritants. We did discussed potential near future in office cystoscopy for further assessment evaluation. All questions were answered. Follow-up in 4 months with PSA and PVR; or sooner with any issues, concerns, and or questions. Orders: Orders Prostate Specific Antigen 4 Months N40.0 - Benign prostatic hyperplasia without lower urinary tract symptoms, R97.20 - Elevated prostate specific antigen [PSA] Medications: New finasteride 5 mg PO DAILY 90 tabs 1RF 90 days N40.1 - Benign prostatic hyperplasia with lower urinary tract symptoms, R33.9 - Retention of urine, unspecified Patient Instructions: The patient had an opportunity to ask questions regarding the treatment plan. All questions were answered. Physical exam, labs, and imaging were discussed and reviewed in detail. As well as risks, benefits, and discussion of treatment choices. No major barriers to understanding were identified. The patient expressed understanding and agreement with the above treatment plan. The patient was made aware they should contact our office by phone for worsening of their current condition, the appearance of new symptoms, or with any questions or concerns. Compliance is encouraged with any medications and follow up testing that is ordered. It is a privilege to be allowed the opportunity to participate in? your urological care.? Again, if you have any questions or concerns If you have any questions or concerns please do not hesitate to contact me. The office is [phone]. This note is constructed using voice recognition software. While every effort has been made to ensure accuracy bead wrapper errors may have been included. Yours sincerely, TRACY Sales- Coding Level of Care Code Complex visit Add On G2211 Diagnoses Elevated PSA R97.20 Enlarged prostate N40.0 Urinary hesitancy due to benign prostatic hyperplasia N40.1; R39.11 Incomplete bladder emptying R33.9 Nocturia R35.1 Dysuria R30.0 CPT Codes Post Residual Void - PVR CPT Code: 88848-[id number] Void Residual by ultrasound ([id number])
--- OUTSIDE RECORDS SUMMARY | 2025-06-13 17:50 | XMS_ITS | Encounter Summary ---
Author Organization [facility] Address [address] [place] [address] Care Team Providers Care Financial Aid Counselor Name Role Phone Dannie Cosby Primary Care Provider [phone] Reason for Visit * Reason Onset Date Comments Appointment 10/22/2021 Encounter Details Date Type Department Care Team (Late st Contact Info) Description 10/22/2021 Telephone [facility] Central Scheduling Department [address] [place] [id number] Telephone Intake, Staff Appointment Social History Tobacco [...] - 10/22/2021 9:21 AM EDT Xiomara from [facility] Referrals scheduling new pt Neurology appt re trigeminal neuralgia Per DT, scheduled 10/[address] Edward Solorio at [facility] documented in this encounter Plan of Treatment Not on file documented as of this encounter Visit Diagnoses Not on filedocumented in this encounter Care Teams Financial Aid Counselor Relationship Specialty Start Date End Date Dannie Cosby [address] [place] [address] PCP - General 10/10/21 documented as of this encounter
--- OUTSIDE RECORDS SUMMARY | 2025-06-13 17:50 | XMS_ITS | Clinical Summary ---
Author Organization [facility] Address [address] [address] Phone Care Team Providers Care Furnace Feeder Name Role Phone Sophia Danielle MD Primary Care Provider [phone] Social History Tobacco Use Types Packs/Day Years [...] topic Medical Devices Not on file [place] [address] [place] [address] MEDICARE [address] [place] [place] [address] MEDICARE [address] [place] [place] [address] [address] [place] [address] [place] [address] MEDICARE PPO [place] [address] [place] [address] MEDICARE PPO [place] [address] [place] [address] MEDICARE PPO BLUE REPLACEMENT Care Teams Furnace Feeder Relationship Specialty Start Date End Date Sophia Danielle MD [address] [facility] [address] [place] PCP - General 02/14/22 Additional Source Comments The information contained in this document represents components of the legal health record. It is not the complete legal health record.[facility]
--- OUTSIDE RECORDS SUMMARY | 2025-06-13 17:50 | XMS_ITS | Encounter Summary ---
Author Organization [facility] Address [address] [place] [address] Care Team Providers Care Log Handler Name Role Phone Dannie Cosby Primary Care Provider Encounter Details Date Type Department Care Team (Late st Contact Info) Description 10/15/2021 Telephone [facility] [address] [place] [address] Telephone Intake, Staff Social History Tobacco [...] pls call Xiomara when received to schedule. [phone] documented in this encounter Plan of Treatment Not on file documented as of this encounter Visit Diagnoses Not on filedocumented in this encounter Care Teams Log Handler Relationship Specialty Start Date End Date Dannie Cosby [address] [place] [address] PCP - General 10/10/21 documented as of this encounter
--- OUTSIDE RECORDS SUMMARY | 2025-06-13 17:50 | XMS_ITS | Clinical Summary ---
Author Organization [facility] Address [address] [facility] [address] [place] [address] Care Team Providers Care Dental Office Coordinator Name Role Phone Dannie Cosby [phone] Pcp, Per Patient Primary Care [...] Take by mouth. Take with food. Active pantoprazole (ProtoNix) 20 mg EC tablet Take 20 mg by mouth twice daily. 05/30/2025 Active Hospital, Clinic, or Other Facility Administered Medication Ordered Dose Route Frequency Start Date End Date Status lidocaine-epinephrin e (PF) (Xylocaine W/EPI) 1 %-1:200,000 injection 8 mLIndications:Trigem inal neuralgia 8 mL Ifil Once 06/07/2025 06/07/2025 Ended bupivacaine PF (Marcaine) 0.25 % (2.5 mg/mL) injection 50 mgIndications:Trigem inal neuralgia 50 mg Ifil Once 06/07/2025 06/07/2025 Ended acetaminophen (Tylenol) tablet 650 mgIndications:Trigem inal neuralgia 650 mg oral Every 4 hours PRN 06/07/2025 06/07/2025 End ed Active Problems Problem Noted Date Diagnosed Date Trigeminal neuralgia 10/31/2023 Encounters Date Type Department Care Team Description 06/07/2025 8:11 AM EST Anesthesia Event [facility] [address] [place] [phone] Stephany Maddox MD Bayliss, Margaret, MD 06/07/2025 5:57 AM EST Hospital Encounter [facility] [address] [place] [phone] Kevin Garnica MD Mignano, John, MD Principe Marrero, Stephanie, MD Trigeminal neuralgia (Primary Dx) 06/07/2025 Travel 05/26/2025 Education [facility] [address] [place] [address] Sarah Carlos 05/04/2025 Telephone [facility] Neuro[facility] [address] [place] [address] Rhiannon Manriquez NP from Last 3 Months Family History Relation [...] Mass Index 33.22 06/07/2025 6:35 AM EST Plan of Treatment Health Maintenance Due Date [...] age to complete this topic HPV Vaccines (No Doses Required) Completed Hepatitis A Vaccines Aged Out No long [...] Procedure Name Priority Date/Time Associated Diagnosis Comments ME VNPNXR 3 YEARS/> PHYS/QHP SKILL Routine 06/07/2025 7:50 AM EST from Last 3 Months Results * ME VNPNXR 3 YEARS/> PHYS/QHP SKILL (06/07/2025 7:50 AM EST) Narrative Stephany Maddox MD - 06/07/2025 7:50 AM EST Stephany Wilkins MD 06/07/2025 7:54 AM Peripheral IV Date/Time: 06/07/2025 7:50 AM Inserted by: Stephany Wilkins MD Placement Needle size: 20 G Laterality: right Location: forearm Local anesthetic: none Site prep: alcohol Technique: anatomical landmarks Attempts: 2 us Stephany Wilkins MD ANESTHESIA ORDERAB LES Final Result from Last 3 Months Insurance [facility] MEDICARE REPLACEMENT PPO HEALTH SAFETY NET Care Teams Dental Office Coordinator Relationship Specialty Start Date End Date No Pcp, Per Patient DAVID PCP - General 10/29/23 Dannie Cosby [address] [place] [address] 10/24/23
--- OUTSIDE RECORDS SUMMARY | 2025-06-13 17:50 | XMS_ITS | Clinical Summary ---
Author Organization [employer] Address [address] [facility] [address] [place] [address] Care Team Providers Care House Visitor Name Role Phone Unavailable Primary Care Provider [...] Insurance DENTAL - HSN FULL (MEDICAID) DENTAL [facility]
--- OUTSIDE RECORDS SUMMARY | 2025-06-13 17:50 | XMS_ITS | Clinical Summary ---
Author Organization [facility] Address [address] [place] [address] Care Team Providers Care Certified Pesticide Applicator Name Role Phone Dannie Cosby Primary Care Provider [phone] Allergies Active Allergy Reactions Criticality Noted Date [...] Influenza Vaccine (#1) 2025 , 03/30/2020, 06/07/2019 COVID-19 Vaccine (2024- season) 2025 11/26/2021, 04/26/2021, 09/10/2020, Additional history exists Zoster Vaccines Completed 11/12/2021, 08/21/2021 Hepatitis B Vaccines Aged Out No long er eligible based on patient's age to complete this topic Insurance BCBS MCR REPLACE PPO Care Teams Certified Pesticide Applicator Relationship Specialty Start Date End Date Dannie Cosby [address] [place] [address] PCP - General 10/10/21
--- OUTSIDE RECORDS SUMMARY | 2025-06-13 17:50 | XMS_ITS | Encounter Summary ---
Author Organization [facility] Address [address] [id number] Care Team Providers Care Rn Intern Name Role Phone Dannie Cosby Primary Care Provider [phone] Reason for Visit * Reason Onset Date Comments Urgent Referral 10/10/2021 Encounter Details Date Type Department Care Team (Late st Contact Info) Description 10/10/2021 Telephone [facility] [address] [place] [address] Telephone Intake, Staff Urgent Referral Social [...] - 10/10/2021 11:34 AM EDT Xiomara from [facility] is calling to schedule an Urgent appointment. [facility] will fax over a referral today for Trigeminal Neurologia. [facility] can be reached at [phone]. documented in this encounter Plan of Treatment Not on file documented as of this encounter Visit Diagnoses Not on filedocumented in this encounter Care Teams Rn Intern Relationship Specialty Start Date End Date Dannie Cosby [address] [place] [address] PCP - General 10/10/21 documented as of this encounter
== END 2025-06-13 14:23 | disposition home or self-care (01) ==
LOC: HO.HUSH 13:13
PROVIDERS: PCP Nurse Practitioner Family; Visit Provider Nurse Practitioner Family
DX: R97.20 Elevated prostate specific antigen [PSA] (principal); N40.1 Benign prostatic hyperplasia with lower urinary tract symptoms; R39.11 Hesitancy of micturition; R33.9 Retention of urine, unspecified; R35.1 Nocturia; R30.0 Dysuria
CPT/HCPCS: 99214; G2211

== ENCOUNTER → 2025-06-13 13:11 | Outpatient (BNVA) | payer MEDICARE, MEDICAID, SELFPAY | PROVIDERS: PCP Nurse Practitioner Family; Visit Provider Nurse Practitioner Family | DX: R35.1 Nocturia (principal); R30.0 Dysuria; R33.9 Retention of urine, unspecified; N40.1 Benign prostatic hyperplasia with lower urinary tract symptoms; R97.20 Elevated prostate specific antigen [PSA] | CPT/HCPCS: 51798; 99212 ==

== ENCOUNTER 2025-06-29 08:06 | Outpatient (REF) | payer MEDICARE, MEDICAID, SELFPAY ==
--- NOTE | ~2025-06-29 | FL_ITS ---
EXAMINATION: XR FLUOROSCOPY UPPER GI SERIES CLINICAL INFORMATION: 89-year-old male complaining of episodic dysphagia with globus type sensation. Reflux type symptoms as well. COMPARISON: 01/26/2025 modified barium swallow. CTA neck 10/29/2024. TECHNIQUE: Fluoroscopic air contrast upper GI examination was performed utilizing standard techniques with thin and thick barium and effervescent granules. Numerous spot images were obtained. Several fluoroscopic image hold cine sequences were also obtained. FINDINGS: UPPER GI SERIES: Lateral cine images of the oropharynx and hypopharynx demonstrate normal swallow mechanism with normal epiglottic inversion and soft palate elevation. No laryngeal penetration, glottic or subglottic aspiration identified. Hypopharyngeal structures appear normal without evidence of mass or diverticulum. There was very mild cricopharyngeal achalasia noted. Dual and single contrast images of the esophagus demonstrate normal caliber, contour, and mucosal pattern. No evidence of stricture, mass, or ulcerations identified. Esophageal peristalsis was moderately to severely disordered, with numerous tertiary nonpropulsive contractions after the primary peristaltic wave. Feline type contraction pattern noted in keeping with chronic reflux. No evidence of hiatus hernia identified. Normal appearing GE junction. There was episodic gastroesophageal reflux noted to the level of the thoracic inlet. Dual contrast and single contrast images of the stomach demonstrated normal contour and mucosal pattern without evidence of mass, ulceration, or other abnormality. Normal gastric rugal fold pattern. Contrast freely passed into the gastric antrum and duodenal bulb without delay. Single and air-contrast images of the duodenal bulb demonstrate no abnormality. The duodenal sweep has a normal appearance, course, and mucosal fold appearance. Imaged small bowel has a normal fold pattern. Median sternotomy with TAVR incidentally noted. Left-sided dual-lead pacer noted with leads in the right atrium and right ventricle. FLUOROSCOPY TIME: 3 minutes 15 seconds Number of Spot Images:10 Number of cines obtained: 9 DOSE AREA PRODUCT: [id number] uGy-m2 (microgray-meter squared) FL/FL upper GI w air w Ba Swallow IMPRESSION: 1. Very mild cricopharyngeal achalasia. 2. Moderate to severely disordered esophageal peristalsis. Feline type contraction pattern noted in keeping with chronic reflux. 3. No definite hiatus hernia identified. 4. Episodic gastroesophageal reflux to level of the thoracic inlet. 5. Normal-appearing stomach and duodenum. Electronically signed by: Nick Morales MD 06/29/2025 09:43 AM EST
== END 2025-06-29 08:07 | disposition home or self-care (01) ==
LOC: HO.XRAY 08:06
PROVIDERS: PCP Nurse Practitioner Family; Visit Provider Nurse Practitioner Family
DX: K21.9 Gastro-esophageal reflux disease without esophagitis (principal)
CPT/HCPCS: 74246

== ENCOUNTER → 2025-06-29 08:07 | Outpatient (BNV) | payer MEDICARE, MEDICAID, SELFPAY | PROVIDERS: PCP Nurse Practitioner Family; Visit Provider Radiology Diagnostic Radiology | DX: K21.9 Gastro-esophageal reflux disease without esophagitis (principal); K22.4 Dyskinesia of esophagus | CPT/HCPCS: 74246 ==

== ENCOUNTER 2025-07-06 14:48 | Outpatient (AMB) | payer BC, SELFPAY ==
--- OUTSIDE RECORDS SUMMARY | 2025-06-07 05:57 | XMS_ITS | Encounter Summary ---
Author Organization [facility] Address [address] [facility] [address] [place] [address] Care Team Providers Care Wool Shearer Name Role Phone Dannie Cosby Unavailable [phone] Pcp, Per Patient Primary Care Provider Unavai lable Reason for Visit * Auth/Cert (Routine) Specialty Diagnoses / Procedures Referred By Tapan pathak Referred To Contact Diagnoses Trigeminal neuralgia Right TN- CT head w/o @ 8:30am (MAC FOR ENTIRE [id number] Procedures CHG RADIATION DELIVERY STEREOTACTIC CRANIAL COBALT CHG STEREOTACTIC RADIATION TX MANAGEMENT CRANIAL LESION NM STEREOTACTIC RADIOSURGERY, CRANIAL,SIMPLE,SINGLE NM STEREOTACTIC RADIOSURGERY, CRANIAL,COMPLEX,SINGLE NM APPLY STEREOTACTIC HEADFRAME FOR RADIOSURGERY CHG RADN TREATMENT AID(S) COMPLX CHG RADN PHYSICS CONSULT CONTINUING CHG 3-D RADIOTHERAPY PLAN DOSE-VOLUME HISTOGRAMS CHG RADIATION THERAPY,DOSIMETRY PLAN NM REMOVAL TONG/HALO APPLIED BY ANOTHER INDIVIDUAL CHG RADIATION THERAPY PLAN COMPLEX [facility] [address] [place] [address] Phone: tel: Referral ID Status Reason Start Date Expiration Date Visits Re quested Visits Authorized [id number] 1 1 Encounter Details Date Type Department Care Team (Late st Contact Info) Description 06/07/2025 5:57 AM EST Hospital Encounter [facility] [address] [place] [address] Kevin Garnica MD [address] [place] [phone] Dannie Watkins MD [address] [place] [phone] Stephany Maddox MD [address] [facility] [address] [place], [place] [id number] Trigeminal neuralgia (Primary Dx) Social History Tobacco [...] documented in this encounter Functional Status * Distress Score (in the past week including today) Question Answer Date of Assessment Author Patient Distress Level 3 06/07/2025 7:58 AM Sarah Lozada * Emotional Concerns (in the past week including today) Question Answer Date of Assessment Author Worry or anxiety Yes 06/07/2025 7:58 AM Sarah Herrera * Distress Referral Question Answer Date of Assessment Author Patient Referral Off-Site No 06/07/2025 7:58 AM Sarah Lozada * Fall Risk Interventions Question Answer Date of Assessment Author Fall Risk Interventions Exam table in lo west position, Obstacle free environment;Ensure proper footwear;Assist with ambulation/transfer;L ock movable equipment 06/07/2025 7:58 AM Sarah Lozada * Vital Signs Question Answer Date of Assessment Author Temp src Oral 06/07/2025 10:55 AM Sarah Pratt BP Location Right arm 06/07/2025 12:29 PM Sarah Pratt BP Method Automatic 06/07/2025 12:29 PM Sarah Pratt Patient Position Sitting 06/07/2025 12:29 PM Sarah Lozada * Oxygen Therapy Question Answer Date of Assessment Author Oxygen Therapy None (Room air) 06/07/2025 12:29 PM Sarah Lozada * Height and Weight Question Answer Date of Assessment Author Height Method Stated 06/07/2025 6:35 AM Sarah Pratt Weight Method Standing scale 06/07/2025 6:35 AM Sarah Morrell * Fall Risk Assessment Question Answer Date of Assessment Author Have you fallen in the last 12 months? No 06/07/2025 7:58 AM Varun Lozada Do you use any assistive devices? No 06/07/2025 7:58 AM Varun Lozada * Pain Assessment Question Answer Date of Assessment Author Pain Location Head 06/07/2025 11:20 AM Sarah Lozada Pain Orientation Right 06/07/2025 11:2 0 AM Sarah Lozada Pain Descriptors Aching 06/07/2025 11:2 0 AM Sarah Lozada Response to Interventions Pt states he h as no pain at this time 06/07/2025 11:48 AM Sarah Lozada Pain Type Chronic pain 06/07/2025 11:20 AM Sarah Lozada Pain Score 0 - No pain 06/07/2025 12:29 PM Sarah Lozada Pain Assessment 0-10 06/07/2025 12:29 PM Sarah Lozada * IBW (kg) (Calculated) Answer Date of Assessment Author 70.74 06/07/2025 6:35 AM Sarah Ruiz che * Vital Signs Question Answer Date of Assessment Author Temp src Oral 06/07/2025 10:55 AM Sarah Pratt * Height and Weight Question Answer Date of Assessment Author Height Method Stated 06/07/2025 6:35 AM Sarah Pratt Weight Method Standing scale 06/07/2025 6:35 AM Sarah Morrell * Pain Assessment Question Answer Date of Assessment Author Pain Location Head 06/07/2025 11:20 AM Sarah Lozada Pain Orientation Right 06/07/2025 11:2 0 AM Sarah Lozada Pain Descriptors Aching 06/07/2025 11:2 0 AM Sarah Lozada Response to Interventions Pt states he h as no pain at this time 06/07/2025 11:48 AM Sarah Lozada Pain Type Chronic pain 06/07/2025 11:20 AM Sarah Lozada Pain Score 0 - No pain 06/07/2025 12:29 PM Sarah Lozada Pain Assessment 0-10 06/07/2025 12:29 PM Sarah Lozada documented as of this encounter Mental Status * Fall Risk Assessment Question Answer Entry Date Author Have you fallen in the last 12 months? No 06/07/2025 7:58 AM Varun Lozada Do you use any assistive devices? No 06/07/2025 7:58 AM Varun Lozada * Pain Assessment Question Answer Entry Date Author Pain Location Head 06/07/2025 11:20 AM Sarah Lozada Pain Orientation Right 06/07/2025 11:2 0 AM Sarah Lozada Pain Descriptors Aching 06/07/2025 11:2 0 AM Sarah Lozada Response to Interventions Pt states he h as no pain at this time 06/07/2025 11:48 AM Sarah Lozada Pain Type Chronic pain 06/07/2025 11:20 AM Sarah Lozada Pain Score 0 - No pain 06/07/2025 12:29 PM Sarah Lozada Pain Assessment 0-10 06/07/2025 12:29 PM Sarah Lozada documented in this encounter Discharge Instructions * Patient Instructions* [...] Call the [facility] line @ [phone] in 6 weeks (the week of July [...] about care, call your doctor???s office at [phone]. If after hours, call [phone] and ask for [facility] dry cleaning machine operator to page your doctor or the on-call Radiation Oncologist. In case of emergency, return to [facility] Emergency Department, or go to [facility] emergency department. Did the patient repeat [...] Gy at the 100% isodose line. After it quality analyst checks were performed, the patient was [...] EST Patient A&Ox3, forgetful, very anxious and LITTLE TRAVERSE. Patient verbalized he had been NPO since 12 AM.Patient tolerated MAC anesthesia for head frame placement and CT. Unfortunately Patient was unable to tolerate the entire Gamma Knife procedure under MAC anesthesia d/t increased anxiety. Patient completed 32.62 minutes of his 55 minute Gamma Knife procedure. Patient fully recovered by anesthesia Dr. Eren Cabral, please see [facility] for anesthesia VS and assessment. Head frame removed at 10 50 AM, bleeding noted at right posterior pin site, minimal pressure applied for < 5 minutes, bleedingresolved, no further intervention needed, head dressing placed. Post procedure VSS, Patient denies d izziness and nausea, does endorse pain 10/10 right side of head, and fatigue. Tylenol 650 mg given PO with positive effect. Patient rested and verbalized his pain is gone. Discharge instructions reviewed, copy provided. Patient and his nephew verbalized understanding of all discharge instructions with teach back. All questions answered. Patient stable, ambulatory at his baseline, he able to void without difficulty in bathroom, head dressing is clean, dry and intact at time of discharge. Patientdischarged via wheelchair by nursing to parking garage home with he nephew and all personal [...] in approximately 2016. Pain was in the [id number], non responsive to nerve blocks or medication. [...] Gy to the 100% isodose line ISOTOPE: [place] 60 MODALITY: Gamma Knife stereotactic radiosurgery TREATMENT [...] - Sarah Carlos - 06/07/2025 6:30 AM ESTEncounter addended by: Sarah Carlos on: 06/07/2025 2:56 [...] Head documented in this encounter Care Teams Wool Shearer Relationship Specialty Start Date End Date No Pcp, Per Patient [place] PCP - General 10/29/23 Dannie Cosby [address] [place] [address] 10/24/23 documented as of this encounter
--- NOTE | 2025-07-06 15:01 | HO.NEPHOV ---
Vital Signs 07/06/25 15:02 Height 5 ft 9 in Weight 233 lb BMI 34.4 BP 130/60 Blood Pressure Location Rt brachial Position Sitting Pulse 66 Pulse Source Pulse Oximeter Pulse Oximetry (%) 97 Oxygen Delivery Method Room Air Intake Visit Reasons: 6 mnts-Conf Classics Teacher Required: No Accompanied by: Self / Same As Patient Allergies lamotrigine (From Lamictal) Allergy (Intermediate, Verified 07/06/25 15:02) swelling gabapentin Allergy (Unknown, Verified 07/06/25 15:02) lip swelling pregabalin (From Lyrica) Allergy (Unknown, Verified 07/06/25 15:02) lip swelling HPI Comments Details: Rickie is here for a routine follow-up of his chronic kidney disease. He continues to have intermittent pain from trigeminal neuralgia for which he has seen a specialist in [place]. He does not have any dizziness, orthostatic symptoms, nausea, vomiting, edema, urinary symptoms, hematuria, chest pain, shortness of breath, proximal nocturnal dyspnea or orthopnea. He is not taking any nonsteroidal anti-inflammatories. He is closely followed up by his primary care physician. His renal functions have been stable. He also has been having edema in the left LE (chronic/unchanged for many years since vascular procedure years ago). [facility] Medical History Pulmonary nodules Cough Hx of sigmoidoscopy Frequent falls Urinary frequency History of claustrophobia History of shingles On anticoagulant therapy On beta diana at home Dyslipidemia Gout Spinal stenosis of lumbar region Atrial fibrillation CKD (chronic kidney disease) Elevated PSA Aortic stenosis CAD (coronary artery disease) Right facial pain Trigeminal neuralgia Post herpetic neuralgia Surgical History Status post lens implant History of fracture of leg History of laparoscopic cholecystectomy History of aortic valve replacement History of heart bypass surgery Pacemaker Family History Father No problems noted. Mother No problems noted. Social History Household Members: None Housing: House Are you a primary health care administrator to a significant other at home: No Do you presently have visiting nurse or other home services: No Alcohol intake: never Patient Tobacco Use Status: Never used Tobacco e-Cigarette/Vaping Use: Never Used Second Hand Smoke Exposure: No service: Yes Current occupational status: unemployed and retired Current occupational exposures/hazards: No Cognitive needs: No Hearing needs: No Vision needs: No Review of Systems Const All systems reviewed & are unremarkable except as noted in HPI and below Physical Exam Vital Signs: Last Vital Signs Pulse 66 07/06/25 15:02 BP 130/60 07/06/25 15:02 Pulse Ox 97 07/06/25 15:02 Oxygen Delivery Method Room Air 07/06/25 15:02 BMI result Body Mass Index 34.4 Const General: comfortable and no acute distress Orientation/consciousness: patient oriented x3 HEENT Head: Yes normocephalic Mouth: Normal oral and palatal mucosa present Eyes EOM: EOMs intact bilaterally Neck Neck: Yes supple Resp Auscultation: clear to auscultation bilaterally Cardio Jugular venous distension: no JVD Rate: regular rate GI Palpation (GI): Soft to palpation Auscultation: normal bowel sounds General: Yes no CVA tenderness Back/Spine/Pelvis Back: no CVA tenderness Skin General skin exam: no rashes or lesions noted Neuro General: patient oriented x3 and moves all extremities Extrem General: Yes no pedal edema Assessment & Plan Assessment & Plan (1) HTN (hypertension): Code(s): I10 - Essential (primary) hypertension Category: Medical Qualifiers: Hypertension type: primary hypertension Qualified Code(s): I10 - Essential (primary) hypertension (2) CKD (chronic kidney disease) stage 3, GFR 30-59 ml/min: Code(s): N18.30 - Chronic kidney disease, stage 3 unspecified Category: Medical Qualifiers: Chronic kidney disease stage 3 subtype: stage 3a (GFR 45-59) Qualified Code(s): N18.31 - Chronic kidney disease, stage 3a Plan 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 His blood pressure is currently at goal. He avoids nonsteroidal anti-inflammatory medications. He is not on any ARTEM inhibitor. He is on Jardiance 25mg daily through his PCP. His renal functions are stable at baseline. He maintains good hydration and avoids nonsteroidal anti-inflammatories. He follows vascular surgery Dr Jerry who monitors his left lower extremity swelling. I did not make any medication changes today. All questions answered. F/U in the office in 6 months. Follow-up blood work ordered. Orders: Orders Creatinine 6 Months I10 - Essential (primary) hypertension, N18.31 - Chronic kidney disease, stage 3a Electrolytes 6 Months I10 - Essential (primary) hypertension, N18.31 - Chronic kidney disease, stage 3a Protein Creatinine Ratio, Ur 6 Months I10 - Essential (primary) hypertension, N18.31 - Chronic kidney disease, stage 3a Blood Urea Nitrogen 6 Months I10 - Essential (primary) hypertension, N18.31 - Chronic kidney disease, stage 3a Coding Level of Care Code Est Pt Level 4 (24941) Diagnoses Primary hypertension I10 Hypertension type: primary hypertension Stage 3a chronic kidney disease N18.31 Chronic kidney disease stage 3 subtype: stage 3a (GFR 45-59)
[2025-07-06 15:02] VITALS: BP 130/60; PULSE 66; O2SAT 97; BMI 34.4
--- OUTSIDE RECORDS SUMMARY | 2025-07-06 19:42 | XMS_ITS | Encounter Summary ---
Author Organization [facility] Address [address] [place] [address] Care Team Providers Care Senior Bi Developer Name Role Phone Dannie Cosby Primary Care Provider Encounter Details Date Type Department Care Team (Late st Contact Info) Description 10/15/2021 Telephone [facility] [address] [place] [address] Telephone Intake, Staff Social History Tobacco [...] pls call Xiomara when received to schedule. [phone] documented in this encounter Plan of Treatment Not on file documented as of this encounter Visit Diagnoses Not on filedocumented in this encounter Care Teams Senior Bi Developer Relationship Specialty Start Date End Date Dannie Cosby [address] [place] [address] PCP - General 10/10/21 documented as of this encounter
--- OUTSIDE RECORDS SUMMARY | 2025-07-06 19:42 | XMS_ITS | Clinical Summary ---
Author Organization [facility] Address [address] [facility] [address] [place] [address] Care Team Providers Care Jammer Operator Name Role Phone Dannie Cosby [phone] No Pcp, Per Patient Primary Care [...] Description 06/07/2025 8:11 AM EST Anesthesia Event [facility] [address] [place] [phone] Stephany Maddox MD Bayliss, Margaret, MD 06/07/2025 5:57 AM EST Hospital Encounter [facility] [address] [place] [phone] Kevin Garnica MD Mignano, John, MD Principe Marrero, Stephanie, MD Trigeminal neuralgia (Primary Dx) 06/07/2025 Travel 05/26/2025 Education [facility] [address] [place] [address] Sarah Carlos 05/04/2025 Telephone [facility] [address] [place] [address] Rhiannon Manriquez NP from Last [...] place to sleep or slept in a nursing home (including now)? No 10/29/2023 Sex and Gender [...] Procedure Name Priority Date/Time Associated Diagnosis Comments LA VNPNXR 3 YEARS/> PHYS/QHP SKILL Routine 06/07/2025 7:50 AM EST from Last 3 Months Results * LA VNPNXR 3 YEARS/> PHYS/QHP SKILL (06/07/2025 7:50 [...] Final Result from Last 3 Months Insurance [facility] MEDICARE REPLACEMENT PPO HEALTH SAFETY NET Care Teams Jammer Operator Relationship Specialty Start Date End Date No Pcp, Per Patient DAVID PCP - General 10/29/23 Dannie Cosby [address] [place] [address] 10/24/23
--- OUTSIDE RECORDS SUMMARY | 2025-07-06 19:42 | XMS_ITS | Encounter Summary ---
Author Organization [facility] Address [address] [place] [address] Care Team Providers Care Attendant Child Activity Name Role Phone Dannie Cosby Primary Care Provider [phone] Reason for Visit * Reason Onset Date Comments Appointment 10/22/2021 Encounter Details Date Type Department Care Team (Late st Contact Info) Description 10/22/2021 Telephone [facility] Central Scheduling Department [address] [place] [phone] Telephone Intake, Staff Appointment Social History Tobacco [...] - 10/22/2021 9:21 AM EDT Xiomara from [facility] Referrals scheduling new pt Neurology appt re trigeminal neuralgia Per DT, scheduled 10/[address] Edward Solorio at [facility] documented in this encounter Plan of Treatment Not on file documented as of this encounter Visit Diagnoses Not on filedocumented in this encounter Care Teams Attendant Child Activity Relationship Specialty Start Date End Date Dannie Cosby [address] [place] [address] PCP - General 10/10/21 documented as of this encounter
--- OUTSIDE RECORDS SUMMARY | 2025-07-06 19:42 | XMS_ITS | Clinical Summary ---
Author Organization [facility] Address [address] [address] Phone Care Team Providers Care Terminal Worker Name Role Phone Sophia Danielle MD Primary Care Provider [phone] Social History Tobacco Use Types Packs/Day Years [...] topic Medical Devices Not on file [place] [address] [address] MEDICARE PPO BLUE REPLACEMENT [place] [address] MEDICARE PPO BLUE REPLACEMENT [address] [address] MEDICARE PPO BLUE REPLACEMENT [address] [address] MEDICARE PPO BLUE REPLACEMENT [address] [address] MEDICARE PPO BLUE REPLACEMENT [place] [address] MEDICARE PPO BLUE REPLACEMENT Care Teams Terminal Worker Relationship Specialty Start Date End Date Sophia Danielle MD [address] [facility] [address] [place] PCP - General 02/14/22 Additional Source Comments The information contained in this document represents components of the legal health record. It is not the complete legal health record.[facility]
--- OUTSIDE RECORDS SUMMARY | 2025-07-06 19:42 | XMS_ITS | Clinical Summary ---
Author Organization [employer] Address [address] [facility] [address] [place] [address] Care Team Providers Care Pressure Tank Operator Name Role Phone Unavailable Primary Care [...] Insurance DENTAL - HSN FULL (MEDICAID) [facility]ENTAL [facility]
--- OUTSIDE RECORDS SUMMARY | 2025-07-06 19:42 | XMS_ITS | Clinical Summary ---
Author Organization [facility] Address [address] [place] [address] Phone Care Team Providers Care Accreditation Manager Name Role Phone Dannie Cosby NP Primary Care Provider [phone] Allergies Active Allergy Reactions Criticality Noted Date [...] to complete this topic Insurance Care Teams Accreditation Manager Relationship Specialty Start Date End Date Dannie Cosby NP [facility] [place] [address] PCP - General 07/31/20
--- OUTSIDE RECORDS SUMMARY | 2025-07-06 19:42 | XMS_ITS | Clinical Summary ---
Author Organization [facility] Address [address] [place] [address] Care Team Providers Care Flight Kitchen Manager Name Role Phone Dannie Cosby Primary Care Provider [phone] Allergies Active Allergy Reactions Criticality Noted Date [...] Insurance BCBS MCR REPLACE PPO Care Teams Flight Kitchen Manager Relationship Specialty Start Date End Date Dannie Cosby [address] [place] [address] PCP - General 10/10/21
--- OUTSIDE RECORDS SUMMARY | 2025-07-06 19:42 | XMS_ITS | Encounter Summary ---
Author Organization [facility] Address [address] [phone] Care Team Providers Care Hydro Plant Operator Name Role Phone Dannie Cosby Primary Care Provider [phone] Reason for Visit * Reason Onset Date Comments Urgent Referral 10/10/2021 Encounter Details Date Type Department Care Team (Late st Contact Info) Description 10/10/2021 Telephone [facility] [address] [place] [address] Telephone Intake, Staff Urgent Referral Social [...] - 10/10/2021 11:34 AM EDT Xiomara from [facility] is calling to schedule an Urgent appointment. [facility] will fax over a referral today for Trigeminal Neurologia. [facility] can be reached at [phone]. documented in this encounter Plan of Treatment Not on file documented as of this encounter Visit Diagnoses Not on filedocumented in this encounter Care Teams Hydro Plant Operator Relationship Specialty Start Date End Date Dannie Cosby [address] [place] [address] PCP - General 10/10/21 documented as of this encounter
== END 2025-07-06 15:25 | disposition home or self-care (01) ==
LOC: HO.HKA 14:49
PROVIDERS: PCP Nurse Practitioner Family; Visit Provider Internal Medicine Nephrology
DX: I10 Essential (primary) hypertension (principal); N18.31 Chronic kidney disease, stage 3a
CPT/HCPCS: 99214

== ENCOUNTER 2025-07-18 07:59 | Outpatient (AMB) | payer MEDICARE, SELFPAY ==
--- NOTE | 2025-07-18 08:01 | MHC.OFFVIS ---
Vital Signs 07/18/25 08:02 Height 5 ft 9 in Weight 233 lb BMI 34.4 BP 116/58 L Blood Pressure Location Rt brachial Position Sitting Pulse 84 Pulse Source Pulse Oximeter Pulse Oximetry (%) 100 Oxygen Delivery Method Room Air Intake Visit Reasons: 4mo Intake Note: Est pt for mgmt of dysphagia + CIC. CC: Pt denies any current GI sx or concerns. States that his medications are working as intended. Oil Seal Assembler Required: No Accompanied by: Self / Same As Patient Allergies lamotrigine (From Lamictal) Allergy (Intermediate, Verified 07/18/25 08:02) swelling gabapentin Allergy (Unknown, Verified 07/18/25 08:02) lip swelling pregabalin (From Lyrica) Allergy (Unknown, Verified 07/18/25 08:02) lip swelling HPI HPI 4mo: Details: LAST VISIT: GERD (gastroesophageal reflux disease) Dysphagia Globus sensation Regurgitation of food Hepatic lesion Abdominal pain Plan Patient will stop pantoprazole 20 and we will start him on pantoprazole 40 mg. Patient was encouraged to avoid dietary triggers and late night snacking. Staying upright for minimum 3 hours after meals discussed with patient. Patient will start Flonase. He feels like he has lots of mucus in his throat. Patient has appointment for upper GI in June. Script for Flonase to help with postnasal drip given to patient. Patient will call our office if he will have worsening GI concerning symptoms. Patient will be seen in our office at the end of June. He is agreeable to this plan and verbalizes understanding of instructions. He was given the opportunity to ask questions and all questions answered. ? Thank you for allowing me to participate in his care New pantoprazole take one tablet half an hour before breakfast 40 mg PO DAILY 30 tabs 3RF K21.9 fluticasone propionate 50 mcg/actuation (Flonase Allergy Relief) administer into each nostril twice a day for 2 weeks and daily 1 spray intranasal BID 16 grams 0RF R05.9 TODAY'S VISIT Patient is here today for follow-up. Patient reports that he has been feeling fairly well. Patient is taking pantoprazole 40 mg daily and his symptoms are suppressed. Patient denies having any acid reflux, however patient still wakes up in the morning with lots of mucus in his throat. Flonase did not really help much. Patient reports that he saw ENT in [place] and no real recommendation was made. Patient reports that after he clears his throat in the morning he does okay. Patient reports chest pain with exertion. Has appointment with research tech in August. Will try to call him in Cardiology in [place] to see if patient can be seen sooner. Otherwise patient denies any GI concerning symptoms. Denies dyspepsia, acid reflux. Reports that he is moving his bowels without any issues. Denies melena, hematochezia, unintentional weight loss or ribbon like stools. Patient reports to have good appetite [facility] Medical History Pulmonary nodules Cough Hx of sigmoidoscopy Frequent falls Urinary frequency History of claustrophobia History of shingles On anticoagulant therapy On beta diana at home Dyslipidemia Gout Spinal stenosis of lumbar region Atrial fibrillation CKD (chronic kidney disease) Elevated PSA Aortic stenosis CAD (coronary artery disease) Right facial pain Trigeminal neuralgia Post herpetic neuralgia Surgical History Status post lens implant History of fracture of leg History of laparoscopic cholecystectomy History of aortic valve replacement History of heart bypass surgery Pacemaker Family History Father No problems noted. Mother No problems noted. Social History Household Members: None Housing: House Are you a primary health care law specialist to a significant other at home: No Do you presently have visiting nurse or other home services: No Alcohol intake: never Patient Tobacco Use Status: Never used Tobacco e-Cigarette/Vaping Use: Never Used Second Hand Smoke Exposure: No service: Yes Current occupational status: unemployed and retired Current occupational exposures/hazards: No Cognitive needs: No Hearing needs: No Vision needs: No Physical Exam Const General: healthy appearing and no acute distress Nutritional Appearance: obese Orientation/consciousness: patient oriented x3 Resp Effort & Inspection: normal respiratory effort, able to speak in complete sentences, no tracheal deviation and symmetric chest movement Auscultation: clear to auscultation bilaterally Cardio Rate: regular rate GI Inspection: Yes normal to inspection, No distended and Yes obesity Palpation (GI): Soft to palpation, not firm, nontender and No hepatosplenomegaly present Auscultation: normal bowel sounds General: Yes no CVA tenderness Back/Spine/Pelvis Back: no CVA tenderness Skin General skin exam: elasticity normal, turgor normal and dry skin Neuro General: patient oriented x3 Psych Appearance: grossly normal Mental Status: mental status grossly normal Results Reviewed Results Reviewed: UPPER GI WITH BARIUM SWALLOW IMPRESSION: 1. Very mild cricopharyngeal achalasia. 2. Moderate to severely disordered esophageal peristalsis. Feline type contraction pattern noted in keeping with chronic reflux. 3. No definite hiatus hernia identified. 4. Episodic gastroesophageal reflux to level of the thoracic inlet. 5. Normal-appearing stomach and duodenum. Assessment & Plan Assessment & Plan (1) GERD (gastroesophageal reflux disease): Code(s): K21.9 - Gastro-esophageal reflux disease without esophagitis Category: Medical Qualifiers: Esophagitis presence: esophagitis presence not specified Qualified Code(s): K21.9 - Gastro-esophageal reflux disease without esophagitis (2) Globus sensation: Code(s): R09.A2 - Foreign body sensation, throat Category: Medical (3) Dysphagia: Code(s): R13.10 - Dysphagia, unspecified Category: Medical Qualifiers: Dysphagia type: oropharyngeal phase Qualified Code(s): R13.12 - Dysphagia, oropharyngeal phase Plan Patient will continue pantoprazole daily. Avoid dietary triggers and late night snacking. Staying upright for minimum 3 hours after meals discussed with patient. Call placed to research tech office and patient is able to be seen today. Patient will follow-up with us in 6 months. He will call us if he will have any GI concerning symptoms. Patient is agreeable to this plan and verbalizes understanding of instructions. He was given the opportunity to ask questions and all questions answered. Thank you for allowing me to participate in his care Coding Level of Care Code Est Pt Level 3 (06572) Diagnoses Gastroesophageal reflux disease, unspecified whether esophagitis present K21.9 Esophagitis presence: esophagitis presence not specified Globus sensation R09.A2 Oropharyngeal dysphagia R13.12 Dysphagia type: oropharyngeal phase Time Spent (min) 25 Comment 15 minutes spent with patient and additional 10 minutes spent reviewing his records
[2025-07-18 08:02] VITALS: BP 116/58; PULSE 84; O2SAT 100; BMI 34.4
--- OUTSIDE RECORDS SUMMARY | 2025-07-18 08:02 | XMS_ITS | Clinical Summary ---
Author Organization Info Address [address] [place] [address] Care Team Providers Care Performance Improvement Consultant Name Role Phone Unavailable Primary Care Provider [...] Insurance DENTAL - HSN FULL (MEDICAID) DENTAL [facility]
--- OUTSIDE RECORDS SUMMARY | 2025-07-18 08:02 | XMS_ITS | Encounter Summary ---
Author Organization [facility] Address [address] [id number] Care Team Providers Care Assistant Professor Of German Name Role Phone Dannie Cosby Primary Care Provider [phone] Reason for Visit * Reason Onset Date Comments Urgent Referral 10/10/2021 Encounter Details Date Type Department Care Team (Late st Contact Info) Description 10/10/2021 Telephone [facility] [address] [place] [address] Telephone Intake, Staff Urgent Referral Social [...] - 10/10/2021 11:34 AM EDT Xiomara from [facility] is calling to schedule an Urgent appointment. [facility] will fax over a referral today for Trigeminal Neurologia. [facility] can be reached at [phone]. documented in this encounter Plan of Treatment Not on file documented as of this encounter Visit Diagnoses Not on filedocumented in this encounter Care Teams Assistant Professor Of German Relationship Specialty Start Date End Date Dannie Cosby [address] [place] [address] PCP - General 10/10/21 documented as of this encounter
--- OUTSIDE RECORDS SUMMARY | 2025-07-18 08:02 | XMS_ITS | Clinical Summary ---
Author Organization [facility] Address [address] [place] [address] Phone Care Team Providers Care Insurance Claims Processor Name Role Phone Dannie Cosby NP Primary Care Provider [phone] Allergies Active Allergy Reactions Criticality Noted Date [...] to complete this topic Insurance Care Teams Insurance Claims Processor Relationship Specialty Start Date End Date Dannie Cosby [place] [address] PCP - General 07/31/20
--- OUTSIDE RECORDS SUMMARY | 2025-07-18 08:02 | XMS_ITS | Encounter Summary ---
Author Organization [facility] Address [address] [place] [address] Care Team Providers Care Insights Strategist Name Role Phone Dannie Cosby Primary Care Provider [phone] Reason for Visit * Reason Onset Date Comments Appointment 10/22/2021 Encounter Details Date Type Department Care Team (Late st Contact Info) Description 10/22/2021 Telephone [facility] Central Scheduling Department [address] [place] [address] Telephone Intake, Staff Appointment Social History Tobacco [...] - 10/22/2021 9:21 AM EDT Xiomara from [facility] Referrals scheduling new pt Neurology appt re trigeminal neuralgia Per DT, scheduled 10/[address] Edward Solorio at [facility] documented in this encounter Plan of Treatment Not on file documented as of this encounter Visit Diagnoses Not on filedocumented in this encounter Care Teams Insights Strategist Relationship Specialty Start Date End Date Dannie Cosby [address] [place] [address] PCP - General 10/10/21 documented as of this encounter
--- OUTSIDE RECORDS SUMMARY | 2025-07-18 08:02 | XMS_ITS | Clinical Summary ---
Author Organization [facility] Address [address] [address] Phone Care Team Providers Care Emergency Planner Name Role Phone Sophia Danielle MD Primary [...] topic Medical Devices Not on file [place] [address] [address] MEDICARE PPO BLUE REPLAC[place] [address] MED[place]ARE PPO BLUE [place] [address] MEDICARE PPO BLUE [place] [address] MEDICARE PPO BLUE [place] [address] MED[address] PPO [place]UE [place] [address] MEDICARE PPO BLUE REPLACEMENT Care Teams Emergency Planner Relationship Specialty Start Date End Date Sophia Danielle MD [address] [place] PCP - General 02/14/22 Additional Source Comments The information contained in this document represents components of the legal health record. It is not the complete legal health record.[facility]
--- OUTSIDE RECORDS SUMMARY | 2025-07-18 08:02 | XMS_ITS | Clinical Summary ---
Author Organization [facility] Address [address] [place] [address] Care Team Providers Care Steam Table Worker Name Role Phone Dannie Cosby Primary Care Provider [phone] Allergies Active Allergy Reactions Criticality Noted Date [...] Insurance BCBS [employer] REPL[employer] PPO Care Teams Steam Table Worker Relationship Specialty Start Date End Date Dannie Cosby [address] [place] [address] PCP - General 10/10/21
--- OUTSIDE RECORDS SUMMARY | 2025-07-18 08:02 | XMS_ITS | Clinical Summary ---
Author Organization [facility] Address [address] [facility] [address] [place] [address] Care Team Providers Care Director Customer Name Role Phone Dannie Cosby [phone] No Pcp, Per Patient Primary Care [...] mg by mouth twice daily. 05/30/2025 Active Active Problems Problem Noted Date Diagnosed Date Trigeminal neuralgia 10/31/2023 Encounters Date Type Department Care Team Description 06/07/2025 8:11 AM EST Anesthesia Event [facility] [address] [place], [place] [phone] Stephany Maddox MD Bayliss, Margaret, MD 06/07/2025 5:57 AM EST - 06/07/2025 11:59 PM EST Hospital Encounter [facility] [address] [place], [place] [phone] Kevin Garnica MD Mignano, John, MD Principe Marrero, Stephanie, MD Trigeminal neuralgia (Primary Dx) Discharge Disposition: Home or self care 06/07/2025 Travel 05/26/2025 Education [facility] [address] [place], [place] [phone] Sarah Carlos 05/04/2025 Telephone [facility] Neurosurgery [address] [place] [address] [address] [place] [id number] Rhiannon Manriquez NP from Last 3 Months [...] place to sleep or slept in a fpc (including now)? No 10/29/2023 Sex and Gender [...] (AWV) 03/21/2002 Depression Screening 07/21/2024 COVID-19 Vaccine (2024- season) 2025 04/12/2024, 04/29/2023, [...] Procedure Name Priority Date/Time Associated Diagnosis Comments MS VNPNXR 3 YEARS/> PHYS/QHP SKILL Routine 06/07/2025 7:50 AM EST from Last 3 Months Results * MS VNPNXR 3 YEARS/> PHYS/QHP SKILL (06/07/2025 7:50 [...] Final Result from Last 3 Months Insurance [facility] MEDICARE REPLACEMENT PPO HE[employer] SAF[employer] NET Care Teams Director Customer Relationship Specialty Start Date End Date No Pcp, Per Patient DAVID PCP - General 10/29/23 Dannie Cosby [address] [place] [address] 10/24/23
--- OUTSIDE RECORDS SUMMARY | 2025-07-18 08:03 | XMS_ITS | Encounter Summary ---
Author Organization [facility] Address [address] [place] [address] Care Team Providers Care Lmsw Name Role Phone Dannie Cosby Primary Care Provider Encounter Details Date Type Department Care Team (Late st Contact Info) Description 10/15/2021 Telephone [facility] [address] [place] [address] Telephone Intake, Staff Social History Tobacco [...] pls call Xiomara when received to schedule. [phone] documented in this encounter Plan of Treatment Not on file documented as of this encounter Visit Diagnoses Not on filedocumented in this encounter Care Teams Lmsw Relationship Specialty Start Date End Date Dannie Cosby [address] [place] [address] PCP - General 10/10/21 documented as of this encounter
== END 2025-07-18 08:35 | disposition home or self-care (01) ==
LOC: HO.HGI 08:00
PROVIDERS: PCP Nurse Practitioner Family; Visit Provider Nurse Practitioner Family
DX: K21.9 Gastro-esophageal reflux disease without esophagitis (principal); R09.A2 Foreign body sensation, throat; R13.12 Dysphagia, oropharyngeal phase
CPT/HCPCS: 99213

== ENCOUNTER → 2025-07-18 07:59 | Outpatient (BNVA) | payer MEDICARE, SELFPAY | PROVIDERS: PCP Nurse Practitioner Family; Visit Provider Nurse Practitioner Family | DX: K21.9 Gastro-esophageal reflux disease without esophagitis (principal); R09.A2 Foreign body sensation, throat; R13.12 Dysphagia, oropharyngeal phase; Z79.899 Other long term (current) drug therapy | CPT/HCPCS: 99212 ==